=== PATIENT | female | born 1945 | race Caucasian/White ===

== ENCOUNTER → 2016-11-22 | Outpatient (CLI) | payer MEDICARE ==
--- NOTE | 2016-11-23 08:22 | XR ---
Left wrist HISTORY: Trauma and pain 3 views of the left wrist There is a comminuted distal metaphyseal left radial fracture with dorsal angulation and extension in to the radiocarpal joint. There is associated soft tissue swelling and ulnar styloid fracture which i s minimally displaced. Bone mineralization is reduced. No dislocation. IMPRESSION: Fractures of the left wrist.
== END ==
LOC: RADXRYALE 09:41
PROVIDERS: ATTEND Family Medicine
DX: S62.102A Fracture of unspecified carpal bone, left wrist, initial encounter for closed fracture (principal)

== ENCOUNTER → 2016-11-22 | Outpatient (CLI) | payer MEDICARE ==
[2016-11-22 14:45] LABS: Anisocytosis Slight; Basophils # (A) 0.1 k/uL (0-0.2); Basophils % (A) 1 %; CH 28.5; CHCM 31.7; Eosinophils # (A) 0.1 k/uL (0-0.7); Eosinophils % (A) 1 %; HDW 2.72; HGB 11.9 gm/dL (11.4-16.0); Hypochromasia Slight; Luc # (Auto) 0.17; Luc % (Auto) 1; Lymphocytes # (A) 1.6 k/uL (1.0-4.8); Lymphocytes % (A) 12 %; MCH 28.2 pg (25.0-35.0); MCHC 31.2 g/dL (31.0-37.0); MCV 90.5 fL (80.0-100.0); Mean Platelet Volume 7.6; Monocytes # (A) 0.6 k/uL (0-1.0); Monocytes % (A) 5 %; Neutrophils # (A) 10.4 k/uL (1.3-7.7); Neutrophils % (A) 81 %; WBC 12.9 k/uL (3.8-10.6); WBC (Perox) 13.68
[2016-11-22 14:57] LABS: Appearance,Urine Cloudy (Clear); Bacteria,Urine Occasional /hpf; Bilirubin,Urine Negative (Negative); Glucose,Urine (UA) 2+ (Negative); Ketones,Urine Negative (Negative); Leukocyte Esterase,Urine Small (Negative); Nitrite,Urine Positive (Negative); Particle Count 170754; Protein,Urine Negative (Negative); RBC,Urine 1 /hpf (0-5); Specific Gravity,Urine 1.006 (1.001-1.035); Squamous Epithelial Cell,Urine <1 /hpf (0-4); UA Billing (MACRO vs. MICRO) MICRO; Urobilinogen,Urine <2.0 mg/dL (<2.0); WBC,Urine 19 /hpf (0-5)
[2016-11-22 14:58] LABS: Anion Gap 12 mmol/L; Blood Urea Nitrogen 17 mg/dL (7-17); Calcium 9.3 mg/dL (8.4-10.2); Carbon Dioxide 28 mmol/L (22-30); Chloride 104 mmol/L (98-107); Glucose 146 mg/dL (74-99); Non-African American GFR(MDRD) >60 (>60 ml/min/1.73 sqM); Potassium 4.1 mmol/L (3.5-5.1); Sodium 144 mmol/L (137-145)
[2016-11-22 15:04] LABS: Partial Thromboplastin Time 23.2 sec (22.0-30.0); Prothrombin Time 10.3 sec (9.0-12.0)
== END ==
LOC: LABPAT 14:19
PROVIDERS: ATTEND Orthopaedic Surgery Orthopaedic Surgery of the Spine
DX: Z01.818 Encounter for other preprocedural examination (principal)
CPT/HCPCS: 80048; 81001; 85025; 85610; 85730

== ENCOUNTER 2016-11-23 08:53 | Day surgery (SDC) | payer MEDICARE ==
[2016-11-22 15:24] VITALS: BMI 32.1
[~2016-11-23 08:53] MED LIST: BACITRACIN 50,000 UNIT, POLYMYXIN B 500,000 UNIT in SODIUM CHLORIDE 0.9% IRRIGATIO 1,00... IRRIGATION ONE; DEXAMETHASONE SOD PHOSPHATE 10 MG/ML 1 ML VIAL IV ONE; HYDROmorphone 1 MG/ML 1 ML SYRINGE IVP PRN; LACTATED RINGERS 1,000 ML IV SCH; LIDOCAINE 1% 20 ML VIAL (10MG/ML) FOR IV START INTRADERMA PRN; ONDANSETRON 4 MG/2 ML VIAL IVP ONE; ceFAZolin 2 GM in SODIUM CHLORIDE 0.9% 100 ML IVPB ONE
[2016-11-23 15:53] VITALS: RESP 16; TEMP 97.4
[2016-11-23] MEDS ORDERED: fentaNYL (PF) 50 MCG/ML 2 ML AMP IV ONE (16:33)
[2016-11-23] MEDS ORDERED: fentaNYL (PF) 50 MCG/ML 2 ML AMP ONE (17:55)
[2016-11-23] MEDS ORDERED: LABETALOL 5 MG/ML VIAL MDV ONE (17:55)
[2016-11-23] MEDS ORDERED: hydrALAZINE HCL 20 MG/ML 1 ML VIAL ONE (17:55)
--- NOTE | 2016-11-23 18:26 | P.DS ---
Providers Date of admission: 11/23/16 14:59 Attending physician: Kyra Zacarias Primary care physician: [facility] Course: Patient was brought to the hospital for her planned surgical treatment of her left distal radius as she has sustained a distal radius displaced fracture, left status post fall at home. This is a new injury for the patient and it is acute due to her fall. She was scheduled to have an open reduction internal fixation of left distal radius. The patient was having some high blood pressure readings in preoperative area where her blood pressure was 190/90. In the operating room we took numerous blood pressures and her blood pressures where 228 215/115-125 repeatedly. She is not having any headaches she is not having any dizziness. She denied any specific symptoms. She had not received any sedation but had received some pain medications. She was not having any improvement of her blood pressure. She states that she did take her blood pressure medicine this morning and is normally on blood pressure medications. Given her significantly high blood pressures in the 200s over the 120's it was felt that the patient would be at increased risk for surgical intervention for fixation at her left wrist fracture. We felt that it would be safer for the patient to postpone surgery on her left wrist and undergo further evaluation and management of her blood pressures. I discussed this with patient and with her family today. We will discharge patient home today and reschedule surgery once she has been able to have evaluation with her primary care physician and further evaluation and management for her blood pressures and further clearance for surgery. She does have a marginal urine analysis and we will treat for for UTI prophylactically as well. I discussed this with him and answered her questions best my ability and they understand. We will follow-up with her for further management and treatment closely. Patient Condition at Discharge: Fair Plan - Discharge Summary New Discharge Prescriptions: Nitrofurantoin Monohyd/M-Cryst [Macrobid] 100 mg PO Q12HR #14 cap Discharge Medication List Atorvastatin [Lipitor] 40 mg PO HS 06/21/14 [History] Isosorbide Mononitrate [Imdur] 30 mg PO DAILY 06/21/14 [History] Levothyroxine Sodium [Synthroid] 25 mcg PO DAILY 06/21/14 [History] Furosemide [Lasix] 40 mg PO DAILY PRN 12/29/14 [History] tiZANidine HCL [Tizanidine HCl] 4 mg PO TID PRN 12/29/14 [History] Eszopiclone [Lunesta] 2 mg PO HS 11/22/16 [History] HYDROcodone/APAP 7.5-325MG [Shirley 7.5-325] 1 tab PO Q8H PRN 11/22/16 [History] Ursodiol [Actigall] 300 mg PO BID 11/22/16 [History] Ipratropium/Albuterol Sulfate [Combivent Respimat Inhaler] 1 - 2 puff INHALATION DAILY PRN 11/23/16 [History] Nitrofurantoin Monohyd/M-Cryst [Macrobid] 100 mg PO Q12HR #14 cap 11/23/16 [Rx] QUEtiapine [SEROquel] 1 tab PO HS 11/23/16 [History]
[2016-11-23 19:20] VITALS: BP 166/71; PULSE 87
== END 2016-11-23 19:37 | disposition home or self-care (01) ==
LOC: OR 08:53 → 2ORMAIN 14:59 → UNDOADMIN 14:59 → OR 19:37 → UNDODISIN 19:37
PROVIDERS: ATTEND Orthopaedic Surgery Orthopaedic Surgery of the Spine
DX: S52.512A Displaced fracture of left radial styloid process, initial encounter for closed fracture (principal); Z53.09 Procedure and treatment not carried out because of other contraindication; I10 Essential (primary) hypertension; E11.9 Type 2 diabetes mellitus without complications; N39.0 Urinary tract infection, site not specified; I50.9 Heart failure, unspecified; E78.5 Hyperlipidemia, unspecified; E03.9 Hypothyroidism, unspecified; J44.9 Chronic obstructive pulmonary disease, unspecified; H91.90 Unspecified hearing loss, unspecified ear; Z79.899 Other long term (current) drug therapy; W06.XXXA Fall from bed, initial encounter; Y92.003 Bedroom of unspecified non-institutional (private) residence as the place of occurrence of the external cause; Z88.5 Allergy status to narcotic agent; Z83.3 Family history of diabetes mellitus; Z82.49 Family history of ischemic heart disease and other diseases of the circulatory system; Z79.891 Long term (current) use of opiate analgesic
CPT/HCPCS: 25607; J0360; J1100; J2405; J3010

== ENCOUNTER 2016-12-07 13:26 | Day surgery (SDC) | payer MEDICARE ==
[2016-12-06 14:12] VITALS: BMI 31.7
[~2016-12-07 13:26] MED LIST changes: -DEXAMETHASONE SOD PHOSPHATE 10 MG/ML 1 ML VIAL IV ONE; -HYDROmorphone 1 MG/ML 1 ML SYRINGE IVP PRN; -LACTATED RINGERS 1,000 ML IV SCH; -LIDOCAINE 1% 20 ML VIAL (10MG/ML) FOR IV START INTRADERMA PRN; -ONDANSETRON 4 MG/2 ML VIAL IVP ONE
[2016-12-07] MEDS ORDERED: LACTATED RINGERS 1,000 ML IV ONE ×2 (14:18→17:11)
[2016-12-07] MEDS ORDERED: LIDOCAINE 1% 20 ML VIAL (10MG/ML) FOR IV START INTRADERMA ONE (14:19)
[2016-12-07 14:31] LABS: Appearance,Urine Cloudy (Clear); Bacteria,Urine Moderate /hpf; Bilirubin,Urine Negative (Negative); Glucose,Urine (UA) Negative (Negative); Ketones,Urine Negative (Negative); Leukocyte Esterase,Urine Small (Negative); Mucus,Urine Rare /hpf; Nitrite,Urine Positive (Negative); Particle Count 21495; Protein,Urine Negative (Negative); Specific Gravity,Urine 1.009 (1.001-1.035); Squamous Epithelial Cell,Urine 2 /hpf (0-4); UA Billing (MACRO vs. MICRO) MICRO; Urobilinogen,Urine <2.0 mg/dL (<2.0); WBC,Urine 3 /hpf (0-5)
[2016-12-07 14:51] LABS: Glucose,Whole Blood 120 mg/dL (75-99)
[2016-12-07] MEDS ORDERED: ONDANSETRON 4 MG/2 ML VIAL IVP ONE (15:11)
[2016-12-07] MEDS ORDERED: DEXAMETHASONE SOD PHOSPHATE 10 MG/ML 1 ML VIAL IV ONE (15:11)
[2016-12-07] MEDS ORDERED: LACTATED RINGERS 1,000 ML IV SCH (15:15)
[2016-12-07] MEDS ORDERED: LIDOCAINE 1% INJ 10MG/ML (20 ML MDV) ONE (15:54)
[2016-12-07] MEDS ORDERED: hydrALAZINE HCL 20 MG/ML 1 ML VIAL ONE (15:54)
[2016-12-07] MEDS ORDERED: PROPOFOL 10 MG/ML 20 ML VIAL IV ONE (15:54)
[2016-12-07] MEDS ORDERED: HYDROmorphone (PF) 1 MG/ML ONE (15:54)
[2016-12-07] MEDS ORDERED: fentaNYL (PF) 50 MCG/ML 2 ML AMP ONE (15:54)
[2016-12-07] MEDS ORDERED: METOPROLOL TARTRATE 5 MG/5 ML VIAL IVP ONE (15:54)
[2016-12-07] MEDS ORDERED: MIDAZOLAM 2 MG/2 ML VIAL ONE (15:54)
[2016-12-07] MEDS ORDERED: SUCCINYLCHOLINE CHLORIDE 100 MG/5 ML SYR IV ONE (15:54)
[2016-12-07] MEDS ORDERED: BUPIVACAINE (PF) 0.25% 30 ML VIAL SQ ONE (17:08)
[2016-12-07] MEDS ORDERED: BENZOCAINE/MENTHOL LOZENG 1 EACH LOZENGE MUCOUS MEM PRN (17:09)
[2016-12-07] MEDS ORDERED: HYDROmorphone 1 MG/ML 1 ML SYRINGE IVP PRN ×2 (17:09→21:31)
[2016-12-07] MEDS ORDERED: ONDANSETRON 4 MG/2 ML VIAL IVP PRN (17:10)
[2016-12-07] MEDS ORDERED: ceFAZolin 1,000 MG in SODIUM CHLORIDE 0.9% 1,000 ML IRRIGATION ONE (17:10)
[2016-12-07] MEDS ORDERED: HYDROcodone/APAP 5-325MG 1 EACH TAB PO PRN (17:10)
[2016-12-07] MEDS ORDERED: HYDROcodone/APAP 7.5-325MG 1 EACH TAB PO PRN (17:12)
[2016-12-07] MEDS ORDERED: IPRATROPIUM-ALBUTEROL 3 ML NEB INHALATION PRN (17:12)
[2016-12-07] MEDS ORDERED: FUROSEMIDE 40 MG TAB PO PRN (17:12)
[2016-12-07] MEDS ORDERED: tiZANidine 4 MG TAB PO PRN (17:12)
[2016-12-07] MEDS ORDERED: SODIUM CHLORIDE 0.9% 1,000 ML IV SCH (17:15)
--- NOTE | 2016-12-07 17:25 | XR ---
EXAMINATION TYPE: XR wrist limited LT DATE OF EXAM: 12/07/2016 5:14 PM COMPARISON: 11/22/2016 TECHNIQUE: One view submitted HISTORY: Post op FINDINGS: There is operative change in near anatomic alignment. IMPRESSION: 1. Postoperative change. Appears in near-anatomic alignment
[2016-12-07] MEDS: HYDROmorphone 1 MG/ML 1 ML SYRINGE IVP PRN ×4 (17:35→18:09)
--- NOTE | 2016-12-07 17:39 | P.OP ---
Date of Procedure: 12/07/16 Preoperative Diagnosis: Left distal radius fracture, acute comminuted intra-articular status post fall Postoperative Diagnosis: Same Anesthesia: GETA Pathology: none sent Condition: stable Disposition: PACU Description of Procedure: BRIEF OPERATIVE NOTE Preoperative Diagnosis: Left displaced distal radius fracture and ulnar styloid fracture, acute comminuted and intra-articular Postoperative Diagnosis: Same Procedure: Open reduction internal fixation of left distal radius fracture Use of fluoroscopic guidance Surgeon: Dr. Zacarias Tobacco Baler: Wally Mas is present throughout the entire the case persistence during positioning, dissection, exposure, visualization, and all crucial elements of the case as well as closure. Anesthesia: General anesthesia Estimated blood loss: Less than 50 mL Tourniquet time: Approximately 60 minutes Specimen: None Complications: None apparent Components implanted: Synthes volar locking plate with 4 locking screws 2.4 mm in diameter distally and 2 cortical screws 2.7 mm diameter proximally Disposition: To recovery room in good stable condition. OPERATIVE INDICATIONS The patient had an acute injury almost 2 weeks ago when she fell on outstretched left upper extremity. She was found have obvious deformity and distal radius fracture with comminution and displacement. We discussed different treatment options and she is an active person with significant demands and she decided to proceed with open reduction internal fixation of her left distal radius fracture. We attempted to perform surgery approximately 10 days ago but she had severe hypertension and we had to postpone the surgery. She's been treated as outpatient for her hypertension as well as urinary tract infection and has made good progress with both knees. She presented again today for surgical intervention for open reduction internal fixation of her left upper extremity She had not had any pain or issues prior to her fall. I discussed the risk of occasions alternatives and benefits of surgery in relation to her injury. I discussed the risk of bleeding risk and infection risk and need for further surgery risk of decreased loss of motion loss function malunion nonunion hardware failure nerve damage as well as, occasions with surgery were explained. I answered her questions best my ability and she elected proceed with surgical intervention. OPERATIVE SUMMARY After discussing all the risks, patient alternatives and benefits at length, the patient elected to proceed with surgical intervention, signed informed consent, and presented for their procedure. The patient was seen and examined in the preoperative holding area and the surgical site was marked. The patient was given antibiotics and brought to the operating room. The patient was sedated and intubated by anesthesia in standard fashion. The patient was positioned on to the operating room table in a supine position . We were careful to pad any bony prominences and pressure points. We were careful to maintain the patient's cervical spine and good neutral alignment and position throughout. Her left upper extremity is placed on an arm board appropriately. A nonsterile tourniquet was placed over the left upper arm. We used C-arm machines to establish union fluoroscopic guidance in AP and lateral positions. We were able to localize the fractures appropriately. The patient was prepped and draped in a normal standard fashion. An appropriate timeout and keystone protocol performed. We were able to proceed with the surgery. Left upper extremity was elevated for approximately 2 minutes and a tourniquet was inflated to 300 mmHg area and it was utilized proximally 60 minutes. An incision was made over the volar aspect of the distal forearm. I was able to dissect with mobilization soft tissue structures down to the volar aspect of the distal radius. The fracture was obvious and displaced. With reduction techniques I was able to get good reduction of the distal radius fracture. This was confirmed with C-arm guidance. With the fracture in good alignment and position was able to use a distal radius volar plate which was positioned over the fracture site volarly. With C-arm guidance I was able place a proximal cortical screw and a distal locking screw appropriately. This had good visual fixation of the fracture. This was confirmed with C-arm guidance. With the plate in good alignment and good position I was unable to place distal locking screws for 4 total distal locking screws in good alignment good position being careful not to penetrate the articular surface. The screws had good purchase and were locked into the plate itself. The proximal vertical screw was exchanged for the appropriate size and put in place with good bony purchase. I placed another proximal cortical screw and good alignment and good position with good bony purchase. Alignment and position was checked and the fracture and hardware had good alignment good position. The wrist was taken through range of motion and showed good fixation without any motion at the fracture site. The wound was copiously irrigated and suctioned dry. We were able to proceed with closure. subcu tissues closed 3-0 Vicryl and skin was closed with 5-0 nylon. The wound was cleaned and dried and dressed with the appropriate dressing. I placed a well-padded well molded volar and dorsal short arm splint and good position being careful to pad any bony problems pressure points. The drapes were broken down. The patient was gently rolled back onto their hospital bed being careful to maintain their cervical spine and good neutral alignment and position. They were woken up by anesthesia , extubated, and brought to the recovery room in good stable condition. The patient will be able to be discharged from the hospital after appropriate observation due to and for appropriate postoperative care, medical management and monitoring. We will continue to follow them closely about the postoperative course. a plan see her back in the office in approximately 1 week' s time or sooner if she is having problems.
[2016-12-07] MEDS: URSODIOL 300 MG CAP PO SCH (20:50)
[2016-12-07] MEDS: cloNIDine HCL 0.1 MG TAB PO SCH (20:52)
[2016-12-07] MEDS ORDERED: QUEtiapine 100 MG TAB PO SCH (21:00)
[2016-12-07] MEDS ORDERED: ZOLPIDEM 5 MG TAB PO SCH (21:00)
[2016-12-07] MEDS ORDERED: ATORVASTATIN 40 MG TAB PO SCH (21:00)
[2016-12-07] MEDS ORDERED: HYDROcodone/APAP 10-325MG 1 EACH TAB PO PRN (21:38)
[2016-12-08] MEDS: ceFAZolin 2 GM in SODIUM CHLORIDE 0.9% 100 ML IVPB SCH ×2 (00:25→09:17)
[2016-12-08 06:18] VITALS: RESP 18
[2016-12-08] MEDS ORDERED: LEVOTHYROXINE 25 MCG TAB PO SCH (06:30)
[2016-12-08 07:37] VITALS: BP 185/89; PULSE 61; TEMP 98.1
--- NOTE | 2016-12-08 08:01 | FL ---
FLUOROSCOPY 24 seconds of fluoroscopy time were utilized during internal fixation of the left wrist. 2 images doc ument the procedure.
[2016-12-08] MEDS ORDERED: ISOSORBIDE MONONITRATE ER 30 MG TAB.ER.24H PO SCH (09:00)
[2016-12-08] MEDS ORDERED: LISINOPRIL 20 MG TAB PO SCH (09:00)
[2016-12-08] MEDS ORDERED: ATENOLOL 25 MG TAB PO SCH (09:00)
[2016-12-08] MEDS ORDERED: HYDROCHLOROTHIAZIDE 25 MG TAB PO SCH (09:00)
[2016-12-08] MEDS: URSODIOL 300 MG CAP PO SCH (09:17)
[2016-12-08] MEDS: cloNIDine HCL 0.1 MG TAB PO SCH (09:18)
--- NOTE | 2016-12-08 09:48 | P.DS ---
Providers Attending physician: Kyra Zacarias Primary care physician: [facility] Course: The patient presented on the day of admission as per her operative note. Almost 2 weeks ago she has sustained a fracture at the left distal radius and ulna with displacement and angulation. We initially tried to pursue surgical intervention but she had severe hypertension issues and her surgery had to be postponed. She was able to get better control of her blood pressure with medicine and cardiology service and was able to undergo surgery for open reduction internal fixation of her left distal radius yesterday as per her operative note. She is having significant pain yesterday but feels that her symptoms are significant improvement. She has good motor and sensation at her hands and fingers. She has no new complaints. Physical Exam The incision site is clean dry and intact. There is no erythema no drainage. There is no purulence no evidence of infection. Her short arm splint is intact. There is no active drainage. Her fingers are pink and warm. She has good motion in her fingers. Good motion at her elbow. Abdomen soft and nontender. Chest has good excursion with deep inspiration and expiration. The patient has active and passive range of motion intact at the upper and lower extremities. There is no acute change in neurologic status. The splint is clean dry and intact at left upper extremity Hospital Course Postoperative day #1 status post open reduction internal fixation of left distal radius for her comminuted and displaced distal radius fracture status post fall. Hypertension The patient has been making good progress postoperatively. Her symptoms and her pain have subsided and her wound site appears to be stable. They have completed the prophylactic antibiotics without any signs or symptoms of infection. The patient has been able to advance their diet, and is tolerating diet adequately. The pain was initially controlled with IV medications and is now controlled appropriately with oral medications. The patient has been able to increase their mobilization. Her blood pressure has remained stable and she should continue management as an outpatient with her primary care doctor and cardiology to keep control of her hypertension. The patient has progressed appropriately. I think they are in good stable condition for discharge today. They will be sent home with appropriate prescriptions. I answered their questions to the best of my ability in a language that they can understand and they are agreeable with the plan. They will follow up as directed in approximately 1 week for recheck evaluation or sooner if she is having any problems. Patient Condition at Discharge: Good Plan - Discharge Summary New Discharge Prescriptions: HYDROcodone/APAP 7.5-325MG [Blachly 7.5-325] 1 tab PO Q6HR PRN #90 tab PRN Reason: Pain Nitrofurantoin Monohyd/M-Cryst [Macrobid] 100 mg PO Q12HR #14 cap Discharge Medication List Atorvastatin [Lipitor] 40 mg PO HS 06/21/14 [History] Isosorbide Mononitrate [Imdur] 30 mg PO QAM 06/21/14 [History] Levothyroxine Sodium [Synthroid] 25 mcg PO QAM 06/21/14 [History] Furosemide [Lasix] 40 mg PO DAILY PRN 12/29/14 [History] tiZANidine HCL [Tizanidine HCl] 4 mg PO TID PRN 12/29/14 [History] Eszopiclone [Lunesta] 2 mg PO HS 11/22/16 [History] HYDROcodone/APAP 7.5-325MG [Blachly 7.5-325] 1 tab PO Q8H PRN 11/22/16 [History] Ursodiol [Actigall] 300 mg PO BID 11/22/16 [History] Ipratropium/Albuterol Sulfate [Combivent Respimat Inhaler] 1 - 2 puff INHALATION DAILY PRN 11/23/16 [History] QUEtiapine [SEROquel] 100 mg PO HS 11/23/16 [History] Atenolol 25 mg PO DAILY 12/07/16 [History] HYDROcodone/APAP 7.5-325MG [Blachly 7.5-325] 1 tab PO Q6HR PRN #90 tab 12/07/16 [ Rx] Hydrochlorothiazide 25 mg PO DAILY 12/07/16 [History] Lisinopril [Zestril] 20 mg PO DAILY 12/07/16 [History] Nitrofurantoin Monohyd/M-Cryst [Macrobid] 100 mg PO Q12HR #14 cap 12/07/16 [Rx] cloNIDine HCL [Catapres] 0.1 mg PO TID 12/07/16 [History] Follow up Appointment(s)/Referral(s): Kyra Zacarias DO [Doctor of Osteopathic Medicine] - 1 Week (With Brennon Koroma at Dr. Zacarias office) Activity/Diet/Wound Care/Special Instructions: keep splint clean, dry and intact. do not remove. elevate Left Upper Extremity.
== END 2016-12-08 11:41 | disposition home or self-care (01) ==
LOC: OR 13:26 → 3OBS 17:26 → OR 12-08 11:41
PROVIDERS: ATTEND Orthopaedic Surgery Orthopaedic Surgery of the Spine
DX: S52.502A Unspecified fracture of the lower end of left radius, initial encounter for closed fracture (principal); S52.612A Displaced fracture of left ulna styloid process, initial encounter for closed fracture; W06.XXXA Fall from bed, initial encounter; I10 Essential (primary) hypertension; E78.5 Hyperlipidemia, unspecified; E11.9 Type 2 diabetes mellitus without complications; I20.9 Angina pectoris, unspecified; E07.9 Disorder of thyroid, unspecified; M19.90 Unspecified osteoarthritis, unspecified site; K74.60 Unspecified cirrhosis of liver; Z95.1 Presence of aortocoronary bypass graft; Z79.899 Other long term (current) drug therapy; Z88.6 Allergy status to analgesic agent; Z88.5 Allergy status to narcotic agent
CPT/HCPCS: 81001; 73100; 25652; 25608; C1713; J2250; J0360; J1100; J0690 ×3; J2405; J2001; J3010; J1170 ×2; J0330; J2704

== ENCOUNTER 2016-12-12 22:36 | Inpatient (IN) | payer MEDICARE ==
[2016-12-12] MEDS ORDERED: SODIUM CHLORIDE 0.9% 1,000 ML IV ONE (22:39)
[2016-12-12 22:40] LABS: Glucose,Whole Blood 131 mg/dL (75-99)
--- NOTE | 2016-12-12 22:47 | ED ---
Altered Mental Status HPI - General Stated Complaint: Altered Mental Status Time Seen by Provider: 12/12/16 22:39 Source: EMS Mode of arrival: EMS Limitations: altered mental status - History of Present Illness Initial Comments: Family noticed that she was unresponsive and they called the ambulance [facility] noticed some blood pressure was quite low they said it was 40/20 and she was not moving at all. She has left arm injury for that she was prescribed Vicodin they gave her [place] CN II mg IV after that she started moving around but she was still quite confused on arrival to the ER patient had his eyes open she was following some commands looked quite pale with the fluid for about a half liter of blood pressure got up to 1:30 systolic and sugar was within normal range. Later my daughter and son came and they said the mom's lap to hold a they definitely don't know when she was totally normal granddaughter tried to break up gram of this morning before she left for school mostly grandma gets up and sees her off at the door but today grandma didn't get up. That was around 9 AM today Family thought she had too many Vicodin's and that' s why she slept poorly - Related Data Home Medications Medication Instructions Recorded Confirmed Atorvastatin [Lipitor] 40 mg PO HS 06/21/14 12/07/16 Isosorbide Mononitrate [Imdur] 30 mg PO QAM 06/21/14 12/07/16 Levothyroxine Sodium [Synthroid] 25 mcg PO QAM 06/21/14 12/07/16 Furosemide [Lasix] 40 mg PO DAILY PRN 12/29/14 12/07/16 tiZANidine HCL [Tizanidine HCl] 4 mg PO TID PRN 12/29/14 12/07/16 Eszopiclone [Lunesta] 2 mg PO HS 11/22/16 12/07/16 HYDROcodone/APAP 7.5-325MG [[place] 1 tab PO Q8H PRN 11/22/16 12/07/16 7.5-325] Ursodiol [Actigall] 300 mg PO BID 11/22/16 12/07/16 Ipratropium/Albuterol Sulfate 1 - 2 puff INHALATION DAILY PRN 11/23/16 12/07/16 [Combivent Respimat Inhaler] QUEtiapine [SEROquel] 100 mg PO HS 11/23/16 12/07/16 Atenolol 25 mg PO DAILY 12/07/16 12/07/16 Hydrochlorothiazide 25 mg PO DAILY 12/07/16 12/07/16 Lisinopril [Zestril] 20 mg PO DAILY 12/07/16 12/07/16 cloNIDine HCL [Catapres] 0.1 mg PO TID 12/07/16 12/07/16 Previous Rx's Medication Instructions Recorded HYDROcodone/APAP 7.5-325MG [[place] 1 tab PO Q6HR PRN #90 tab 12/07/16 7.5-325] Nitrofurantoin Monohyd/M-Cryst 100 mg PO Q12HR #14 cap 12/07/16 [Macrobid] Allergies Allergy/AdvReac Type Severity Reaction Status Date / Time acetaminophen [From Percocet] Allergy Rash/Hives Verified 12/07/16 14:27 Iodinated Contrast Media - Allergy Rash/Hives Verified 12/07/16 14:27 Oral and oxycodone HCl [From Percocet] Allergy Rash/Hives Verified 12/07/16 14:27 shellfish derived Allergy Rash/Hives Verified 12/07/16 14:27 Review of Systems ROS Statement: Those systems with pertinent positive or pertinent negative responses have been documented in the HPI. ROS Other: All systems not noted in ROS Statement are negative. Past Medical History Past Medical History: Hyperlipidemia, Hypertension, Liver Disease, Musculoskeletal Disorder, Osteoarthritis (OA), Thyroid Disorder Additional Past Medical History / Comment(s): Hx pxpwbjquf-cwrvyb-elfqy't see specialist anymore, borderline diabetes, states no meds just watches what she eats. Had a fall and fx. left wrist. History of Any Multi-Drug Resistant Organisms: None Reported Past Surgical History: Bowel Resection, Cholecystectomy, Coronary Bypass/CABG, Heart Catheterization, Hysterectomy, Tonsillectomy Additional Past Surgical History / Comment(s): Gastric bypass, bowel obstruction x3, quad bypass 16 yrs ago. Past Anesthesia/Blood Transfusion Reactions: Family History of Problems w/ Anesthesia Additional Past Anesthesia/Blood Transfusion Reaction / Comment(s): Mother had difficulty waking up after anesthesia. Date of Last Stent Placement:: unknown Past Psychological History: No Psychological Hx Reported Smoking Status: Never smoker Past Alcohol Use History: None Reported Past Drug Use History: None Reported - Past Family History Mother Family Medical History: No Reported History General Exam - General Exam Comments Initial Comments: General: The patient is awake , she looks pale and tired GCS is 15 Skin: Skin is warm and dry and no rashes or lesions are noted. Eye: Pupils are equal, round and reactive to light, extra-ocular movements are intact; there is normal conjunctiva bilaterally. Ears, nose, mouth and throat: There are moist mucous membranes and no oral lesions. Neck: The neck is supple, there is no tenderness Cardiovascular: There is a regular rate and rhythm. No murmur, Respiratory: To auscultation bilateral, raccoons at the bases Gastrointestinal: Soft, non-distended, non-tender abdomen without masses or organomegaly noted. There is no rebound or guarding present. Bowel sounds are unremarkable. Back: There is no tenderness to palpation in the midline. There is no obvious deformity. Musculoskeletal: Normal ROM, no tenderness, she has a cast on her left forearm. Neurological: CN II-XII intact, Cranial nerves III through XII are intact. He is moving all 4 extremities but not following the commands have to time Psychiatric: Cooperative, affect is quite flat. Limitations: altered mental status Course Vital Signs 12/12/16 12/12/16 22:38 23:17 Temperature 96.9 F L Pulse Rate 73 60 Respiratory 16 16 Rate Blood Pressure 139/70 129/59 O2 Sat by Pulse 100 98 Oximetry EKG shows sinus rhythm with a premature atrial complexes ventricular rate is 68 NM interval is 148 QRS duration is 80 QT/QTc is 428/455 review of this EKG reveal flattening of the T-wave in aVL no ST elevation or ST depression noticed this EKG Medical Decision Making - Lab Data Result diagrams: 12/12/16 22:48 12/12/16 22:48 Lab Results 12/12/16 12/12/16 12/12/16 Range/Units 22:39 22:48 22:48 WBC 11.1 H (3.8-10.6) k/uL RBC 3.63 L (3.80-5.40) m/uL Hgb 10.4 L (11.4-16.0) gm/dL Hct 31.6 L (34.0-46.0) % MCV 87.2 (80.0-100.0) fL MCH 28.6 (25.0-35.0) pg MCHC 32.8 (31.0-37.0) g/dL RDW 16.4 H (11.5-15.5) % Plt Count 292 (150-450) k/uL Neutrophils % 74 % Lymphocytes % 19 % Monocytes % 5 % Eosinophils % 1 % Basophils % 0 % Neutrophils # 8.2 H (1.3-7.7) k/uL Lymphocytes # 2.1 (1.0-4.8) k/uL Monocytes # 0.5 (0-1.0) k/uL Eosinophils # 0.1 (0-0.7) k/uL Basophils # 0.0 (0-0.2) k/uL Anisocytosis Slight PT (9.0-12.0) sec INR (<1.1) APTT (22.0-30.0) sec Sodium (137-145) mmol/L Potassium (3.5-5.1) mmol/L Chloride (98-107) mmol/L Carbon Dioxide (22-30) mmol/L Anion Gap mmol/L BUN (7-17) mg/dL Creatinine (0.52-1.04) mg/dL Est GFR (MDRD) Af Amer (>60 ml/min/1.73 sqM) Est GFR (MDRD) Non-Af (>60 ml/min/1.73 sqM) Glucose (74-99) mg/dL POC Glucose (mg/dL) 131 H (75-99) mg/dL POC Glu [place]ose [place] ID [facility] [place], [place]annine Calcium (8.4-10.2) mg/dL Total Bilirubin (0.2-1.3) mg/dL AST (14-36) U/L ALT (9-52) U/L Alkaline Phosphatase (38-126) U/L Total Creatine Kinase 251 H (30-135) U/L CK-MB (CK-2) 2.3 (0.0-2.4) ng/mL CK-MB (CK-2) Rel Index 0.9 Troponin I <0.012 (0.000-0.034) ng/mL Total Protein (6.3-8.2) g/dL Albumin (3.5-5.0) g/dL Urine Color Urine Appearance (Clear) Urine pH (5.0-8.0) Ur Specific [place] (1.001-1.035) Urine Protein (Negative) Urine Glucose (UA) (Negative) Urine Ketones (Negative) Urine Blood (Negative) Urine Nitrite (Negative) Urine Bilirubin (Negative) Urine Urobilinogen (<2.0) mg/dL Ur Leukocyte Esterase (Negative) Urine Opiates Screen (NotDetected) Ur Oxycodone Screen (NotDetected) Urine Methadone Screen (NotDetected) Ur Propoxyphene Screen (NotDetected) Ur Barbiturates Screen (NotDetected) U Tricyclic Antidepress (NotDetected) Ur Phencyclidine Scrn (NotDetected) Ur Amphetamines Screen (NotDetected) U Methamphetamines Scrn (NotDetected) U Benzodiazepines Scrn (NotDetected) Urine Cocaine Screen (NotDetected) U Marijuana (THC) Screen (NotDetected) 12/12/16 12/12/16 12/12/16 Range/Units 22:48 22:48 23:15 WBC (3.8-10.6) k/uL RBC (3.80-5.40) m/uL Hgb (11.4-16.0) gm/dL Hct (34.0-46.0) % MCV (80.0-100.0) fL MCH (25.0-35.0) pg MCHC (31.0-37.0) g/dL RDW (11.5-15.5) % Plt Count (150-450) k/uL Neutrophils % % Lymphocytes % % Monocytes % % Eosinophils % % Basophils % % Neutrophils # (1.3-7.7) k/uL Lymphocytes # (1.0-4.8) k/uL Monocytes # (0-1.0) k/uL Eosinophils # (0-0.7) k/uL Basophils # (0-0.2) k/uL Anisocytosis PT 11.6 (9.0-12.0) sec INR 1.2 (<1.1) APTT 21.5 L (22.0-30.0) sec Sodium 135 L (137-145) mmol/L Potassium 4.3 (3.5-5.1) mmol/L Chloride 103 (98-107) mmol/L Carbon Dioxide 24 (22-30) mmol/L Anion Gap 8 mmol/L BUN 31 H (7-17) mg/dL Creatinine 1.20 H (0.52-1.04) mg/dL Est GFR (MDRD) Af Amer 54 (>60 ml/min/1.73 sqM) Est GFR (MDRD) Non-Af 44 (>60 ml/min/1.73 sqM) Glucose 121 H (74-99) mg/dL POC Glucose (mg/dL) (75-99) mg/dL POC Glu Moose Hunter ID Calcium 8.3 L (8.4-10.2) mg/dL Total Bilirubin 0.6 (0.2-1.3) mg/dL AST 26 (14-36) U/L ALT 27 (9-52) U/L Alkaline Phosphatase 109 (38-126) U/L Total Creatine Kinase (30-135) U/L CK-MB (CK-2) (0.0-2.4) ng/mL CK-MB (CK-2) Rel Index Troponin I (0.000-0.034) ng/mL Total Protein 5.7 L (6.3-8.2) g/dL Albumin 3.0 L (3.5-5.0) g/dL Urine Color Yellow Urine Appearance Clear (Clear) Urine pH 6.0 (5.0-8.0) Ur Specific [place] 1.011 (1.001-1.035) Urine Protein Negative (Negative) Urine Glucose (UA) Negative (Negative) Urine Ketones Negative (Negative) Urine Blood Negative (Negative) Urine Nitrite Negative (Negative) Urine Bilirubin Negative (Negative) Urine Urobilinogen <2.0 (<2.0) mg/dL Ur Leukocyte Esterase Negative (Negative) Urine Opiates Screen Detected H (NotDetected) Ur Oxycodone Screen Not Detected (NotDetected) Urine Methadone Screen Not Detected (NotDetected) Ur Propoxyphene Screen Not Detected (NotDetected) Ur Barbiturates Screen Not Detected (NotDetected) U Tricyclic Antidepress Detected H (NotDetected) Ur Phencyclidine Scrn Not Detected (NotDetected) Ur Amphetamines Screen Not Detected (NotDetected) U Methamphetamines Scrn Not Detected (NotDetected) U Benzodiazepines Scrn Not Detected (NotDetected) Urine Cocaine Screen Not Detected (NotDetected) U Marijuana (THC) Screen Not Detected (NotDetected) Critical Care Time Total Critical Care Time: 45 Critical Care Time: Was quite hypertensive when she came in and she was barely awake with the fluid resuscitation she a blood pressure got better and then GCS perked up to [address] head showed new headache broken or infarct indeterminate Chest X-Ray Showed Pneumonia and a CBC Was within Normal Range with Some Left Shift Lower GCS Is 15 Now Looking at This Head CT 8 Think She Has a CVA Though Onset Time Was Not Clear and There Was No Measurable Neuro Deficits Not of Older People Get Unresponsive Even with the Sepsis, She Be Admitted to Dr. Martínez Services and Now Dr. Montoya Will Be Consulted A, She Will Not Get Aspirin 81 Mg by Mouth Now Disposition Clinical Impression: Hypotension, Lacunar infarct, acute, Pneumonia Disposition: ADMITTED IP TO THIS HOSP Condition: Fair
[2016-12-12 23:06] LABS: Anisocytosis Slight; Basophils % (A) 0 %; CH 28.5; CHCM 32.8; Eosinophils # (A) 0.1 k/uL (0-0.7); Eosinophils % (A) 1 %; HCT 31.6 % (34.0-46.0); HDW 2.46; HGB 10.4 gm/dL (11.4-16.0); Luc # (Auto) 0.19; Luc % (Auto) 2; Lymphocytes # (A) 2.1 k/uL (1.0-4.8); Lymphocytes % (A) 19 %; MCH 28.6 pg (25.0-35.0); MCHC 32.8 g/dL (31.0-37.0); MCV 87.2 fL (80.0-100.0); Mean Platelet Volume 6.9; Monocytes # (A) 0.5 k/uL (0-1.0); Monocytes % (A) 5 %; Neutrophils # (A) 8.2 k/uL (1.3-7.7); Neutrophils % (A) 74 %; RBC 3.63 m/uL (3.80-5.40); RDW 16.4 % (11.5-15.5); WBC 11.1 k/uL (3.8-10.6); WBC (Perox) 11.17
[2016-12-12 23:14] LABS: INR 1.2 (<1.1); Prothrombin Time 11.6 sec (9.0-12.0)
[2016-12-12 23:15] LABS: Calcium 8.3 mg/dL (8.4-10.2); Potassium 4.3 mmol/L (3.5-5.1); Total Bilirubin 0.6 mg/dL (0.2-1.3); Total Protein 5.7 g/dL (6.3-8.2)
--- NOTE | 2016-12-12 23:16 | CT ---
EXAMINATION TYPE: CT brain wo con DATE OF EXAM: 12/12/2016 11:02 PM COMPARISON: 12/29/2014 HISTORY: Altered mental status and hypotension. CT DLP: 1064.30 mGycm Automated exposure control for dose reduction was used. FINDINGS: There is hypodensity in the periventricular white matter and more noticeable in both parietal lobes. There is no mass effect nor midline shift. There is a 1 cm hypodensity in the right posterior frontal lobe blackburn-white matter junction. There is no hydrocephalus. There are hypodense foci in both interna l capsules. Calvarium is intact. IMPRESSION: Extensive chronic small vessel ischemia. There is slight progression of disease compared to old exam. There is evidence of new lacunar infarct in the left internal capsule.
--- NOTE | 2016-12-12 23:19 | XR ---
EXAMINATION TYPE: XR chest 2V DATE OF EXAM: 12/12/2016 11:06 PM COMPARISON: 12/29/2014 HISTORY: Altered mental status TECHNIQUE: Frontal and lateral views of the chest are obtained. FINDINGS: Heart appears enlarged. There is no gross heart failure. There is evidence of a mild infil trate at the lateral left lung base. There are sternal wires. There are chest leads. There are no hil ar masses. IMPRESSION: No heart failure. There is a small infiltrate at the lateral left lung base that could b e new compared to old exam.
[2016-12-12 23:22] LABS: Partial Thromboplastin Time 21.5 sec (22.0-30.0)
[2016-12-12 23:27] LABS: Creatine Kinase 251 U/L (30-135)
[2016-12-12 23:32] LABS: Appearance,Urine Clear (Clear); Bilirubin,Urine Negative (Negative); Glucose,Urine (UA) Negative (Negative); Ketones,Urine Negative (Negative); Leukocyte Esterase,Urine Negative (Negative); Nitrite,Urine Negative (Negative); Protein,Urine Negative (Negative); Specific Gravity,Urine 1.011 (1.001-1.035); UA Billing (MACRO vs. MICRO) CHEM; Urobilinogen,Urine <2.0 mg/dL (<2.0)
[2016-12-12 23:40] LABS: Creatine Kinase MB 2.3 ng/mL (0.0-2.4); Troponin I <0.012 ng/mL (0.000-0.034)
[2016-12-12] MEDS ORDERED: ASPIRIN 81 MG CHEW PO STA (23:54)
[2016-12-12] MEDS ORDERED: ONDANSETRON 4 MG/2 ML VIAL IVP PRN (23:54)
[2016-12-12] MEDS ORDERED: NALOXONE 0.4 MG/ML 1 ML VIAL IV PRN (23:54)
[2016-12-12] MEDS ORDERED: tiZANidine 4 MG TAB PO PRN (23:59)
[2016-12-12] MEDS ORDERED: IPRATROPIUM-ALBUTEROL 3 ML NEB INHALATION PRN (23:59)
[2016-12-13] MEDS ORDERED: cefTRIAXone 2,000 MG in SODIUM CHLORIDE 0.9% 100 ML IVPB STA (00:03)
[2016-12-13] MEDS ORDERED: AZITHROMYCIN 500 MG in SODIUM CHLORIDE 0.9% 250 ML IVPB STA (00:03)
[2016-12-13 01:03] VITALS: BMI 30.4
[2016-12-13] MEDS: LEVOTHYROXINE 25 MCG TAB PO SCH (06:36)
[2016-12-13] MEDS: URSODIOL 300 MG CAP PO SCH ×2 (08:19→20:10)
[2016-12-13] MEDS: cloNIDine HCL 0.1 MG TAB PO SCH ×3 (08:19→21:07)
[2016-12-13] MEDS: ASPIRIN 81 MG CHEW PO SCH (08:19)
[2016-12-13] MEDS: ISOSORBIDE MONONITRATE ER 30 MG TAB.ER.24H PO SCH (08:20)
[2016-12-13] MEDS: traMADol 50 MG TAB PO PRN ×3 (08:24→21:13)
--- NOTE | 2016-12-13 17:58 | P.CNOR ---
History of Present Illness - HPI Consult reason: fracture (Status post ORIF left distal radius for left distal radius fracture) History of present illness: Patient is a very pleasant 71-year-old female who is seen and examined at the bedside at we are consulted for postoperative follow-up evaluation following ORIF of the left wrist for left distal radius fracture status post fall. Patient underwent surgical intervention last 12/07/2016. She had returned home following surgery and had been progressing well. She was scheduled to be seen and examined in our office this morning but was unable to make this appointment due to being admitted to the hospital. Last evening the family noticed the patient was unresponsive. The ambulance was called and the patient was brought to the emergency department for further evaluation. Family has stated her blood pressure was significantly low. She has been taking [place] as prescribed following her left wrist fracture and subsequent surgery. She was quite confused at presentation to the emergency department. Emergency note states the family felt she may have taken too much [place]. A brain CT was performed in the emergency department which showed evidence of new lacunar infarct in the left internal capsule and extensive chronic small vessel ischemia. Patient states at the bedside she feels significantly better than she did at presentation to the emergency department. She is not currently feeling confused. She has not had much of an appetite but has been eating without difficulty. She states she was seen and examined by medicine today who states she may remain in the hospital for approximately 1-2 days before being discharged. Nursing states [place] has since been discontinued and patient has been placed on tramadol. Patient states at the bedside tramadol has not been controlling her pain at her left wrist. Past Medical History Past Medical History: Hyperlipidemia, Hypertension, Liver Disease, Musculoskeletal Disorder, Osteoarthritis (OA), Thyroid Disorder Additional Past Medical History / Comment(s): Hx [id number]'t see specialist anymore, borderline diabetes, states no meds just watches what she eats. Had a fall and fx. left wrist. History of Any Multi-Drug Resistant Organisms: None Reported Past Surgical History: Bowel Resection, Cholecystectomy, Coronary Bypass/CABG, Heart Catheterization, Hysterectomy, Tonsillectomy Additional Past Surgical History / Comment(s): Gastric bypass, bowel obstruction x3, quad bypass 16 yrs ago. Past Anesthesia/Blood Transfusion Reactions: Family History of Problems w/ Anesthesia Additional Past Anesthesia/Blood Transfusion Reaction / Comm: Mother had difficulty waking up after anesthesia. Date of Last Stent Placement:: unknown Past Psychological History: No Psychological Hx Reported Smoking Status: Never smoker Past Alcohol Use History: None Reported Past Drug Use History: None Reported - Past Family History Mother Family Medical History: Diabetes Mellitus Father Family Medical History: Myocardial Infarction (NH) Medications and Allergies Home Medications Medication Instructions Recorded Confirmed Type Atorvastatin [Lipitor] 40 mg PO HS 06/21/14 12/13/16 History Isosorbide Mononitrate [Imdur] 30 mg PO QAM 06/21/14 12/13/16 History Levothyroxine Sodium [Synthroid] 25 mcg PO QAM 06/21/14 12/13/16 History tiZANidine HCL [Tizanidine HCl] 4 mg PO TID PRN 12/29/14 12/13/16 History Eszopiclone [Lunesta] 2 mg PO HS PRN 11/22/16 12/13/16 History Ursodiol [Actigall] 600 mg PO BID 11/22/16 12/13/16 History QUEtiapine [SEROquel] 100 mg PO HS 11/23/16 12/13/16 History Atenolol 25 mg PO DAILY 12/07/16 12/13/16 History Hydrochlorothiazide 25 mg PO DAILY 12/07/16 12/13/16 History Lisinopril [Zestril] 20 mg PO DAILY 12/07/16 12/13/16 History cloNIDine HCL [Catapres] 0.1 mg PO TID 12/07/16 12/13/16 History traMADol HCL [Ultram] 50 mg PO TID PRN 12/13/16 12/13/16 History Allergies Allergy/AdvReac Type Severity Reaction Status Date / Time Iodinated Contrast Media - Allergy Rash/Hives Verified 12/13/16 00:54 Oral and oxycodone HCl [From Percocet] Allergy Rash/Hives Verified 12/13/16 00:54 shellfish derived Allergy Rash/Hives Verified 12/13/16 00:54 acetaminophen [From Percocet] AdvReac Severe Liver Verified 12/13/16 00:54 Failure Physical Examination Physical Exam: Patient is awake, alert, and oriented 3 Vital signs stable Good chest excursion with deep inspiration and expiration Abdomen soft nontender No signs or symptoms of DVT; no calf pain Splint and Burt wrap over the left upper extremity at the wrist is removed during physical examination Incision along the anterior aspect of the left wrist is clean, dry, and intact Sutures at the incision site remain intact No significant evidence of erythema, bruising, or obvious signs of infection at the surgical site; no evidence of active drainage No significant pain with palpation of the surgical site Patient is able to wiggle all fingers and thumb of the left upper extremity without difficulty Active full range of motion left shoulder and elbow without difficulty Nonstick Telfa and paper tape dressing is applied After physical examination left wrist is placed in cock up wrist splint Results Pertinent studies: CT of the brain without contrast: new lacunar infarct in the left internal capsule and extensive chronic small vessel ischemia. - Labs Result Diagrams: 12/12/16 22:48 12/12/16 22:48 Assessment and Plan (1) S/P wrist surgery Status: Acute (2) Status post fall Status: Acute (3) Lacunar infarct, acute Status: Acute (4) Hypotension Status: Acute Plan: Assessment: Status post ORIF left distal radius for left distal radius fracture status post fall Hypotension Lacunar infarct Plan: 1. Patient is progressing as expected following ORIF of the left distal radius for left distal radius fracture. Dressing and splint is removed during physical examination of the left wrist. Nonstick Telfa and paper tape is applied over the incision site. Patient is then placed in a cock up wrist splint for the left wrist. Patient may remove this wrist splint a couple times per day to work on gentle range of motion of the left wrist. She must keep his left wrist splint intact at all other times except while bathing. She should avoid excessive activities of the left wrist. She should avoid heavy lifting with the left wrist. At this time from an orthopedic standpoint, she is cleared for discharge once cleared by medicine and all other providers. We will currently plan for her to follow up in the office as previously scheduled on 12/19/2016 for further evaluation and treatment in regards to her left wrist. 2. Medicine and all other medical providers to continue following the patient for her other medical diagnoses 3. Following discharge, patient will plan to follow-up with Dr. Rick Zacarias at [facility] on 12/19/2016 as previously scheduled 4. This patient has been discussed in detail with Dr. Juan Doran and he agrees with this plan Time with Patient: Greater than 30
--- NOTE | 2016-12-13 18:36 | P.CNNES ---
History of Present Illness Consult date: 12/13/16 History of Present Illness: The patient is a 71-year-old right-handed white female who states that yesterday she was getting ready for bed taking her medications including Vicodin Seroquel and a sleeping pill and she apparently passed out. She does not recall what happened. Her was there and she apparently became unresponsive. EMS was called and apparently her blood pressure was 40/20. The patient reports that 2 weeks ago she fell out of bed and fractured her left forearm. She had surgery last week and was prescribed Vicodin. Extra Vicodin yesterday prior to passing out. He has a similar event occur one year ago. She had a CT of the brain in the emergency room which showed small vessel disease and evidence of a new lacunar infarct in the left internal capsule. She was admitted to the hospital with hypotension and lacunar infarct. Review of Systems Constitutional: Denies chills, Denies fever Eyes: denies blurred vision, denies pain Ears, nose, mouth and throat: Denies headache, Denies sore throat Cardiovascular: Denies chest pain, Denies shortness of breath Respiratory: Denies cough Gastrointestinal: Denies abdominal pain, Denies diarrhea, Denies nausea, Denies vomiting Genitourinary: Denies dysuria, Denies hematuria Musculoskeletal: Denies myalgias Integumentary: Denies pruritus, Denies rash Neurological: Denies numbness, Denies weakness Psychiatric: Denies anxiety, Denies depression Endocrine: Denies fatigue, Denies weight change Past Medical History Past Medical History: Hyperlipidemia, Hypertension, Liver Disease, Musculoskeletal Disorder, Osteoarthritis (OA), Thyroid Disorder Additional Past Medical History / Comment(s): Hx [id number] see specialist anymore, borderline diabetes, states no meds just watches what she eats. Had a fall and fx. left wrist. History of Any Multi-Drug Resistant Organisms: None Reported Past Surgical History: Bowel Resection, Cholecystectomy, Coronary Bypass/CABG, Heart Catheterization, Hysterectomy, Tonsillectomy Additional Past Surgical History / Comment(s): Gastric bypass, bowel obstruction x3, quad bypass 16 yrs ago. Past Anesthesia/Blood Transfusion Reactions: Family History of Problems w/ Anesthesia Additional Past Anesthesia/Blood Transfusion Reaction / Comment(s): Mother had difficulty waking up after anesthesia. Date of Last Stent Placement:: unknown Past Psychological History: No Psychological Hx Reported Smoking Status: Never smoker Past Alcohol Use History: None Reported Past Drug Use History: None Reported - Past Family History Mother Family Medical History: Diabetes Mellitus Father Family Medical History: Myocardial Infarction ([place]) Medications and Allergies Home Medications Medication Instructions Recorded Confirmed Type Atorvastatin [Lipitor] 40 mg PO HS 06/21/14 12/13/16 History Isosorbide Mononitrate [Imdur] 30 mg PO QAM 06/21/14 12/13/16 History Levothyroxine Sodium [Synthroid] 25 mcg PO QAM 06/21/14 12/13/16 History tiZANidine HCL [Tizanidine HCl] 4 mg PO TID PRN 12/29/14 12/13/16 History Eszopiclone [Lunesta] 2 mg PO HS PRN 11/22/16 12/13/16 History Ursodiol [Actigall] 600 mg PO BID 11/22/16 12/13/16 History QUEtiapine [SEROquel] 100 mg PO HS 11/23/16 12/13/16 History Atenolol 25 mg PO DAILY 12/07/16 12/13/16 History Hydrochlorothiazide 25 mg PO DAILY 12/07/16 12/13/16 History Lisinopril [Zestril] 20 mg PO DAILY 12/07/16 12/13/16 History cloNIDine HCL [Catapres] 0.1 mg PO TID 12/07/16 12/13/16 History traMADol HCL [Ultram] 50 mg PO TID PRN 12/13/16 12/13/16 History Allergies Allergy/AdvReac Type Severity Reaction Status Date / Time Iodinated Contrast Media - Allergy Rash/Hives Verified 12/13/16 00:54 Oral and oxycodone HCl [From Percocet] Allergy Rash/Hives Verified 12/13/16 00:54 shellfish derived Allergy Rash/Hives Verified 12/13/16 00:54 acetaminophen [From Percocet] AdvReac Severe Liver Verified 12/13/16 00:54 Failure Physical Examination - Vital Signs Vital Signs: Vital Signs Temp Pulse Pulse Resp BP BP BP 12/13/16 16:26 84 155/70 149/77 12/13/16 15:13 72 16 12/13/16 15:09 84 16 12/13/16 11:23 97.6 F 72 16 12/13/16 08:00 97.8 F 69 16 12/13/16 04:00 97.8 F 65 16 12/13/16 00:21 55 L 16 103/58 12/13/16 00:02 53 L 16 116/57 BP Pulse Ox 12/13/16 16:26 156/68 12/13/16 15:13 12/13/16 15:09 156/68 12/13/16 11:23 120/66 100 12/13/16 08:00 134/60 96 12/13/16 04:00 120/60 96 12/13/16 00:21 98 12/13/16 00:02 98 Intake and Output 12/13/16 12/13/16 12/13/16 06:59 14:59 22:59 Intake Total 650 1230 Balance 650 1230 Intake: IV 650 450 Azithromycin 500 mg In 250 Sodium Chloride 0.9% 250 ml @ 125 mls/hr IVPB ONCE STA Rx#:[id number] Sodium Chloride 0.9% 1, 300 450 000 ml @ 100 mls/hr IV . Q10H ONE Rx#:[id number] cefTRIAXone 2,000 mg In 100 Sodium Chloride 0.9% 100 ml @ 100 mls/hr IVPB ONCE STA Rx#:[id number] Oral 780 Other: Voiding Method Toilet Toilet Toilet # Voids 1 3 Weight 73 kg - Constitutional General appearance: average body habitus, cooperative - EENT EENT: PERRL, hearing intact, vision intact - Respiratory Respiratory: lungs clear, normal breath sounds - Cardiovascular Cardiovascular: regular rate, normal S1, normal S2 Extremities: no peripheral edema bilaterally - Integumentary Integumentary: normal - Neurologic Mental status she was awake alert and oriented 3 her speech was fluent there is no aphasia or dysarthria Cranial nerve examination: PERRL, EOMI, VFF, V1/V2/V3 grossly intact, face symmetric, tongue midline Sensorimotor examination: intact Detailed motor examination: grossly full strength in all extremities Reflex and gait examination: intact - Psychiatric Psychiatric: mood/affect appropriate Results - Laboratory Findings CBC and BMP: 12/12/16 22:48 12/12/16 22:48 Assessment and Plan (1) Syncope and collapse Status: Acute Code(s): R55 - SYNCOPE AND COLLAPSE (2) Hypotension Status: Acute Code(s): I95.9 - HYPOTENSION, UNSPECIFIED (3) Lacunar infarct, acute Status: Acute Code(s): I63.9 - CEREBRAL INFARCTION, UNSPECIFIED Plan: Patient is a 71-year-old woman admitted to the hospital with syncope likely related to acute hypotension. She has been taking pain medications for recent distal radius fracture. Her blood pressure recorded by EMS was 40/20 and this is the likely cause of her syncope. He was also noted to have a new lacunar infarct on CAT scan of the brain. Recommend further testing with carotid ultrasound and echocardiogram. She was advised against driving as per [place] law she was instructed that because she had a syncopal event she should not be driving until spell free for 6 months. We'll check EEG and she can continue on aspirin daily
[2016-12-13] MEDS: ATORVASTATIN 40 MG TAB PO SCH (20:10)
[2016-12-13] MEDS: QUEtiapine 100 MG TAB PO SCH (20:10)
[2016-12-13] MEDS: MELATONIN 3 MG TABLET PO SCH (20:10)
[2016-12-13] MEDS: HEPARIN SODIUM,PORCINE 5,000 UNIT/ML 1 ML VIAL SQ SCH (20:10)
--- NOTE | 2016-12-13 20:51 | HP ---
DATE OF ADMISSION: 12/12/2016 CHIEF COMPLAINT: Change in mental status. HISTORY OF PRESENT ILLNESS: This 71-year-old woman with a past medical history of hypertension, hyperlipidemia, history of degenerative joint disease, history of hypothyroidism, history of cirrhosis, stable, history of bowel resection, CAD/CABG, being followed by Dr. Juan Cast in the outpatient setting, recently had a left wrist fracture. The patient underwent ORIF. Patient had a cast placed. Apparently at home the patient was living with and the patient was found to be confused. Patient apparently was taking too much of pain medication. Blood pressure also found to be low and the patient taken to [facility] and admitted to the hospital for further evaluation and treatment. The patient was given IV boluses which improved the blood pressure and the patient is being closely monitored at this time. There is no history of fever, rigors or chills. No history of headache, loss of consciousness or seizures. White count 11.1, hemoglobin 10.4. Interestingly, the CAT scan of the brain showed possible evidence of extensive small ischemia and slight progression of disease and evidence of a new lacunar infarct in the left internal capsule raising the possibility of an acute stroke. There is no history of fever, rigors or chills at this time. No history of hematochezia, melena. PAST MEDICAL HISTORY: History of hypertension, hyperlipidemia, liver disease, cirrhosis, hypothyroidism, and recent fracture. Medications prior to admission: 1. Ultram 50 mg t.i.d. p.r.n. 2. Tizanidine 4 mg t.i.d. 3. Catapres 0.1 t.i.d. 4. Actigal 600 mg p.o. b.i.d. 5. Seroquel 100 mg p.o. q.h.s. 6. Macrobid 100 mg p.o. b.i.d. 7. Zestril 20 mg p.o. daily. 8. Synthroid 25 mcg p.o. in the morning. 9. Imdur 30 mg p.o. daily. 10. Hydrochlorothiazide 25 milligrams p.o. daily. 11. Lenox 7.5 q6h p.r.n. 12. Lunesta 2 mg p.o. at bedtime. 13. Lipitor 40 mg q.h.s. 14. Atenolol 25 mg p.o. daily. ALLERGIES: IODINATED CONTRAST DYE, OXYCODONE SHELLFISH AND ACETAMINOPHEN. FAMILY HISTORY: History of diabetes mellitus in the family. SOCIAL HISTORY: No history of smoking. No history of alcohol intake. REVIEW OF SYSTEMS: ENT: Diminishing hearing. Diminished vision. CARDIOVASCULAR: No angina. RESPIRATORY: No cough. GASTROINTESTINAL: As mentioned earlier. : No dysuria. Nervous system: As mentioned earlier. ALLERGY/IMMUNOLOGY: No asthma or hayfever. MUSCULOSKELETAL: As mentioned earlier. HEMATOLOGY/ONCOLOGY: No history of anemia. ENDOCRINE: No history of diabetes mellitus or hypothyroidism. CONSTITUTIONAL: As mentioned earlier. DERMATOLOGY: Negative. RHEUMATOLOGY: Negative. PSYCHIATRY: As mentioned earlier. PHYSICAL EXAMINATION: The patient is alert and oriented x3. Pulse 69, blood pressure 130/58, respiratory rate 16, temperature 97.8, pulse ox 97% on room air. HEENT: Conjunctivae normal. Oral mucosa moist. NECK: No jugular venous distention. No carotid bruit. No lymph node enlargement. No thyroid enlargement. CARDIOVASCULAR: S1, S2 muffled. No S3, no S4. RESPIRATORY: Breath sounds diminished at the bases. A few scattered rhonchi and crackles. ABDOMEN: Soft, nontender. No mass palpable. CENTRAL NERVOUS SYSTEM: Higher functions as mentioned earlier. Cranial nerves 2 thru 12 grossly intact. No nystagmus. No diplopia. Moves all 4 limbs. No focal deficits. No signs of cerebellar dysfunction. No sensory abnormalities. LEGS: No edema. No swelling. LYMPHATICS: No lymph nodes palpable in the neck, axillae or groin. SKIN: No ulcer, rash or bleeding. JOINTS: No ingestion active deforming arthropathy. LABS: WBC 11.7, hemoglobin is 10.4, A-PTT is 21.4. Sodium 135, creatinine 1.2, glucose 120, glucose 131. Otherwise, albumin is 3. Creatinine kinase is 251. ASSESSMENT: 1. Change in mental status possibly acute left hemispheric stroke and lacunar stroke. 2. Possibly metabolic encephalopathy, secondary to medication induced. 3. Hypotension, rule out possibility of secondary to dehydration, rule out sepsis. 4. Increased creatinine with possibly acute renal failure, possible prerenal failure secondary to dehydration. 5. Hyponatremia hypovolemic. 6. Increased creatinine kinase. 7. Increased WBC, possibly reactive. 8. Anemia, normocytic. 9. History of recent left wrist ORIF. 10. Hypertension, essential. 11. Hyperlipidemia. 12. History of cirrhosis of the liver. 13. History of degenerative joint disease. 14. History of hypothyroidism. 15. History of diabetes type 2. Borderline. 16. History of cholecystectomy. 17. History of coronary artery disease, coronary artery bypass grafting. 18. History of gastric bypass. 19. History of bowel obstruction. 20. Obesity, body mass index of 30.4. 21. FULL CODE. RECOMMENDATIONS AND DISCUSSION: In this 71 -year-old woman who presented with multiple complex medical issues, we will monitor the patient closely, continue the current medications, continue symptomatic treatment. Otherwise at this time I would hold the blood pressure medication, monitor blood pressure closely, antiplatelet agents. Neurology consultation. Empiric antibiotics has been given. We will obtain the cultures. IV fluids. Guarded prognosis because of multiple complex medical issues. Further recommendations to follow. A copy of dictation forwarded to Dr. Cast who is the primary care physician. Consult [facility].
[2016-12-14] MEDS: traMADol 50 MG TAB PO PRN ×3 (05:51→20:25)
[2016-12-14] MEDS: LEVOTHYROXINE 25 MCG TAB PO SCH (06:22)
--- NOTE | 2016-12-14 08:37 | US ---
EXAMINATION TYPE: US carotid duplex BILAT DATE OF EXAM: 12/14/2016 7:54 AM COMPARISON: NONE CLINICAL HISTORY: Stroke. EXAM MEASUREMENTS: RIGHT: Peak Systolic Velocity (PSV) cm/sec ----- Right CCA: 58.4 ----- Right ICA: 80.5 ----- Right ECA: 84.9 ICA/CCA ratio: 1.4 RIGHT: End Diastole cm/sec ----- Right CCA: 16.8 ----- Right ICA: 23.3 ----- Right ECA: 7.0 LEFT: Peak Systolic Velocity (PSV) cm/sec ----- Left CCA: 43.4 ----- Left ICA: 125.1 ----- Left ECA: 69.1 ICA/CCA ratio: 2.9 LEFT: End Diastole cm/sec ----- Left CCA: 10.6 ----- Left ICA: 26.9 ----- Left ECA: 6.4 VERTEBRALS (direction of flow): Right Vertebral: Antegrade Left Vertebral: Antegrade Right side shows mild plaque, no significant velocity elevations. Left side shows velocity increase w ith moderate plaque. IMPRESSION: 50-69% by diameter stenosis, left ICA. Criteria for Assigning % of Stenosis / Diameter reduction (Estimation based on the indirect measurements of the internal carotid artery velocities (ICA PSV). 1. Normal (no stenosis)=ICA PSV < 125 cm/s: ratio < 2.0: ICA EDV<40 cm/s. 2. Less than 50% stenosis=ICA PSV < 125 cm/s: ratio < 2.0: ICA EDV<40 cm/s. 3. 50 to 69% stenosis=ICA PSV of 125 to 230 cm/s: ration 2.0 ? 4.0: ICA EDV 40-100 cm/s. 4. Greater than 70% stenosis to near occlusion= ICA PSV > 230 cm/s: ratio > 4.0: ICA EDV > 100 cm/s. 5. Near occlusion= ICA PSV velocities may be low or undetectable: variable ratio and ICA EDV. 6. Total occlusion=unable to detect flow.
[2016-12-14] MEDS: HEPARIN SODIUM,PORCINE 5,000 UNIT/ML 1 ML VIAL SQ SCH ×2 (09:37→22:13)
[2016-12-14] MEDS: ISOSORBIDE MONONITRATE ER 30 MG TAB.ER.24H PO SCH (09:38)
[2016-12-14] MEDS: URSODIOL 300 MG CAP PO SCH ×2 (09:38→21:43)
[2016-12-14] MEDS: ASPIRIN 81 MG CHEW PO SCH (09:38)
[2016-12-14] MEDS: cloNIDine HCL 0.1 MG TAB PO SCH ×3 (09:38→21:43)
[2016-12-14 11:51] LABS: Anion Gap 12 mmol/L; Blood Urea Nitrogen 20 mg/dL (7-17); Calcium 8.8 mg/dL (8.4-10.2); Carbon Dioxide 21 mmol/L (22-30); Chloride 107 mmol/L (98-107); Glucose 120 mg/dL (74-99); Non-African American GFR(MDRD) >60 (>60 ml/min/1.73 sqM); Potassium 4.1 mmol/L (3.5-5.1); Sodium 140 mmol/L (137-145)
[2016-12-14] MEDS ORDERED: THIAMINE 100 MG TAB PO SCH (12:00)
[2016-12-14] MEDS ORDERED: FOLIC ACID 1 MG TAB PO SCH (12:00)
--- NOTE | 2016-12-14 12:16 | ECHOF ---
Referral Reason:Stroke MEASUREMENTS -------- HEIGHT: 154.9 cm WEIGHT: 72.6 kg BP: 123/68 RVIDd: 2.9 cm (< 3.3) IVSd: 1.1 cm (0.6 - 1.1) LVIDd: 3.7 cm (3.9 - 5.3) LVPWd: 1.0 cm (0.6 - 1.1) IVSs: 2.0 cm LVIDs: 2.4 cm LVPWs: 1.2 cm LA Diam: 3.0 cm (2.7 - 3.8) LAESV Index (A-L): 26.95 ml/m Ao Diam: 2.5 cm (2.0 - 3.7) AV Cusp: 1.6 cm (1.5 - 2.6) LA Diam: 3.7 cm (2.7 - 3.8) MV EXCURSION: 13.189 mm (> 18.000) MV EF SLOPE: 64 mm/s (70 - 150) EPSS: 0.4 cm MV E Girish: 0.85 m/s MV DecT: 375 ms MV A Girish: 1.27 m/s MV E/A Ratio: 0.67 FINDINGS -------- Sinus rhythm. This was a technically good study. Left ventricular wall thickness is normal. Overall left ventricular systolic function is normal with, an EF between 55 - 60 %. The right ventricle is normal in size. Normal LA size by volume 22+/-6 ml/m2. The right atrium is normal in size. Aortic valve is trileaflet and is mildly thickened. The mitral valve leaflets are mildly thickened. Mild mitral annular calcification present. Mild mitral regurgitation is present. Mild tricuspid regurgitation present. Pulmonic valve appears structurally normal. The aortic root size is normal. Normal inferior vena cava with normal inspiratory collapse consistent with estimated right atrial pressure of 5 mmHg. There is no pericardial effusion. CONCLUSIONS -------- 1. Sinus rhythm. 2. Mild mitral annular calcification present. 3. Mild mitral regurgitation is present. 4. Mild tricuspid regurgitation present. 5. Pulmonic valve appears structurally normal. 6. The aortic root size is normal. 7. Normal inferior vena cava with normal inspiratory collapse consistent with estimated right atrial pressure of 5 mmHg. 8. There is no pericardial effusion. 9. This was a technically good study. 10. Left ventricular wall thickness is normal. 11. Overall left ventricular systolic function is normal with, an EF between 55 - 60 %. 12. The right ventricle is normal in size. 13. Normal LA size by volume 22+/-6 ml/m2. 14. The right atrium is normal in size. 15. Aortic valve is trileaflet and is mildly thickened. 16. The mitral valve leaflets are mildly thickened. SALES SUPPORT TECHNICIAN: Swetha Inman RDCS
[2016-12-14 13:00] LABS: Anisocytosis Slight; Basophils % (A) 0 %; CH 27.9; Eosinophils # (A) 0.2 k/uL (0-0.7); Eosinophils % (A) 2 %; HCT 30.7 % (34.0-46.0); HDW 2.38; HGB 9.6 gm/dL (11.4-16.0); Hypochromasia Slight; Luc # (Auto) 0.11; Luc % (Auto) 1; Lymphocytes # (A) 1.4 k/uL (1.0-4.8); Lymphocytes % (A) 18 %; MCH 28.2 pg (25.0-35.0); MCHC 31.1 g/dL (31.0-37.0); MCV 90.5 fL (80.0-100.0); Mean Platelet Volume 7.1; Monocytes # (A) 0.4 k/uL (0-1.0); Monocytes % (A) 5 %; Neutrophils # (A) 5.7 k/uL (1.3-7.7); Neutrophils % (A) 74 %; RBC 3.39 m/uL (3.80-5.40); RDW 16.4 % (11.5-15.5); WBC 7.7 k/uL (3.8-10.6); WBC (Perox) 8.55
[2016-12-14] MEDS: SODIUM CHLORIDE 0.9% 1,000 ML IV SCH (16:31)
[2016-12-14] MEDS: QUEtiapine 100 MG TAB PO SCH (21:43)
[2016-12-14] MEDS: MELATONIN 3 MG TABLET PO SCH (21:43)
[2016-12-14] MEDS: ATORVASTATIN 40 MG TAB PO SCH (21:43)
--- NOTE | 2016-12-14 23:29 | PN ---
DATE OF SERVICE: 12/14/2016 This 71-year-old woman who was admitted with change in mental status possibly acute left hemispheric stroke and lacunar infarct is being closely monitored at this time. Neurological workup in progress. A carotid Doppler showed 50 to 60% diameter stenosis of the left ICA and a 2-D echo showed a normal ejection fraction. No chest pain. No palpitations. On exam, alert and oriented x3. Pulse 64, blood pressure 123/67, respiratory rate 16, temperature 97.7. Pulse ox 94% on room air. HEENT: Conjunctivae normal. NECK: No jugular venous distention. CARDIOVASCULAR: S1, S2 muffled. RESPIRATORY: Breath sounds diminished at the bases. A few scattered rhonchi. No crackles. ABDOMEN: Soft, nontender. Legs: No edema. No swelling. CENTRAL NERVOUS SYSTEM: No focal deficits. LABS: WBC 7.7, hemoglobin 9.6. Other labs are noted. UA noted. ASSESSMENT: 1. Change in mental status, possible acute left hemispheric stroke and lacunar stroke. 2. Left internal carotid artery stenosis, 50-60%. 3. Possible metabolic encephalopathy secondary to medication induced. 4. Hypotension, rule out possibly secondary to dehydration, rule out sepsis. 5. Increased creatinine with possible acute renal failure, possible prerenal factors secondary dehydration. 6. Hyponatremia and hypovolemia. 7. Increased creatinine kinase. 8. Increased WBC, possibly reactive. 9. Anemia, normocytic. 10. History of recent left wrist ORIF. 11. Hypertension, essential. 12. Hyperlipidemia. 13. History of cirrhosis of the liver. 14. History of degenerative joint disease. 15. History of hypothyroidism. 16. History of diabetes type 2 borderline. 17. History of cholecystectomy. 18. History of coronary artery disease, coronary artery bypass grafting. 19. History of gastric bypass. 20. History of bowel obstruction. 21. Obesity body mass index of 30.4. 22. FULL CODE. RECOMMENDATIONS AND DISCUSSION: Recommend to continue current medications. Continue with monitoring and symptomatic treatment. Otherwise, at this time, I would recommend continue with antiplatelet agents, continue with Lipitor. Continue the rest of the medications. I would also recommend consultation with vascular surgery. Further recommendations to follow.
[2016-12-15] MEDS: SODIUM CHLORIDE 0.9% 1,000 ML IV SCH (02:36)
[2016-12-15] MEDS: LEVOTHYROXINE 25 MCG TAB PO SCH (06:22)
[2016-12-15 08:01] VITALS: BP 116/56; PULSE 52; RESP 18; TEMP 97.2
--- NOTE | 2016-12-15 08:19 | P.CON ---
Consult Note - . Consult date: 12/15/16 Assessment/Plan:: impression; 1. asymptomatic 50-69% left carotid stenosis 2. syncopal episode secondary to multiple etiologies that include new left lacunar infarct and ingestion of medications including seroquel, hyrocodone, and Eszopiclone (Lunesta) in short sequence with profound hypotension; patient is also on tramadol 3. documented extensive small vessel cerebral ischemic disease with progression and new left lacunar infarct on CT from 12/12/2016 4. risk factors for atheroocclusive disease including HTN, HLD plan; 1. no vascular surgery intervention at this time 2. continue current medical regimen including ASA and atorvastatin 3. f/u Dr. Miller in 6 months with repeat carotid duplex or sooner if more problems HPI; 71 y/o woman , presented to [facility] ER on 12/13/2016 with mental confustion followed by syncopal episode. She was found to be hypotension. Patient has multiple medical comorbidities including hypertension, hyperlipidemia, hypothyroidism, recent ORIF of left wrist fracture, pain syndrome requiring the use of tramadol, hydrocodone, and insomnia requiring the use of seroquel and eszopiclone. States that she took seroquel, eszopiclone, and two hydrocodone tablets at once and then had episode of confusion and syncope. Denies CVA or TIA in past. NO history of nicotine dependence, diabetes mellitus. Underwent CABG for CAD 17 years ago. History of gastric bypass. CMHX, PSHx; reviewed FHx; DM, CAD Habits; denies tobacco, EtOH, drugs Allergies; reviewed PE: WD obese female in NAD BP = 116/56, 52, AF O2 sat= 95% on RA HEENT; no bruits, no JVD, trachea midline, no thyromegaly or lymphadenopathy Lungs; clear anteriorly Heart; RRR, normal S1 and S2; well-healed median sternotomy incision ABD; soft, non-tender, no pulsatile organomegaly; well-healed midline incision EXTR; femoral, popliteal, dorsalis pedis pulses are palpable bilaterally; no pedal edema Neuro; A&Ox3, cranial nerves 2-12 intact, no focal motor or sensory deficits, motor strength 5/5 all extremities Carotid duplex from 12/14/2016 reviewed by me. Demonstrates <50% right carotid stenosis, 50-69% left carotid stenosis by velocity and ratio criteria. There is antegrade flow in both vertebrals. impression/plan 1. as noted above; doubt that lacunar infarct in scenario of extensive intracranial occlusive disease is a result of embolization from left carotid artery; continue aggressive medical management including antihypertensives, ASA , atorvastatin thanks for consultation
[2016-12-15] MEDS: cloNIDine HCL 0.1 MG TAB PO SCH (08:29)
[2016-12-15] MEDS: ASPIRIN 81 MG CHEW PO SCH (08:29)
[2016-12-15] MEDS: HEPARIN SODIUM,PORCINE 5,000 UNIT/ML 1 ML VIAL SQ SCH (08:29)
[2016-12-15] MEDS: ISOSORBIDE MONONITRATE ER 30 MG TAB.ER.24H PO SCH (08:29)
[2016-12-15] MEDS: URSODIOL 300 MG CAP PO SCH (08:29)
[2016-12-15 08:37] LABS: Anisocytosis Slight; Basophils % (A) 0 %; CH 28.1; CHCM 31.2; Eosinophils # (A) 0.2 k/uL (0-0.7); Eosinophils % (A) 2 %; HCT 31.5 % (34.0-46.0); HDW 2.36; Hypochromasia Slight; Luc # (Auto) 0.13; Luc % (Auto) 2; Lymphocytes % (A) 26 %; MCH 28.7 pg (25.0-35.0); MCHC 31.7 g/dL (31.0-37.0); MCV 90.5 fL (80.0-100.0); Monocytes # (A) 0.4 k/uL (0-1.0); Monocytes % (A) 5 %; Neutrophils # (A) 4.9 k/uL (1.3-7.7); Neutrophils % (A) 65 %; RBC 3.48 m/uL (3.80-5.40); RDW 16.4 % (11.5-15.5); WBC 7.6 k/uL (3.8-10.6); WBC (Perox) 7.84
--- NOTE | 2016-12-15 08:50 | EEG ---
DATE OF SERVICE: 12/14/2016 INDICATIONS FOR EXAMINATION: This patient is a 71-year-old female being evaluated for syncope and collapse. AGE: 71Y FINDINGS: A routine 21-channel awake digital EEG recording was accomplished utilizing the 10 to 20 international system with bipolar and referential montages. The background activity in the most alert resting state consists of a low to medium amplitude, fairly well developed and well sustained, 6 to 7 Hz activity over the posterior head regions. This posterior rhythm attenuates to eye opening. There is a small amount of low amplitude 18 to 20 Hz beta activity seen maximally over the anterior head regions. Muscle and movement artifact was observed on a few occasions during the tracing. Hyperventilation was not performed. Photic stimulation at flash frequencies of 2 to 30 Hz produced a minimal occipital driving response. No epileptiform discharges were seen. IMPRESSION: This EEG is moderately abnormal in diffuse fashion due to slowing of the EEG background. The EEG failed to reveal any focal, lateralized or epileptiform abnormalities. Clinical correlation is recommended.
[2016-12-15 09:01] LABS: Anion Gap 10 mmol/L; Blood Urea Nitrogen 15 mg/dL (7-17); Calcium 8.9 mg/dL (8.4-10.2); Carbon Dioxide 23 mmol/L (22-30); Chloride 106 mmol/L (98-107); Glucose 150 mg/dL (74-99); Non-African American GFR(MDRD) >60 (>60 ml/min/1.73 sqM); Potassium 4.2 mmol/L (3.5-5.1); Sodium 139 mmol/L (137-145)
--- NOTE | 2016-12-16 15:01 | DS ---
DATE OF ADMISSION: 12/12/2016 DATE OF DISCHARGE: 12/15/2016 FINAL DIAGNOSES: 1. Change in mental status, possible acute left hemispheric stroke and lacunar stroke on the left side. 2. Left internal carotid artery stenosis 55% to 60% with possible metabolic encephalopathy secondary to medication induced. 3. Hypertension, possibly secondary to dehydration. 4. Increased creatinine, possibly acute renal failure, possibly secondary to dehydration. 5. Hyponatremia and hypovolemia. 6. Increased creatinine kinase. 7. Increased WBC, possibly reactive. 8. Anemia, normocytic. 9. History of recent left wrist ORIF. 10. Hypertension, essential. 11. Hyperlipidemia. 12. History of cirrhosis of the liver. 13. History of degenerative joint disease. 14. History of hypothyroidism. 15. History of diabetes mellitus type 2, borderline. 16. History of cholecystectomy. 17. History of coronary artery disease, coronary artery bypass grafting. 18. History of gastric bypass. 19. History of bowel resection. 20. Obesity, body mass index of 30.4. 21. FULL CODE. DISCHARGE DISPOSITION: The patient will be discharged in a stable condition with guarded prognosis. TOTAL TIME TAKEN: 35 minutes. HISTORY OF PRESENT ILLNESS: This 71-year-old woman with a past medical history of multiple medical problems as mentioned earlier, being followed by Dr. Cast in the outpatient setting, admitted with change in mental status. Patient had multiple other complex medical issues. CT scan showed lacunar infarct, stroke was suspected, treated symptomatically. Patient also had cirrhosis of the liver. Patient also had medication induced metabolic encephalopathy also is a concern. We have instructed the family to be in charge of the medications to avoid excessive dosing. Otherwise, are noted and Dr. Brewster saw the patient and recommended outpatient followup. Otherwise, Dr. Montoya saw the patient as well as Dr. Zacarias. Patient discharge in stable condition with guarded prognosis. DISCHARGE ADVICE: 1. Diet is cardiac. 2. Activity limited until followup. 3. Follow up with Dr. Cast in 2 to 3 days. 4. Follow up with Dr. Uche Montoya and Dr. Zacarias as advised. The medications are: 1. Aspirin 81 mg p.o. daily. 2. Lipitor 40 mg q.h.s. 3. Lunesta 2 mg q.h.s. p.r.n. 4. Folic acid 1 mg p.o. daily. 5. Hydrocodone 0.5 q.6 p.r.n. 6. Imdur ER 30 mg q.a.m. 7. Synthroid 25 mcg p.o. q.a.m. 8. Seroquel 100 mg p.o. q.h.s. 9. Thiamine 100 mg p.o. daily. 10. Actigall 600 mg p.o. b.i.d. 11. Catapres 0.1 t.i.d. 12. Tizanidine 4 mg t.i.d. p.r.n. 13. Ultram 50 mg t.i.d. Once again, the patient will be discharged in a stable condition with guarded prognosis. MTDD
== END 2016-12-15 13:55 | disposition home or self-care (01) | DRG 64 ==
LOC: EC 22:36 → 6SEL 23:55 → 4MS4W 12-13 18:36
PROVIDERS: ADMIT Hospitalist; ATTEND Hospitalist
DX: I63.9 Cerebral infarction, unspecified (principal); G92 Toxic encephalopathy; N17.9 Acute kidney failure, unspecified; E87.1 Hypo-osmolality and hyponatremia; I95.9 Hypotension, unspecified; E86.0 Dehydration; E86.1 Hypovolemia; K74.60 Unspecified cirrhosis of liver; T50.905A Adverse effect of unspecified drugs, medicaments and biological substances, initial encounter; D64.9 Anemia, unspecified; E03.9 Hypothyroidism, unspecified; E66.9 Obesity, unspecified; E78.5 Hyperlipidemia, unspecified; I10 Essential (primary) hypertension; I25.10 Atherosclerotic heart disease of native coronary artery without angina pectoris; G47.00 Insomnia, unspecified; M19.90 Unspecified osteoarthritis, unspecified site; I65.22 Occlusion and stenosis of left carotid artery; R55 Syncope and collapse; S52.502D Unspecified fracture of the lower end of left radius, subsequent encounter for closed fracture with routine healing; Z68.30 Body mass index [BMI] 30.0-30.9, adult; Z79.899 Other long term (current) drug therapy; Z95.1 Presence of aortocoronary bypass graft; Z98.84 Bariatric surgery status; Z88.5 Allergy status to narcotic agent; Z88.6 Allergy status to analgesic agent; Z91.041 Radiographic dye allergy status; Z82.49 Family history of ischemic heart disease and other diseases of the circulatory system
CPT/HCPCS: 36415; 70450; 71020; 80048; 80053; 80306; 81003; 82550; 82553; 83605; 84484; 85025; 85610; 85730; 87040; 87086; 93005; 93306; 93880; 95816; 96360; 99291

== ENCOUNTER → 2018-03-02 | Outpatient (CLI) | payer MEDICARE ==
--- NOTE | 2018-03-02 14:44 | CT ---
EXAMINATION TYPE: CT soft tissue neck w con DATE OF EXAM: 03/02/2018 HISTORY: Swelling to Lt side of face COMPARISON: NONE CT DLP: 312.5 mGycm. Automated Exposure Control for Dose Reduction was Utilized. TECHNIQUE: CT scan of the neck is performed with IV Contrast, patient injected with 100 mL of Isovue 300, axial images are obtained, coronal and sagittal reformatted images are reviewed. FINDINGS: Airway: There is 1.5 cm right thyroid nodule coronal image 22 that warrants follow-up Parotid/submandibular glands: Slightly elongated left submandibular gland is present. Carotid/Vascular Structures: There is moderate calcified plaque at right carotid bulb. There is more moderate to severe mixed plaque at left carotid bulb extending into proximal internal carotid artery, cannot exclude significant stenosis . Findings correlate with carotid ultrasound December 14, 2016 .Foll ow-up advised. Osseous Structures: There is moderate disc space narrowing and mild anterior spurring C5-C6 level. Other: There are some scattered subcentimeter lymph nodes throughout the neck bilaterally. There is n o suspicious greater than 1 cm neck adenopathy. No suspicious focal fluid collection or inflammatory changes present. There is partial visualization of fixating plate in the distal wrist on localizer image. IMPRESSION: 1. No suspicious mass or adenopathy in the left neck. 2. Asymmetric moderate to severe plaque left carotid bulb extending into proximal internal carotid ar yomaira causing hemodynamically significant stenosis. Consider CTA or MRA of the neck to better evaluate and characterize to see if progression from prior carotid ultrasound. 3. A 1.5 cm right thyroid nodule, dedicated thyroid ultrasound advised to further evaluate and charac terize.
--- NOTE | 2018-03-06 07:57 | MM ---
Reason for exam: screening (asymptomatic). Last mammogram was performed 1 year and 10 months ago. History: Patient is postmenopausal. Physical Findings: A clinical breast exam by your physician is recommended on an annual basis and results should be correlated with mammographic findings. MG 3D Screening Mammo W/Cad Bilateral CC and MLO view(s) were taken. Prior study comparison: April 28, 2016, right breast MG 3d diag mammo w/cad RT. October 07, 2015, bilateral MG 3d screening mammo w/cad. There are scattered fibroglandular densities. There is chronic nodularity in the right breast. New popcorn or dystrophic calcifications in the left breast, benign. No significant changes when compared with prior studies. ASSESSMENT: Benign, BI-RAD 2 RECOMMENDATION: Routine screening mammogram of both breasts in 1 year.
== END | disposition home or self-care (01) ==
LOC: RADMAMWWP 12:06
PROVIDERS: ATTEND Family Medicine
DX: Z12.31 Encounter for screening mammogram for malignant neoplasm of breast (principal); E04.1 Nontoxic single thyroid nodule; I65.22 Occlusion and stenosis of left carotid artery; Z01.812 Encounter for preprocedural laboratory examination
CPT/HCPCS: 82565; 84520; 77067; 77063; 70491; Q9967

== ENCOUNTER → 2018-03-16 | Outpatient (CLI) | payer MEDICARE ==
--- NOTE | 2018-03-16 14:42 | US ---
EXAMINATION TYPE: US thyroid st tissue head/neck DATE OF EXAM: 03/16/2018 COMPARISON: CT 02/28/2018 CLINICAL HISTORY: E041 SINGLE THYROID NODULE. abn ct GLAND SIZE: Right Lobe: 3.7 x 1.5 x 1.3 cm Left Lobe: 3.3 x 1.7 x 1.1 cm Isthmus Thickness: 0.2 cm NODULES RIGHT: # of nodules measured on right: 1 1. 1.8 X 1.2 x 0.8 cm hypoechoic cystic nodule at the anterior mid to lower pole with well-defined margins. LEFT: # of nodules measured on left: 0 ISTHMUS: # of nodules measured in the isthmus: 0 Bilateral neck scanned, no evidence of lymphadenopathy. 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 IMPRESSION: Dominant thyroid nodule noted on the right shows cystic appearance. Aberrant anatomy in the super aor tic branch vessels.
== END | disposition home or self-care (01) ==
LOC: RADUSWWP 13:17
PROVIDERS: ATTEND Family Medicine
DX: E04.1 Nontoxic single thyroid nodule (principal)
CPT/HCPCS: 76536

== ENCOUNTER → 2018-05-15 | Outpatient (CLI) | payer MEDICARE ==
--- NOTE | 2018-05-15 13:41 | XR ---
Right foot HISTORY: Right foot pain 3 views of the right foot correlated to prior exam 06/17/2015 Bone mineralization, joint spaces and alignment are stable. Suspect remote trauma to the distal secon d, third and fourth metatarsals. Degenerative changes present at the first metatarsophalangeal joint with joint space loss. Bone mineral is reduced. No fracture or dislocation is evident. IMPRESSION: Remote trauma. Osteoarthritis.
== END | disposition home or self-care (01) ==
LOC: RADXRYALE 11:11
PROVIDERS: ATTEND Physician Assistant Medical
DX: M19.071 Primary osteoarthritis, right ankle and foot (principal)

== ENCOUNTER → 2018-10-18 | Outpatient (CLI) | payer MEDICARE ==
--- NOTE | 2018-10-18 13:29 | XR ---
EXAMINATION TYPE: XR ankle complete RT DATE OF EXAM: 10/18/2018 COMPARISON: NONE HISTORY: Pain FINDINGS: Three views of the ankle demonstrate the ankle mortise to be intact and symmetric. The joint spaces are preserved. The osseous structures are intact. Soft tissue edema noted and there is diffuse oste openia. Vascular calcifications noted. IMPRESSION: 1. No definite acute fracture or dislocation, if symptoms persist follow-up study in 7 to 10 days wou ld be suggested.
== END | disposition home or self-care (01) ==
LOC: RADXRYALE 11:58
PROVIDERS: ATTEND Physician Assistant Medical
DX: M25.571 Pain in right ankle and joints of right foot (principal)

== ENCOUNTER → 2018-11-16 | Outpatient (CLI) | payer MEDICARE ==
--- NOTE | 2018-11-16 15:38 | XR ---
Right ankle HISTORY: Fracture, trauma and pain 3 views of the right ankle correlated to prior exam 10/18/2018 There is an oblique fracture through the distal metaphyseal right fibula with some callus formation. There is associated soft tissue swelling. No evident displacement. Some slight widening of the tibiot alar joint medially may be indicative of some ligamentous laxity. Vascular calcifications noted incid entally. IMPRESSION: Healing distal fibular fracture. Additional findings above.
== END | disposition home or self-care (01) ==
LOC: RADXRYALE 14:17
PROVIDERS: ATTEND Physician Assistant Medical
DX: S82.831D Other fracture of upper and lower end of right fibula, subsequent encounter for closed fracture with routine healing (principal)

== ENCOUNTER → 2018-11-19 | Outpatient (CLI) | payer MEDICARE ==
--- NOTE | 2018-11-19 11:42 | CT ---
EXAMINATION TYPE: CT brain wo con DATE OF EXAM: 11/19/2018 COMPARISON: 12/12/2016 HISTORY: Gait abnormalities CT DLP: 981.[address] of the brain was performed. The ventricles, basal cisterns and sulci overlying the cerebral convexities demonstrate mild enlargem ent. There is no evidence for intracranial hemorrhage or sulcal effacement. There is decreased attenuation about the periventricular white matter and deep white matter of both c erebral hemispheres, compatible with chronic small vessel ischemia. Differential diagnosis does inclu de demyelination. Small focal remote insults anterior right sultana radiata. No mass effects are seen.No midline shift. Osseous calvarium is intact. If symptoms persist consider MRI. IMPRESSION: 1. Age related atrophic and chronic small vessel ischemic change without acute intracranial process s een at this time.
== END | disposition home or self-care (01) ==
LOC: RADCTMAIN 10:54
PROVIDERS: ATTEND Physician Assistant Medical
DX: G31.1 Senile degeneration of brain, not elsewhere classified (principal); I67.82 Cerebral ischemia
CPT/HCPCS: 70450

== ENCOUNTER → 2019-02-14 | Outpatient (CLI) | payer MEDICARE ==
--- NOTE | 2019-02-15 08:33 | US ---
EXAMINATION TYPE: US venous doppler duplex LE RT DATE OF EXAM: 02/14/2019 5:24 PM COMPARISON: 11/30/2018 CLINICAL HISTORY: I82.5Z9 Deep vein thrombosis Rt lower extremity. Hx of DVT F/U to previous on blood thinners. SIDE PERFORMED: Right TECHNIQUE: The lower extremity deep venous system is examined utilizing real time linear array sonog lopez with graded compression, doppler sonography and color-flow sonography. VESSELS IMAGED: External Iliac Vein (EIV) Common Femoral Vein Deep Femoral Vein Greater Saphenous Vein * Femoral Vein Popliteal Vein Small Saphenous Vein * Proximal Calf Veins (* superficial vessels) Right Leg: Femoral vein shows thready flow proximal to distal suggestive of chronic DVT. IMPRESSION: 1. There is persistent reduced growth through the right superficial femoral vein which is similar erika earance to the prior exam consistent with DVT. Given the finding was present on the prior exam and is suggestive of chronic DVT.
== END | disposition home or self-care (01) ==
LOC: RADUSMAIN 16:45
PROVIDERS: ATTEND Internal Medicine Hematology & Oncology
DX: I82.5Z9 Chronic embolism and thrombosis of unspecified deep veins of unspecified distal lower extremity (principal)

== ENCOUNTER → 2019-04-08 | Outpatient (CLI) | payer MEDICARE | END | disposition home or self-care (01) | LOC: RADUSWWP 12:08 | PROVIDERS: ATTEND Family Medicine | DX: M79.662 Pain in left lower leg (principal); M79.661 Pain in right lower leg; I73.89 Other specified peripheral vascular diseases; E78.2 Mixed hyperlipidemia; R60.9 Edema, unspecified | CPT/HCPCS: 93922 ==

== ENCOUNTER → 2019-05-17 | Outpatient (CLI) | payer MEDICARE ==
--- NOTE | 2019-05-17 13:38 | US ---
EXAMINATION TYPE: US venous doppler duplex LE RT DATE OF EXAM: 05/17/2019 12:06 PM COMPARISON: NONE CLINICAL HISTORY: I82.5Z9 DVT,R22.41 Swelling Rt Leg,M79.661 Pain Rt. EdemaHX of chronic DVT right le g. SIDE PERFORMED: Right TECHNIQUE: The lower extremity deep venous system is examined utilizing real time linear array sonog lopez with graded compression, doppler sonography and color-flow sonography. VESSELS IMAGED: External Iliac Vein (EIV) Common Femoral Vein Deep Femoral Vein Greater Saphenous Vein * Femoral Vein Popliteal Vein Small Saphenous Vein * Proximal Calf Veins (* superficial vessels) Grayscale, color doppler, spectral doppler imaging performed of the deep veins of the right lower ext remity. There is normal flow, compressibility, vascular waveforms. Right Leg: Chronic wall changes from previous DVT non occluding new DVT seen at this time. IMPRESSION: Chronic nonocclusive deep venous thrombosis with eccentric thrombus in the right superfic ial femoral vein. This appears improved from the prior of 02/14/2019. No new evidence of occlusive acut e deep venous thrombosis of the right lower extremity.
== END | disposition home or self-care (01) ==
LOC: RADUSWWP 11:34
PROVIDERS: ATTEND Internal Medicine Hematology & Oncology
DX: I82.511 Chronic embolism and thrombosis of right femoral vein (principal)

== ENCOUNTER → 2019-09-17 | Outpatient (CLI) | payer MEDICARE ==
--- NOTE | 2019-09-17 14:57 | US ---
EXAMINATION TYPE: US venous doppler duplex LE RT DATE OF EXAM: 09/17/2019 2:35 PM COMPARISON: NONE CLINICAL HISTORY: I82.5Z9 Chronic embolism and thrombosis of. SIDE PERFORMED: Right TECHNIQUE: The lower extremity deep venous system is examined utilizing real time linear array sonog lopez with graded compression, doppler sonography and color-flow sonography. VESSELS IMAGED: External Iliac Vein (EIV) Common Femoral Vein Deep Femoral Vein Greater Saphenous Vein * Femoral Vein Popliteal Vein Small Saphenous Vein * Proximal Calf Veins (* superficial vessels) Right Leg: Persistent chronic changes in the femoral vein but otherwise, showing improvement from pre vious. Eccentric thrombus is again seen in the superficial femoral vein. No new area of thrombosis. IMPRESSION: Improved degree of thrombosis in the right femoral vein. No new thrombus of the right lo wer extremity venous system.
== END | disposition home or self-care (01) ==
LOC: RADUSWWP 13:58
PROVIDERS: ATTEND Internal Medicine Hematology & Oncology
DX: I82.511 Chronic embolism and thrombosis of right femoral vein (principal)

== ENCOUNTER → 2020-05-05 | Outpatient (CLI) | payer MEDICARE ==
--- NOTE | 2020-05-05 15:15 | US ---
EXAMINATION TYPE: US venous doppler duplex LE RT DATE OF EXAM: 05/05/2020 2:38 PM COMPARISON: US 11/30/18, 02/14/19, 05/17/19, 09/17/19 CLINICAL HISTORY: I82.529. History of chronic DVT. Follow up to previous SIDE PERFORMED: Right TECHNIQUE: The lower extremity deep venous system is examined utilizing real time linear array sonog lopez with graded compression, doppler sonography and color-flow sonography. VESSELS IMAGED: External Iliac Vein (EIV) Common Femoral Vein Deep Femoral Vein Greater Saphenous Vein * Femoral Vein Popliteal Vein Small Saphenous Vein * Proximal Calf Veins (* superficial vessels) Right Leg: Negative for DVT IMPRESSION: No evidence for DVT at this time.
== END | disposition home or self-care (01) ==
LOC: RADUSWWP 14:12
PROVIDERS: ATTEND Internal Medicine Hematology & Oncology
DX: I82.521 Chronic embolism and thrombosis of right iliac vein (principal); Z91.018 Allergy to other foods

== ENCOUNTER 2020-10-09 17:18 | Inpatient (IN) | payer MEDICARE ==
[2020-10-09] MEDS ORDERED: SODIUM CHLORIDE 0.9% 1,000 ML IV STA (17:31)
[2020-10-09] MEDS ORDERED: ONDANSETRON 4 MG/2 ML VIAL IVP STA (17:31)
[2020-10-09] MEDS ORDERED: KETOROLAC 15 MG/ML 1 ML VIAL IVP STA (17:35)
--- NOTE | 2020-10-09 17:53 | ED ---
Abdominal Pain HPI - General Source: patient, RN notes reviewed Mode of arrival: ambulatory Limitations: no limitations <Demetrio Camarena - Last Filed: 10/09/20 18:51> <Donn Martinez - Last Filed: 10/09/20 20:12> - General Chief Complaint: Abdominal Pain Stated Complaint: Abd pain Time Seen by Provider: 10/09/20 17:25 - History of Present Illness Initial Comments: Patient is a 75-year-old female that came to the emergency department with the complaint of abdominal pain. She noted that she was just at her primary care who denies x-ray, and told her to come to the emergency room due to some financial x-ray. Patient reported a history of several small bowel obstructions with several procedures. She noted that this discomfort and pain feels very similar to previous episodes. She noted the pain is a 7-8 out of 10 that is constant. She stated her last bowel movement was yesterday. She had not taken any medications to help with the pain and noted that nothing has really made pain worse. Patient's daughter was present with her during interview and confirm the patient has had several episodes small bowel obstruction with several surgical procedures. Patient noted diffuse abdominal tenderness in all quadrants. She also reported a history of nausea and dry heaving on the way over to the emergency room. She denied any chest pain shortness of breath headache diarrhea constipation fever fatigue chills night sweats change in diet change in weight. (Demetrio Camarena) - Related Data Home Medications Medication Instructions Recorded Confirmed Atorvastatin [Lipitor] 40 mg PO HS 06/21/14 10/09/20 Isosorbide Mononitrate [Imdur] 30 mg PO DAILY 06/21/14 10/09/20 Levothyroxine Sodium [Synthroid] 25 mcg PO DAILY 06/21/14 10/09/20 ursodioL [Actigall] 600 mg PO BID 11/22/16 10/09/20 QUEtiapine [SEROquel] 100 mg PO HS 11/23/16 10/09/20 Apixaban [Eliquis] 5 mg PO BID 10/09/20 10/09/20 Clobetasol Propionate [Temovate 1 applic TOPICAL DAILY PRN 10/09/20 10/09/20 0.05% Oint] Dicyclomine [Bentyl] 20 mg PO BID 10/09/20 10/09/20 Ergocalciferol [Vitamin D2 (1250 1,250 mcg PO Q7D 10/09/20 10/09/20 Mcg = [id number] Iu)] traMADol HCL [Ultram] 50 mg PO BID 10/09/20 10/09/20 Allergies Allergy/AdvReac Type Severity Reaction Status Date / Time Iodinated Contrast Media Allergy Rash/Hives Verified 10/09/20 17:25 [Iodinated Contrast Media - Oral and] oxycodone HCl [From Percocet] Allergy Rash/Hives Verified 10/09/20 17:25 shellfish derived Allergy Rash/Hives Verified 10/09/20 17:25 acetaminophen [From Percocet] AdvReac Severe Liver Verified 10/09/20 17:25 Failure Review of Systems ROS Other: All systems not noted in ROS Statement are negative. <Demetrio Camarena - Last Filed: 10/09/20 18:51> ROS Other: All systems not noted in ROS Statement are negative. <Donn Martinez - Last Filed: 10/09/20 20:12> ROS Statement: Those systems with pertinent positive or pertinent negative responses have been documented in the HPI. Past Medical History Past Medical History: Hyperlipidemia, Hypertension, Liver Disease, Musculoskeletal Disorder, Osteoarthritis (OA), Thyroid Disorder Additional Past Medical History / Comment(s): Hx [id number] see specialist anymore, borderline diabetes, states no meds just watches what she eats. Had a fall and fx. left wrist about 1 year ago. History of Any Multi-Drug Resistant Organisms: None Reported Past Surgical History: Appendectomy, Bowel Resection, Cholecystectomy, Coronary Bypass/CABG, Heart Catheterization, Hysterectomy, Tonsillectomy Additional Past Surgical History / Comment(s): Gastric bypass, bowel obstruction x3, quad bypass 18 yrs ago. Past Anesthesia/Blood Transfusion Reactions: Family History of Problems w/ Anesthesia Additional Past Anesthesia/Blood Transfusion Reaction / Comment(s): Mother had difficulty waking up after anesthesia. Date of Last Stent Placement:: unknown Past Psychological History: No Psychological Hx Reported Past Alcohol Use History: None Reported Past Drug Use History: None Reported - Past Family History Mother Family Medical History: Diabetes Mellitus Additional Family Medical History / Comment(s): Open heart surgery Father Family Medical History: Myocardial Infarction ([place]) <Demetrio Camarena - Last Filed: 10/09/20 18:51> General Exam Limitations: no limitations General appearance: alert, in no apparent distress Head exam: Present: atraumatic, normocephalic, normal inspection Eye exam: Present: normal appearance, PERRL, EOMI. Absent: scleral icterus, conjunctival injection, periorbital swelling ENT exam: Present: normal exam, mucous membranes moist Neck exam: Present: normal inspection. Absent: tenderness, meningismus, lymphadenopathy Respiratory exam: Present: normal lung sounds bilaterally. Absent: respiratory distress, wheezes, rales, rhonchi, stridor Cardiovascular Exam: Present: regular rate, normal rhythm, normal heart sounds. Absent: systolic murmur, diastolic murmur, rubs, gallop, clicks GI/Abdominal exam: Present: soft, tenderness (Through all quadrants), hypoactive bowel sounds Extremities exam: Present: normal inspection, full ROM, normal capillary refill. Absent: tenderness, pedal edema, joint swelling, calf tenderness Back exam: Present: normal inspection Neurological exam: Present: alert, oriented X3, CN II-XII intact Psychiatric exam: Present: normal affect, normal mood Skin exam: Present: warm, dry, intact, normal color. Absent: rash <Demetrio Camarena - Last Filed: 10/09/20 18:51> Course Vital Signs 10/09/20 10/09/20 17:20 19:06 Temperature 98.0 F 97.8 F Pulse Rate 83 90 Respiratory 18 16 Rate Blood Pressure 196/108 214/101 O2 Sat by Pulse 96 98 Oximetry Medical Decision Making - Lab Data Result diagrams: 10/09/20 18:00 10/09/20 18:00 <Demetrio Camarena - Last Filed: 10/09/20 18:51> - Lab Data Result diagrams: 10/09/20 18:00 10/09/20 18:00 <Donn Martinez - Last Filed: 10/09/20 20:12> - Medical Decision Making 75-year-old female complaining of abdominal pain. Labs ordered. CT with contrast ordered. Case discussed with Dr. Martinez. Case was handed off to Dr. Martinez (Demetrio Camarena) CT shows a colonic mechanical bowel obstruction with edema in the wall as well as some ascites. I spoke with Dr. Fontenot he agreed to admit the patient admitted the patient I ordered Zosyn and an NG tube as well as IV fluids. (Donn Martinez) - Lab Data Lab Results 10/09/20 10/09/20 10/09/20 Range/Units 18:00 18:00 18:00 WBC 15.3 H (3.8-10.6) k/uL RBC 4.80 (3.80-5.40) m/uL Hgb 14.2 (11.4-16.0) gm/dL Hct 43.4 (34.0-46.0) % MCV 90.4 (80.0-100.0) fL MCH 29.7 (25.0-35.0) pg MCHC 32.8 (31.0-37.0) g/dL RDW 17.3 H (11.5-15.5) % Plt Count 281 (150-450) k/uL MPV 7.3 Neutrophils % 85 % Lymphocytes % 9 % Monocytes % 4 % Eosinophils % 1 % Basophils % 1 % Neutrophils # 13.0 H (1.3-7.7) k/uL Lymphocytes # 1.3 (1.0-4.8) k/uL Monocytes # 0.6 (0-1.0) k/uL Eosinophils # 0.2 (0-0.7) k/uL Basophils # 0.1 (0-0.2) k/uL Anisocytosis Slight Sodium 138 (137-145) mmol/L Potassium 3.7 (3.5-5.1) mmol/L Chloride 104 (98-107) mmol/L Carbon Dioxide 25 (22-30) mmol/L Anion Gap 9 mmol/L BUN 15 (7-17) mg/dL Creatinine 0.82 (0.52-1.04) mg/dL Est GFR (CKD-EPI)AfAm 81 (>60 ml/min/1.73 sqM) Est GFR (CKD-EPI)NonAf 70 (>60 ml/min/1.73 sqM) Glucose 154 H (74-99) mg/dL Calcium 8.8 (8.4-10.2) mg/dL Total Bilirubin 0.5 (0.2-1.3) mg/dL AST 27 (14-36) U/L ALT 18 (4-34) U/L Alkaline Phosphatase 178 H (38-126) U/L Total Protein 6.9 (6.3-8.2) g/dL Albumin 3.6 (3.5-5.0) g/dL Amylase 62 (30-110) U/L Lipase 45 (23-300) U/L Urine Color Yellow Urine Appearance Turbid H (Clear) Urine pH 5.5 (5.0-8.0) Ur Specific [place] 1.024 (1.001-1.035) Urine Protein 1+ H (Negative) Urine Glucose (UA) Negative (Negative) Urine Ketones Negative (Negative) Urine Blood Trace H (Negative) Urine Nitrite Positive H (Negative) Urine Bilirubin 1+ H (Negative) Urine Urobilinogen 2.0 (<2.0) mg/dL Ur Leukocyte Esterase Large H (Negative) Urine RBC 9 H (0-5) /hpf Urine WBC >182 H (0-5) /hpf Urine WBC Clumps Occasional H (None) /hpf Ur Squamous Epith Cells 10 H (0-4) /hpf Calcium Oxalate Crystal Many H (None) /hpf Urine Bacteria Many H (None) /hpf Urine Mucus Occasional H (None) /hpf Disposition <Demetrio Camarena - Last Filed: 10/09/20 18:51> Time of Disposition: 19:52 <Donn Martinez - Last Filed: 10/09/20 20:12> Clinical Impression: Bowel obstruction, Urinary tract infection Disposition: ADMITTED IP TO THIS HOSP Referrals: Juan Cast DO [Primary Care Provider] - 1-2 days
[2020-10-09 18:21] LABS: Anisocytosis Slight; Basophils # (A) 0.1 k/uL (0-0.2); Basophils % (A) 1 %; Eosinophils # (A) 0.2 k/uL (0-0.7); Eosinophils % (A) 1 %; HCT 43.4 % (34.0-46.0); HGB 14.2 gm/dL (11.4-16.0); Lymphocytes # (A) 1.3 k/uL (1.0-4.8); Lymphocytes % (A) 9 %; MCH 29.7 pg (25.0-35.0); MCHC 32.8 g/dL (31.0-37.0); MCV 90.4 fL (80.0-100.0); Mean Platelet Volume 7.3; Monocytes # (A) 0.6 k/uL (0-1.0); Monocytes % (A) 4 %; Neutrophils % (A) 85 %; Platelet Count 281 k/uL (150-450); RDW 17.3 % (11.5-15.5); WBC 15.3 k/uL (3.8-10.6)
[2020-10-09 18:26] LABS: Appearance,Urine Turbid (Clear); Bacteria,Urine Many /hpf; Bilirubin,Urine 1+ (Negative); Blood,Urine Trace (Negative); Calcium Oxalate Crystals,Urine Many /hpf; Color,Urine Yellow; Glucose,Urine (UA) Negative (Negative); Ketones,Urine Negative (Negative); Leukocyte Esterase,Urine Large (Negative); Mucus,Urine Occasional /hpf; Nitrite,Urine Positive (Negative); PH, Urine 5.5 (5.0-8.0); Protein,Urine 1+ (Negative); RBC,Urine 9 /hpf (0-5); Specific Gravity,Urine 1.024 (1.001-1.035); Squamous Epithelial Cell,Urine 10 /hpf (0-4); WBC,Urine >182 /hpf (0-5)
[2020-10-09] MEDS ORDERED: diphenhydrAMINE 50 MG/ML 1 ML VIAL IVP STA (18:28)
[2020-10-09] MEDS ORDERED: FAMOTIDINE 20 MG/2 ML VIAL IV STA (18:28)
[2020-10-09] MEDS ORDERED: methylPREDNISolone SOD SUCCI 125 MG/2 ML VIAL IV STA (18:28)
[2020-10-09 18:32] LABS: Albumin 3.6 g/dL (3.5-5.0); Calcium 8.8 mg/dL (8.4-10.2); Potassium 3.7 mmol/L (3.5-5.1); Total Bilirubin 0.5 mg/dL (0.2-1.3); Total Protein 6.9 g/dL (6.3-8.2)
[2020-10-09] MEDS ORDERED: cefTRIAXone IN SWFI 1,000 MG/10 ML SYRINGE IVP STA (18:51)
--- NOTE | 2020-10-09 19:18 | CT ---
EXAMINATION TYPE: CT abdomen pelvis w con DATE OF EXAM: 10/09/2020 COMPARISON: 06/29/2012 HISTORY: Lower abdominal pain x3 weeks. CT DLP: 786 mGycm Automated exposure control for dose reduction was used. CONTRAST: Performed with IV Contrast, patient injected with 100ml mL of Isovue 300. Heart is slightly enlarged. There is some mild atelectasis at the lung bases. There is no pleural eff usion. There is coronary artery calcification. Liver shows no focal defect. Spleen is intact. Stomach is intact. There are surgical clips at the gas troesophageal junction. There is previous gastric surgery with hiatal hernia. There is no evidence of pancreatic mass. There is mild prominence of the biliary tree. The common bile duct measures 12 mm. I see no filling defect. There is no adrenal mass. The kidneys have normal size. There is normal enhancement of both kidneys. There is no hydronephrosis. There is 3.5 cm cortical cyst upper pole right kidney. Delayed images tiago w normal renal excretion. There is small amount of fluid in the left paracolic gutter. There is minimal fluid in the right para colic gutter. There is diffuse wall thickening of the sigmoid colon which is moderately dilated. Sigmoid colon blayne ures up to 5.5 cm. There is apparent previous sigmoid colon surgery. Transition point is difficult to localize. There is no evidence of free air. The lumbar vertebra have fairly normal alignment. There is 10% mild compression of L4 vertebral body. IMPRESSION: Moderately dilated sigmoid colon with wall thickening and surrounding edema consistent with the dista l mechanical bowel obstruction that is worse than previous CT scan no free air. There is new mild abd ominal ascites compared to old exam.
[2020-10-09] MEDS ORDERED: PIPERACILLIN-TAZOBACTAM 3.375 GM in SODIUM CHLORIDE 0.9% 100 ML IVPB STA (19:50)
[2020-10-09] MEDS ORDERED: SODIUM CHLORIDE 0.9% 1,000 ML IV ONE (20:14)
[2020-10-09] MEDS ORDERED: ONDANSETRON 4 MG/2 ML VIAL IVP PRN (20:15)
[2020-10-09] MEDS ORDERED: SODIUM CHLORIDE 0.9% 500 ML 500 ML IV STA (20:46)
[2020-10-09] MEDS: HYDROmorphone 0.5 MG/0.5 ML SYRINGE IVP PRN (20:50)
[2020-10-09] MEDS ORDERED: hydrALAZINE HCL 20 MG/ML 1 ML VIAL IVP STA (21:13)
[2020-10-10] MEDS: HYDROmorphone 0.5 MG/0.5 ML SYRINGE IVP PRN ×4 (01:51→21:32)
[2020-10-10] MEDS: PIPERACILLIN-TAZOBACTAM 3.375 GM in SODIUM CHLORIDE 0.9% 100 ML IVPB SCH ×3 (04:29→21:31)
--- NOTE | 2020-10-10 10:33 | P.GSHP ---
History of Present Illness H&P Date: 10/10/20 Chief Complaint: Abdominal pain distention Cyst 75-year-old female who is admitted through the emergency room with complaints of abdominal pain distention. Patient awake CAT scan is found have colonic obstruction. She has previous history of what appears to be a sigmoid colectomy. Past Medical History Past Medical History: Hyperlipidemia, Hypertension, Liver Disease, Musculoskeletal Disorder, Osteoarthritis (OA), Thyroid Disorder Additional Past Medical History / Comment(s): Hx [id number]'t see specialist anymore, borderline diabetes, states no meds just watches what she eats. Had a fall and fx. left wrist about 1 year ago. History of Any Multi-Drug Resistant Organisms: None Reported Past Surgical History: Appendectomy, Bowel Resection, Cholecystectomy, Coronary Bypass/CABG, Heart Catheterization, Hysterectomy, Tonsillectomy Additional Past Surgical History / Comment(s): Gastric bypass, bowel obstruction x3, quad bypass 18 yrs ago. Past Anesthesia/Blood Transfusion Reactions: Family History of Problems w/ Anesthesia Additional Past Anesthesia/Blood Transfusion Reaction / Comment(s): Mother had difficulty waking up after anesthesia. Date of Last Stent Placement:: unknown Past Psychological History: No Psychological Hx Reported Smoking Status: Never smoker Past Alcohol Use History: None Reported Past Drug Use History: None Reported - Past Family History Mother Family Medical History: Diabetes Mellitus Additional Family Medical History / Comment(s): Open heart surgery Father Family Medical History: Myocardial Infarction ([place]) Medications and Allergies Home Medications Medication Instructions Recorded Confirmed Type Atorvastatin [Lipitor] 40 mg PO HS 06/21/14 10/09/20 History Isosorbide Mononitrate [Imdur] 30 mg PO DAILY 06/21/14 10/09/20 History Levothyroxine Sodium [Synthroid] 25 mcg PO DAILY 06/21/14 10/09/20 History ursodioL [Actigall] 600 mg PO BID 11/22/16 10/09/20 History QUEtiapine [SEROquel] 100 mg PO HS 11/23/16 10/09/20 History Apixaban [Eliquis] 5 mg PO BID 10/09/20 10/09/20 History Clobetasol Propionate [Temovate 1 applic TOPICAL DAILY PRN 10/09/20 10/09/20 History 0.05% Oint] Dicyclomine [Bentyl] 20 mg PO BID 10/09/20 10/09/20 History Ergocalciferol [Vitamin D2 (1250 1,250 mcg PO Q7D 10/09/20 10/09/20 History Mcg = 18092 Iu)] traMADol HCL [Ultram] 50 mg PO BID 10/09/20 10/09/20 History Allergies Allergy/AdvReac Type Severity Reaction Status Date / Time Iodinated Contrast Media Allergy Rash/Hives Verified 10/09/20 17:25 [Iodinated Contrast Media - Oral and] oxycodone HCl [From Percocet] Allergy Rash/Hives Verified 10/09/20 17:25 shellfish derived Allergy Rash/Hives Verified 10/09/20 17:25 acetaminophen [From Percocet] AdvReac Severe Liver Verified 10/09/20 17:25 Failure Surgical - Exam Vital Signs Temp Pulse Resp BP Pulse Ox 98.0 F 83 18 196/108 96 10/09/20 17:20 10/09/20 17:20 10/09/20 17:20 10/09/20 17:20 10/09/20 17:20 - General well developed, moderate distress - Eyes PERRL - Neck no masses - Respiratory normal expansion - Cardiovascular Rhythm: regular - Abdomen Mild abdominal distention, there is mild tenderness throughout area there is no rebound or guarding Abdomen: soft Results - Labs 10/09/20 18:00 10/09/20 18:00 Abnormal Lab Results - Last 24 Hours (Table) 10/09/20 10/09/20 10/09/20 Range/Units 18:00 18:00 18:00 WBC 15.3 H (3.8-10.6) k/uL RDW 17.3 H (11.5-15.5) % Neutrophils # 13.0 H (1.3-7.7) k/uL Glucose 154 H (74-99) mg/dL Plasma Lactic Acid Jose (0.7-2.0) mmol/L Alkaline Phosphatase 178 H (38-126) U/L Urine Appearance Turbid H (Clear) Urine Protein 1+ H (Negative) Urine Blood Trace H (Negative) Urine Nitrite Positive H (Negative) Urine Bilirubin 1+ H (Negative) Ur Leukocyte Esterase Large H (Negative) Urine RBC 9 H (0-5) /hpf Urine WBC >182 H (0-5) /hpf Urine WBC Clumps Occasional H (None) /hpf Ur Squamous Epith Cells 10 H (0-4) /hpf Calcium Oxalate Crystal Many H (None) /hpf Urine Bacteria Many H (None) /hpf Urine Mucus Occasional H (None) /hpf 10/09/20 Range/Units 19:28 WBC (3.8-10.6) k/uL RDW (11.5-15.5) % Neutrophils # (1.3-7.7) k/uL Glucose (74-99) mg/dL Plasma Lactic Acid Jose 2.6 H* (0.7-2.0) mmol/L Alkaline Phosphatase (38-126) U/L Urine Appearance (Clear) Urine Protein (Negative) Urine Blood (Negative) Urine Nitrite (Negative) Urine Bilirubin (Negative) Ur Leukocyte Esterase (Negative) Urine RBC (0-5) /hpf Urine WBC (0-5) /hpf Urine WBC Clumps (None) /hpf Ur Squamous Epith Cells (0-4) /hpf Calcium Oxalate Crystal (None) /hpf Urine Bacteria (None) /hpf Urine Mucus (None) /hpf Microbiology - Last 24 Hours (Table) 10/09/20 18:00 Urine Culture - Preliminary Urine,Voided Diabetes panel 10/09/20 Range/Units 18:00 Sodium 138 (137-145) mmol/L Potassium 3.7 (3.5-5.1) mmol/L Chloride 104 (98-107) mmol/L Carbon Dioxide 25 (22-30) mmol/L BUN 15 (7-17) mg/dL Creatinine 0.82 (0.52-1.04) mg/dL Glucose 154 H (74-99) mg/dL Calcium 8.8 (8.4-10.2) mg/dL AST 27 (14-36) U/L ALT 18 (4-34) U/L Alkaline Phosphatase 178 H (38-126) U/L Total Protein 6.9 (6.3-8.2) g/dL Albumin 3.6 (3.5-5.0) g/dL Calcium panel 10/09/20 Range/Units 18:00 Calcium 8.8 (8.4-10.2) mg/dL Albumin 3.6 (3.5-5.0) g/dL Pituitary panel 10/09/20 Range/Units 18:00 Sodium 138 (137-145) mmol/L Potassium 3.7 (3.5-5.1) mmol/L Chloride 104 (98-107) mmol/L Carbon Dioxide 25 (22-30) mmol/L BUN 15 (7-17) mg/dL Creatinine 0.82 (0.52-1.04) mg/dL Glucose 154 H (74-99) mg/dL Calcium 8.8 (8.4-10.2) mg/dL Adrenal panel 10/09/20 Range/Units 18:00 Sodium 138 (137-145) mmol/L Potassium 3.7 (3.5-5.1) mmol/L Chloride 104 (98-107) mmol/L Carbon Dioxide 25 (22-30) mmol/L BUN 15 (7-17) mg/dL Creatinine 0.82 (0.52-1.04) mg/dL Glucose 154 H (74-99) mg/dL Calcium 8.8 (8.4-10.2) mg/dL Total Bilirubin 0.5 (0.2-1.3) mg/dL AST 27 (14-36) U/L ALT 18 (4-34) U/L Alkaline Phosphatase 178 H (38-126) U/L Total Protein 6.9 (6.3-8.2) g/dL Albumin 3.6 (3.5-5.0) g/dL - Imaging CT scan - pelvis: report reviewed (Sigmoid colon thickening with stranding. Evidence of colonic obstruction) Assessment and Plan Assessment: Colonic obstruction. Patient undergo exploration with sigmoid colectomy po ssible colostomy tomorrow
--- NOTE | 2020-10-10 17:27 | XR ---
EXAMINATION TYPE: XR chest 1V portable DATE OF EXAM: 10/10/2020 COMPARISON: 11/30/2018 HISTORY: Short of breath TECHNIQUE: FINDINGS: Heart size is normal. There is slight blunting of the costophrenic angles. There are sterna l wires. There are no hilar masses. There is minimal infiltrate left lung base. Bony thorax appears i ntact. IMPRESSION: Small pleural effusions. Mild left basilar pulmonary infiltrate. Chest appears slightly w orse than old exam. No heart failure seen.
[2020-10-10 17:48] LABS: Prothrombin Time 11.1 sec (9.0-12.0)
[2020-10-10 17:51] LABS: Partial Thromboplastin Time 18.9 sec (22.0-30.0)
[2020-10-10] MEDS: PANTOPRAZOLE 40 MG/10 ML VIAL IVP SCH (21:30)
[2020-10-10] MEDS: QUEtiapine 100 MG TAB PO SCH (21:32)
[2020-10-10] MEDS: HEPARIN SODIUM,PORCINE 5,000 UNIT/ML 1 ML VIAL SQ SCH (21:32)
--- NOTE | 2020-10-10 22:27 | CONS ---
CONSULTATION DATE OF SERVICE: 10/10/2020. REASON FOR CONSULTATION: Advice regarding hypertension requested by Dr. Saldana. HISTORY OF PRESENT ILLNESS: This 75-year-old woman with a past medical history of hypertension, hyperlipidemia, history of DJD, history of appendectomy, history of CAD, CABG, history of gastric bypass, history of bowel obstruction x3 being followed by Dr. Cast in the outpatient setting has presented to [facility] with complaints of abdominal pain. The pain was mostly situated in the left lower quadrant. The patient also had multiple small-bowel obstructions and multiple procedures. Because of the increasing pain, the patient presented to [facility] and abdominal pelvis CAT scan at the time of admission showed moderately dilated sigmoid colon with wall thickening and surrounding edema consistent with distal mechanical bowel obstruction, which is worse than previous CAT scan. There is some abdominal ascites also noted. Dr. Saldana is following the patient closely. There is no history of fever, rigors or chills. No history of headache, loss of consciousness. Previous exercise tolerance prior to the current episode appears to be excellent. PAST MEDICAL HISTORY: Hypertension, hyperlipidemia, history of chronic liver disease, history of cirrhosis of the liver, history of appendectomy, bowel resection, CAD, CABG, history of abdominal surgeries and small bowel obstructions. MEDICATIONS: Medications prior to admission include , Ultram, Seroquel, Synthroid, Imdur, vitamin D, Bentyl, Temovate, Lipitor, Eliquis. ALLERGIES: IODINATED CONTRAST DYE, OXYCODONE, SHELLFISH, PERCOCET. FAMILY HISTORY: History of diabetes and CAD/CABG. SOCIAL HISTORY: No history of smoking. No history of alcohol intake. REVIEW OF SYSTEMS: ENT: No diminished vision. No diminished hearing. CARDIOVASCULAR: No angina or palpitations. RESPIRATIONS: No cough. No hemoptysis. GI: As mentioned earlier. : No dysuria. NERVOUS SYSTEM: No numbness or weakness. ALLERGY/IMMUNOLOGY: No asthma or hayfever. MUSCULOSKELETAL as mentioned earlier. HEMATOLOGY/ONCOLOGY: No history of anemia. ENDOCRINE: Hypothyroidism. CONSTITUTIONAL: As mentioned earlier. DERMATOLOGY: Negative. RHEUMATOLOGY: Negative. PSYCHIATRIC: As mentioned earlier. PHYSICAL EXAMINATION: The patient is alert and oriented times three. Pulse 67, blood pressure 165/76, respiration 17, temperature 98.2, pulse ox 95 percent on room air. HEENT: Conjunctivae normal. NECK: No JVD. CARDIOVASCULAR: S1, S2 muffled. RESPIRATORY: Breath sounds diminished in the bases. A few scattered rhonchi and crackles. ABDOMEN: Soft. Mild diffuse tenderness present in the lower part. Mild diffuse distention present. Bowel sounds diminished. No ascites. No rebound tenderness. LEGS no edema. No swelling. NERVOUS SYSTEM: Higher functions as mentioned earlier. Moves all 4 limbs. No focal motor or sensory deficits. LYMPHATICS: No lymph nodes palpable in the neck, axilla or groin. SKIN: No ulcers, no rashes and no bleeding. JOINTS: No active deforming arthropathy. LABS: WBC 15.2, hemoglobin 14.2, sodium 138, potassium 3.7. Lactic acid 2.6. UA noted. ASSESSMENT: 1. Abdominal pain, distention, possibly acute bowel obstruction with distal mechanical bowel obstruction with dilated sigmoid colon. 2. Acute urinary tract infection present, possibly. 3. Increased WBC. 4. Elevated lactic acid. 5. History of multiple abdominal surgeries. 6. History of coronary artery disease, coronary artery bypass grafting. 7. Hypertension. 8. Hyperlipidemia. 9. History of chronic liver disease, cirrhosis. 10.History of degenerative joint disease. 11.History of hypothyroidism. 12.History of borderline diabetes mellitus, type 2. 13.History of appendectomy. 14.History of bowel resection. 15.History of tonsillectomy. 16.History of gastric bypass. RECOMMENDATIONS AND DISCUSSION: In this 75-year-old woman who presented with multiple complex medical issues, at this time I recommend to continue the current medications. The patient is relatively stable, but however, I would recommend initiate broad-spectrum IV antibiotics. Resume the home medications. DVT prophylaxis. Follow closely with surgery. Cultures. Guarded prognosis because of multiple complex medical issues. We will follow the patient closely with you. A copy of this dictation will be forwarded to Dr. Cast who is the primary physician. Thank you Dr. Saldana. MMPRISCILLAL / JOANNN: [id number] / PANCHO
[2020-10-11] MEDS: PIPERACILLIN-TAZOBACTAM 3.375 GM in SODIUM CHLORIDE 0.9% 100 ML IVPB SCH ×3 (05:20→22:01)
[2020-10-11 06:42] LABS: Anisocytosis Slight; Basophils % (A) 0 %; Eosinophils # (A) 0.1 k/uL (0-0.7); Eosinophils % (A) 1 %; HCT 35.1 % (34.0-46.0); Lymphocytes # (A) 1.6 k/uL (1.0-4.8); Lymphocytes % (A) 17 %; MCH 29.2 pg (25.0-35.0); MCHC 31.9 g/dL (31.0-37.0); MCV 91.4 fL (80.0-100.0); Mean Platelet Volume 7.5; Monocytes # (A) 0.5 k/uL (0-1.0); Monocytes % (A) 5 %; Neutrophils # (A) 7.2 k/uL (1.3-7.7); Neutrophils % (A) 76 %; Platelet Count 234 k/uL (150-450); RBC 3.84 m/uL (3.80-5.40); RDW 17.6 % (11.5-15.5); WBC 9.4 k/uL (3.8-10.6)
[2020-10-11 07:00] LABS: HGB 11.2 gm/dL (11.4-16.0)
[2020-10-11] MEDS: PANTOPRAZOLE 40 MG/10 ML VIAL IVP SCH ×2 (07:39→22:00)
[2020-10-11] MEDS: HEPARIN SODIUM,PORCINE 5,000 UNIT/ML 1 ML VIAL SQ SCH ×2 (07:39→22:00)
[2020-10-11] MEDS ORDERED: PROPOFOL 10 MG/ML 20 ML VIAL IV ONE (07:51)
[2020-10-11] MEDS ORDERED: ONDANSETRON 4 MG/2 ML VIAL ONE (07:51)
[2020-10-11] MEDS ORDERED: hydrALAZINE HCL 20 MG/ML 1 ML VIAL ONE (07:51)
[2020-10-11] MEDS ORDERED: ROCURONIUM 10 MG/ML (10 ML VIAL) IV ONE (07:51)
[2020-10-11] MEDS ORDERED: DEXAMETHASONE SOD PHOSPHATE 10 MG/ML 1 ML VIAL ONE (07:51)
[2020-10-11] MEDS ORDERED: LIDOCAINE 1% INJ 10MG/ML (20 ML MDV) ONE (07:51)
[2020-10-11] MEDS ORDERED: NEOSTIGMINE 1 MG/ML 10 ML VIAL ONE (07:51)
[2020-10-11] MEDS ORDERED: GLYCOPYRROLATE 0.2 MG/ML 2 ML VIAL ONE (07:51)
[2020-10-11] MEDS ORDERED: HEPARIN SODIUM,PORCINE 5,000 UNIT/ML 1 ML VIAL ONE (07:51)
[2020-10-11] MEDS ORDERED: SUCCINYLCHOLINE CHLORIDE 100 MG/5 ML SYR IV ONE (07:51)
[2020-10-11] MEDS ORDERED: LABETALOL 5 MG/ML VIAL MDV ONE (07:51)
[2020-10-11] MEDS ORDERED: fentaNYL (PF) 50 MCG/ML 2 ML AMP ONE (07:51)
[2020-10-11] MEDS ORDERED: HYDROmorphone (PF) 1 MG/ML ONE (07:51)
[2020-10-11] MEDS ORDERED: SODIUM CHLORIDE 0.9% 1,000 ML IV ONE (07:53)
[2020-10-11] MEDS ORDERED: LACTATED RINGERS 1,000 ML IV ONE (08:32)
[2020-10-11] MEDS ORDERED: METOCLOPRAMIDE 5 MG/ML 2 ML VIAL IVP PRN (09:23)
[2020-10-11] MEDS ORDERED: BENZOCAINE/MENTHOL LOZENG 1 EACH LOZENGE MUCOUS MEM PRN (09:23)
[2020-10-11] MEDS ORDERED: HYDROmorphone 1 MG/ML 1 ML SYRINGE IVP ONE ×2 (09:35→09:40)
[2020-10-11 09:42] LABS: Glucose,Whole Blood 107 mg/dL (75-99)
[2020-10-11 10:59] LABS: African American GFR (CKD) 83.6 (60.0-200.0); Anion Gap 6.4 mmol/L (4.00-12.00); BUN/Creat Ratio 16.25 Ratio (12.00-20.00); Calcium 8.1 mg/dL (8.7-10.3); Carbon Dioxide 25.6 mmol/L (21.6-31.8); Non-African American GFR(CKD) 72.1 (60.0-200.0); Potassium 3.8 mmol/L (3.5-5.5)
--- NOTE | 2020-10-11 11:07 | P.OP ---
Date of Procedure: 10/11/20 Preoperative Diagnosis: Colonic obstruction Postoperative Diagnosis: Sigmoid colon volvulus Procedure(s) Performed: Lysis of adhesions Sigmoid colectomy Incisional hernia Anesthesia: SUZIE Surgeon: Myron Saldana Estimated Blood Loss (ml): 100 Pathology: other (Sigmoid colon) Condition: stable Disposition: PACU Description of Procedure: The patient's placed on the operating table in the supine position. She received general anesthesia. Her abdomen was prepped and draped usual fashion. The eye was entered through a midline incision. There was incisional hernia noted. Approximately 20 minutes of operative time used to lyse adhesions. The sigmoid colon was grossly dilated. There appeared to be a volvulus and sigmoid colon. The adhesive band was cut and the volvulus on done. The sigmoid colon appeared to be ischemic. This point decided perform sigmoid colectomy with end colostomy. The colon was transected approximately distally with a UNIQUE stapler. Then using the incentive device the mesentery the bowel was divided. The colon was then brought up through the ostomy site in the left upper quadrant. The abdomen was irrigated resolving seen. The fascia was closed with looped #1 PDS suture. Skin was closed was kristian. The colostomy matured with 3-0 Vicryl suture. Patient top she will was sent to recovery room stable condition.
[2020-10-11] MEDS: KETOROLAC 15 MG/ML 1 ML VIAL IVP PRN ×2 (13:58→22:00)
--- NOTE | 2020-10-11 17:45 | PN ---
PROGRESS NOTE DATE OF SERVICE: 10/11/2020. This 75-year-old woman was admitted with abdominal pain, had possible bowel obstruction. The patient underwent sigmoid colectomy and lysis of adhesions for sigmoid colon volvulus, which was by surgeon. Otherwise no chest pain. No palpitations. No fever. The patient is complaining of some pain. Covid 19 is negative. PHYSICAL EXAMINATION: Alert and oriented times two. Pulse 75. Blood pressure 127/69, respirations 16, temperature 98.2, pulse ox 94% on room air. HEENT: Conjunctivae normal. NECK: No JVD. CARDIOVASCULAR; S1, S2 muffled. RESPIRATION: Breath sounds diminished in the bases. ABDOMEN: Soft. Status post surgery. LEGS are no edema. No swelling. NERVOUS SYSTEM: No focal deficits. LABS: WBC 9, hemoglobin 11.2. Sodium 142, potassium 3.8. ASSESSMENT: 1. Abdominal pain, distention, possibly acute bowel obstruction secondary to sigmoid colon volvulus, status post lysis of adhesions and sigmoid colectomy and incisional hernia repair. 2. Acute urinary tract infection, present on admission. 3. Increased WBC. 4. Elevated lactic acid. 5. History of multiple abdominal surgeries. 6. History of coronary artery disease, coronary artery bypass grafting. 7. Hypertension. 8. Hyperlipidemia. 9. History of chronic liver disease with cirrhosis. 10.History of degenerative joint disease. 11.History of hypothyroidism. 12.History of borderline diabetes type 2. 13.History of appendectomy. 14.History of bowel resection. 15.History of tonsillectomy. 16.History of gastric bypass. RECOMMENDATIONS AND DISCUSSION: I recommend to continue current medications, continue with monitoring, and continue symptomatic treatment. Continue the antibiotics. Incentive spirometry. DVT prophylaxis. Closely follow with surgery. Further recommendations to follow. MMODL / IJN: [id number] / MTDD
[2020-10-11] MEDS: HYDROmorphone 0.5 MG/0.5 ML SYRINGE IVP PRN (18:43)
[2020-10-11] MEDS: QUEtiapine 100 MG TAB PO SCH (22:01)
[2020-10-12] MEDS: KETOROLAC 15 MG/ML 1 ML VIAL IVP PRN ×2 (05:40→21:39)
[2020-10-12] MEDS: PIPERACILLIN-TAZOBACTAM 3.375 GM in SODIUM CHLORIDE 0.9% 100 ML IVPB SCH ×3 (05:40→21:39)
[2020-10-12 06:06] LABS: Anisocytosis Slight; Basophils % (A) 0 %; Eosinophils % (A) 0 %; HCT 29.9 % (34.0-46.0); HGB 10.1 gm/dL (11.4-16.0); Lymphocytes # (A) 0.9 k/uL (1.0-4.8); Lymphocytes % (A) 12 %; MCH 30.8 pg (25.0-35.0); MCHC 33.8 g/dL (31.0-37.0); MCV 91.3 fL (80.0-100.0); Mean Platelet Volume 6.8; Monocytes # (A) 0.6 k/uL (0-1.0); Monocytes % (A) 7 %; Neutrophils # (A) 6.4 k/uL (1.3-7.7); Neutrophils % (A) 80 %; Platelet Count 224 k/uL (150-450); RBC 3.27 m/uL (3.80-5.40); RDW 17.4 % (11.5-15.5)
[2020-10-12 08:49] LABS: African American GFR (CKD) 72.5 (60.0-200.0); BUN/Creat Ratio 22.22 Ratio (12.00-20.00); Calcium 7.8 mg/dL (8.7-10.3); Non-African American GFR(CKD) 62.5 (60.0-200.0); Potassium 4.3 mmol/L (3.5-5.5)
[2020-10-12] MEDS: PANTOPRAZOLE 40 MG/10 ML VIAL IVP SCH (09:30)
[2020-10-12] MEDS: HEPARIN SODIUM,PORCINE 5,000 UNIT/ML 1 ML VIAL SQ SCH ×2 (09:30→21:39)
[2020-10-12] MEDS: HYDROmorphone 0.5 MG/0.5 ML SYRINGE IVP PRN ×3 (09:30→18:20)
--- NOTE | 2020-10-12 12:30 | P.PN ---
Subjective Progress Note Date: 10/12/20 CHIEF COMPLAINT: Sigmoid colon volvulus HISTORY OF PRESENT ILLNESS: Patient is status post lysis of adhesions, sigmoid colectomy and incisional hernia for a sigmoid colon volvulus. Patient is lying in bed comfortably. She reports that her pain is controlled. Denies any nausea or vomiting. She denies any bowel movement or passing gas. Afebrile. WBC 8.0 hemoglobin 10.1 PHYSICAL EXAM: VITAL SIGNS: Reviewed. GENERAL: Well-developed in no acute distress. HEENT: No sclera icterus. Extraocular movements grossly intact. Moist buccal mucosa. Head is atraumatic, normocephalic. ABDOMEN: Soft. Nondistended. Dressing clean dry and intact. Ostomy with beefy red stoma. NEUROLOGIC: Alert and oriented. Cranial nerves II through XII grossly intact. ASSESSMENT: 1. Sigmoid colon volvulus status post lysis of adhesions, sigmoid colectomy and incisional hernia PLAN: -Continue clear liquid diet -Consult PT OT -Continue pain medication as needed -Continue GI prophylaxis Protonix and DVT prophylaxis subcu heparin Physician Coal Weigher note has been reviewed by physician. Signing provider agrees with the documented findings, assessment, and plan of care. Objective - Vital Signs Vital signs: Vital Signs Temp 98.5 F 10/12/20 02:31 Pulse 68 10/12/20 07:47 Resp 16 10/12/20 07:47 BP 102/61 10/12/20 02:31 Pulse Ox 95 10/12/20 02:31 Intake & Output 10/11/20 10/12/20 10/12/20 18:59 06:59 18:59 Intake Total 600 Output Total 800 Balance -200 Intake: IV 600 Output: Urine 600 Estimated Blood Loss 200 Other: Voiding Method Indwelling Catheter Indwelling Catheter - Labs CBC & Chem 7: 10/12/20 05:20 10/12/20 05:20 Labs: Abnormal Lab Results - Last 24 Hours (Table) 10/12/20 10/12/20 Range/Units 05:20 05:20 RBC 3.27 L (3.80-5.40) m/uL Hgb 10.1 L (11.4-16.0) gm/dL Hct 29.9 L (34.0-46.0) % RDW 17.4 H (11.5-15.5) % Lymphocytes # 0.9 L (1.0-4.8) k/uL BUN/Creatinine Ratio 22.22 H (12.00-20.00) Ratio Calcium 7.8 L (8.7-10.3) mg/dL Microbiology - Last 24 Hours (Table) 10/10/20 17:05 Blood Culture - Preliminary Blood No Growth after 24 hours 10/09/20 18:00 Urine Culture - Final Urine,Voided Kluyvera ascorbata
--- NOTE | 2020-10-12 16:40 | PN ---
PROGRESS NOTE DATE OF SERVICE: 10/12/2020 DATE OF SERVICE: This 75-year-old woman who was admitted with abdominal pain, distention and possible acute bowel obstruction secondary to sigmoid volvulus, underwent a sigmoid colectomy. The patient is closely monitored. No chest pain. No palpitations. No fever. PHYSICAL EXAMINATION: Alert and oriented x3. Pulse 68, blood pressure 128/72, respirations 16, temperature 99.6, pulse ox 96% on room air. HEENT: Conjunctivae normal. NECK: No jugular venous distention. CARDIOVASCULAR: S1, S2 muffled. RESPIRATORY: Breath sounds diminished at the bases. No rhonchi. No crackles. ABDOMEN: Soft. Status post surgery. LEGS: No edema. No swelling. NERVOUS SYSTEM: No focal deficits. LABS: Hemoglobin 10.1 and calcium is 7.8. UA noted. Urine culture showed Kluyvera ascorbata, which is sensitive to multiple antibiotics. ASSESSMENT: 1. Abdominal pain and distention with possible acute bowel obstruction secondary to sigmoid colon volvulus, status post lysis of adhesions, sigmoid colectomy and incisional hernia repair. 2. 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 3. Increased WBC. 4. Elevated lactic acid. 5. History of multiple abdominal surgeries. 6. History of coronary artery disease, coronary artery bypass grafting. 7. Hypertension. 8. Hyperlipidemia. 9. History of chronic liver disease with cirrhosis. 10.History of degenerative joint disease. 11.History of hypothyroidism. 12.History of borderline diabetes mellitus type 2. 13.History of appendectomy. 14.History of bowel resection. 15.History of tonsillectomy. 16.History of gastric bypass. 17.FULL CODE. RECOMMENDATIONS AND DISCUSSION: This 75-year-old woman who presented with multiple complex medical issues, we will monitor the patient closely, continue the current medications, continue symptomatic treatment. Continue with antibiotics and symptomatic treatment. Closely follow with Surgery. PT, OT evaluation. Guarded prognosis. Further recommendations to follow. MMODL / IJN: [id number] /
[2020-10-12] MEDS: PANTOPRAZOLE 40 MG TABLET PO SCH (17:13)
[2020-10-12] MEDS: QUEtiapine 100 MG TAB PO SCH (21:38)
[2020-10-13] MEDS: PIPERACILLIN-TAZOBACTAM 3.375 GM in SODIUM CHLORIDE 0.9% 100 ML IVPB SCH ×3 (05:31→20:07)
[2020-10-13] MEDS: KETOROLAC 15 MG/ML 1 ML VIAL IVP PRN (05:31)
[2020-10-13] MEDS: PANTOPRAZOLE 40 MG TABLET PO SCH ×2 (08:29→16:15)
[2020-10-13] MEDS: HEPARIN SODIUM,PORCINE 5,000 UNIT/ML 1 ML VIAL SQ SCH ×2 (08:29→20:07)
[2020-10-13] MEDS: HYDROmorphone 0.5 MG/0.5 ML SYRINGE IVP PRN ×3 (08:29→20:07)
[2020-10-13 09:29] LABS: Basophils # (A) 0.01 X 10*3/uL (0.00-0.10); Basophils % (A) 0.1 %; Eosinophils # (A) 0.15 X 10*3/uL (0.04-0.35); Eosinophils % (A) 2.1 %; HCT 27.1 % (37.2-46.3); HGB 8.9 g/dL (12.0-15.0); Lymphocytes # (A) 1.14 X 10*3/uL (0.90-5.00); Lymphocytes % (A) 16.1 %; MCHC 32.8 g/dL (32.0-37.0); MCV 91.2 fL (80.0-97.0); Mean Platelet Volume 9.9 fL (9.5-12.2); Monocytes # (A) 0.58 X 10*3/uL (0.20-1.00); Monocytes % (A) 8.2 %; Neutrophils # (A) 5.15 X 10*3/uL (1.80-7.70); Neutrophils % (A) 72.7 %; Platelet Count 217 X 10*3/uL (140-440); RBC 2.97 X 10*6/uL (4.10-5.20); RDW 17.7 % (11.5-14.5); WBC 7.09 X 10*3/uL (4.50-10.00)
[2020-10-13 09:48] LABS: African American GFR (CKD) 98.2 (60.0-200.0); Anion Gap 7.7 mmol/L (4.00-12.00); BUN/Creat Ratio 18.57 Ratio (12.00-20.00); Calcium 7.5 mg/dL (8.7-10.3); Carbon Dioxide 26.3 mmol/L (21.6-31.8); Non-African American GFR(CKD) 84.8 (60.0-200.0); Potassium 3.7 mmol/L (3.5-5.5)
--- NOTE | 2020-10-13 13:21 | P.PN ---
Subjective Progress Note Date: 10/13/20 CHIEF COMPLAINT: Sigmoid colon volvulus HISTORY OF PRESENT ILLNESS: Patient is status post lysis of adhesions, sigmoid colectomy and incisional hernia for a sigmoid colon volvulus. Patient has worked with physical therapy. She has been ambulating in the hallway. She did have air present in her ostomy bag. No stool. She reports that her pain is controlled. Denies any nausea or vomiting. Patient did have a low-grade temp of 100 yesterday evening. This morning is 98.7. WBC 7.09 hemoglobin 8.9 PHYSICAL EXAM: VITAL SIGNS: Reviewed. GENERAL: Well-developed in no acute distress. HEENT: No sclera icterus. Extraocular movements grossly intact. Moist buccal mucosa. Head is atraumatic, normocephalic. ABDOMEN: Soft. Nondistended. Dressing clean dry and intact. Ostomy with beefy red stoma. Air present in ostomy bag NEUROLOGIC: Alert and oriented. Cranial nerves II through XII grossly intact. ASSESSMENT: 1. Sigmoid colon volvulus status post lysis of adhesions, sigmoid colectomy and incisional hernia PLAN: -Continue clear liquid diet -Consult PT OT -Continue pain medication as needed -Encourage patient to use incentive spirometer -Continue GI prophylaxis Protonix and DVT prophylaxis subcu heparin Physician Chronic Manager note has been reviewed by physician. Signing provider agrees with the documented findings, assessment, and plan of care. Objective - Vital Signs Vital signs: Vital Signs Temp 98.7 F 10/13/20 06:55 Pulse 73 10/13/20 07:12 Resp 14 10/13/20 07:12 BP 147/77 10/13/20 06:55 Pulse Ox 95 10/13/20 06:55 Intake & Output 10/12/20 10/13/20 10/13/20 18:59 06:59 18:59 Output Total 300 400 Balance -300 -400 Output: Urine 300 400 Other: Voiding Method Indwelling Catheter Indwelling Catheter Indwelling Catheter - Labs CBC & Chem 7: 10/13/20 05:30 10/13/20 05:30 Labs: Abnormal Lab Results - Last 24 Hours (Table) 10/13/20 10/13/20 Range/Units 05:30 05:30 RBC 2.97 L (4.10-5.20) X 10*6/uL Hgb 8.9 L (12.0-15.0) g/dL Hct 27.1 L (37.2-46.3) % RDW 17.7 H (11.5-14.5) % Immature Gran # 0.06 H (0.00-0.04) X 10*3/uL Calcium 7.5 L (8.7-10.3) mg/dL Microbiology - Last 24 Hours (Table) 10/10/20 17:05 Blood Culture - Preliminary Blood No Growth after 48 hours
[2020-10-13 14:53] VITALS: BMI 25.7
--- NOTE | 2020-10-13 16:18 | PN ---
PROGRESS NOTE DATE OF SERVICE: 10/13/2020. This 75-year-old woman who was admitted with abdominal pain and distention with possible acute small-bowel obstruction secondary to sigmoid colon, volvulus had lysis of adhesions and sigmoid colectomy and incisional hernia repair. The patient is improving significantly. No chest pain. No palpitations. Complains of weakness. PHYSICAL EXAMINATION: Alert and oriented x3. Pulse is 68, blood pressure 173/84, respiration 18, temperature 98.7, pulse ox 99% on room air. HEENT: Conjunctivae normal. NECK: No jugular venous distention. CARDIOVASCULAR: S1, S2 muffled. RESPIRATORY: Breath sounds diminished at the bases. A few rhonchi. ABDOMEN: Soft. Status post surgery. LEGS: No edema. No swelling. NERVOUS SYSTEM: No focal deficits. LABS: WBC 7.09, hemoglobin is 8.9. Calcium 7.5. ASSESSMENT: 1. Abdominal pain with distention with possible acute small bowel obstruction secondary to sigmoid colon volvulus, status post lysis of adhesions, sigmoid colectomy, and incisional hernia repair. 2. 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 3. Increased WBC. 4. Elevated lactic acid. 5. History of multiple abdominal surgeries. 6. History of coronary artery disease, coronary artery bypass grafting. 7. Hypertension. 8. Hyperlipidemia. 9. History of chronic liver disease with cirrhosis. 10.History of degenerative joint disease. 11.Hypothyroidism. 12.Borderline diabetes mellitus type 2. 13.History of appendectomy. 14.History of bowel resection. 15.History of tonsillectomy. 16.History of gastric bypass. 17.FULL CODE. RECOMMENDATIONS AND DISCUSSION: In this 75-year-old woman who presented with multiple complex medical issues, we will monitor the patient closely, continue the current medications and continue symptomatic treatment and pain management. Continue the antibiotics. Guarded prognosis because of multiple complex medical issues. Further recommendations to follow. MMODL / IJN: [id number] /
[2020-10-13] MEDS: QUEtiapine 100 MG TAB PO SCH (20:07)
[2020-10-14] MEDS: PIPERACILLIN-TAZOBACTAM 3.375 GM in SODIUM CHLORIDE 0.9% 100 ML IVPB SCH ×3 (05:29→20:46)
[2020-10-14] MEDS: HYDROmorphone 0.5 MG/0.5 ML SYRINGE IVP PRN ×5 (05:31→20:52)
[2020-10-14] MEDS: PANTOPRAZOLE 40 MG TABLET PO SCH ×2 (07:48→17:51)
[2020-10-14] MEDS: HEPARIN SODIUM,PORCINE 5,000 UNIT/ML 1 ML VIAL SQ SCH ×2 (07:48→20:46)
--- NOTE | 2020-10-14 16:18 | P.PN ---
Progress Note - Text Progress Note Date: 10/14/20 Patient feels better. She is requesting more to eat. On exam vital signs are stable. Abdomen soft. Colostomy is functioning with some gas and stool in the bag. Status post sigmoidectomy for sigmoid volvulus. Patient will have her diet advanced.
--- NOTE | 2020-10-14 18:53 | PN ---
PROGRESS NOTE DATE OF SERVICE: 10/14/2020 This 75-year-old woman who was admitted with abdominal pain and distention, possible acute small-bowel obstruction secondary to sigmoid volvulus, had surgery. The patient is improving significantly. No chest pain. No palpitations. No fever. PHYSICAL EXAMINATION: Alert and oriented x2. Pulse is 67, blood pressure 153/86, respiration 17, temperature 98.3, pulse ox 93% on room air. HEENT: Conjunctivae normal. NECK: No jugular venous distention. CARDIOVASCULAR SYSTEM: S1, S2 muffled. RESPIRATORY SYSTEM: Breath sounds diminished at the bases. No rhonchi. No crackles. ABDOMEN: Soft. Status post surgery. LEGS: No edema. No swelling. NERVOUS SYSTEM: No focal deficit. LABS: Labs at this time are WBC 7.09, hemoglobin 8.9. Other labs are noted. ASSESSMENT: 1. Abdominal pain with distention with possible acute bowel obstruction secondary to sigmoid colon volvulus, status post lysis of adhesions, sigmoid colectomy and incisional hernia repair. 2. 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 3. Increased white count. 4. Elevated lactic acid. 5. History of multiple abdominal surgeries. 6. History of coronary artery disease, coronary artery bypass grafting. 7. Hypertension. 8. Hyperlipidemia. 9. History of chronic liver disease with cirrhosis. 10.History of degenerative joint disease. 11.History of hypothyroidism. 12.Borderline diabetes mellitus, type 2. 13.History of appendectomy. 14.History of bowel resection. 15.History of tonsillectomy. 16.History of gastric bypass. 17.FULL CODE. RECOMMENDATIONS AND DISCUSSION: In this 75-year-old woman who presented with multiple complex medical issues, we will monitor the patient closely, continue the current medications, continue symptomatic treatment. Otherwise at this time I recommend DVT prophylaxis, incentive spirometry. Closely follow with Surgery. Further recommendations to follow. MMODL / IJN: [id number] /
[2020-10-14] MEDS: QUEtiapine 100 MG TAB PO SCH (20:46)
[2020-10-15] MEDS: PIPERACILLIN-TAZOBACTAM 3.375 GM in SODIUM CHLORIDE 0.9% 100 ML IVPB SCH ×3 (05:19→20:47)
[2020-10-15] MEDS: PANTOPRAZOLE 40 MG TABLET PO SCH ×2 (07:56→17:37)
[2020-10-15] MEDS: HEPARIN SODIUM,PORCINE 5,000 UNIT/ML 1 ML VIAL SQ SCH ×2 (07:56→20:47)
[2020-10-15] MEDS: HYDROmorphone 0.5 MG/0.5 ML SYRINGE IVP PRN ×4 (08:00→21:02)
--- NOTE | 2020-10-15 13:21 | P.PN ---
Subjective Progress Note Date: 10/15/20 CHIEF COMPLAINT: Sigmoid colon volvulus HISTORY OF PRESENT ILLNESS: Patient is status post lysis of adhesions, sigmoid colectomy and incisional hernia for a sigmoid colon volvulus. Patient's ostomy is functioning. She's currently on a full liquid diet. She reports her pain is controlled. She denies any nausea or vomiting. She is afebrile. PHYSICAL EXAM: VITAL SIGNS: Reviewed. GENERAL: Well-developed in no acute distress. HEENT: No sclera icterus. Extraocular movements grossly intact. Moist buccal mucosa. Head is atraumatic, normocephalic. ABDOMEN: Soft. Nondistended. Dressing clean dry and intact. Colostomy with stool present NEUROLOGIC: Alert and oriented. Cranial nerves II through XII grossly intact. ASSESSMENT: 1. Sigmoid colon volvulus status post lysis of adhesions, sigmoid colectomy and incisional hernia PLAN: -Continue full liquid diet -Add Ultram to switch patient over to oral pain medications -Continue pain medication as needed -Encourage patient to use incentive spirometer -Encourage patient to ambulate -Continue GI prophylaxis Protonix and DVT prophylaxis subcu heparin Physician Hotel Administrative Assistant note has been reviewed by physician. Signing provider agrees with the documented findings, assessment, and plan of care. Objective - Vital Signs Vital signs: Vital Signs Temp 99 F 10/15/20 07:09 Pulse 71 10/15/20 07:09 Resp 16 10/15/20 08:00 BP 149/82 10/15/20 07:09 Pulse Ox 95 10/15/20 07:09 Intake & Output 10/14/20 10/15/20 10/15/20 18:59 06:59 18:59 Weight 61.689 kg Other: Voiding Method Indwelling Catheter # Voids 2 - Labs CBC & Chem 7: 10/13/20 05:30 10/13/20 05:30 Labs: Microbiology - Last 24 Hours (Table) 10/10/20 17:05 Blood Culture - Preliminary Blood No Growth after 96 hours
[2020-10-15] MEDS: traMADol 50 MG TAB PO PRN (14:01)
--- NOTE | 2020-10-15 15:41 | PN ---
PROGRESS NOTE DATE OF SERVICE: 10/15/2020 This 75-year-old woman who was admitted with abdominal pain and surgery is being closely monitored. No chest pain. No palpitations. No fever. PHYSICAL EXAMINATION: Alert and oriented x3. Pulse is 71, blood pressure 149/82, respirations 16, temperature 99 degrees, pulse ox 94% on room air. HEENT: Conjunctivae normal. NECK: No jugular venous distention. CARDIOVASCULAR SYSTEM: S1, S2 muffled. RESPIRATORY SYSTEM: Breath sounds diminished at the bases. ABDOMEN: Soft. Status post surgery. LEGS: No edema. No swelling. NERVOUS SYSTEM: No focal deficit. LABS: Hemoglobin 8.9. Otherwise, other labs are noted. ASSESSMENT: 1. Abdominal pain and distention secondary to acute bowel obstruction secondary to sigmoid colon volvulus, status post lysis of adhesions, sigmoid colectomy. 2. Acute urinary tract infection, present on admission, secondary to Kluyvera ascorbata, present on admission. 3. Increased white count. 4. Elevated lactic acid. 5. History of multiple abdominal surgeries. 6. History of coronary artery disease, coronary artery bypass grafting. 7. Hypertension. 8. Hyperlipidemia. 9. History of chronic liver disease and cirrhosis. 10.History of degenerative joint disease. 11.History of hypothyroidism. 12.Diabetes mellitus, type 2. 13.History of appendectomy. 14.History of bowel resection. 15.History of tonsillectomy. 16.History of gastric bypass. 17.FULL CODE. RECOMMENDATIONS AND DISCUSSION: I recommend to continue current medications, continue with the monitoring, symptomatic treatment. Continue with DVT prophylaxis. Continue the rest of the medications. Repeat labs. Closely follow with Surgery. Further recommendations to follow. MMODL / IJN: [id number] /
[2020-10-15] MEDS: QUEtiapine 100 MG TAB PO SCH (20:46)
[2020-10-16] MEDS: PIPERACILLIN-TAZOBACTAM 3.375 GM in SODIUM CHLORIDE 0.9% 100 ML IVPB SCH ×3 (04:01→22:00)
[2020-10-16] MEDS: traMADol 50 MG TAB PO PRN ×2 (07:05→15:59)
[2020-10-16] MEDS: PANTOPRAZOLE 40 MG TABLET PO SCH ×2 (07:06→17:27)
[2020-10-16] MEDS: HYDROmorphone 0.5 MG/0.5 ML SYRINGE IVP PRN ×2 (08:49→19:46)
[2020-10-16] MEDS: HEPARIN SODIUM,PORCINE 5,000 UNIT/ML 1 ML VIAL SQ SCH (08:51)
[2020-10-16 09:34] LABS: Basophils # (A) 0.05 X 10*3/uL (0.00-0.10); Basophils % (A) 0.7 %; Eosinophils # (A) 0.47 X 10*3/uL (0.04-0.35); Eosinophils % (A) 6.6 %; HCT 26.2 % (37.2-46.3); HGB 8.4 g/dL (12.0-15.0); Lymphocytes # (A) 1.54 X 10*3/uL (0.90-5.00); Lymphocytes % (A) 21.7 %; MCH 29.8 pg (27.0-32.0); MCHC 32.1 g/dL (32.0-37.0); MCV 92.9 fL (80.0-97.0); Mean Platelet Volume 9.4 fL (9.5-12.2); Monocytes # (A) 0.59 X 10*3/uL (0.20-1.00); Monocytes % (A) 8.3 %; Neutrophils # (A) 4.34 X 10*3/uL (1.80-7.70); Platelet Count 289 X 10*3/uL (140-440); RBC 2.82 X 10*6/uL (4.10-5.20); WBC 7.11 X 10*3/uL (4.50-10.00)
[2020-10-16 10:10] LABS: African American GFR (CKD) 98.2 (60.0-200.0); Anion Gap 4.7 mmol/L (4.00-12.00); BUN/Creat Ratio 8.57 Ratio (12.00-20.00); Calcium 7.6 mg/dL (8.7-10.3); Carbon Dioxide 28.3 mmol/L (21.6-31.8); Non-African American GFR(CKD) 84.8 (60.0-200.0); Potassium 3.6 mmol/L (3.5-5.5)
[2020-10-16] MEDS ORDERED: HYDROcodone/APAP 5-325MG 1 EACH TAB PO PRN (10:45)
[2020-10-16] MEDS ORDERED: diphenhydrAMINE 25 MG CAP PO PRN (10:46)
--- NOTE | 2020-10-16 10:46 | P.PN ---
Subjective Progress Note Date: 10/16/20 CHIEF COMPLAINT: Sigmoid colon volvulus HISTORY OF PRESENT ILLNESS: Patient is status post lysis of adhesions, sigmoid colectomy and incisional hernia for a sigmoid colon volvulus. Patient's ostomy is functioning. She's currently on a full liquid diet. She complains of abdominal pain with some nausea and dry heaves this morning. She is still requiring the IV Dilaudid. She reports the Ultram does not work. She has drug ALLERGY to oxycodone and Tylenol. Afebrile. WBC 7.11 hemoglobin 8.4 PHYSICAL EXAM: VITAL SIGNS: Reviewed. GENERAL: Well-developed in no acute distress. HEENT: No sclera icterus. Extraocular movements grossly intact. Moist buccal mucosa. Head is atraumatic, normocephalic. ABDOMEN: Soft. Nondistended. Dressing clean dry and intact. Colostomy with stool present NEUROLOGIC: Alert and oriented. Cranial nerves II through XII grossly intact. ASSESSMENT: 1. Sigmoid colon volvulus status post lysis of adhesions, sigmoid colectomy and incisional hernia PLAN: -Advanced patient to regular diet -Continue pain medication as needed -Encourage patient to use incentive spirometer -Encourage patient to ambulate -Continue GI prophylaxis Protonix and DVT prophylaxis subcu heparin -Monitor LFTs due to patient's Tylenol ALLERGY Physician Director Software Development note has been reviewed by physician. Signing provider agrees with the documented findings, assessment, and plan of care. Objective - Vital Signs Vital signs: Vital Signs Temp 97.8 F 10/16/20 07:17 Pulse 69 10/16/20 07:17 Resp 14 10/16/20 10:32 BP 182/79 10/16/20 07:17 Pulse Ox 95 10/16/20 07:17 Intake & Output 10/15/20 10/16/20 10/16/20 18:59 06:59 18:59 Intake Total 250 200 Balance 250 200 Weight 61.689 kg Intake: Oral 250 200 Other: Voiding Method Indwelling Catheter Toilet Toilet # Voids 4 - Labs CBC & Chem 7: 10/16/20 05:27 10/16/20 05:27 Labs: Abnormal Lab Results - Last 24 Hours (Table) 10/16/20 10/16/20 Range/Units 05:27 05:27 RBC 2.82 L (4.10-5.20) X 10*6/uL Hgb 8.4 L (12.0-15.0) g/dL Hct 26.2 L (37.2-46.3) % RDW 18.0 H (11.5-14.5) % MPV 9.4 L (9.5-12.2) fL Immature Gran # 0.12 H (0.00-0.04) X 10*3/uL Eosinophils # 0.47 H (0.04-0.35) X 10*3/uL Chloride 110 H (96-109) mmol/L BUN 6.0 L (9.0-27.0) mg/dL BUN/Creatinine Ratio 8.57 L (12.00-20.00) Ratio Calcium 7.6 L (8.7-10.3) mg/dL Microbiology - Last 24 Hours (Table) 10/10/20 17:05 Blood Culture - Preliminary Blood No Growth after 120 hours
--- NOTE | 2020-10-16 16:00 | PN ---
PROGRESS NOTE DATE OF SERVICE: 10/16/2020 This 75-year-old woman who was admitted with abdominal pain and distention secondary to acute bowel obstruction secondary to sigmoid colon volvulus had surgery. The patient complains of some abdominal pain. No chest pain. No palpitations. No fever. PHYSICAL EXAMINATION: Alert and oriented x3. Pulse 89, blood pressure 109/73, respiration 16, temperature 98.6, pulse ox 95% on room air. HEENT: Conjunctivae normal. NECK:noted. CARDIOVASCULAR: S1, S2 muffled. RESPIRATORY: Breath sounds diminished at the bases. Few rhonchi, no crackles. ABDOMEN: Soft, nontender. LEGS: No edema. No swelling. NERVOUS SYSTEM: No focal deficits. LABS: Hemoglobin is 8.4, sodium 143, potassium 3.6. ASSESSMENT: 1. Abdominal pain, distention secondary to acute bowel obstruction secondary to sigmoid colon volvulus, status post lysis of adhesions, sigmoid colectomy. 2. Acute urinary tract infection, present on admission, secondary to Kluyvera ascorbata, present on admission. 3. Increased WBC. 4. Elevated lactic acid. 5. History of multiple abdominal surgeries. 6. History of coronary artery disease, coronary artery bypass grafting. 7. Hypertension. 8. Hyperlipidemia. 9. History of chronic liver disease and cirrhosis. 10.History of degenerative joint disease. 11.History of hypothyroidism. 12.Diabetes mellitus type 2. 13.History of appendectomy. 14.History of bowel resection. 15.History of tonsillectomy. 16.History of gastric bypass. 17.FULL CODE. RECOMMENDATIONS AND DISCUSSION: Recommend to continue current medications, continue symptomatic treatment. Otherwise, repeat labs. Pain management. Repeat hemoglobin in the morning. The patient had some hypocalcemia. I would also order some calcium supplementation also. Further recommendations to follow. Repeat UA with micro. MMODL / IJN: [id number] / PANCHO
[2020-10-16] MEDS ORDERED: CALCIUM CARB-VIT D 500 MG-5 MCG TAB PO SCH (17:30)
[2020-10-16 19:37] LABS: Appearance,Urine Clear (Clear); Bilirubin,Urine Negative (Negative); Blood,Urine Negative (Negative); Color,Urine Yellow; Glucose,Urine (UA) Negative (Negative); Ketones,Urine 1+ (Negative); Leukocyte Esterase,Urine Negative (Negative); Nitrite,Urine Negative (Negative); Protein,Urine Trace (Negative); Specific Gravity,Urine 1.028 (1.001-1.035); Urobilinogen,Urine <2.0 mg/dL (<2.0)
[2020-10-16] MEDS: QUEtiapine 100 MG TAB PO SCH (22:00)
[2020-10-16] MEDS: APIXABAN 5 MG TAB PO SCH (22:00)
[2020-10-17] MEDS: PIPERACILLIN-TAZOBACTAM 3.375 GM in SODIUM CHLORIDE 0.9% 100 ML IVPB SCH (05:19)
[2020-10-17] MEDS: traMADol 50 MG TAB PO PRN ×3 (06:07→19:47)
[2020-10-17] MEDS: lisinopriL 10 MG TAB PO SCH (08:21)
[2020-10-17] MEDS: APIXABAN 5 MG TAB PO SCH ×2 (08:21→19:47)
[2020-10-17] MEDS: ISOSORBIDE MONONITRATE ER 30 MG TAB.ER.24H PO SCH (08:21)
[2020-10-17] MEDS: PANTOPRAZOLE 40 MG TABLET PO SCH ×2 (08:21→17:47)
[2020-10-17 11:43] LABS: HCT 27.3 % (37.2-46.3); HGB 8.7 g/dL (12.0-15.0); MCH 30.1 pg (27.0-32.0); MCHC 31.9 g/dL (32.0-37.0); MCV 94.5 fL (80.0-97.0); Mean Platelet Volume 9.1 fL (9.5-12.2); Platelet Count 320 X 10*3/uL (140-440); RBC 2.89 X 10*6/uL (4.10-5.20); RDW 18.3 % (11.5-14.5); WBC 8.04 X 10*3/uL (4.50-10.00)
[2020-10-17 11:50] LABS: African American GFR (CKD) 103.3 (60.0-200.0); Albumin 2.7 g/dL (3.80-4.90); Albumin/Globulin Ratio 1.69 (1.60-3.17); BUN/Creat Ratio 11.67 Ratio (12.00-20.00); Calcium 7.5 mg/dL (8.7-10.3); Globulin 1.6 g/dL (1.6-3.3); Non-African American GFR(CKD) 89.2 (60.0-200.0); Potassium 3.7 mmol/L (3.5-5.5); Total Bilirubin 0.3 mg/dL (0.3-1.2); Total Protein 4.3 g/dL (6.2-8.2)
--- NOTE | 2020-10-17 14:59 | P.PN ---
Subjective Progress Note Date: 10/17/20 CHIEF COMPLAINT: Sigmoid volvulus HISTORY OF PRESENT ILLNESS: The patient is a 75-year-old female status post open sigmoid colectomy for sigmoid volvulus 10/11/2020. Her ostomy has been functioning. She has troubles with pain management. She is on blood thinner, Eliquis. She finally has moderate output from her ostomy. She did not eat lunch. She denies active appetite. ROS: No fevers or chills. PHYSICAL EXAM: VITAL SIGNS: Reviewed CONSTITUTIONAL: Well developed and in no acute distress. EYES: Conjuctivae without sclera icterus. Extraocular movements grossly intact. HEAD, EARS, NOSE, THROAT: Moist buccal mucosa. Head is atraumatic, normocephalic. She is hard of hearing. No nasal drainage. NECK: Supple. No thyroidomegaly. RESPIRATORY: Non-labored respirations and equal bilateral excursions. CARDIOVASCULAR: Palpable 2+ radial pulses. ABDOMEN: Incisions clean dry and intact. Soft. No peritonitis. Ostomy pink and patent with stool MUSCULOSKELETAL: No gross deformity of the lower extremities noted. No clubbing. No cyanosis. SKIN: Good skin turgor. Well perfused. NEUROLOGIC: Cranial nerves II through XII grossly intact. No focal or lateralizing signs. PSYCH: Appropriate affect. Alert and oriented to person, place and time. CLINICAL LABS: White blood cell count normal, 7.11. Hemoglobin 8.4, stable. Creatinine 0.7. ASSESSMENT: 1. Sigmoid volvulus status post colectomy PLAN: 1. Per discussion with her nurse, she still needs more education for her ostomy. 2. Will need home health care. 3. Discharge pending home resources and support Objective - Vital Signs Vital signs: Vital Signs Temp 97.9 F 10/17/20 07:00 Pulse 72 10/17/20 08:05 Resp 16 10/17/20 08:05 BP 104/59 10/17/20 10:10 Pulse Ox 97 10/17/20 07:00 Intake & Output 10/16/20 10/17/20 10/17/20 18:59 06:59 18:59 Intake Total 400 Output Total 500 400 Balance 400 -500 -400 Intake: Oral 400 Output: Urine 400 Stool 500 Other: Voiding Method Toilet Toilet Toilet - Labs CBC & Chem 7: 10/17/20 05:59 10/17/20 05:59 Labs: Abnormal Lab Results - Last 24 Hours (Table) 10/16/20 Range/Units 19:30 Urine Protein Trace H (Negative) Urine Ketones 1+ H (Negative) Microbiology - Last 24 Hours (Table) 10/10/20 17:05 Blood Culture - Final Blood No Growth after 144 hours
[2020-10-17] MEDS: QUEtiapine 100 MG TAB PO SCH (19:47)
--- NOTE | 2020-10-17 20:39 | PN ---
PROGRESS NOTE DATE OF SERVICE: 10/17/2020 This is a 75-year-old woman who was admitted with abdominal pain and distention. She is being closely monitored. Patient also had acute UTI also. No chest pain. No palpitations. No fever. PHYSICAL EXAMINATION: GENERAL: Patient is alert and oriented times three. VITAL SIGNS: Pulse 65, blood pressure 149/69, respirations 18, temperature 97.7, pulse ox 96% on room air. HEENT: Conjunctivae normal. Oral mucosa moist. NECK: No jugular venous distention. No carotid bruits. No lymph node enlargement. RESPIRATORY: Breath sounds diminished at the bases. No rhonchi, no crackles. HEART: S1 and S2, muffled. ABDOMEN: Soft, no tenderness. Status post surgery. EXTREMITIES: No edema, no swelling. NERVOUS: No focal deficits. LABS: Hemoglobin 8.7. ASSESSMENT: 1. Abdominal pain and distention, possibly secondary to acute bowel obstruction and sigmoid colon volvulus, status post lysis of adhesions and sigmoid colectomy. 2. Acute urinary tract infection present on admission secondary to Kluyvera ascorbata, present on admission. 3. Increased WBC. 4. Elevated lactic acid. 5. History of multiple abdominal surgeries. 6. History of coronary artery disease with coronary artery bypass graft. 7. Hypertension. 8. Hyperlipidemia. 9. History of chronic liver disease and cirrhosis. 10.History of degenerative joint disease. 11.History of hypothyroidism. 12.History of diabetes type 2. 13.History of appendectomy. 14.History of bowel resection. 15.History of tonsillectomy. 16.History of gastric bypass. 17.FULL CODE. RECOMMENDATIONS AND DISCUSSION: Recommend to continue current management and continue symptomatic treatment. At this time I recommend continue with DVT prophylaxis. The patient is on apixaban. Guarded prognosis. Closely follow with Surgery. Further recommendations to follow. MMODL / IJN: [id number] /
[2020-10-18] MEDS: PANTOPRAZOLE 40 MG TABLET PO SCH (08:15)
[2020-10-18] MEDS: ISOSORBIDE MONONITRATE ER 30 MG TAB.ER.24H PO SCH (08:15)
[2020-10-18] MEDS: lisinopriL 10 MG TAB PO SCH (08:15)
[2020-10-18] MEDS: traMADol 50 MG TAB PO PRN (08:15)
[2020-10-18] MEDS: APIXABAN 5 MG TAB PO SCH (08:15)
[2020-10-18 14:16] VITALS: BP 165/82; PULSE 67; RESP 18; TEMP 98.3
--- NOTE | 2020-10-18 14:31 | P.DS ---
Providers Date of admission: 10/09/20 20:16 Expected date of discharge: 10/18/20 Attending physician: Myron Saldana Consults: 10/10/20 12:03 Consult Physician Urgent Consulting Provider: Alee Martínez Consult Reason/Comments: Medical management Do you want consulting provider notified?: Already Contacted Primary care physician: Juan Cast - Discharge Diagnosis(es) (1) Sigmoid volvulus Current Visit: Yes Status: Acute (2) Chronic anticoagulation Current Visit: Yes Status: Acute (3) S/P colectomy Current Visit: Yes Status: Acute (4) S/P colostomy Current Visit: Yes Status: Acute Hospital Course: CHIEF COMPLAINT: Sigmoid volvulus HISTORY OF PRESENT ILLNESS: The patient is a 75-year-old female status post open sigmoid colectomy for sigmoid volvulus 10/11/2020. Her ostomy has been functioning. She is tolerating diet. Her pain is well controlled. Pain management with Tylenol described. ROS: No fevers or chills. No new chest pain. No shortness of breath. PHYSICAL EXAM: VITAL SIGNS: Reviewed CONSTITUTIONAL: Well developed and in no acute distress. EYES: Conjuctivae without sclera icterus. Extraocular movements grossly intact. HEAD, EARS, NOSE, THROAT: Moist buccal mucosa. Head is atraumatic, normocephalic. She is hard of hearing. No nasal drainage. NECK: Supple. No thyroidomegaly. RESPIRATORY: Non-labored respirations and equal bilateral excursions. CARDIOVASCULAR: Palpable 2+ radial pulses. ABDOMEN: Dressing intact. Ostomy patent. MUSCULOSKELETAL: No gross deformity of the lower extremities noted. No clubbing. No cyanosis. SKIN: Good skin turgor. Well perfused. NEUROLOGIC: Cranial nerves II through XII grossly intact. No focal or laterali zing signs. PSYCH: Appropriate affect. Alert and oriented to person, place and time. CLINICAL LABS: White blood cell and Hgb stable ASSESSMENT: 1. Sigmoid volvulus status post colectomy PLAN: 1. Patient reports understanding of her new colostomy management. 2. Home health care arranged. 3. Pain management with home medication of Tramadol. 4. Follow up with provider in 1 week. Patient Condition at Discharge: Stable Plan - Discharge Summary Discharge Rx Participant: No New Discharge Prescriptions: Continue Atorvastatin [Lipitor] 40 mg PO HS Levothyroxine Sodium [Synthroid] 25 mcg PO DAILY Isosorbide Mononitrate [Imdur] 30 mg PO DAILY ursodioL [Actigall] 600 mg PO BID QUEtiapine [SEROquel] 100 mg PO HS Ergocalciferol [Vitamin D2 (1250 Mcg = 24439 Iu)] 1,250 mcg PO Q7D traMADol HCL [Ultram] 50 mg PO BID Dicyclomine [Bentyl] 20 mg PO BID Clobetasol Propionate [Temovate 0.05% Oint] 1 applic TOPICAL DAILY PRN PRN Reason: Rash Apixaban [Eliquis] 5 mg PO BID Discharge Medication List Atorvastatin [Lipitor] 40 mg PO HS 06/21/14 [History] Isosorbide Mononitrate [Imdur] 30 mg PO DAILY 06/21/14 [History] Levothyroxine Sodium [Synthroid] 25 mcg PO DAILY 06/21/14 [History] ursodioL [Actigall] 600 mg PO BID 11/22/16 [History] QUEtiapine [SEROquel] 100 mg PO HS 11/23/16 [History] Apixaban [Eliquis] 5 mg PO BID 10/09/20 [History] Clobetasol Propionate [Temovate 0.05% Oint] 1 applic TOPICAL DAILY PRN 10/09/20 [History] Dicyclomine [Bentyl] 20 mg PO BID 10/09/20 [History] Ergocalciferol [Vitamin D2 (1250 Mcg = 01812 Iu)] 1,250 mcg PO Q7D 10/09/20 [History] traMADol HCL [Ultram] 50 mg PO BID 10/09/20 [History] Follow up Appointment(s)/Referral(s): [facility] [NON-STAFF] - (Please call [facility] if you have questions regarding your new walker. ) [facility], [NON-STAFF] - Juan Cast DO [Primary Care Provider] - 1-2 days Myron Saldana MD [STAFF PHYSICIAN] - 1 Week Patient Instructions/Handouts: Colectomy (GEN), Colectomy Diet (DC) Activity/Diet/Wound Care/Special Instructions: No lifting over 10 pounds. Please contact home health care for management of your ostomy. Discharge Disposition: HOME SELF-CARE Care Plan Goals (MU): Recommendations for home Colostomy care: Last Pouchign system change: 10.16.2020 Mrs Mccartney will have the following supplies for her colosotmy care from the hospital on the day of dishcarage: One piece cut to fit pouching system with filter Hatsizeate # [id number] (three) No sting prep pads (10) Ostomy powder Grover seal (one) Mrs talbert will need reenforcement of ostomy care instructions at home with Home Health service Mrs Talbert is to empty the pouching system when the pouch is 1/2 to 1/3 full by sitting on the toilet and draining the pouch The entire pouching system is to be changed every 3-5 days Home health please assist Mrs Talbert to obtain dispoasable pouches in 2-3 weeks after home and possibly a pre-cut system
--- NOTE | 2020-10-18 15:12 | PN ---
PROGRESS NOTE DATE OF SERVICE: 10/18/2020 This 75-year-old woman was admitted with abdominal pain and distention, had possible bowel obstruction secondary to sigmoid colon volvulus. The patient is improving significantly. No chest pain. No palpitations. No fever. PHYSICAL EXAMINATION: Pulse 76. Blood pressure 168/90, respiration 18, temperature 97.2, pulse ox 98% on room air. HEENT is conjunctivae normal. NECK: No JVD. CARDIOVASCULAR: S1, S2 normal. RESPIRATORY: Breath sounds diminished in the bases. No rhonchi. No crackles. ABDOMEN: Soft, status post surgery. LEGS are no edema. No swelling. NERVOUS SYSTEM: No focal deficits. LABS: WBC 8.5, hemoglobin is 8.7. The labs are reviewed. ASSESSMENT: 1. Abdominal pain and distention possibly secondary to acute bowel obstruction, sigmoid colon volvulus, status post lysis of adhesions and sigmoid colectomy. 2. Acute urinary tract infection present on admission secondary to Kluyvera ascorbata present on admission. 3. Increased WBC. 4. Elevated lactic acid. 5. History of multiple abdominal surgeries. 6. History of coronary artery disease, coronary artery bypass grafting. 7. Hypertension. 8. Hyperlipidemia. 9. History of chronic liver disease and cirrhosis of the liver. 10.History of degenerative joint disease. 11.History of hypothyroidism. 12.History of diabetes mellitus type 2. 13.History of appendectomy. 14.History of bowel resection. 15.History of tonsillectomy. 16.History of gastric bypass. 17.FULL CODE. RECOMMENDATIONS AND DISCUSSION: Recommend to continue current medications, continue to monitor. Symptomatic treatment. Otherwise, at this time, I would recommend incentive spirometry. DVT prophylaxis. The rest of the recommendations per Surgery. Further recommendations to follow. MMODL / IJN: [id number] /
== END 2020-10-18 15:31 | disposition home or self-care (01) | DRG 330 ==
LOC: SUPCPDRO 17:18 → EC 17:18 → 4SSUR 20:16
PROVIDERS: ADMIT Surgery; ATTEND Surgery
PROC: 0DBN0ZZ Excision of Sigmoid Colon, Open Approach (ICD-10-PCS; principal; 2020-10-11 10:00)
PROC: 0DNN0ZZ Release Sigmoid Colon, Open Approach (ICD-10-PCS; principal; 2020-10-11 10:00)
PROC: 0D1N0Z4 Bypass Sigmoid Colon to Cutaneous, Open Approach (ICD-10-PCS; principal; 2020-10-11 10:00)
DX: K56.2 Volvulus (principal); K59.39 Other megacolon; N39.0 Urinary tract infection, site not specified; R18.8 Other ascites; E03.9 Hypothyroidism, unspecified; E11.9 Type 2 diabetes mellitus without complications; E78.5 Hyperlipidemia, unspecified; I10 Essential (primary) hypertension; K56.50 Intestinal adhesions [bands], unspecified as to partial versus complete obstruction; I25.10 Atherosclerotic heart disease of native coronary artery without angina pectoris; K43.2 Incisional hernia without obstruction or gangrene; K74.60 Unspecified cirrhosis of liver; Z20.822 Contact with and (suspected) exposure to COVID-19; Z79.01 Long term (current) use of anticoagulants; Z79.890 Hormone replacement therapy; Z79.899 Other long term (current) drug therapy; Z82.49 Family history of ischemic heart disease and other diseases of the circulatory system; Z83.3 Family history of diabetes mellitus; Z88.5 Allergy status to narcotic agent; Z90.710 Acquired absence of both cervix and uterus; Z95.1 Presence of aortocoronary bypass graft; Z98.84 Bariatric surgery status; Z90.89 Acquired absence of other organs; Z90.49 Acquired absence of other specified parts of digestive tract; Z88.6 Allergy status to analgesic agent; Z91.041 Radiographic dye allergy status; Z91.013 Allergy to seafood
CPT/HCPCS: 36415; 71045; 74177; 80048; 80053; 81001; 81003; 82150; 83605; 83690; 85025; 85027; 85610; 85730; 86850; 86900; 86901; 87040; 87077; 87086; 87186; 87635; 88307; 93005; 96361; 96365; 96367; 96375; 99285

== ENCOUNTER → 2020-10-09 | Outpatient (CLI) | payer MEDICARE ==
--- NOTE | 2020-10-09 17:00 | XR ---
2 view abdomen HISTORY: Lower abdominal pain 2 views the abdomen submitted, comparison prior exam 06/29/2012 Surgical clips are present in the upper abdomen. Gas distended cecum is present on one of the 2 image s, there is a large amount of retained fecal debris. No evident pneumoperitoneum. There is a spinal c urvature. Vascular calcifications are present within the pelvis. Lung bases are clear. Patient is pos t median sternotomy. IMPRESSION: Correlate for fecal stasis. Distended cecum is nonspecific. Consider alternate imaging as indicated.
== END | disposition home or self-care (01) ==
LOC: RADXRYALE 16:09
PROVIDERS: ATTEND Physician Assistant Medical
DX: K63.89 Other specified diseases of intestine (principal); R10.30 Lower abdominal pain, unspecified
CPT/HCPCS: 74019

== ENCOUNTER 2020-11-24 14:08 | Inpatient (IN) | payer MEDICARE ==
[2020-11-24] MEDS ORDERED: methylPREDNISolone SOD SUCCI 125 MG/2 ML VIAL IV STA (15:01)
[2020-11-24] MEDS ORDERED: diphenhydrAMINE 50 MG/ML 1 ML VIAL IVP STA (15:01)
[2020-11-24] MEDS ORDERED: FAMOTIDINE 20 MG/2 ML VIAL IV STA (15:01)
--- NOTE | 2020-11-24 15:13 | ED ---
General Adult HPI - General Chief complaint: Abdominal Pain Stated complaint: ABD pain Time Seen by Provider: 11/24/20 14:47 Source: patient, family, RN notes reviewed Mode of arrival: wheelchair Limitations: physical limitation - History of Present Illness Initial comments: 75-year-old white female, alert and oriented 4, presents with family member nt by primary Dr Cast for rule out bowel obstruction. Family states visiting nurse has noticed a decrease in colostomy output but also foul odor and drainage from surgical site. Patient sent to the emergency room for CT with premedications since patient has an ALLERGY to contrast. Patient denies pain at this time. Patient has had multiples abdominal surgeries and bowel resections over the past 18 years with most recent being colostomy placement 3 weeks ago. Patient also has a surgical history of appendectomy,cholecystectomy, hysterectomy, and gastric bypass. Patient has a medical history of hypertension, hypercholesterolemia, liver disease, osteoarthritis, and cirrhosis. Patient is also hard of hearing. Currently patient's heart rate 70 pressure 161/80-99% on room air, temperature of 97.4, respiratory rate of 20, and states has 0 pain. Family also states patient has had multiple falls over the past couple weeks due to weakness no major injuries but abrasions lower legs. -: week(s) (3) Location: abdomen Radiation: non-radiation Severity scale (1-10): 0 Improves with: none Worsens with: none Associated Symptoms: other (foul odor from surgical incision site with drainage) Treatments Prior to Arrival: none - Related Data Home Medications Medication Instructions Recorded Confirmed Atorvastatin [Lipitor] 40 mg PO HS 06/21/14 11/24/20 Isosorbide Mononitrate [Imdur] 30 mg PO DAILY 06/21/14 11/24/20 Levothyroxine Sodium [Synthroid] 25 mcg PO DAILY 06/21/14 11/24/20 ursodioL [Actigall] 600 mg PO BID 11/22/16 11/24/20 QUEtiapine [SEROquel] 100 mg PO HS 11/23/16 11/24/20 Apixaban [Eliquis] 5 mg PO BID 10/09/20 11/24/20 Clobetasol Propionate [Temovate 1 applic TOPICAL DAILY PRN 10/09/20 11/24/20 0.05% Oint] traMADol HCL [Ultram] 50 mg PO BID 10/09/20 11/24/20 Losartan Potassium 100 mg PO DAILY 11/24/20 11/24/20 Sulfamethox-Tmp 800-160Mg [Bactrim 1 tab PO BID 11/24/20 11/24/20 DS 800-160 mg] Allergies Allergy/AdvReac Type Severity Reaction Status Date / Time Iodinated Contrast Media Allergy Rash/Hives Verified 11/24/20 17:30 [Iodinated Contrast Media - Oral and] oxycodone HCl [From Percocet] Allergy Rash/Hives Verified 11/24/20 17:30 shellfish derived Allergy Rash/Hives Verified 11/24/20 17:30 acetaminophen [From Percocet] AdvReac Severe Liver Verified 11/24/20 17:30 Failure Review of Systems ROS Statement: Those systems with pertinent positive or pertinent negative responses have been documented in the HPI. ROS Other: All systems not noted in ROS Statement are negative. Past Medical History Past Medical History: Hyperlipidemia, Hypertension, Liver Disease, Musculoskeletal Disorder, Osteoarthritis (OA), Thyroid Disorder Additional Past Medical History / Comment(s): Hx sbdvlerko-alwwwl-enggz't see specialist anymore, borderline diabetes, states no meds just watches what she eats. Had a fall and fx. left wrist about 1 year ago. History of Any Multi-Drug Resistant Organisms: None Reported Past Surgical History: Appendectomy, Bowel Resection, Cholecystectomy, Coronary Bypass/CABG, Heart Catheterization, Hysterectomy, Tonsillectomy Additional Past Surgical History / Comment(s): Gastric bypass, bowel obstruction x3, quad bypass 18 yrs ago. colostomy Past Anesthesia/Blood Transfusion Reactions: Family History of Problems w/ Anesthesia Additional Past Anesthesia/Blood Transfusion Reaction / Comment(s): Mother had difficulty waking up after anesthesia. Date of Last Stent Placement:: unknown Past Psychological History: No Psychological Hx Reported Smoking Status: Never smoker Past Alcohol Use History: None Reported Past Drug Use History: None Reported - Past Family History Mother Family Medical History: Diabetes Mellitus Additional Family Medical History / Comment(s): Open heart surgery Father Family Medical History: Myocardial Infarction ([place]) General Exam Limitations: physical limitation Course Vital Signs 11/24/20 14:09 Temperature 97.4 F L Pulse Rate 70 Respiratory 20 Rate Blood Pressure 161/82 O2 Sat by Pulse 99 Oximetry Medical Decision Making - Medical Decision Making CT shows constipation mechanical obstruction, admit to Dr. Hannon with on consult. Case discussed with Dr. Jhaveri. We'll keep patient nothing by mouth. - Lab Data Result diagrams: 11/24/20 15:16 11/24/20 15:16 Lab Results 11/24/20 11/24/20 11/24/20 Range/Units 15:16 15:16 15:16 WBC 8.3 (3.8-10.6) k/uL RBC 3.61 L (3.80-5.40) m/uL Hgb 11.2 L (11.4-16.0) gm/dL Hct 34.6 (34.0-46.0) % MCV 95.9 (80.0-100.0) fL MCH 31.0 (25.0-35.0) pg MCHC 32.3 (31.0-37.0) g/dL RDW 15.6 H (11.5-15.5) % Plt Count 323 (150-450) k/uL MPV 6.6 Neutrophils % 78 % Lymphocytes % 14 % Monocytes % 5 % Eosinophils % 0 % Basophils % 0 % Neutrophils # 6.5 (1.3-7.7) k/uL Lymphocytes # 1.2 (1.0-4.8) k/uL Monocytes # 0.4 (0-1.0) k/uL Eosinophils # 0.0 (0-0.7) k/uL Basophils # 0.0 (0-0.2) k/uL Sodium 129 L (137-145) mmol/L Potassium 4.9 (3.5-5.1) mmol/L Chloride 97 L (98-107) mmol/L Carbon Dioxide 26 (22-30) mmol/L Anion Gap 6 mmol/L BUN 18 H (7-17) mg/dL Creatinine 1.03 (0.52-1.04) mg/dL Est GFR (CKD-EPI)AfAm 62 (>60 ml/min/1.73 sqM) Est GFR (CKD-EPI)NonAf 53 (>60 ml/min/1.73 sqM) Glucose 94 (74-99) mg/dL Plasma Lactic Acid Jose 1.4 (0.7-2.0) mmol/L Calcium 8.4 (8.4-10.2) mg/dL Total Bilirubin 0.5 (0.2-1.3) mg/dL AST 29 (14-36) U/L ALT 11 (4-34) U/L Alkaline Phosphatase 137 H (38-126) U/L Total Protein 6.3 (6.3-8.2) g/dL Albumin 3.3 L (3.5-5.0) g/dL Amylase 45 (30-110) U/L Lipase 32 (23-300) U/L Urine Color Urine Appearance (Clear) Urine pH (5.0-8.0) Ur Specific [place] (1.001-1.035) Urine Protein (Negative) Urine Glucose (UA) (Negative) Urine Ketones (Negative) Urine Blood (Negative) Urine Nitrite (Negative) Urine Bilirubin (Negative) Urine Urobilinogen (<2.0) mg/dL Ur Leukocyte Esterase (Negative) Urine RBC (0-5) /hpf Urine WBC (0-5) /hpf Ur Squamous Epith Cells (0-4) /hpf Hyaline Casts (0-2) /lpf Urine Mucus (None) /hpf /16/ Range/Units 15:36 WBC (3.8-10.6) k/uL RBC (3.80-5.40) m/uL Hgb (11.4-16.0) gm/dL Hct (34.0-46.0) % MCV (80.0-100.0) fL MCH (25.0-35.0) pg MCHC (31.0-37.0) g/dL RDW (11.5-15.5) % Plt Count (150-450) k/uL MPV Neutrophils % % Lymphocytes % % Monocytes % % Eosinophils % % Basophils % % Neutrophils # (1.3-7.7) k/uL Lymphocytes # (1.0-4.8) k/uL Monocytes # (0-1.0) k/uL Eosinophils # (0-0.7) k/uL Basophils # (0-0.2) k/uL Sodium (137-145) mmol/L Potassium (3.5-5.1) mmol/L Chloride (98-107) mmol/L Carbon Dioxide (22-30) mmol/L Anion Gap mmol/L BUN (7-17) mg/dL Creatinine (0.52-1.04) mg/dL Est GFR (CKD-EPI)AfAm (>60 ml/min/1.73 sqM) Est GFR (CKD-EPI)NonAf (>60 ml/min/1.73 sqM) Glucose (74-99) mg/dL Plasma Lactic Acid Jose (0.7-2.0) mmol/L Calcium (8.4-10.2) mg/dL Total Bilirubin (0.2-1.3) mg/dL AST (14-36) U/L ALT (4-34) U/L Alkaline Phosphatase (38-126) U/L Total Protein (6.3-8.2) g/dL Albumin (3.5-5.0) g/dL Amylase (30-110) U/L Lipase (23-300) U/L Urine Color Yellow Urine Appearance Clear (Clear) Urine pH 6.5 (5.0-8.0) Ur Specific [place] 1.017 (1.001-1.035) Urine Protein Trace H (Negative) Urine Glucose (UA) Negative (Negative) Urine Ketones Negative (Negative) Urine Blood Negative (Negative) Urine Nitrite Negative (Negative) Urine Bilirubin 2+ H (Negative) Urine Urobilinogen <2.0 (<2.0) mg/dL Ur Leukocyte Esterase Large H (Negative) Urine RBC 7 H (0-5) /hpf Urine WBC 27 H (0-5) /hpf Ur Squamous Epith Cells 3 (0-4) /hpf Hyaline Casts 15 H (0-2) /lpf Urine Mucus Occasional H (None) /hpf Disposition Clinical Impression: Constipation, S/P colostomy Disposition: ADMITTED IP TO THIS [facility] Condition: Good Is patient prescribed a controlled substance at d/c from ED?: No Referrals: Juan Cast DO [Primary Care Provider] - 1-2 days Decision Date: 11/24/20 Decision Time: 18:41
[2020-11-24 15:38] LABS: Basophils % (A) 0 %; Eosinophils % (A) 0 %; HCT 34.6 % (34.0-46.0); HGB 11.2 gm/dL (11.4-16.0); Lymphocytes # (A) 1.2 k/uL (1.0-4.8); Lymphocytes % (A) 14 %; MCHC 32.3 g/dL (31.0-37.0); MCV 95.9 fL (80.0-100.0); Mean Platelet Volume 6.6; Monocytes # (A) 0.4 k/uL (0-1.0); Monocytes % (A) 5 %; Neutrophils # (A) 6.5 k/uL (1.3-7.7); Neutrophils % (A) 78 %; Platelet Count 323 k/uL (150-450); RBC 3.61 m/uL (3.80-5.40); RDW 15.6 % (11.5-15.5); WBC 8.3 k/uL (3.8-10.6)
[2020-11-24 15:58] LABS: Albumin 3.3 g/dL (3.5-5.0); Calcium 8.4 mg/dL (8.4-10.2); Potassium 4.9 mmol/L (3.5-5.1); Total Bilirubin 0.5 mg/dL (0.2-1.3); Total Protein 6.3 g/dL (6.3-8.2)
[2020-11-24 16:06] LABS: Appearance,Urine Clear (Clear); Bilirubin,Urine 2+ (Negative); Blood,Urine Negative (Negative); Color,Urine Yellow; Glucose,Urine (UA) Negative (Negative); Hyaline Casts,Urine 15 /lpf (0-2); Ketones,Urine Negative (Negative); Leukocyte Esterase,Urine Large (Negative); Mucus,Urine Occasional /hpf; Nitrite,Urine Negative (Negative); PH, Urine 6.5 (5.0-8.0); Protein,Urine Trace (Negative); RBC,Urine 7 /hpf (0-5); Specific Gravity,Urine 1.017 (1.001-1.035); Squamous Epithelial Cell,Urine 3 /hpf (0-4); Urobilinogen,Urine <2.0 mg/dL (<2.0); WBC,Urine 27 /hpf (0-5)
--- NOTE | 2020-11-24 17:32 | CT ---
EXAMINATION TYPE: CT abdomen pelvis w con DATE OF EXAM: 11/24/2020 COMPARISON: 10/09/2020 HISTORY: Abdominal pain, hx of colostomy CT DLP: 695.1 mGycm Automated exposure control for dose reduction was used. CONTRAST: Performed with IV Contrast, patient injected with 100 mL of Isovue 300. There is some mild atelectasis left lung base. Heart is enlarged. There is no pericardial effusion. T here is no pleural effusion. There are numerous surgical clips around the stomach. There are clips fr om cholecystectomy. There is enlargement of the common bile duct which measures 14 mm. I see no filli ng defect. There is pancreatic atrophy. Spleen is intact. There is no adrenal mass. Kidneys show satisfactory contrast opacification. There is no hydronephrosi s. Delayed images show normal renal excretion. There is 3.5 cm cyst upper pole right kidney. There is no retroperitoneal adenopathy. Abdominal aorta is atheromatous. Bladder distends smoothly. There is no inguinal hernia. There is no free fluid in the pelvis. There is colostomy on the left side. There is moderate retained fecal material in the large bowel extending to the cecum. There are surgical cli ps in the small bowel in the lower mid abdomen. There is dilated sigmoid colon. I see no definite eric e air. There is no ascites. Lumbar vertebra appear intact. There is no compression fracture. Bony pel vis is intact. IMPRESSION: Dilated large bowel. Colostomy. Large bowel surgery. There is significant constipation. Mechanical la rge bowel obstruction is possible. Colostomy is new compared to old exam. There is some mild subsegmental atelectasis left lung base without change. Cardiomegaly unchanged. Di lated large bowel similar to old exam before the surgery. Large common bile duct but no significant enlargement of the intrahepatic bile ducts. This appears un changed.
[2020-11-24] MEDS ORDERED: NALOXONE 0.4 MG/ML 1 ML VIAL IV PRN (18:41)
[2020-11-24] MEDS ORDERED: PIPERACILLIN-TAZOBACTAM 3.375 GM in SODIUM CHLORIDE 0.9% 100 ML IVPB STA (18:54)
[2020-11-24] MEDS ORDERED: VANCOMYCIN IV PER PHARMACY 1 EACH MISC MISCELLANE PRN (18:56)
[2020-11-24] MEDS ORDERED: VANCOMYCIN 1,000 MG in SODIUM CHLORIDE 0.9% 250 ML IVPB STA (19:08)
[2020-11-24] MEDS: SODIUM CHLORIDE 0.9% 1,000 ML IV SCH (20:07)
[2020-11-25] MEDS: CEFEPIME 2 GM in SODIUM CHLORIDE 0.9% 100 ML IVPB SCH ×3 (00:37→20:33)
[2020-11-25] MEDS ORDERED: cloNIDine 0.1 MG/24HR PATCH TRANSDERM SCH (01:00)
[2020-11-25] MEDS: LEVOTHYROXINE 25 MCG TAB PO SCH (05:45)
[2020-11-25] MEDS ORDERED: hydrALAZINE HCL 20 MG/ML 1 ML VIAL IVP PRN (06:00)
[2020-11-25] MEDS ORDERED: CLOBETASOL PROP 0.05% OINT 15GM TOPICAL PRN (09:00)
[2020-11-25 09:06] LABS: Basophils # (A) 0.01 X 10*3/uL (0.00-0.10); Basophils % (A) 0.2 %; Eosinophils # (A) 0 X 10*3/uL (0.04-0.35); Eosinophils % (A) 0 %; HCT 31.2 % (37.2-46.3); Lymphocytes # (A) 0.81 X 10*3/uL (0.90-5.00); Lymphocytes % (A) 15.4 %; MCH 30.9 pg (27.0-32.0); MCHC 32.1 g/dL (32.0-37.0); MCV 96.3 fL (80.0-97.0); Mean Platelet Volume 9.2 fL (9.5-12.2); Monocytes # (A) 0.21 X 10*3/uL (0.20-1.00); Neutrophils # (A) 4.21 X 10*3/uL (1.80-7.70); Platelet Count 265 X 10*3/uL (140-440); RBC 3.24 X 10*6/uL (4.10-5.20); WBC 5.26 X 10*3/uL (4.50-10.00)
[2020-11-25 09:14] LABS: African American GFR (CKD) 72.5 (60.0-200.0); Anion Gap 7.9 mmol/L (4.00-12.00); BUN/Creat Ratio 18.89 Ratio (12.00-20.00); Calcium 7.6 mg/dL (8.7-10.3); Carbon Dioxide 24.1 mmol/L (21.6-31.8); Non-African American GFR(CKD) 62.5 (60.0-200.0); Potassium 4.9 mmol/L (3.5-5.5)
[2020-11-25] MEDS: SODIUM CHLORIDE 0.9% 1,000 ML IV SCH (09:50)
[2020-11-25] MEDS ORDERED: PEG 3350-NA SULF,BICARB,CL/KCL 4,000 ML BOTTLE PO ONE (10:00)
[2020-11-25] MEDS ORDERED: VANCOMYCIN 1,000 MG in SODIUM CHLORIDE 0.9% 250 ML IVPB SCH (11:00)
[2020-11-25] MEDS ORDERED: ACETAMINOPHEN TAB 325 MG TAB PO PRN (11:00)
[2020-11-25] MEDS: LACTULOSE 20 GM/30 ML CUP PO SCH ×3 (11:13→20:33)
[2020-11-25] MEDS: IBUPROFEN 400 MG TAB PO PRN ×3 (11:14→19:52)
[2020-11-25] MEDS: APIXABAN 5 MG TAB PO SCH ×2 (11:25→19:52)
[2020-11-25] MEDS: ISOSORBIDE MONONITRATE ER 30 MG TAB.ER.24H PO SCH (11:25)
[2020-11-25] MEDS: LOSARTAN 50 MG TAB PO SCH (11:25)
--- NOTE | 2020-11-25 13:26 | P.HPIM ---
History of Present Illness This is a pleasant 75 years old female with past medical history of hyperlipidemia, hypertension, osteoarthritis, liver cirrhosis. Coronary artery disease status post bypass surgery. She is a patient of Dr. Cast She was in the hospital from 10/10/20-10/28/20 for a sigmoid colon volvulus and colonic obstruction status post lysis of adhesions and sigmoid colectomy on 10/11/20. This time and presents because of ongoing lower abdominal pain for 2 weeks, nonradiating fat like crampy about 10/10 in severity associated with const ipation and no bowel movement for 2 weeks as per patient no nausea vomiting. No chest pain or dyspnea. No fever Patient was seen and sent by Dr. cast to have an outpatient CAT scan related to bowel obstruction. Patient is ALLERGIC to IV dye and needs pre- medication but also patient was complaining of from abdominal pain with no output from the colostomy for the last 2-2.5 weeks This morning she has a total stool coming out of colostomy bag. She denies smoking, alcohol or illicit drugs Vitas looks stable and patient is afebrile with blood pressure 155/72. Labs reviewed, patient has unremarkable CBC, sodium is low is 129. Creatinine 1.0, potassium 4.9, liver enzymes aren't elevated. Amylase and lipase are normal at 45, 32 respectively. Urinalysis is suspicious for infection coronavirus not detected. CT of the abdomen and pelvis with contrast showing dilated large bowel, colost darian, status post large bowel surgery. There is significant constipation. Mechanical large bowel obstruction is possible. Colostomy is new compared to old exam. There is some mild subsegmental atelectasis in the left lung base without change. Cardiomegaly unchanged. Dilated large bowel similar to old exam before the surgery An emergency room patient was started on cefepime and IV vancomycin. Also she was started on normal saline at 75 mL/h.surgery team were consulted. Review of Systems CONSTITUTIONAL: No fever, no malaise, no fatigue. HEENT: No recent visual problems or hearing problems. Denied any sore throat. CARDIOVASCULAR: No orthopnea, PND, no palpitations, no syncope. PULMONARY: No shortness of breath, no cough, no hemoptysis. GASTROINTESTINAL: No diarrhea. Normoactive bowel sounds. NEUROLOGICAL: No headaches, no weakness, no numbness. HEMATOLOGICAL: Denies any bleeding or petechiae. GENITOURINARY: Denies any burning micturition, frequency, or urgency. MUSCULOSKELETAL/RHEUMATOLOGICAL: Denies any joint pain, swelling, or any muscle pain. ENDOCRINE: Denies any polyuria or polydipsia. Past Medical History Past Medical History: Hyperlipidemia, Hypertension, Liver Disease, Musculoskeletal Disorder, Osteoarthritis (OA), Thyroid Disorder Additional Past Medical History / Comment(s): Hx szyprgtfl-bibblx-oluaa't see specialist anymore, borderline diabetes, states no meds just watches what she eats. Had a fall and fx. left wrist about 1 year ago. History of Any Multi-Drug Resistant Organisms: None Reported Past Surgical History: Appendectomy, Bowel Resection, Cholecystectomy, Coronary Bypass/CABG, Heart Catheterization, Hysterectomy, Tonsillectomy Additional Past Surgical History / Comment(s): Gastric bypass, bowel obstruction x3, quad bypass 18 yrs ago. colostomy Past Anesthesia/Blood Transfusion Reactions: Family History of Problems w/ Anesthesia Additional Past Anesthesia/Blood Transfusion Reaction / Comment(s): Mother had difficulty waking up after anesthesia. Date of Last Stent Placement:: unknown Past Psychological History: No Psychological Hx Reported Smoking Status: Never smoker Past Alcohol Use History: None Reported Past Drug Use History: None Reported - Past Family History Mother Family Medical History: Diabetes Mellitus, Myocardial Infarction ([place]) Additional Family Medical History / Comment(s): Open heart surgery Father Family Medical History: Myocardial Infarction ([place]) Medications and Allergies Home Medications Medication Instructions Recorded Confirmed Type Atorvastatin [Lipitor] 40 mg PO HS 06/21/14 11/24/20 History Isosorbide Mononitrate [Imdur] 30 mg PO DAILY 06/21/14 11/24/20 History Levothyroxine Sodium [Synthroid] 25 mcg PO DAILY 06/21/14 11/24/20 History ursodioL [Actigall] 600 mg PO BID 11/22/16 11/24/20 History QUEtiapine [SEROquel] 100 mg PO HS 11/23/16 11/24/20 History Apixaban [Eliquis] 5 mg PO BID 10/09/20 11/24/20 History Clobetasol Propionate [Temovate 1 applic TOPICAL DAILY PRN 10/09/20 11/24/20 History 0.05% Oint] traMADol HCL [Ultram] 50 mg PO BID 10/09/20 11/24/20 History Losartan Potassium 100 mg PO DAILY 11/24/20 11/24/20 History Sulfamethox-Tmp 800-160Mg [Bactrim 1 tab PO BID 11/24/20 11/24/20 History DS 800-160 mg] Allergies Allergy/AdvReac Type Severity Reaction Status Date / Time Iodinated Contrast Media Allergy Rash/Hives Verified 11/24/20 17:30 [Iodinated Contrast Media - Oral and] oxycodone HCl [From Percocet] Allergy Rash/Hives Verified 11/24/20 17:30 shellfish derived Allergy Rash/Hives Verified 11/24/20 17:30 acetaminophen [From Percocet] AdvReac Severe Liver Verified 11/24/20 17:30 Failure Physical Exam Vitals: Vital Signs Temp Pulse Pulse Resp BP BP Pulse Ox 11/25/20 04:35 98.4 F 56 L 16 155/72 98 11/25/20 02:15 142/68 11/24/20 23:55 97.9 F 63 16 176/79 98 11/24/20 20:00 66 16 180/81 97 11/24/20 14:09 97.4 F L 70 20 161/82 99 Intake and Output 11/24/20 11/25/20 11/25/20 22:59 06:59 14:59 Intake Total 700 Balance 700 Intake: Intake, IV Titration 700 Amount Cefepime 2 gm In Sodium 100 Chloride 0.9% 100 ml @ 25 mls/hr IVPB Q12H [facility] Rx# :[id number] Sodium Chloride 0.9% 1, 600 000 ml @ 75 mls/hr IV . [id number] Rx#:[id number] Other: Voiding Method Bedside Commode Weight 54.431 kg GENERAL: The patient is alert and oriented x3, not in any acute distress. Well developed, well nourished. HEENT: Pupils are round and equally reacting to light. EOMI. No scleral icterus. No conjunctival pallor. Normocephalic, atraumatic. No pharyngeal erythema. No thyromegaly. CARDIOVASCULAR: S1 and S2 present. No murmurs, rubs, or gallops. PULMONARY: Chest is clear to auscultation, no wheezing or crackles. -ABDOMEN: Soft, nontender, nondistended, normoactive bowel sounds. No palpable organomegaly. Colostomy on the left side.2 small wounds in the midline abdominal scar, the upper one with some serous discharge both with yellow base MUSCULOSKELETAL: No joint swelling or deformity. EXTREMITIES: No cyanosis, clubbing, or pedal edema. NEUROLOGICAL: Gross neurological examination did not reveal any focal deficits. SKIN: No rashes. No petechiae Results CBC & Chem 7: 11/25/20 05:35 11/25/20 05:35 Labs: Abnormal Lab Results - Last 24 Hours (Table) 11/24/20 11/24/20 11/24/20 Range/Units 15:16 15:16 15:36 RBC 3.61 L (3.80-5.40) m/uL Hgb 11.2 L (11.4-16.0) gm/dL RDW 15.6 H (11.5-15.5) % Sodium 129 L (137-145) mmol/L Chloride 97 L (98-107) mmol/L BUN 18 H (7-17) mg/dL Alkaline Phosphatase 137 H (38-126) U/L Albumin 3.3 L (3.5-5.0) g/dL Urine Protein Trace H (Negative) Urine Bilirubin 2+ H (Negative) Ur Leukocyte Esterase Large H (Negative) Urine RBC 7 H (0-5) /hpf Urine WBC 27 H (0-5) /hpf Hyaline Casts 15 H (0-2) /lpf Urine Mucus Occasional H (None) /hpf Microbiology - Last 24 Hours (Table) 11/24/20 15:36 Urine Culture - Preliminary Urine,Clean Catch 11/24/20 15:36 Gram Stain - Preliminary Abdomen Wound Culture - Preliminary Assessment and Plan Assessment: Possible mechanical large bowel obstruction with constipation and dilated large bowel. Postop surgical wound infection. 2 small wounds in the midline abdominal scar, the upper one with some serous discharge both with yellow base Possible acute urinary tract infection Hypertension Hyperlipidemia Primary osteoarthritis History of liver cirrhosis History of coronary artery disease status post bypass surgery Plan: This is a pleasant 75 years old female who presents with possible bowel obstruction and surgical wound infection. Continue gentle hydration and follow-up recommendation by surgery team. Labs and medication were reviewed.. Continue same treatment. Continue with symptomatic treatment. Resume home medication. Monitor lytes and vitals. DVT and GI prophylaxis. Further recommendations depends on the clinical course of the patient DVT prophylaxis:Eliquis GI Prophylaxis: Pepcid PT/OT: Pending Prognosis is guarded
--- NOTE | 2020-11-25 13:32 | P.GSCN ---
History of Present Illness Consult date: 11/25/20 History of present illness: CHIEF COMPLAINT: Abdominal pain HISTORY OF PRESENT ILLNESS: This is a 75-year-old female with a known history of liver cirrhosis, hypertension, CABG, coronary artery disease, prior history of DVT and PE anticoagulated with Eliquis. October 11, 2020 patient did have sigmoid colectomy with end colostomy for sigmoid colon volvulus with Dr. Orlando lomeli. Patient also has a prior history of appendectomy, cholecystectomy gastric bypass surgery and hysterectomy. Patient presents to the emergency room with 2 week complaint of lower abdominal pain and decreased output through her ostomy. She also reports not having any gas in her ostomy bag. Also she has been having drainage from her surgical incision. The drainage is a yellowish in color with a follow odor. She does report being on antibiotics outpatient. She denies any fever, chills or sweats. She did have some nausea and dry heaves. Patient denies any urinary symptoms. Patient has been admitted to the hospital for constipation. PAST MEDICAL HISTORY: See list. PAST SURGICAL HISTORY: See list. MEDICATIONS: See list. ALLERGIES: See list. SOCIAL HISTORY: No illicit drug use. REVIEW OF SYSTEMS: CONSTITUTIONAL: Denies fever or chills. HEENT: Denies blurred vision, vision changes, or eye pain. Denies hemoptysis CARDIOVASCULAR: Denies chest pain or pressure. RESPIRATORY: No shortness of breath. GASTROINTESTINAL: See HPI for pertinent findings HEMATOLOGIC: Denies bleeding disorders. GENITOURINARY: Denies any blood in urine or increased urinary frequency. SKIN: Denies pruitis. Denies rash. PHYSICAL EXAM: VITAL SIGNS: Reviewed GENERAL: Well-developed in no acute distress. HEENT: No sclera icterus. Extraocular movements grossly intact. Moist buccal m ucosa. Head is atraumatic, normocephalic. No nasal drainage. ABDOMEN: Soft. Nondistended. Nontender there is a small amount of brown stool in the colostomy. Midline incision at the top of the incision there is a small 1 cm opening that is draining purulent foul-smelling discharge. More in the m idline of the incision there is another small opening probably 3 mm with minimal clear drainage. NEUROLOGIC: Alert and oriented. Cranial nerves II through XII grossly intact. LABORATORY DATA: WBC 5.26 Hgb 10 platelets 265 sodium 132 creatinine 0.9 lactic 1.4 Alk phos 137 AST and ALT normal lipase 32 Urinalysis positive for infection IMAGING: Computed tomography scan abdomen and pelvis dilated large bowel. Colostomy. Large bowel surgery. There is significant constipation. Mechanical large bowel obstruction is possible. Colostomy is new compared to old exam. There is some mild subsegmental atelectasis left lung base without change. Cardiomegaly unchanged. Dilated large bowel similar to old exam before surgery. Large common bile duct but no significant enlargement of the intrahepatic bile ducts. This appears unchanged. ASSESSMENT: 1. Abdominal pain with decreased output through ostomy likely due to constipation 2. Incisional wound with purulent drainage 3. 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 Possible UTI PLAN: -GoLYTELY and lactulose have been ordered for constipation -Continue antibiotics -Follow up on wound culture results -Continue supportive care Thank you for this consultation Physician Detail Drafter note has been reviewed by physician. Signing provider agrees with the documented findings, assessment, and plan of care. Past Medical History Past Medical History: Hyperlipidemia, Hypertension, Liver Disease, Musculoskeletal Disorder, Osteoarthritis (OA), Thyroid Disorder Additional Past Medical History / Comment(s): Hx [id number] see specialist anymore, borderline diabetes, states no meds just watches what she eats. Had a fall and fx. left wrist about 1 year ago. History of Any Multi-Drug Resistant Organisms: None Reported Past Surgical History: Appendectomy, Bowel Resection, Cholecystectomy, Coronary Bypass/CABG, Heart Catheterization, Hysterectomy, Tonsillectomy Additional Past Surgical History / Comment(s): Gastric bypass, bowel obstruction x3, quad bypass 18 yrs ago. colostomy Past Anesthesia/Blood Transfusion Reactions: Family History of Problems w/ Anesthesia Additional Past Anesthesia/Blood Transfusion Reaction / Comm: Mother had difficulty waking up after anesthesia. Date of Last Stent Placement:: unknown Past Psychological History: No Psychological Hx Reported Smoking Status: Never smoker Past Alcohol Use History: None Reported Past Drug Use History: None Reported - Past Family History Mother Family Medical History: Diabetes Mellitus, Myocardial Infarction ([place]) Additional Family Medical History / Comment(s): Open heart surgery Father Family Medical History: Myocardial Infarction ([place]) Medications and Allergies Home Medications Medication Instructions Recorded Confirmed Type Atorvastatin [Lipitor] 40 mg PO HS 06/21/14 11/24/20 History Isosorbide Mononitrate [Imdur] 30 mg PO DAILY 06/21/14 11/24/20 History Levothyroxine Sodium [Synthroid] 25 mcg PO DAILY 06/21/14 11/24/20 History ursodioL [Actigall] 600 mg PO BID 11/22/16 11/24/20 History QUEtiapine [SEROquel] 100 mg PO HS 11/23/16 11/24/20 History Apixaban [Eliquis] 5 mg PO BID 10/09/20 11/24/20 History Clobetasol Propionate [Temovate 1 applic TOPICAL DAILY PRN 10/09/20 11/24/20 History 0.05% Oint] traMADol HCL [Ultram] 50 mg PO BID 10/09/20 11/24/20 History Losartan Potassium 100 mg PO DAILY 11/24/20 11/24/20 History Sulfamethox-Tmp 800-160Mg [Bactrim 1 tab PO BID 11/24/20 11/24/20 History DS 800-160 mg] Allergies Allergy/AdvReac Type Severity Reaction Status Date / Time Iodinated Contrast Media Allergy Rash/Hives Verified 11/24/20 17:30 [Iodinated Contrast Media - Oral and] oxycodone HCl [From Percocet] Allergy Rash/Hives Verified 11/24/20 17:30 shellfish derived Allergy Rash/Hives Verified 11/24/20 17:30 acetaminophen [From Percocet] AdvReac Severe Liver Verified 11/24/20 17:30 Failure Surgical - Exam Vital Signs Temp Pulse Resp BP Pulse Ox 97.4 F L 70 20 161/82 99 11/24/20 14:09 11/24/20 14:09 11/24/20 14:09 11/24/20 14:09 11/24/20 14:09 Results - Labs 11/25/20 05:35 11/25/20 05:35 Abnormal Lab Results - Last 24 Hours (Table) 11/24/20 11/24/20 11/24/20 Range/Units 15:16 15:16 15:36 RBC 3.61 L (3.80-5.40) m/uL Hgb 11.2 L (11.4-16.0) gm/dL Hct (37.2-46.3) % RDW 15.6 H (11.5-15.5) % MPV (9.5-12.2) fL Lymphocytes # (0.90-5.00) X 10*3/uL Eosinophils # (0.04-0.35) X 10*3/uL Sodium 129 L (137-145) mmol/L Chloride 97 L (98-107) mmol/L BUN 18 H (7-17) mg/dL Calcium (8.7-10.3) mg/dL Alkaline Phosphatase 137 H (38-126) U/L Albumin 3.3 L (3.5-5.0) g/dL Urine Protein Trace H (Negative) Urine Bilirubin 2+ H (Negative) Ur Leukocyte Esterase Large H (Negative) Urine RBC 7 H (0-5) /hpf Urine WBC 27 H (0-5) /hpf Hyaline Casts 15 H (0-2) /lpf Urine Mucus Occasional H (None) /hpf 11/25/20 11/25/20 Range/Units 05:35 05:35 RBC 3.24 L (3.80-5.40) m/uL Hgb 10.0 L (11.4-16.0) gm/dL Hct 31.2 L (37.2-46.3) % RDW 16.0 H (11.5-15.5) % MPV 9.2 L (9.5-12.2) fL Lymphocytes # 0.81 L (0.90-5.00) X 10*3/uL Eosinophils # 0 L (0.04-0.35) X 10*3/uL Sodium 132 L (137-145) mmol/L Chloride (98-107) mmol/L BUN (7-17) mg/dL Calcium 7.6 L (8.7-10.3) mg/dL Alkaline Phosphatase (38-126) U/L Albumin (3.5-5.0) g/dL Urine Protein (Negative) Urine Bilirubin (Negative) Ur Leukocyte Esterase (Negative) Urine RBC (0-5) /hpf Urine WBC (0-5) /hpf Hyaline Casts (0-2) /lpf Urine Mucus (None) /hpf Microbiology - Last 24 Hours (Table) 11/25/20 06:20 Wound Culture - Preliminary Abdomen 11/25/20 06:20 Anaerobic Culture - Preliminary Abdomen 11/24/20 15:36 Urine Culture - Preliminary Urine,Clean Catch 11/24/20 15:36 Gram Stain - Preliminary Abdomen Wound Culture - Preliminary Diabetes panel 11/24/20 11/25/20 Range/Units 15:16 05:35 Sodium 129 L 132 L (137-145) mmol/L Potassium 4.9 4.9 (3.5-5.1) mmol/L Chloride 97 L 100 (98-107) mmol/L Carbon Dioxide 26 24.1 (22-30) mmol/L BUN 18 H 17.0 (7-17) mg/dL Creatinine 1.03 0.9 (0.52-1.04) mg/dL Glucose 94 100 (74-99) mg/dL Calcium 8.4 7.6 L (8.4-10.2) mg/dL AST 29 (14-36) U/L ALT 11 (4-34) U/L Alkaline Phosphatase 137 H (38-126) U/L Total Protein 6.3 (6.3-8.2) g/dL Albumin 3.3 L (3.5-5.0) g/dL Calcium panel 11/24/20 11/25/20 Range/Units 15:16 05:35 Calcium 8.4 7.6 L (8.4-10.2) mg/dL Albumin 3.3 L (3.5-5.0) g/dL Pituitary panel 11/24/20 11/25/20 Range/Units 15:16 05:35 Sodium 129 L 132 L (137-145) mmol/L Potassium 4.9 4.9 (3.5-5.1) mmol/L Chloride 97 L 100 (98-107) mmol/L Carbon Dioxide 26 24.1 (22-30) mmol/L BUN 18 H 17.0 (7-17) mg/dL Creatinine 1.03 0.9 (0.52-1.04) mg/dL Glucose 94 100 (74-99) mg/dL Calcium 8.4 7.6 L (8.4-10.2) mg/dL Adrenal panel 11/24/20 11/25/20 Range/Units 15:16 05:35 Sodium 129 L 132 L (137-145) mmol/L Potassium 4.9 4.9 (3.5-5.1) mmol/L Chloride 97 L 100 (98-107) mmol/L Carbon Dioxide 26 24.1 (22-30) mmol/L BUN 18 H 17.0 (7-17) mg/dL Creatinine 1.03 0.9 (0.52-1.04) mg/dL Glucose 94 100 (74-99) mg/dL Calcium 8.4 7.6 L (8.4-10.2) mg/dL Total Bilirubin 0.5 (0.2-1.3) mg/dL AST 29 (14-36) U/L ALT 11 (4-34) U/L Alkaline Phosphatase 137 H (38-126) U/L Total Protein 6.3 (6.3-8.2) g/dL Albumin 3.3 L (3.5-5.0) g/dL
[2020-11-25] MEDS: VANCOMYCIN 1,000 MG in SODIUM CHLORIDE 0.9% 250 ML IVPB SCH (15:49)
[2020-11-25] MEDS ORDERED: ONDANSETRON 4 MG/2 ML VIAL IVP PRN (16:40)
[2020-11-25] MEDS: QUEtiapine 100 MG TAB PO SCH (19:52)
[2020-11-25] MEDS: ATORVASTATIN 40 MG TAB PO SCH (19:52)
[2020-11-26] MEDS: SODIUM CHLORIDE 0.9% 1,000 ML IV SCH ×3 (04:59→16:43)
[2020-11-26] MEDS: LEVOTHYROXINE 25 MCG TAB PO SCH (05:02)
[2020-11-26] MEDS: CEFEPIME 2 GM in SODIUM CHLORIDE 0.9% 100 ML IVPB SCH ×2 (09:07→21:30)
[2020-11-26] MEDS: VANCOMYCIN 1,000 MG in SODIUM CHLORIDE 0.9% 250 ML IVPB SCH ×2 (09:07→23:25)
[2020-11-26] MEDS: LACTULOSE 20 GM/30 ML CUP PO SCH ×3 (09:07→21:32)
[2020-11-26] MEDS: ISOSORBIDE MONONITRATE ER 30 MG TAB.ER.24H PO SCH (09:08)
[2020-11-26] MEDS: APIXABAN 5 MG TAB PO SCH ×2 (09:08→23:26)
[2020-11-26] MEDS: LOSARTAN 50 MG TAB PO SCH (09:08)
--- NOTE | 2020-11-26 11:48 | P.PN ---
Subjective This is a pleasant 75 years old female with past medical history of hyperlipidemia, hypertension, osteoarthritis, liver cirrhosis. Coronary artery disease status post bypass surgery. She is a patient of Dr. Cast She was in the hospital from 10/10/20-10/28/20 for a sigmoid colon volvulus and colonic obstruction status post lysis of adhesions and sigmoid colectomy on 10/11/20. This time and presents because of ongoing lower abdominal pain for 2 weeks, nonradiating fat like crampy about 10/10 in severity associated with constipation and no bowel movement for 2 weeks as per patient no nausea vomiting. No chest pain or dyspnea. No fever Patient was seen and sent by Dr. cast to have an outpatient CAT scan related to bowel obstruction. Patient is ALLERGIC to IV dye and needs pre- medication but also patient was complaining of from abdominal pain with no output from the colostomy for the last 2-2.5 weeks This morning she has a total stool coming out of colostomy bag. She denies smoking, alcohol or illicit drugs Vitas looks stable and patient is afebrile with blood pressure 155/72. Labs reviewed, patient has unremarkable CBC, sodium is low is 129. Creatinine 1.0, potassium 4.9, liver enzymes aren't elevated. Amylase and lipase are normal at 45, 32 respectively. Urinalysis is suspicious for infection coronavirus not detected. CT of the abdomen and pelvis with contrast showing dilated large bowel, colostomy, status post large bowel surgery. There is significant constipation. Mechanical large bowel obstruction is possible. Colostomy is new compared to old exam. There is some mild subsegmental atelectasis in the left lung base without change. Cardiomegaly unchanged. Dilated large bowel similar to old exam before the surgery An emergency room patient was started on cefepime and IV vancomycin. Also she was started on normal saline at 75 mL/h.surgery team were consulted. 11/26/2020 This is a pleasant 75 years old female who presents with small bowel obstruction secondary to constipation, she had recent surgery. She status post left lower abdomen colostomy secondary to her sigmoid volvulus about month and a half ago. Today she still complaining from some abdominal pain however on exam her abdomen is soft and there is no tenderness. There is some dark liquidy stool in the colostomy bag. Patient received lactulose and GoLYTELY yesterday Surgery team on the case Also patient with some incisional wound infection at 2 sites in the lower abdomen midline. Culture aren't growing gram-negative bacilli. Also urine culture showing presumptive staph. Patient is currently covered with IV vancomycin and cefepime. we will consult infectious disease team Review of Systems CONSTITUTIONAL: No fever, no malaise, no fatigue. HEENT: No recent visual problems or hearing problems. Denied any sore throat. CARDIOVASCULAR: No orthopnea, PND, no palpitations, no syncope. PULMONARY: No shortness of breath, no cough, no hemoptysis. GASTROINTESTINAL: No diarrhea. Normoactive bowel sounds. NEUROLOGICAL: No headaches, no weakness, no numbness. Active Medications Generic Name Dose Route Start Last Admin Trade Name Freq PRN Reason Stop Dose Admin Apixaban 5 mg 11/25/20 09:00 11/26/20 09:08 Apixaban 5 Mg Tab PO 5 mg BID DEREK Administration Atorvastatin Calcium 40 mg 11/25/20 21:00 11/25/20 19:52 Atorvastatin 40 Mg Tab PO 40 mg HS DEREK Administration Clobetasol Propionate 1 applic 11/25/20 09:00 11/26/20 09:09 Clobetasol Prop 0.05% Oint 15gm TOPICAL 1 applic DAILY PRN Administration Rash Clonidine HCl 1 patch 11/25/20 01:00 11/25/20 01:21 Clonidine 0.1 Mg/24hr Patch TRANSDERM 1 patch Q7D DEREK Administration Hydralazine HCl 5 mg 11/25/20 06:00 Hydralazine Hcl 20 Mg/Ml 1 Ml Vial IVP Q6HR PRN Blood Pressure - High Sodium Chloride 1,000 mls @ 75 mls/hr 11/24/20 18:45 11/26/20 04:59 Saline 0.9% IV Not Given .[id number] DEREK Cefepime HCl 2 gm/ Sodium 100 mls @ 25 mls/hr 11/24/20 22:00 11/26/20 09:07 Chloride IVPB 25 mls/hr Q12H DEREK Administration Vancomycin HCl 1,000 mg/ 250 mls @ 125 mls/hr 11/25/20 15:00 11/26/20 09:07 Sodium Chloride IVPB 125 mls/hr Q16H DEREK Administration Ibuprofen 400 mg 11/25/20 11:03 03/17/21 19:52 Ibuprofen 400 Mg Tab PO 400 mg Q4HR PRN Administration Menstrual Cramps Isosorbide Mononitrate 30 mg 11/25/20 09:00 11/26/20 09:08 Isosorbide Mononitrate Er 30 Mg Tab.Er.24h PO 30 mg DAILY DEREK Administration Lactulose 30 gm 11/25/20 09:45 11/26/20 09:07 Lactulose 20 Gm/30 Ml Cup PO 30 gm TID DEREK Administration Levothyroxine Sodium 25 mcg 11/25/20 06:30 11/26/20 05:02 Levothyroxine 25 Mcg Tab PO 25 mcg DAILY@0630 DEREK Administration Losartan Potassium 100 mg 11/25/20 09:00 11/26/20 09:08 Losartan 50 Mg Tab PO 100 mg DAILY DEREK Administration Miscellaneous Information 0 each 11/27/20 14:00 Vancomycin Trough Due 1 Each Misc MISCELLANE 11/27/20 14:01 DIRECTED ONE Naloxone HCl 0.2 mg 11/24/20 18:41 Naloxone 0.4 Mg/Ml 1 Ml Vial IV Q2M PRN Opioid Reversal Ondansetron HCl 4 mg 11/25/20 16:40 11/25/20 16:45 Ondansetron 4 Mg/2 Ml Vial IVP 4 mg Q6HR PRN Administration Nausea And Vomiting Quetiapine Fumarate 100 mg 11/25/20 21:00 11/25/20 19:52 Quetiapine 100 Mg Tab PO 100 mg HS DEREK Administration Objective - Vital Signs Vital signs: Vital Signs Temp 98.3 F 11/26/20 05:00 Pulse 77 11/26/20 05:00 Resp 16 11/26/20 05:00 BP 114/68 11/26/20 05:00 Pulse Ox 95 11/26/20 05:00 Intake & Output 11/25/20 11/26/20 11/26/20 18:59 06:59 18:59 Intake Total 350 236 Output Total 600 Balance 350 -364 Intake: Intake, IV Titration 350 Amount Cefepime 2 gm In Sodium 100 Chloride 0.9% 100 ml @ 25 mls/hr IVPB Q12H [facility] Rx# :[id number] Vancomycin 1,000 mg In 250 Sodium Chloride 0.9% 250 ml @ 125 mls/hr IVPB Q16H [facility] Rx#:[id number] Oral 236 Output: Stool 600 Other: Voiding Method Bedside Commode Bedside Commode - Exam GENERAL: The patient is alert and oriented x3, not in any acute distress. Well developed, well nourished. HEENT: Pupils are round and equally reacting to light. EOMI. No scleral icterus. No conjunctival pallor. Normocephalic, atraumatic. No pharyngeal erythema. No thyromegaly. CARDIOVASCULAR: S1 and S2 present. No murmurs, rubs, or gallops. PULMONARY: Chest is clear to auscultation, no wheezing or crackles. -ABDOMEN: Soft, nontender, nondistended, normoactive bowel sounds. No palpable organomegaly. Colostomy on the left side.2 small wounds in the midline abdominal scar, the upper one with some serous discharge both with yellow base MUSCULOSKELETAL: No joint swelling or deformity. EXTREMITIES: No cyanosis, clubbing, or pedal edema. NEUROLOGICAL: Gross neurological examination did not reveal any focal deficits. SKIN: No rashes. No petechiae - Labs CBC & Chem 7: 11/25/20 05:35 11/25/20 05:35 Labs: Microbiology - Last 24 Hours (Table) 11/24/20 15:36 Urine Culture - Preliminary Urine,Clean Catch Presumptive Staph aureus 11/24/20 15:36 Gram Stain - Preliminary Abdomen Wound Culture - Preliminary Gram Neg Bacilli 11/24/20 16:14 Blood Culture - Preliminary Blood No Growth after 24 hours 11/25/20 06:20 Gram Stain - Preliminary Abdomen Wound Culture - Preliminary 11/25/20 06:20 Anaerobic Culture - Preliminary Abdomen Assessment and Plan Assessment: Possible mechanical large bowel obstruction with constipation and dilated large bowel. Postop surgical wound infection. 2 small wounds in the midline abdominal scar, the upper one with some serous discharge both with yellow base. Wound cultures, gram-negative bacilli Possible acute urinary tract infection. Urine culture is growing presumptive staph Hypertension Hyperlipidemia Primary osteoarthritis History of liver cirrhosis History of coronary artery disease status post bypass surgery Plan: This is a pleasant 75 years old female who presents with possible bowel obstruction and surgical wound infection. Continue gentle hydration and follow- up recommendation by surgery team. Continue cefepime and IV vancomycin. Consult infectious disease team. Follow- up culture final results Labs and medication were reviewed.. Continue same treatment. Continue with symptomatic treatment. Resume home medication. Monitor lytes and vitals. DVT and GI prophylaxis. Further recommendations depends on the clinical course of the patient DVT prophylaxis:Eliquis GI Prophylaxis: Pepcid PT/OT: Pending Prognosis is guarded
[2020-11-26 12:13] LABS: African American GFR (CKD) 72.5 (60.0-200.0); Non-African American GFR(CKD) 62.5 (60.0-200.0)
[2020-11-26] MEDS: IBUPROFEN 400 MG TAB PO PRN (12:55)
--- NOTE | 2020-11-26 15:16 | P.PN ---
Subjective Progress Note Date: 11/26/20 CHIEF COMPLAINT: Abdominal pain HISTORY OF PRESENT ILLNESS: Patient is being followed in regards to her c onstipation and purulent incisional wound drainage. Patient did receive GoLYTELY and lactulose for her constipation. She is now having more output through her ostomy. Her abdominal pain has resolved. She is tolerating a full liquid diet. She denies any nausea or vomiting. She is afebrile. Wound culture growing gram-negative bacilli PHYSICAL EXAM: VITAL SIGNS: Reviewed. GENERAL: Well-developed in no acute distress. HEENT: No sclera icterus. Extraocular movements grossly intact. Moist buccal mucosa. Head is atraumatic, normocephalic. ABDOMEN: Soft. Nondistended. Nontender. Colostomy with brown stool. Midline incision at the top of the incision there is a small 1 cm opening that is draining purulent foul-smelling discharge. More in the midline of the incision there is another small opening probably 3 mm with minimal clear drainage. NEUROLOGIC: Alert and oriented. Cranial nerves II through XII grossly intact. ASSESSMENT: 1. Abdominal pain with decreased output through ostomy likely due to constipation. Showing improvement after GoLYTELY and lactulose 2. Incisional wound with purulent drainage 3. 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 Possible UTI PLAN: -Continue lactulose 3 times a day -Continue full liquid diet -Continue antibiotics -Follow up on wound culture results -Continue local wound care Physician Branding Machine Tender note has been reviewed by physician. Signing provider agrees with the documented findings, assessment, and plan of care. Objective - Vital Signs Vital signs: Vital Signs Temp 97.9 F 11/26/20 12:40 Pulse 76 11/26/20 12:40 Resp 15 11/26/20 12:40 BP 130/66 11/26/20 12:40 Pulse Ox 97 11/26/20 12:40 Intake & Output 11/25/20 11/26/20 11/26/20 18:59 06:59 18:59 Intake Total 350 236 Output Total 600 1200 Balance 350 -364 -1200 Intake: Intake, IV Titration 350 Amount Cefepime 2 gm In Sodium 100 Chloride 0.9% 100 ml @ 25 mls/hr IVPB Q12H [facility] Rx# :[id number] Vancomycin 1,000 mg In 250 Sodium Chloride 0.9% 250 ml @ 125 mls/hr IVPB Q16H [facility] Rx#:[id number] Oral 236 Output: Stool 600 1200 Other: Voiding Method Bedside Commode Bedside Commode - Labs CBC & Chem 7: 11/25/20 05:35 11/26/20 06:26 Labs: Microbiology - Last 24 Hours (Table) 11/24/20 15:36 Urine Culture - Preliminary Urine,Clean Catch Presumptive Staph aureus 11/24/20 15:36 Gram Stain - Preliminary Abdomen Wound Culture - Preliminary Gram Neg Bacilli 11/24/20 16:14 Blood Culture - Preliminary Blood No Growth after 24 hours 11/25/20 06:20 Gram Stain - Preliminary Abdomen Wound Culture - Preliminary 11/25/20 06:20 Anaerobic Culture - Preliminary Abdomen
[2020-11-26] MEDS: ATORVASTATIN 40 MG TAB PO SCH (23:26)
[2020-11-26] MEDS: QUEtiapine 100 MG TAB PO SCH (23:26)
--- NOTE | 2020-11-27 05:51 | CONS ---
CONSULTATION DATE OF SERVICE: 11/26/2020 REASON FOR CONSULTATION: Abdominal wound and positive urine culture. HISTORY OF PRESENT ILLNESS: The patient is a 75-year-old female who was recently admitted to this facility on October 11 in this patient who did have a sigmoid colectomy and end colostomy for sigmoid colon volvulus. The patient has now been brought back to the hospital 2 days ago for evaluation of no output from the colostomy and some abdominal discomfort. The patient denies any nausea, vomiting, or any high-grade fever. The patient on presentation to the hospital was afebrile and no fever has been recorded since admission to the hospital. The patient did have a normal white count. Urine was positive with large leukocyte esterases, 27 WBCs. Moe PCR was negative. Patient's urine now showing Staph aureus, sensitivity is pending. Abdominal culture positive for Klebsiella, but she was noticed to have a nonhealing center midline wound. The patient at this point denies having any headache. She did mention she did have output in her colostomy bag now. The patient denies any chest pain or shortness of breath or cough. No nausea, no vomiting and no significant urinary symptoms. REVIEW OF SYSTEMS: Positive points have been mentioned in HPI. Rest of systems are negative. PAST MEDICAL HISTORY: Colon volvulus, hypertension, hyperlipidemia, osteoarthritis, hypothyroidism. PAST SURGICAL HISTORY: Laparotomy and end-colostomy with bowel resection, cholecystectomy, coronary artery bypass grafting, hysterectomy, tonsillectomy, appendectomy. SOCIAL HISTORY: No history of smoking, drinking or drug use. FAMILY HISTORY: Mother with history of diabetes and heart disease. Father history of [place]. ALLERGIES: IODINATED CONTRAST DYE, OXYCODONE AND TYLENOL. PHYSICAL EXAMINATION: VITAL SIGNS: Blood pressure 130/66 with a pulse of 76, temperature 97.9, she is 97% on room air. GENERAL DESCRIPTION: Patient is an elderly female lying in bed in no distress. No tachypnea or accessory muscles of respiration use. HEENT: Examination shows pallor, no scleral icterus. Oral mucous membrane is dry. NECK: Trachea central, no thyromegaly. LUNGS: Unlabored breathing, clear to auscultation anteriorly, no wheezes or crackles. HEART: S1-S2, regular rate and rhythm. ABDOMEN: Soft. No guarding or rigidity. Midline incision wound small area of nonhealing wound with no significant surrounding redness. She did have output in her colostomy bag. EXTREMITIES: No edema of the feet. SKIN: No rash or mass palpable. NEUROLOGICAL: Patient is awake, alert, oriented times three. Mood and affect normal. LABS: Hemoglobin is 10 with white count 5.26, BUN of 17, creatinine 0.9. Urine was positive. Abdominal culture with Klebsiella. Urine showing Staph aureus. DIAGNOSTIC IMPRESSION: 1. Patient with a positive urine culture with Staph aureus with sensitivities pending in this patient with symptoms on presentation to the hospital with mostly constipation output from colostomy. This seemed to have been relieved and is working now, possible colonization versus mild cystitis. 2. Now having abdominal wound culture positive for Klebsiella. PLAN: 1. We will keep the patient on cefepime and vancomycin while waiting for the culture to finalize. 2. Local wound care to the wound as ordered. 3. Increase fluid intake. 4. We will follow on clinical condition and these investigations to further adjust medication if needed. Thank you for this consultation. Will follow this patient along with you. MMODL / IJN: [id number] /
[2020-11-27] MEDS: LEVOTHYROXINE 25 MCG TAB PO SCH (06:10)
[2020-11-27] MEDS: LACTULOSE 20 GM/30 ML CUP PO SCH ×3 (09:53→21:33)
[2020-11-27] MEDS: CEFEPIME 2 GM in SODIUM CHLORIDE 0.9% 100 ML IVPB SCH ×2 (09:57→21:29)
[2020-11-27] MEDS: ISOSORBIDE MONONITRATE ER 30 MG TAB.ER.24H PO SCH (09:58)
[2020-11-27] MEDS: APIXABAN 5 MG TAB PO SCH ×2 (09:58→20:03)
[2020-11-27] MEDS: LOSARTAN 50 MG TAB PO SCH (09:58)
[2020-11-27 10:01] LABS: African American GFR (CKD) >90 (>60 ml/min/1.73 sqM); Non-African American GFR(CKD) 86 (>60 ml/min/1.73 sqM)
--- NOTE | 2020-11-27 13:03 | P.PN ---
Subjective Progress Note Date: 11/27/20 CHIEF COMPLAINT: Abdominal pain HISTORY OF PRESENT ILLNESS: Patient is being followed in regards to her c onstipation and purulent incisional wound drainage. Patient did receive GoLYTELY and lactulose for her constipation. She has been having good output through her ostomy. Her abdominal pain has resolved. She is tolerating a full liquid diet. She denies any nausea or vomiting. She is afebrile. Abdominal incisional Wound culture growing Klebsiella oxytoca PHYSICAL EXAM: VITAL SIGNS: Reviewed. GENERAL: Well-developed in no acute distress. HEENT: No sclera icterus. Extraocular movements grossly intact. Moist buccal mucosa. Head is atraumatic, normocephalic. ABDOMEN: Soft. Nondistended. Nontender. Colostomy with brown stool. Midline incision at the top of the incision there is a small 1 cm opening that is draining purulent foul-smelling discharge. More in the midline of the incision there is another small opening probably 3 mm with minimal clear drainage. NEUROLOGIC: Alert and oriented. Cranial nerves II through XII grossly intact. ASSESSMENT: 1. Abdominal pain with decreased output through ostomy likely due to constipation. Has improved after GoLYTELY and lactulose 2. Incisional wound with purulent drainage 3. 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 Possible UTI PLAN: -Continue lactulose 3 times a day -advance diet to regular -Antibiotics per ID -Continue local wound care Physician Tape Keller Operator note has been reviewed by physician. Signing provider agrees with the documented findings, assessment, and plan of care. Objective - Vital Signs Vital signs: Vital Signs Temp 97.7 F 11/27/20 05:00 Pulse 52 L 11/27/20 05:00 Resp 16 11/27/20 05:00 BP 119/69 11/27/20 05:00 Pulse Ox 97 11/27/20 05:00 Intake & Output 11/26/20 11/27/20 11/27/20 18:59 06:59 18:59 Output Total 2500 1800 Balance -2500 -1800 Output: Stool 2500 1800 Other: Voiding Method Bedside Commode Toilet - Labs CBC & Chem 7: 11/25/20 05:35 11/27/20 09:05 Labs: Microbiology - Last 24 Hours (Table) 11/25/20 06:20 Gram Stain - Preliminary Abdomen Wound Culture - Preliminary Gram Neg Bacilli 11/24/20 15:36 Urine Culture - Final Urine,Clean Catch Methicillin resist S. aureus 11/24/20 15:36 Gram Stain - Preliminary Abdomen Wound Culture - Preliminary Klebsiella oxytoca 11/24/20 16:14 Blood Culture - Preliminary Blood No Growth after 48 hours
[2020-11-27] MEDS ORDERED: VANCOMYCIN TROUGH DUE 1 EACH MISC MISCELLANE ONE (14:00)
[2020-11-27] MEDS: SODIUM CHLORIDE 0.9% 1,000 ML IV SCH (15:41)
[2020-11-27] MEDS: VANCOMYCIN 1,000 MG in SODIUM CHLORIDE 0.9% 250 ML IVPB SCH (15:42)
--- NOTE | 2020-11-27 19:44 | PN ---
PROGRESS NOTE DATE OF SERVICE: 11/27/2020 REASON FOR FOLLOWUP: UTI and abdominal wound with culture positive. INTERVAL HISTORY: The patient is currently afebrile. The patient is breathing comfortably. The patient denies having any chest pain or shortness of breath or cough. No abdominal pain or diarrhea. PHYSICAL EXAMINATION: Blood pressure 120/67, pulse of 87, temperature 98. She is 96% on room air. General description is an elderly female lying in bed in no distress. RESPIRATORY SYSTEM: Unlabored breathing. Clear to auscultation anteriorly. HEART: S1, S2. Regular rate and rhythm. ABDOMEN: Soft. No tenderness. EXTREMITIES: No edema of the feet. LABS: Vancomycin trough is 17.2. Urine with MRSA. Abdominal culture with klebsiella. DIAGNOSTIC IMPRESSION AND PLAN: 1. Patient with a positive urine culture with MRSA. The patient does not have significant urinary symptoms. UA culture will be repeated. Continue vancomycin. 2. Patient with a nonhealing abdominal wound, culture positive for klebsiella, covered with cefepime; to continue. Possible transition to oral antibiotic on discharge. Continue with supportive care. MMODL / IJN: [id number] /
[2020-11-27] MEDS: QUEtiapine 100 MG TAB PO SCH (20:03)
[2020-11-27] MEDS: ATORVASTATIN 40 MG TAB PO SCH (20:03)
[2020-11-28] MEDS: LEVOTHYROXINE 25 MCG TAB PO SCH (06:08)
[2020-11-28] MEDS: SODIUM CHLORIDE 0.9% 1,000 ML IV SCH (06:08)
[2020-11-28] MEDS: APIXABAN 5 MG TAB PO SCH (08:15)
[2020-11-28] MEDS: ISOSORBIDE MONONITRATE ER 30 MG TAB.ER.24H PO SCH (08:15)
[2020-11-28] MEDS: LOSARTAN 50 MG TAB PO SCH (08:16)
[2020-11-28] MEDS: LACTULOSE 20 GM/30 ML CUP PO SCH (08:19)
[2020-11-28] MEDS: VANCOMYCIN 1,000 MG in SODIUM CHLORIDE 0.9% 250 ML IVPB SCH (08:59)
--- NOTE | 2020-11-28 10:04 | P.PN ---
Subjective Progress Note Date: 11/27/20 Principal diagnosis: Mechanical large bowel obstruction with constipation and dilated large bowel Postop Surgical wound infection UTI 75 years old female with past medical history of hyperlipidemia, hypertension, osteoarthritis, liver cirrhosis. Coronary artery disease status post bypass surgery. She is a patient of Dr. Cast She was in the hospital from 10/10/20-10/28/20 for a sigmoid colon volvulus and colonic obstruction status post lysis of adhesions and sigmoid colectomy on 10/11/20. This time and presents because of ongoing lower abdominal pain for 2 weeks, nonradiating fat like crampy about 10/10 in severity associated with constipation and no bowel movement for 2 weeks as per patient no nausea vomiting. No chest pain or dyspnea. No fever Patient was seen and sent by Dr. cast to have an outpatient CAT scan related to bowel obstruction. Patient is ALLERGIC to IV dye and needs pre- medication but also patient was complaining of from abdominal pain with no output from the colostomy for the last 2-2.5 weeks This morning she has a total stool coming out of colostomy bag. She denies smoking, alcohol or illicit drugs Vitas looks stable and patient is afebrile with blood pressure 155/72. Labs reviewed, patient has unremarkable CBC, sodium is low is 129. Creatinine 1.0, potassium 4.9, liver enzymes aren't elevated. Amylase and lipase are normal at 45, 32 respectively. Urinalysis is suspicious for infection coronavirus not detected. CT of the abdomen and pelvis with contrast showing dilated large bowel, colostomy, status post large bowel surgery. There is significant constipation. Mechanical large bowel obstruction is possible. Colostomy is new compared to old exam. There is some mild subsegmental atelectasis in the left lung base wit hout change. Cardiomegaly unchanged. Dilated large bowel similar to old exam before the surgery An emergency room patient was started on cefepime and IV vancomycin. Also she was started on normal saline at 75 mL/h.surgery team were consulted. 11/27/2020 Patient is seen and evaluated sitting up in bed; surgery ordered GoLYTELY and lactulose for her constipation and patient continues to have good output through ostomy; patient is started on full liquid diet and is able to tolerate well; surgery on board and recommending to continue with lactulose 3 times a day and advance diet to regular; continue with local wound care and antibiotics per ID recommendations; incisional Wound culture growing Klebsiella oxytoca Objective - Vital Signs Vital signs: Vital Signs Temp 97.7 F 11/27/20 05:00 Pulse 52 L 11/27/20 05:00 Resp 16 11/27/20 05:00 BP 119/69 11/27/20 05:00 Pulse Ox 97 11/27/20 05:00 Intake & Output 11/26/20 11/27/20 11/27/20 18:59 06:59 18:59 Output Total 2500 1800 Balance -2500 -1800 Output: Stool 2500 1800 Other: Voiding Method Bedside Commode Toilet - Exam GENERAL: The patient is alert and oriented x3, not in any acute distress. Well developed, well nourished. HEENT: Pupils are round and equally reacting to light. EOMI. No scleral icterus. No conjunctival pallor. Normocephalic, atraumatic. No pharyngeal erythema. No thyromegaly. CARDIOVASCULAR: S1 and S2 present. No murmurs, rubs, or gallops. PULMONARY: Chest is clear to auscultation, no wheezing or crackles. -ABDOMEN: Soft, nontender, nondistended, normoactive bowel sounds. No palpable organomegaly. Colostomy on the left side.2 small wounds in the midline abdominal scar, the upper one with some serous discharge both with yellow base MUSCULOSKELETAL: No joint swelling or deformity. EXTREMITIES: No cyanosis, clubbing, or pedal edema. NEUROLOGICAL: Gross neurological examination did not reveal any focal deficits. SKIN: No rashes. No petechiae - Labs CBC & Chem 7: 11/25/20 05:35 11/27/20 09:05 Labs: Microbiology - Last 24 Hours (Table) 11/25/20 06:20 Gram Stain - Preliminary Abdomen Wound Culture - Preliminary Gram Neg Bacilli 11/24/20 15:36 Urine Culture - Final Urine,Clean Catch Methicillin resist S. aureus 11/24/20 15:36 Gram Stain - Preliminary Abdomen Wound Culture - Preliminary Klebsiella oxytoca 11/24/20 16:14 Blood Culture - Preliminary Blood No Growth after 48 hours Assessment and Plan Assessment: Possible mechanical large bowel obstruction with constipation and dilated large bowel. Postop surgical wound infection. 2 small wounds in the midline abdominal scar, the upper one with some serous discharge both with yellow base. Wound cultures, gram-negative bacilli Possible acute urinary tract infection. Urine culture is growing presumptive staph Hypertension Hyperlipidemia Primary osteoarthritis History of liver cirrhosis History of coronary artery disease status post bypass surgery Plan: This is a pleasant 75 years old female who presents with possible bowel obstruction and surgical wound infection. Continue gentle hydration and follow- up recommendation by surgery team. Continue cefepime and IV vancomycin. Consult infectious disease team. Follow- up culture final results Labs and medication were reviewed.. Continue same treatment. Continue with symptomatic treatment. Resume home medication. Monitor lytes and vitals. DVT and GI prophylaxis. Further recommendations depends on the clinical course of the patient DVT prophylaxis:Eliquis GI Prophylaxis: Pepcid PT/OT: Pending Prognosis is guarded
[2020-11-28] MEDS: CEFEPIME 2 GM in SODIUM CHLORIDE 0.9% 100 ML IVPB SCH (11:01)
--- NOTE | 2020-11-28 11:21 | P.PN ---
Subjective Progress Note Date: 11/28/20 Principal diagnosis: Constipation Patient doing well today. Tolerating diet. No pain. Good bowel function Objective - Vital Signs Vital signs: Vital Signs Temp 98.0 F 11/28/20 04:42 Pulse 51 L 11/28/20 04:42 Resp 16 11/28/20 04:42 BP 120/69 11/28/20 04:42 Pulse Ox 98 11/28/20 04:42 Intake & Output 11/27/20 11/28/20 11/28/20 18:59 06:59 18:59 Intake Total 590 Output Total 400 400 Balance -400 590 -400 Intake: Oral 590 Output: Stool 400 400 Other: Voiding Method Toilet Toilet # Voids 2 2 - Exam Abdomen: Soft, nondistended, nontender, small wound healing nicely, ostomy functioning - Labs CBC & Chem 7: 11/25/20 05:35 11/27/20 09:05 Labs: Microbiology - Last 24 Hours (Table) 11/25/20 06:20 Gram Stain - Preliminary Abdomen Wound Culture - Preliminary Klebsiella oxytoca 11/24/20 16:14 Blood Culture - Preliminary Blood No Growth after 72 hours Assessment and Plan (1) Constipation Narrative/Plan: Patient improving. Continue diet as tolerated. Continue stool softeners. May discharge. Current Visit: Yes Status: Acute Code(s): K59.00 - CONSTIPATION, UNSPECIFIED SNOMED Code(s): 12740055
[2020-11-28 15:44] VITALS: BP 124/59; PULSE 71; RESP 14; TEMP 97.8
--- NOTE | 2020-11-28 17:12 | PN ---
PROGRESS NOTE DATE OF SERVICE: 11/28/2020 REASON FOR FOLLOWUP: 1. UTI. 2. Abdominal wound infection. INTERVAL HISTORY: Patient is currently afebrile. Patient is breathing comfortably. The patient denies having any chest pain, shortness of breath or cough. No abdominal pain. No diarrhea. PHYSICAL EXAMINATION: Blood pressure 124/59, pulse of 71, temperature 97.8. She is 97% on room air. GENERAL DESCRIPTION: An elderly female lying in bed in no distress. RESPIRATORY SYSTEM: Unlabored breathing, clear to auscultation anteriorly. HEART: S1, S2. Regular rate and rhythm. ABDOMEN: Soft, no tenderness. LABS: Hemoglobin is 10.3, white count 5.26, creatinine 0.67. Repeat UA was requested, not done. DIAGNOSTIC IMPRESSION AND PLAN: 1. Patient with MRSA positive urine culture, covered with vancomycin. Repeat urine was ordered yesterday and will be ordered again. If it is cleared, no further antibiotic on discharge. 2. Patient with abdominal wound culture positive Klebsiella. Covered with cefepime and transition to oral antibiotic on discharge. Local care to continue as ordered. Continue supportive care. MMODL / IJN: [id number] /
== END 2020-11-28 18:20 | disposition home health service (06) | DRG 863 ==
LOC: EC 14:08 → 4SSUR 17:34 → 5NMEDONC 20:17
PROVIDERS: ADMIT Internal Medicine; ATTEND Internal Medicine
PROC: 05HF33Z Insertion of Infusion Device into Left Cephalic Vein, Percutaneous Approach (ICD-10-PCS; principal; 2020-11-25 12:10)
DX: T81.41XA Infection following a procedure, superficial incisional surgical site, initial encounter (principal); J98.11 Atelectasis; N39.0 Urinary tract infection, site not specified; I11.9 Hypertensive heart disease without heart failure; K74.60 Unspecified cirrhosis of liver; Z43.3 Encounter for attention to colostomy; Z20.822 Contact with and (suspected) exposure to COVID-19; K59.00 Constipation, unspecified; B96.1 Klebsiella pneumoniae [K. pneumoniae] as the cause of diseases classified elsewhere; B95.62 Methicillin resistant Staphylococcus aureus infection as the cause of diseases classified elsewhere; E78.00 Pure hypercholesterolemia, unspecified; E78.5 Hyperlipidemia, unspecified; E03.9 Hypothyroidism, unspecified; R73.03 Prediabetes; I25.10 Atherosclerotic heart disease of native coronary artery without angina pectoris; R29.6 Repeated falls; R53.1 Weakness; M19.91 Primary osteoarthritis, unspecified site; H91.90 Unspecified hearing loss, unspecified ear; Z79.01 Long term (current) use of anticoagulants; Z79.890 Hormone replacement therapy; Z79.899 Other long term (current) drug therapy; Z86.711 Personal history of pulmonary embolism; Z86.718 Personal history of other venous thrombosis and embolism; Z91.81 History of falling; Z90.49 Acquired absence of other specified parts of digestive tract; Z90.710 Acquired absence of both cervix and uterus; Z98.84 Bariatric surgery status; Z87.19 Personal history of other diseases of the digestive system; Z87.81 Personal history of (healed) traumatic fracture; Z95.1 Presence of aortocoronary bypass graft; Z90.89 Acquired absence of other organs; Z98.890 Other specified postprocedural states; Y83.8 Other surgical procedures as the cause of abnormal reaction of the patient, or of later complication, without mention of misadventure at the time of the procedure; Z91.041 Radiographic dye allergy status; Z88.5 Allergy status to narcotic agent; Z91.013 Allergy to seafood; Z83.3 Family history of diabetes mellitus; Z82.49 Family history of ischemic heart disease and other diseases of the circulatory system
CPT/HCPCS: 36410; 36415; 74177; 76937; 80048; 80053; 80202; 81001; 82150; 82565; 82607; 82728; 82746; 83540; 83550; 83605; 83690; 85025; 87040; 87070; 87075; 87077; 87086; 87186; 87205; 87635; 96365; 96366; 96367; 96375; 99285

== ENCOUNTER → 2020-11-24 | Outpatient (CLI) | payer MEDICARE ==
--- NOTE | 2020-11-24 11:51 | XR ---
EXAMINATION TYPE: XR abdomen 2V DATE OF EXAM: 11/24/2020 COMPARISON: 10/01/2020 HISTORY: Abdominal pain TECHNIQUE: One view abdominal series FINDINGS: The osseous structures are intact. The bowel gas pattern is nonspecific. There is extensive retained fecal debris throughout the colon. Postsurgical changes and clips are noted. Scoliosis with degenera tive changes spine are vascular calcifications with arthropathy of the hips and diffuse osteopenia. S clerotic density involving the right iliac bone above the acetabular roof stable. IMPRESSION: 1. Severe constipation.
== END ==
LOC: RADXRYALE 11:22
PROVIDERS: ATTEND Physician Assistant Medical
DX: K59.00 Constipation, unspecified (principal)
CPT/HCPCS: 74019

== ENCOUNTER → 2020-11-24 | Outpatient (CLI) | payer MEDICARE | END | disposition home or self-care (01) | LOC: RADCTMAIN 13:26 | PROVIDERS: ATTEND Family Medicine | DX: Z53.9 Procedure and treatment not carried out, unspecified reason (principal) ==

== ENCOUNTER → 2020-12-08 | Outpatient (CLI) | payer MEDICARE ==
--- NOTE | 2020-12-09 06:22 | MR ---
EXAMINATION TYPE: MR brain wo con DATE OF EXAM: 12/08/2020 COMPARISON: None HISTORY: Dizzy spells and falling, hearing loss in both ears, weakness on both sides of body. Multiplanar multiecho imaging of the brain was performed without contrast. There is cerebral cortical atrophy. There is no mass effect nor midline shift. There is no evidence o f intracranial hemorrhage. There is extensive patchy increased signal in the periventricular white ma tter. These areas are coalescent and measure up to 1.5 cm. There is 12 mm rounded area of fluid signa l in the blackburn-white matter junction right posterior frontal lobe consistent with an old infarct. The brainstem is intact. Cerebellum is intact. There is some thinning of the corpus callosum. Sella turci ca is normal. There is some patchy decreased signal in the thalamus bilaterally. This could relate to thalamic calc ification and iron deposition. IMPRESSION: Cerebral atrophy. Extensive white matter signal changes probably from chronic small vessel ischemia. Demyelinating disease also possible. No evidence of acute infarct. Basal ganglia signal changes are symmetric and could relate to iron deposition disease.
== END | disposition home or self-care (01) ==
LOC: RADMRIMAIN 16:05
PROVIDERS: ATTEND Physician Assistant Medical
DX: G31.9 Degenerative disease of nervous system, unspecified (principal); R90.82 White matter disease, unspecified
CPT/HCPCS: 70551

== ENCOUNTER → 2021-03-09 | Outpatient (CLI) | payer MEDICARE ==
--- NOTE | 2021-03-09 13:55 | NM ---
EXAMINATION TYPE: NM bone 3 phase DATE OF EXAM: 03/09/2021 COMPARISON: NONE HISTORY: Pressure ulcer of the sacrum Triple phase bone scintigraphy was performed following the injection of 22 mCi Tc 99m MDP. Immediate images and 5 hours post injection images acquired. FINDINGS: There is increased perfusion to the region of the sacrum. Increased soft tissue uptake is suspected. On delayed imaging no localized uptake involving the visualized osseous structures. Faint uptake invo lving the lower lumbar spine likely degenerative IMPRESSION: 1. Mild increased perfusion and soft tissue uptake correlate for cellulitis. No diagnostic evidence o f osteomyelitis
== END | disposition home or self-care (01) ==
LOC: RADNMMAIN 07:25
PROVIDERS: ATTEND Nurse Practitioner Family
DX: L89.159 Pressure ulcer of sacral region, unspecified stage (principal)
CPT/HCPCS: 78315; A9503

== ENCOUNTER → 2021-03-18 | Outpatient (CLI) | payer MEDICARE ==
[2021-03-18 18:08] VITALS: BMI 21.8
== END ==
LOC: DBWHC3 13:37
PROVIDERS: ATTEND Physician Assistant Medical
DX: R63.4 Abnormal weight loss (principal); R60.9 Edema, unspecified; L89.302 Pressure ulcer of unspecified buttock, stage 2; Z91.041 Radiographic dye allergy status; Z91.013 Allergy to seafood; Z88.6 Allergy status to analgesic agent; Z68.21 Body mass index [BMI] 21.0-21.9, adult
CPT/HCPCS: 97802

== ENCOUNTER → 2021-04-06 | Outpatient (CLI) | payer MEDICARE ==
--- NOTE | 2021-04-06 09:36 | US ---
EXAMINATION TYPE: US venous doppler duplex LE DATE OF EXAM: 04/06/2021 9:15 AM COMPARISON: NONE CLINICAL HISTORY: R60.9 EDEMA,I10 HTN,I82.91 EMBOLISM AND THROMBOSIS. On blood thinners. Hx right ch ronic DVT. Swelling. SIDE PERFORMED: Bilateral TECHNIQUE: The lower extremity deep venous system is examined utilizing real time linear array sonog lopez with graded compression, doppler sonography and color-flow sonography. VESSELS IMAGED: Common Femoral Vein Deep Femoral Vein Greater Saphenous Vein * Femoral Vein Popliteal Vein Small Saphenous Vein * Proximal Calf Veins (* superficial vessels) Right Leg: Positive for DVT in distal Femoral vein. 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
== END | disposition home or self-care (01) ==
LOC: RADUSWWP 08:49
PROVIDERS: ATTEND Family Medicine
DX: I82.411 Acute embolism and thrombosis of right femoral vein (principal)
CPT/HCPCS: 93970

== ENCOUNTER 2021-07-24 13:42 | Observation (INO) | payer MEDICARE ==
[2021-07-24 14:52] LABS: Basophils # (A) 0.1 k/uL (0-0.2); Basophils % (A) 1 %; Eosinophils # (A) 0.2 k/uL (0-0.7); Eosinophils % (A) 2 %; HCT 30.5 % (34.0-46.0); HGB 9.8 gm/dL (11.4-16.0); Hypochromasia Slight; Lymphocytes # (A) 1.5 k/uL (1.0-4.8); Lymphocytes % (A) 14 %; MCHC 32.2 g/dL (31.0-37.0); Monocytes # (A) 0.6 k/uL (0-1.0); Monocytes % (A) 6 %; Neutrophils # (A) 8.4 k/uL (1.3-7.7); Neutrophils % (A) 77 %; Platelet Count 482 k/uL (150-450); Poikilocytosis Slight; RBC 3.39 m/uL (3.80-5.40); RDW 15.8 % (11.5-15.5)
--- NOTE | 2021-07-24 14:52 | ED ---
General Adult HPI - General Chief complaint: Shortness of Breath Stated complaint: MELANIA Time Seen by Provider: 07/24/21 14:17 Source: patient, RN notes reviewed, old records reviewed Mode of arrival: ambulatory Limitations: no limitations - History of Present Illness Initial comments: 75-year-old female presenting for evaluation of increased dyspnea and lower extremity swelling. Patient has history of congestive heart failure. She states that her leg swelling has worsened over the past several months. Her breathing has begun to worsen over the past several days.Fever. No chest pain. Breathing is worse while lying flat. - Related Data Home Medications Medication Instructions Recorded Confirmed Atorvastatin [Lipitor] 40 mg PO HS 06/21/14 11/24/20 Isosorbide Mononitrate [Imdur] 30 mg PO DAILY 06/21/14 11/24/20 Levothyroxine Sodium [Synthroid] 25 mcg PO DAILY 06/21/14 11/24/20 ursodioL [Actigall] 600 mg PO BID 11/22/16 11/24/20 QUEtiapine [SEROquel] 100 mg PO HS 11/23/16 11/24/20 Apixaban [Eliquis] 5 mg PO BID 10/09/20 11/24/20 Clobetasol Propionate [Temovate 1 applic TOPICAL DAILY PRN 10/09/20 11/24/20 0.05% Oint] traMADol HCL [Ultram] 50 mg PO BID 10/09/20 11/24/20 Losartan Potassium 100 mg PO DAILY 11/24/20 11/24/20 Sulfamethox-Tmp 800-160Mg [Bactrim 1 tab PO BID 11/24/20 11/24/20 DS 800-160 mg] Previous Rx's Medication Instructions Recorded Ibuprofen [Motrin] 400 mg PO Q4HR PRN tab 11/28/20 Lactulose [Cephulac] 30 gm PO TID #450 ml 11/28/20 cloNIDine 0.1 MG/24HR PATCH 1 patch TRANSDERM Q7D #4 patch 11/28/20 [Catapres-TTS] Allergies Allergy/AdvReac Type Severity Reaction Status Date / Time Iodinated Contrast Media Allergy Rash/Hives Verified 07/24/21 14:12 [Iodinated Contrast Media - Oral and] oxycodone HCl [From Percocet] Allergy Rash/Hives Verified 07/24/21 14:12 shellfish derived Allergy Rash/Hives Verified 07/24/21 14:12 acetaminophen [From Percocet] AdvReac Severe Liver Verified 07/24/21 14:12 Failure Review of Systems ROS Statement: Those systems with pertinent positive or pertinent negative responses have been documented in the HPI. ROS Other: All systems not noted in ROS Statement are negative. Past Medical History Past Medical History: Hyperlipidemia, Hypertension, Liver Disease, Musculoskeletal Disorder, Osteoarthritis (OA), Thyroid Disorder Additional Past Medical History / Comment(s): Hx [id number] see specialist anymore, borderline diabetes, states no meds just watches what she ea ts. Had a fall and fx. left wrist about 1 year ago. History of Any Multi-Drug Resistant Organisms: MRSA Date of last positivie culture/infection: 03/02/21 MDRO Source:: MRSA BUTTOCK Past Surgical History: Appendectomy, Bowel Resection, Cholecystectomy, Coronary Bypass/CABG, Heart Catheterization, Hysterectomy, Tonsillectomy Additional Past Surgical History / Comment(s): Gastric bypass, bowel obstruction x3, quad bypass 18 yrs ago. colostomy Past Anesthesia/Blood Transfusion Reactions: Family History of Problems w/ Anesthesia Additional Past Anesthesia/Blood Transfusion Reaction / Comment(s): Mother had difficulty waking up after anesthesia. Date of Last Stent Placement:: unknown Past Psychological History: No Psychological Hx Reported Smoking Status: Never smoker Past Alcohol Use History: None Reported Past Drug Use History: None Reported - Past Family History Mother Family Medical History: Diabetes Mellitus, Myocardial Infarction (DC) Additional Family Medical History / Comment(s): Open heart surgery Father Family Medical History: Myocardial Infarction (DC) General Exam Limitations: no limitations General appearance: alert, in no apparent distress Head exam: Present: atraumatic, normocephalic Eye exam: Present: normal appearance, PERRL ENT exam: Present: normal exam Neck exam: Present: normal inspection. Absent: tenderness, meningismus Respiratory exam: Present: rales. Absent: respiratory distress Cardiovascular Exam: Present: regular rate, normal rhythm GI/Abdominal exam: Present: soft. Absent: distended, tenderness Extremities exam: Present: normal capillary refill, pedal edema Neurological exam: Present: alert, oriented X3, CN II-XII intact. Absent: motor sensory deficit Psychiatric exam: Present: normal affect, normal mood Skin exam: Present: warm, dry, intact. Absent: cyanosis, diaphoretic Course Vital Signs 07/24/21 14:08 Temperature 97.9 F Pulse Rate 75 Respiratory 19 Rate Blood Pressure 174/91 O2 Sat by Pulse 98 Oximetry EKG Findings - EKG Comments: EKG Findings:: EKG: Normal sinus rhythm rate of 78, CA interval 1:30, QRS duration 70, QTC [address] segment elevation Medical Decision Making - Medical Decision Making 75-year-old female who had presented for evaluation of dyspnea and lower extremity swelling. Patient does have orthopnea. She has rails on exam. Chest x-ray is concerning for congestive heart failure. She has white blood cell count of 11, hemoglobin 9.8. Her troponin is negative. She has normal electrolytes and normal kidney function. She has an elevated BNP at 2000. She is given IV Lasix in the emergency department and will be admitted or CHF exacerbation. Case discussed with Dr. Mills who will admit. - Lab Data Result diagrams: 07/24/21 14:36 07/24/21 14:36 Lab Results 07/24/21 07/24/21 07/24/21 Range/Units 14:36 14:36 14:36 WBC 11.0 H (3.8-10.6) k/uL RBC 3.39 L (3.80-5.40) m/uL Hgb 9.8 L (11.4-16.0) gm/dL Hct 30.5 L (34.0-46.0) % MCV 90.0 (80.0-100.0) fL MCH 29.0 (25.0-35.0) pg MCHC 32.2 (31.0-37.0) g/dL RDW 15.8 H (11.5-15.5) % Plt Count 482 H (150-450) k/uL MPV 7.0 Neutrophils % 77 % Lymphocytes % 14 % Monocytes % 6 % Eosinophils % 2 % Basophils % 1 % Neutrophils # 8.4 H (1.3-7.7) k/uL Lymphocytes # 1.5 (1.0-4.8) k/uL Monocytes # 0.6 (0-1.0) k/uL Eosinophils # 0.2 (0-0.7) k/uL Basophils # 0.1 (0-0.2) k/uL Hypochromasia Slight Poikilocytosis Slight PT 10.3 (9.0-12.0) sec INR 1.0 (<1.2) APTT 23.2 (22.0-30.0) sec Sodium 138 (137-145) mmol/L Potassium 4.7 (3.5-5.1) mmol/L Chloride 104 (98-107) mmol/L Carbon Dioxide 29 (22-30) mmol/L Anion Gap 5 mmol/L BUN 20 H (7-17) mg/dL Creatinine 0.55 (0.52-1.04) mg/dL Est GFR (CKD-EPI)AfAm >90 (>60 ml/min/1.73 sqM) Est GFR (CKD-EPI)NonAf >90 (>60 ml/min/1.73 sqM) Glucose 92 (74-99) mg/dL Plasma Lactic Acid Jose (0.7-2.0) mmol/L Calcium 8.2 L (8.4-10.2) mg/dL Magnesium 2.2 (1.6-2.3) mg/dL Total Bilirubin 0.2 (0.2-1.3) mg/dL AST 29 (14-36) U/L ALT 14 (4-34) U/L Alkaline Phosphatase 166 H (38-126) U/L Troponin I (0.000-0.034) ng/mL NT-Pro-B Natriuret Pep pg/mL Total Protein 6.3 (6.3-8.2) g/dL Albumin 3.0 L (3.5-5.0) g/dL 07/24/21 07/24/21 07/24/21 Range/Units 14:36 14:36 14:36 WBC (3.8-10.6) k/uL RBC (3.80-5.40) m/uL Hgb (11.4-16.0) gm/dL Hct (34.0-46.0) % MCV (80.0-100.0) fL MCH (25.0-35.0) pg MCHC (31.0-37.0) g/dL RDW (11.5-15.5) % Plt Count (150-450) k/uL MPV Neutrophils % % Lymphocytes % % Monocytes % % Eosinophils % % Basophils % % Neutrophils # (1.3-7.7) k/uL Lymphocytes # (1.0-4.8) k/uL Monocytes # (0-1.0) k/uL Eosinophils # (0-0.7) k/uL Basophils # (0-0.2) k/uL Hypochromasia Poikilocytosis PT (9.0-12.0) sec INR (<1.2) APTT (22.0-30.0) sec Sodium (137-145) mmol/L Potassium (3.5-5.1) mmol/L Chloride (98-107) mmol/L Carbon Dioxide (22-30) mmol/L Anion Gap mmol/L BUN (7-17) mg/dL Creatinine (0.52-1.04) mg/dL Est GFR (CKD-EPI)AfAm (>60 ml/min/1.73 sqM) Est GFR (CKD-EPI)NonAf (>60 ml/min/1.73 sqM) Glucose (74-99) mg/dL Plasma Lactic Acid Jose 0.9 (0.7-2.0) mmol/L Calcium (8.4-10.2) mg/dL Magnesium (1.6-2.3) mg/dL Total Bilirubin (0.2-1.3) mg/dL AST (14-36) U/L ALT (4-34) U/L Alkaline Phosphatase (38-126) U/L Troponin I <0.012 (0.000-0.034) ng/mL NT-Pro-B Natriuret Pep 2080 pg/mL Total Protein (6.3-8.2) g/dL Albumin (3.5-5.0) g/dL Disposition Clinical Impression: Congestive heart failure Disposition: ADMITTED IP TO THIS HOSP Condition: Stable Is patient prescribed a controlled substance at d/c from ED?: No Referrals: Juan Cast DO [Primary Care Provider] - 1-2 days Decision to Admit Reason: Admit from EC Decision Date: 07/24/21 Decision Time: 15:49
[2021-07-24 15:05] LABS: Partial Thromboplastin Time 23.2 sec (22.0-30.0); Prothrombin Time 10.3 sec (9.0-12.0)
[2021-07-24 15:07] LABS: ALT 14 U/L (4-34); AST 29 U/L (14-36); African American GFR (CKD) >90 (>60 ml/min/1.73 sqM); Alkaline Phosphatase 166 U/L (38-126); Anion Gap 5 mmol/L; Blood Urea Nitrogen 20 mg/dL (7-17); Calcium 8.2 mg/dL (8.4-10.2); Carbon Dioxide 29 mmol/L (22-30); Chloride 104 mmol/L (98-107); Glucose 92 mg/dL (74-99); Magnesium 2.2 mg/dL (1.6-2.3); Non-African American GFR(CKD) >90 (>60 ml/min/1.73 sqM); Potassium 4.7 mmol/L (3.5-5.1); Sodium 138 mmol/L (137-145); Total Bilirubin 0.2 mg/dL (0.2-1.3); Total Protein 6.3 g/dL (6.3-8.2)
--- NOTE | 2021-07-24 15:29 | XR ---
EXAMINATION TYPE: XR chest 2V DATE OF EXAM: 07/24/2021 COMPARISON: 10/10/2020 HISTORY: Difficulty breathing TECHNIQUE: Frontal and lateral views of the chest are obtained. FINDINGS: There is pulmonary vascular congestion, mild interstitial edema and [id number] bila teral pleural effusions. There is no pneumothorax. There is been prior CABG surgery. The upper lung zones are clear of airspac e consolidation. IMPRESSION: Findings most consistent with CHF. Correlation short-term follow-up to resolution is rec ommended.
[2021-07-24] MEDS ORDERED: FUROSEMIDE 10 MG/ML 4 ML VIAL IV STA (15:30)
[2021-07-24] MEDS ORDERED: NALOXONE 0.4 MG/ML 1 ML VIAL IV PRN (15:46)
[2021-07-24 16:45] LABS: Appearance,Urine Clear (Clear); Bacteria,Urine Rare /hpf; Bilirubin,Urine Negative (Negative); Blood,Urine Negative (Negative); Color,Urine Yellow; Glucose,Urine (UA) Negative (Negative); Ketones,Urine Negative (Negative); Leukocyte Esterase,Urine Negative (Negative); Nitrite,Urine Positive (Negative); PH, Urine 7.5 (5.0-8.0); Protein,Urine Negative (Negative); Specific Gravity,Urine 1.007 (1.001-1.035); Squamous Epithelial Cell,Urine <1 /hpf (0-4); Urobilinogen,Urine <2.0 mg/dL (<2.0); WBC,Urine 2 /hpf (0-5)
[2021-07-24] MEDS ORDERED: hydrALAZINE HCL 20 MG/ML 1 ML VIAL IVP PRN (19:38)
[2021-07-24] MEDS: FUROSEMIDE 10 MG/ML 4 ML VIAL IV SCH (21:51)
--- NOTE | 2021-07-24 21:56 | P.HPIM ---
History of Present Illness H&P Date: 07/24/21 Chief Complaint: Difficulty in breathing Patient is a 75-year-old female with known history of coronary artery disease status post CABG, hypertension, hyperlipidemia, osteoarthritis, hypothyroidism, history of liver cirrhosis, borderline diabetes presents to ER with complaints of difficulty in breathing past few days. Patient is also having worsening leg swelling for past several months. Denies any complaints of chest pain. No complaints of cough or sputum production. Patient does have orthopnea. Denied PND. No headache or dizziness or lightheadedness. Denies any recent illnesses. No fever no chills. No dysuria or hematuria. Chest x-ray showed findings most consistent with CHF. Correlation short-term follow-up prior to resolution is recommended. EKG showed normal sinus rhythm Patient was resubmitted to hospital in November 2020 due to mechanical large bowel obstruction and postop surgical wound infection. Laboratory showed WBC 11.0 hemoglobin 9.8 and platelets 482 Sodium 138 potassium 4.7 chloride 104 BUN 20 creatinine 0.55 calcium 8.2 proBNP 2080 Urinalysis showed clear, nitrite positive and leukoesterase negative and WBCs 2 and coronavirus PCR not detected. Review of Systems Constitutional: Patient denies any fever or chills . + generalized weakness . no weight loss. Abdomen: Patient denied nausea vomiting and diarrhea and abdominal pain. Cardiovascular: Patient denies any chest pain. +MELANIA/ short of breath no p alpitations. legswelling Respiratory: patient denied any cough or sputum production. No shortness of breath Neurologic: Patient denied any numbness or tingling headache. Musculoskeletal: Patient denies any complaints of joint swelling or deformity. Skin: Negative Psychiatric: Negative Endocrine: No heat or cold intolerance. No recent weight gain. Genitourinary: No dysuria or hematuria. All other 14 point ROS negative except the above Past Medical History Past Medical History: Hyperlipidemia, Hypertension, Liver Disease, Musculoskeletal Disorder, Osteoarthritis (OA), Thyroid Disorder Additional Past Medical History / Comment(s): Hx [id number]-afiio't see specialist anymore, borderline diabetes, states no meds just watches what she eats. Had a fall and fx. left wrist about 1 year ago. History of Any Multi-Drug Resistant Organisms: MRSA Date of last positivie culture/infection: 03/02/21 MDRO Source:: MRSA BUTTOCK Past Surgical History: Appendectomy, Bowel Resection, Cholecystectomy, Coronary Bypass/CABG, Heart Catheterization, Hysterectomy, Tonsillectomy Additional Past Surgical History / Comment(s): Gastric bypass, bowel obstruction x3, quad bypass 18 yrs ago. colostomy Past Anesthesia/Blood Transfusion Reactions: Family History of Problems w/ Anesthesia Additional Past Anesthesia/Blood Transfusion Reaction / Comment(s): Mother had d ifficulty waking up after anesthesia. Date of Last Stent Placement:: unknown Past Psychological History: No Psychological Hx Reported Smoking Status: Never smoker Past Alcohol Use History: None Reported Past Drug Use History: None Reported - Past Family History Mother Family Medical History: Diabetes Mellitus, Myocardial Infarction ([place]) Additional Family Medical History / Comment(s): Open heart surgery Father Family Medical History: Myocardial Infarction ([place]) Medications and Allergies Home Medications Medication Instructions Recorded Confirmed Type Atorvastatin [Lipitor] 40 mg PO HS 06/21/14 07/24/21 History Isosorbide Mononitrate [Imdur] 30 mg PO DAILY 06/21/14 07/24/21 History ursodioL [Actigall] 600 mg PO BID 11/22/16 07/24/21 History QUEtiapine [SEROquel] 100 mg PO HS 11/23/16 07/24/21 History traMADol HCL [Ultram] 50 mg PO BID PRN 10/09/20 07/24/21 History Apixaban [Eliquis] 2.5 mg PO BID 07/24/21 07/24/21 History Bumetanide [Bumex] 1 mg PO DAILY 07/24/21 07/24/21 History Cyanocobalamin (Vitamin B-12) 1,000 mcg PO DAILY 07/24/21 07/24/21 History [Vitamin B-12] Levothyroxine Sodium [Synthroid] 50 mcg PO DAILY 07/24/21 07/24/21 History Potassium Chloride [Klor-Con 20 20 meq PO DAILY 07/24/21 07/24/21 History Packets] Allergies Allergy/AdvReac Type Severity Reaction Status Date / Time Iodinated Contrast Media Allergy Rash/Hives Verified 07/24/21 16:45 [Iodinated Contrast Media - Oral and] oxycodone HCl [From Percocet] Allergy Rash/Hives/Nose Verified 07/24/21 16:45 Kerr shellfish derived Allergy Rash/Hives Verified 07/24/21 16:45 acetaminophen [From Percocet] AdvReac Severe Liver Verified 07/24/21 16:45 Failure Physical Exam Vitals: Vital Signs Temp Pulse Resp BP Pulse Ox 07/24/21 17:10 73 20 176/92 99 07/24/21 16:20 22 07/24/21 14:08 97.9 F 75 19 174/91 98 Intake and Output 07/24/21 07/24/21 07/24/21 06:59 14:59 22:59 Other: Weight 56.699 kg PHYSICAL EXAMINATION: Patient is lying in the bed comfortably, no acute distress, awake alert and oriented.. HEENT: Normocephalic. Neck is supple. Pupils reactive. Nostrils clear. Oral cavity is moist. Neck reveals no JVD, carotid bruits, or thyromegaly. CHEST EXAMINATION: Trachea is central. Symmetrical expansion. Bibasilar crackles. No wheezing or rhonchi., Lung rodriguez clear to auscultation and percussion. CARDIAC: Normal S1, S2 with no gallops. No murmurs ABDOMEN: Soft. Bowel sounds normal. No organomegaly. No abdominal bruits. Extremities: Bilateral 3+ pedal edema. No clubbing or cyanosis Neurologically awake, alert, oriented x3 with well-coordinated movements. No focal deficits noted Skin: No rash or skin lesions. Psychiatric: Cooperative. Nonsuicidal Musculoskeletal: No joint swelling or deformity. Normal range of motion. Results CBC & Chem 7: 07/24/21 14:36 07/24/21 14:36 Labs: Abnormal Lab Results - Last 24 Hours (Table) 07/24/21 07/24/21 07/24/21 Range/Units 14:36 14:36 16:18 WBC 11.0 H (3.8-10.6) k/uL RBC 3.39 L (3.80-5.40) m/uL Hgb 9.8 L (11.4-16.0) gm/dL Hct 30.5 L (34.0-46.0) % RDW 15.8 H (11.5-15.5) % Plt Count 482 H (150-450) k/uL Neutrophils # 8.4 H (1.3-7.7) k/uL BUN 20 H (7-17) mg/dL Calcium 8.2 L (8.4-10.2) mg/dL Alkaline Phosphatase 166 H (38-126) U/L Albumin 3.0 L (3.5-5.0) g/dL Urine Nitrite Positive H (Negative) Urine Bacteria Rare H (None) /hpf Thrombosis Risk Factor Assmnt - DVT/VTE Prophylaxis DVT/VTE Prophylaxis: Pharmacologic Prophylaxis ordered Assessment and Plan Assessment: Acute congestive heart failure. Ejection fraction not known. Worsening shortness of breath and leg swelling with elevated BNP. Coronary artery disease history of CABG History of large bowel obstruction in November 2020 History of right lower extremity DVT in November 2018 Uncontrolled hypertension Hypothyroidism Hyperlipidemia Osteoarthritis Hypothyroidism History of liver cirrhosis History of gastric bypass surgery DVT prophylaxis. Patient is on Eliquis at home. Plan: Patient is being continued on IV Lasix 40 mg twice daily. Patient's blood pressure is elevated. Started on Coreg 3.125 mg twice daily and continue with Imdur. Cardiology was consulted. 2D echocardiogram will be ordered. Monitor renal function. Current with home medications and follow-up closely. Time with Patient: Greater than 30
[2021-07-25] MEDS: LEVOTHYROXINE 50 MCG TAB PO SCH (06:17)
[2021-07-25] MEDS: ursodioL 300 MG CAP PO SCH ×2 (08:49→21:36)
[2021-07-25] MEDS: POTASSIUM BICARBONATE/CIT AC 20 MEQ TABLET.EFF PO SCH (08:50)
[2021-07-25] MEDS: CYANOCOBALAMIN 500 MCG TAB PO SCH (08:50)
[2021-07-25] MEDS: ISOSORBIDE MONONITRATE ER 30 MG TAB.ER.24H PO SCH (08:50)
[2021-07-25] MEDS: FUROSEMIDE 10 MG/ML 4 ML VIAL IV SCH ×2 (08:51→19:46)
[2021-07-25] MEDS ORDERED: traMADol 50 MG TAB PO PRN (09:00)
[2021-07-25] MEDS: carvediloL 3.125 MG TAB PO SCH ×2 (09:04→16:35)
[2021-07-25 10:13] LABS: ALT 12 U/L (8-44); AST 20 U/L (13-35); African American GFR (CKD) 98.2 (60.0-200.0); Albumin 2.6 g/dL (3.8-4.9); Albumin/Globulin Ratio 1.04 (1.60-3.17); Alkaline Phosphatase 148 U/L (41-126); BUN/Creat Ratio 20.43 Ratio (12.00-20.00); Blood Urea Nitrogen 14.3 mg/dL (9.0-27.0); Calcium 7.9 mg/dL (8.7-10.3); Carbon Dioxide 26.8 mmol/L (21.6-31.8); Chloride 102 mmol/L (96-109); Globulin 2.5 g/dL (1.6-3.3); Glucose 89 mg/dL (70-110); Non-African American GFR(CKD) 84.8 (60.0-200.0); Sodium 138 mmol/L (135-145); Total Protein 5.1 g/dL (6.2-8.2)
[2021-07-25] MEDS: lisinopriL 10 MG TAB PO SCH (11:21)
[2021-07-25] MEDS: SPIRONOLACTONE 25 MG TAB PO SCH (11:21)
--- NOTE | 2021-07-25 14:39 | P.CRDCN ---
History of Present Illness Consult date: 07/25/21 History of present illness: HISTORY OF PRESENT ILLNESS This is a 75-year-old female with past medical history of coronary artery disease status post CABG, hypertension, hyperlipidemia, osteoarthritis, hypothyroidism, history of liver cirrhosis, borderline diabetes. Patient complains of difficulty in breathing for the past 2 days. She states she's had increased edema to the lower extremities and drainage from her legs. She denies having any chest pain. She has seen Dr. Mijares in the past but states she is no longer seen Dr. Mijares but does not give a reasoning for this. EKG is normal sinus rhythm with no acute ST changes. Chest x-ray reveals findings consistent with CHF. Correlate short-term follow- up. Laboratory studies: WBC 11, hemoglobin 9.8, platelet count 482. Potassium 4.7, BUN 20 and creatinine 0.55. ProBNP 2080. Coronavirus PCR not detected. TSH 4.1 she's not currently seeing him on clear why this is. REVIEW OF SYSTEMS Constitutional: No fever, no chills. No weakness, fatigue or lethargy. EENT: No headache. No dizziness. Lungs: No shortness of breath, cough, no sputum production. No wheezing. Cardiovascular: No chest pain, no lower extremity edema. No palpitations. No paroxysmal nocturnal dyspnea. No orthopnea. No lightheadedness or dizziness. No syncopal episodes. Abdominal: No abdominal pain. No nausea, vomiting. No diarrhea. No constipation. No bloody or tarry stools.. No loss of appetite. Genitourinary: No dysuria.. No urinary retention. Musculoskeletal: No myalgias. No muscle weakness, no gait dysfunction, no frequent falls. No back pain. No neck pain. Integumentary: No wounds, no lesions. No rash or pruritus. No unusual bruising. Neurologic: No aphasia. No facial droop. No change in mentation. No head injury. No headache. No paralysis. No paresthesia. Psychiatric: No depression. No anxiety. Endocrine: No abnormal blood sugars. PHYSICAL EXAMINATION Gen: This is a frail-appearing 75-year-old female. VS: Afebrile, heart rate 71, blood pressure 177/78, pulse ox 99% on 2 L nasal cannula. HEENT: Head is atraumatic, normocephalic. Pupils equal, round. Sclerae is anicte jenny. NECK: Supple. No JVD. No lymphadenopathy. No thyromegaly. LUNGS: Diminished at the bases with bibasilar crackles. No wheezing. No intercostal retractions. HEART: Regular rate and rhythm. No murmur. ABDOMEN: Soft. Bowel sounds are present. No masses. No tenderness. EXTREMITIES: 3+ pedal edema. NEUROLOGICAL: Patient is awake, alert and oriented x3. ASSESSMENT Acute systolic heart failure, echocardiogram pending History of coronary artery disease status post CABG Hypertension Hyperlipidemia hypothyroidism History of liver cirrhosis PLAN Continue IV Lasix 40 mg every 12 hours Monitor I&O, daily weights, electrolytes and renal function Add lisinopril 10 mg daily and Aldactone 12.5 mg daily Obtain 2-D echocardiogram and Doppler study to assess cardiac structure and function Further recommendations to follow based upon clinical course Thank you kindly for this consultation. Nurse practitioner note has been reviewed, I agree with documented findings and plan of care. Patient was seen and examined. Past Medical History Past Medical History: Hyperlipidemia, Hypertension, Liver Disease, Musculoskeletal Disorder, Osteoarthritis (OA), Thyroid Disorder Additional Past Medical History / Comment(s): Hx [id number]'t see specialist anymore, borderline diabetes, states no meds just watches what she eats. Had a fall and fx. left wrist about 1 year ago. History of Any Multi-Drug Resistant Organisms: MRSA Date of last positivie culture/infection: unknown MDRO Source:: unknown Past Surgical History: Appendectomy, Bowel Resection, Cholecystectomy, Coronary Bypass/CABG, Heart Catheterization, Hysterectomy, Tonsillectomy Additional Past Surgical History / Comment(s): Gastric bypass, bowel obstruction x3, quad bypass 18 yrs ago. colostomy Past Anesthesia/Blood Transfusion Reactions: Family History of Problems w/ Anesthesia Additional Past Anesthesia/Blood Transfusion Reaction / Comment(s): Mother had difficulty waking up after anesthesia. Date of Last Stent Placement:: unknown Past Psychological History: No Psychological Hx Reported Smoking Status: Never smoker Past Alcohol Use History: None Reported Past Drug Use History: None Reported - Past Family History Mother Family Medical History: Diabetes Mellitus, Myocardial Infarction ([place]) Additional Family Medical History / Comment(s): Open heart surgery Father Family Medical History: Myocardial Infarction ([place]) Medications and Allergies Home Medications Medication Instructions Recorded Confirmed Type Atorvastatin [Lipitor] 40 mg PO HS 06/21/14 07/24/21 History Isosorbide Mononitrate [Imdur] 30 mg PO DAILY 06/21/14 07/24/21 History ursodioL [Actigall] 600 mg PO BID 11/22/16 07/24/21 History QUEtiapine [SEROquel] 100 mg PO HS 11/23/16 07/24/21 History traMADol HCL [Ultram] 50 mg PO BID PRN 10/09/20 07/24/21 History Apixaban [Eliquis] 2.5 mg PO BID 07/24/21 07/24/21 History Bumetanide [Bumex] 1 mg PO DAILY 07/24/21 07/24/21 History Cyanocobalamin (Vitamin B-12) 1,000 mcg PO DAILY 07/24/21 07/24/21 History [Vitamin B-12] Levothyroxine Sodium [Synthroid] 50 mcg PO DAILY 07/24/21 07/24/21 History Potassium Chloride [Klor-Con 20 20 meq PO DAILY 07/24/21 07/24/21 History Packets] Allergies Allergy/AdvReac Type Severity Reaction Status Date / Time Iodinated Contrast Media Allergy Rash/Hives Verified 07/24/21 16:45 [Iodinated Contrast Media - Oral and] oxycodone HCl [From Percocet] Allergy Rash/Hives/Nose Verified 07/24/21 16:45 Kerr shellfish derived Allergy Rash/Hives Verified 07/24/21 16:45 acetaminophen [From Percocet] AdvReac Severe Liver Verified 07/24/21 16:45 Failure Physical Exam Vitals: Vital Signs Temp Pulse Pulse Resp BP BP Pulse Ox 07/25/21 07:00 98.2 F 71 18 177/78 99 07/25/21 02:00 98.6 F 74 16 131/71 99 07/24/21 22:18 98.4 F 80 18 160/82 97 07/24/21 20:49 68 20 150/70 95 07/24/21 19:27 67 20 203/111 99 07/24/21 19:00 78 18 203/112 97 07/24/21 17:10 73 20 176/92 99 07/24/21 16:20 22 07/24/21 14:08 97.9 F 75 19 174/91 98 Intake and Output 07/24/21 07/25/21 07/25/21 22:59 06:59 14:59 Output Total 900 Balance -900 Output: Urine 900 Other: # Voids 0 Weight 56.699 kg Results 07/24/21 14:36 07/25/21 06:05 Cardiac Enzymes 07/24/21 07/24/21 Range/Units 14:36 14:36 AST 29 (14-36) U/L Troponin I <0.012 (0.000-0.034) ng/mL Coagulation 07/24/21 Range/Units 14:36 PT 10.3 (9.0-12.0) sec APTT 23.2 (22.0-30.0) sec CBC 07/24/21 Range/Units 14:36 WBC 11.0 H (3.8-10.6) k/uL RBC 3.39 L (3.80-5.40) m/uL Hgb 9.8 L (11.4-16.0) gm/dL Hct 30.5 L (34.0-46.0) % Plt Count 482 H (150-450) k/uL Comprehensive Metabolic Panel 07/24/21 Range/Units 14:36 Sodium 138 (137-145) mmol/L Potassium 4.7 (3.5-5.1) mmol/L Chloride 104 (98-107) mmol/L Carbon Dioxide 29 (22-30) mmol/L BUN 20 H (7-17) mg/dL Creatinine 0.55 (0.52-1.04) mg/dL Glucose 92 (74-99) mg/dL Calcium 8.2 L (8.4-10.2) mg/dL AST 29 (14-36) U/L ALT 14 (4-34) U/L Alkaline Phosphatase 166 H (38-126) U/L Total Protein 6.3 (6.3-8.2) g/dL Albumin 3.0 L (3.5-5.0) g/dL Current Medications Generic Name Dose Route Start Last Admin Trade Name Freq PRN Reason Stop Dose Admin Atorvastatin Calcium 40 mg 07/25/21 21:00 Atorvastatin 40 Mg Tab PO HS DEREK Carvedilol 3.125 mg 07/25/21 07:30 07/25/21 09:04 Carvedilol 3.125 Mg Tab PO 3.125 mg BID-W/MEALS DEREK Administration Cyanocobalamin 1,000 mcg 07/25/21 09:00 07/25/21 08:50 Cyanocobalamin 500 Mcg Tab PO 1,000 mcg DAILY DEREK Administration Furosemide 40 mg 07/24/21 21:00 07/25/21 08:51 Furosemide 10 Mg/Ml 4 Ml Vial IV 40 mg Q12HR DEREK Administration Isosorbide Mononitrate 30 mg 07/25/21 09:00 07/25/21 08:50 Isosorbide Mononitrate Er 30 Mg Tab.Er.24h PO 30 mg DAILY DEREK Administration Levothyroxine Sodium 50 mcg 07/25/21 06:30 07/25/21 06:17 Levothyroxine 50 Mcg Tab PO Not Given DAILY@0630 DEREK Naloxone HCl 0.2 mg 07/24/21 15:46 Naloxone 0.4 Mg/Ml 1 Ml Vial IV Q2M PRN Opioid Reversal Potassium Bicarbonate 20 meq 07/25/21 09:00 07/25/21 08:50 Potassium Bicarbonate/Cit Ac 20 Meq Tablet.Eff PO 20 meq DAILY DEREK Administration Tramadol HCl 50 mg 07/25/21 09:00 Tramadol 50 Mg Tab PO BID PRN Pain Ursodiol 600 mg 07/25/21 09:00 07/25/21 08:49 Ursodiol 300 Mg Cap PO 600 mg BID DEREK Administration Intake and Output 07/24/21 07/25/21 07/25/21 22:59 06:59 14:59 Output Total 900 Balance -900 Output: Urine 900 Other: # Voids 0 Weight 56.699 kg 07/24/21 14:36 07/24/21 14:36
[2021-07-25] MEDS ORDERED: QUEtiapine 100 MG TAB PO SCH (21:00)
[2021-07-25] MEDS ORDERED: ATORVASTATIN 40 MG TAB PO SCH (21:00)
--- NOTE | 2021-07-25 23:04 | P.PN ---
Subjective Progress Note Date: 07/25/21 Patient is a 75-year-old female with known history of coronary artery disease status post CABG, hypertension, hyperlipidemia, osteoarthritis, hypothyroidism, history of liver cirrhosis, borderline diabetes presents to ER with complaints of difficulty in breathing past few days. Patient is also having worsening leg swelling for past several months. Denies any complaints of chest pain. No complaints of cough or sputum production. Patient does have orthopnea. Denied PND. No headache or dizziness or lightheadedness. Denies any recent illnesses. No fever no chills. No dysuria or hematuria. Chest x-ray showed findings most consistent with CHF. Correlation short-term follow-up prior to resolution is recommended. EKG showed normal sinus rhythm Patient was resubmitted to hospital in November 2020 due to mechanical large bowel obstruction and postop surgical wound infection. Laboratory showed WBC 11.0 hemoglobin 9.8 and platelets 482 Sodium 138 potassium 4.7 chloride 104 BUN 20 creatinine 0.55 calcium 8.2 proBNP 2080 Urinalysis showed clear, nitrite positive and leukoesterase negative and WBCs 2 and coronavirus PCR not detected. Patient is currently resting in the bed comfortably. On oxygen at 2 L via nasal cannula and saturating at 99%. Titrate down to room air. Continue IV Lasix for 1 more day. Leg swelling is also much improved. Aldactone was added. Cardiology has seen the patient. Patient is tolerating oral diet. No fever no chills. No complaints of chest pain. No nausea vomiting or abdominal pain or diarrhea. Blood pressure is better controlled. Current medications reviewed. Objective - Vital Signs Vital signs: Vital Signs Temp 97.8 F 07/25/21 15:00 Pulse 76 07/25/21 15:00 Resp 20 07/25/21 15:00 BP 128/65 07/25/21 15:00 Pulse Ox 99 07/25/21 15:00 Intake & Output 07/24/21 07/25/21 07/25/21 18:59 06:59 18:59 Intake Total 236 Output Total 900 1200 Balance -900 -964 Weight 56.699 kg 56.699 kg Intake: Oral 236 Output: Urine 900 1200 Other: Voiding Method Bedside Commode Diaper Incontinent External Catheter # Voids 0 # Bowel Movements 1 - Exam PHYSICAL EXAMINATION: Patient is lying in the bed comfortably, no acute distress, awake alert and oriented.. HEENT: Normocephalic. Neck is supple. Pupils reactive. Nostrils clear. Oral cavity is moist. Neck reveals no JVD, carotid bruits, or thyromegaly. CHEST EXAMINATION: Trachea is central. Symmetrical expansion. Bibasilar crackles. No wheezing or rhonchi., Lung rodriguez clear to auscultation and p ercussion. CARDIAC: Normal S1, S2 with no gallops. No murmurs ABDOMEN: Soft. Bowel sounds normal. No organomegaly. No abdominal bruits. Extremities: Bilateral 2+ pedal edema. No clubbing or cyanosis Neurologically awake, alert, oriented x3 with well-coordinated movements. No focal deficits noted Skin: No rash or skin lesions. Psychiatric: Cooperative. Nonsuicidal Musculoskeletal: No joint swelling or deformity. Normal range of motion. - Labs CBC & Chem 7: 07/24/21 14:36 07/25/21 06:05 Labs: Abnormal Lab Results - Last 24 Hours (Table) 07/25/21 Range/Units 06:05 BUN/Creatinine Ratio 20.43 H (12.00-20.00) Ratio Calcium 7.9 L (8.7-10.3) mg/dL Alkaline Phosphatase 148 H (41-126) U/L Total Protein 5.1 L (6.2-8.2) g/dL Albumin 2.6 L (3.8-4.9) g/dL Albumin/Globulin Ratio 1.04 L (1.60-3.17) g/dL Microbiology - Last 24 Hours (Table) 07/24/21 16:18 Urine Culture - Preliminary Urine,Voided Assessment and Plan Assessment: Acute congestive heart failure Systolic dysfunction Worsening shortness of breath and leg swelling with elevated BNP. Coronary artery disease history of CABG History of large bowel obstruction in November 2020 History of right lower extremity DVT in November 2018 Uncontrolled hypertension Hypothyroidism Hyperlipidemia Osteoarthritis Hypothyroidism History of liver cirrhosis History of gastric bypass surgery DVT prophylaxis. Patient is on Eliquis at home. Plan: Patient is being continued on IV Lasix 40 mg twice daily. added aldactone. Patient's blood pressure is elevated. Started on Coreg 3.125 mg twice daily and continue with Imdur. Cardiology is following.. 2D echocardiogram was done. Monitor renal function. Current with home medications and follow-up closely. Time with Patient: Greater than 30
[2021-07-26] MEDS: LEVOTHYROXINE 50 MCG TAB PO SCH (06:13)
[2021-07-26 06:55] LABS: African American GFR (CKD) >90 (>60 ml/min/1.73 sqM); Anion Gap 2 mmol/L; Blood Urea Nitrogen 15 mg/dL (7-17); Calcium 7.9 mg/dL (8.4-10.2); Carbon Dioxide 33 mmol/L (22-30); Chloride 100 mmol/L (98-107); Glucose 100 mg/dL (74-99); Non-African American GFR(CKD) 88 (>60 ml/min/1.73 sqM); Potassium 3.5 mmol/L (3.5-5.1); Sodium 135 mmol/L (137-145)
[2021-07-26] MEDS: ursodioL 300 MG CAP PO SCH (07:59)
[2021-07-26] MEDS: POTASSIUM BICARBONATE/CIT AC 20 MEQ TABLET.EFF PO SCH (07:59)
[2021-07-26] MEDS: lisinopriL 10 MG TAB PO SCH (08:00)
[2021-07-26] MEDS: CYANOCOBALAMIN 500 MCG TAB PO SCH (08:00)
[2021-07-26] MEDS: SPIRONOLACTONE 25 MG TAB PO SCH (08:00)
[2021-07-26] MEDS: FUROSEMIDE 10 MG/ML 4 ML VIAL IV SCH (08:00)
[2021-07-26] MEDS: ISOSORBIDE MONONITRATE ER 30 MG TAB.ER.24H PO SCH (08:00)
[2021-07-26] MEDS: carvediloL 3.125 MG TAB PO SCH (08:05)
[2021-07-26] MEDS ORDERED: Potassium Replacement Protocol 1 EACH MISC MISCELLANE PRN (08:35)
[2021-07-26] MEDS ORDERED: HEPARIN SODIUM,PORCINE/PF 5,000 UNIT/0.5 ML SYRINGE SQ SCH (09:00)
[2021-07-26] MEDS: POTASSIUM CHLORIDE ER 20 MEQ TAB.ER PO SCH ×2 (09:57→10:11)
--- NOTE | 2021-07-26 10:28 | P.PN ---
Subjective Progress Note Date: 07/26/21 HISTORY OF PRESENT ILLNESS: This is a 75-year-old female with past medical history of coronary artery disease status post CABG, hypertension, hyperlipidemia, osteoarthritis, hypothyroidism, history of liver cirrhosis, borderline diabetes. Patient complains of difficulty in breathing for the past 2 days. She states she's had increased edema to the lower extremities and drainage from her legs. She denies having any chest pain. She has seen Dr. Mijares in the past but states she is no longer seen Dr. Mijares but does not give a reasoning for this. EKG is normal sinus rhythm with no acute ST changes. Chest x-ray reveals findings consistent with CHF. Correlate short-term follow- up. Laboratory studies: WBC 11, hemoglobin 9.8, platelet count 482. Potassium 4.7, BUN 20 and creatinine 0.55. ProBNP 2079. Coronavirus PCR not detected. TSH 4.1 07/26/2021 Patient examined this morning at the bedside. Patient is resting comfortably in bed. She is hard of hearing. She denies any chest pain or pressure. Denies shortness of breath. She is on room air with oxygen saturations greater than 92%. She remains on IV Lasix. Fluid balance over the last 24 hours is -1144 mL. Creatinine is stable at 0.63. PHYSICAL EXAM: VITAL SIGNS: Reviewed. GENERAL: Well-developed in no acute distress. NECK: Supple. No JVD or thyromegaly LUNGS: Respirations even and unlabored. Lungs diminished to auscultation bilaterally. HEART: Regular rate and rhythm. S1 and S2 heard. EXTREMITIES: Normal range of motion. No clubbing or cyanosis. Peripheral pulses intact. Trace lower extremity edema ASSESSMENT: Acute on chronic diastolic congestive heart failure, EF 55% in 2017, repeat echo pending Coronary artery disease with previous CABG, patient unknown how many vessels. Hypertension Hyperliidemia PLAN: Continue current cardiac medications Discontinue IV lasix. Resume home dose of Bumex. Stable from a cardiac standpoint. We will follow on an as-needed basis. Please call with questions or concerns. Nurse practitioner note has been reviewed by physician. Signing provider agrees with the documented findings, assessment, and plan of care. Objective - Vital Signs Vital signs: Vital Signs Temp 98.2 F 07/26/21 07:00 Pulse 64 07/26/21 07:00 Resp 16 07/26/21 07:00 BP 124/71 07/26/21 07:00 Pulse Ox 95 07/26/21 07:00 Intake & Output 07/25/21 07/26/21 07/26/21 18:59 06:59 18:59 Intake Total 236 720 Output Total 1200 900 Balance -964 -180 Intake: Oral 236 720 Output: Urine 1200 900 Other: Voiding Method Bedside Commode Bedside Commode Diaper Diaper Incontinent Incontinent External Catheter External Catheter # Voids 1 # Bowel Movements 1 - Labs CBC & Chem 7: 07/24/21 14:36 07/26/21 04:33 Labs: Abnormal Lab Results - Last 24 Hours (Table) 07/25/21 07/26/21 Range/Units 06:05 04:33 Sodium 135 L (137-145) mmol/L Carbon Dioxide 33 H (22-30) mmol/L BUN/Creatinine Ratio 20.43 H (12.00-20.00) Ratio Glucose 100 H (74-99) mg/dL Calcium 7.9 L 7.9 L (8.7-10.3) mg/dL Alkaline Phosphatase 148 H (41-126) U/L Total Protein 5.1 L (6.2-8.2) g/dL Albumin 2.6 L (3.8-4.9) g/dL Albumin/Globulin Ratio 1.04 L (1.60-3.17) g/dL Microbiology - Last 24 Hours (Table) 07/24/21 16:18 Urine Culture - Preliminary Urine,Voided
[2021-07-26 11:05] LABS: Basophils # (A) 0.05 X 10*3/uL (0.00-0.10); Basophils % (A) 0.6 %; Eosinophils # (A) 0.28 X 10*3/uL (0.04-0.35); Eosinophils % (A) 3.6 %; HCT 25.2 % (37.2-46.3); Lymphocytes # (A) 2.05 X 10*3/uL (0.90-5.00); Lymphocytes % (A) 26.4 %; MCH 28.4 pg (27.0-32.0); MCHC 31.7 g/dL (32.0-37.0); MCV 89.4 fL (80.0-97.0); Mean Platelet Volume 9.7 fL (9.5-12.2); Monocytes # (A) 0.72 X 10*3/uL (0.20-1.00); Monocytes % (A) 9.3 %; Neutrophils # (A) 4.64 X 10*3/uL (1.80-7.70); Neutrophils % (A) 59.7 %; Platelet Count 367 X 10*3/uL (140-440); RBC 2.82 X 10*6/uL (4.10-5.20); RDW 16.2 % (11.5-14.5); WBC 7.77 X 10*3/uL (4.50-10.00)
--- NOTE | 2021-07-26 11:46 | P.PN ---
Subjective Progress Note Date: 07/26/21 Patient is a 75-year-old female with known history of coronary artery disease status post CABG, hypertension, hyperlipidemia, osteoarthritis, hypothyroidism, history of liver cirrhosis, borderline diabetes presents to ER with complaints of difficulty in breathing past few days. Patient is also having worsening leg swelling for past several months. Denies any complaints of chest pain. No complaints of cough or sputum production. Patient does have orthopnea. Denied PND. No headache or dizziness or lightheadedness. Denies any recent illnesses. No fever no chills. No dysuria or hematuria. Chest x-ray showed findings most consistent with CHF. Correlation short-term follow-up prior to resolution is recommended. EKG showed normal sinus rhythm Patient was resubmitted to hospital in November 2020 due to mechanical large bowel obstruction and postop surgical wound infection. Laboratory showed WBC 11.0 hemoglobin 9.8 and platelets 482 Sodium 138 potassium 4.7 chloride 104 BUN 20 creatinine 0.55 calcium 8.2 proBNP 2080 Urinalysis showed clear, nitrite positive and leukoesterase negative and WBCs 2 and coronavirus PCR not detected. Patient is currently resting in the bed comfortably. On oxygen at 2 L via nasal cannula and saturating at 99%. Titrate down to room air. Continue IV Lasix for 1 more day. Leg swelling is also much improved. Aldactone was added. Cardiology has seen the patient. Patient is tolerating oral diet. No fever no chills. No complaints of chest pain. No nausea vomiting or abdominal pain or diarrhea. Blood pressure is better controlled. 07/26/2021 Patient evaluated tracing the bed, echocardiogram pending. Vital signs: blood pressure 107/63, heart rate 61 sinus rhythm and she is afebrile. She is 97% on room air. Patient currently denies any chest pain, chest pressure, palpitations, cough or shortness of breath. Patient was transitioned back to her home dose of Bumex from IV Lasix today. She is cleared by cardiology. Her leg edema has much improved and she denies any further complaints. ROS Constitutional: Denied any fatigue denied any fever. Cardio vascular: denied any chest pain, palpitations Gastrointestinal denied any nausea vomiting Pulmonary: Denied any shortness of breath cough Neurologic denied any new focal deficits All inpatient medications were reviewed and appropriate changes in these medications as dictated in the interval history and assessment and plan. PHYSICAL EXAMINATION: GENERAL: The patient is alert and oriented x3, not in any acute distress. Well developed, well nourished. HEENT: Pupils are round and equally reacting to light. EOMI. No scleral icterus. No conjunctival pallor. Normocephalic, atraumatic. No pharyngeal erythema. No thyromegaly. CARDIOVASCULAR: S1 and S2 present. No murmurs, rubs, or gallops. PULMONARY: Chest is clear to auscultation, no wheezing or crackles. ABDOMEN: Soft, nontender, nondistended, normoactive bowel sounds. No palpable organomegaly. MUSCULOSKELETAL: No joint swelling or deformity. EXTREMITIES: No cyanosis, clubbing, or pedal edema. NEUROLOGICAL: Gross neurological examination did not reveal any focal deficits. SKIN: No rashes. Assessment and plan Assessment: Acute congestive heart failure Systolic dysfunction Worsening shortness of breath and leg swelling with elevated BNP. Coronary artery disease history of CABG History of large bowel obstruction in November 2020 History of right lower extremity DVT in November 2018 Uncontrolled hypertension Hypothyroidism Hyperlipidemia Osteoarthritis Hypothyroidism History of liver cirrhosis History of gastric bypass surgery DVT prophylaxis. Patient is on Eliquis at home. Plan: Transitioned to oral Bumex, continue Aldactone Started on Coreg 3.125 mg twice daily and continue with Imdur. Blood pressure h as improved Repeat echo is pending, PT OT consultation Current with home medications and follow-up closely. Patient be discharged home later on today after PT evaluation Objective - Vital Signs Vital signs: Vital Signs Temp 98.4 F 07/26/21 00:59 Pulse 61 07/26/21 00:59 Resp 17 07/26/21 00:59 BP 107/63 07/26/21 00:59 Pulse Ox 97 07/26/21 00:59 Intake & Output 07/25/21 07/26/21 07/26/21 18:59 06:59 18:59 Intake Total 236 720 Output Total 1200 900 Balance -964 -180 Intake: Oral 236 720 Output: Urine 1200 900 Other: Voiding Method Bedside Commode Diaper Incontinent External Catheter # Voids 1 # Bowel Movements 1 - Labs CBC & Chem 7: 07/26/21 04:33 07/26/21 04:33 Labs: Abnormal Lab Results - Last 24 Hours (Table) 07/25/21 07/26/21 Range/Units 06:05 04:33 Sodium 135 L (137-145) mmol/L Carbon Dioxide 33 H (22-30) mmol/L BUN/Creatinine Ratio 20.43 H (12.00-20.00) Ratio Glucose 100 H (74-99) mg/dL Calcium 7.9 L 7.9 L (8.7-10.3) mg/dL Alkaline Phosphatase 148 H (41-126) U/L Total Protein 5.1 L (6.2-8.2) g/dL Albumin 2.6 L (3.8-4.9) g/dL Albumin/Globulin Ratio 1.04 L (1.60-3.17) g/dL Microbiology - Last 24 Hours (Table) 07/24/21 16:18 Urine Culture - Preliminary Urine,Voided Assessment and Plan Time with Patient: Greater than 30
--- NOTE | 2021-07-26 12:39 | ECHOF ---
Referral Reason:LVF MEASUREMENTS -------- HEIGHT: 154.9 cm WEIGHT: 56.7 kg BP: 107/63 RVIDd: 3.4 cm (< 3.3) IVSd: 1.7 cm (0.6 - 1.1) LVIDd: 3.2 cm (3.9 - 5.3) LVPWd: 1.4 cm (0.6 - 1.1) IVSs: 1.8 cm LVIDs: 1.9 cm LVPWs: 2.1 cm LAESV Index (A-L): 36.42 ml/m Ao Diam: 2.8 cm (2.0 - 3.7) AV Cusp: 2.0 cm (1.5 - 2.6) MV EXCURSION: 14.382 mm (> 18.000) MV EF SLOPE: 58 mm/s (70 - 150) EPSS: 0.3 cm MV E Girish: 0.80 m/s MV DecT: 321 ms MV A Girish: 1.11 m/s MV E/A Ratio: 0.72 RAP: 5.00 mmHg RVSP: 27.79 mmHg FINDINGS -------- Sinus rhythm. This was a technically adequate study. The left ventricular size is normal. There is moderate concentric left ventricular hypertrophy. O verall left ventricular systolic function is normal with, an EF between 55 - 60 %. The diastolic fi lling pattern is normal for the age of the patient 17.83. The right ventricle is mildly enlarged. LA is moderately dilated 34-39 ml/m2 The right atrial size is normal. Interatrial and interventricular septum intact. The aortic valve is trileaflet and appears structurally normal. There is no evidence of aortic regu rgitation. There is no evidence of aortic stenosis. Tjai-jq-fodopgeq mitral regurgitation is present. Mild tricuspid regurgitation present. There is no evidence of pulmonary hypertension. The right v entricular systolic pressure, as measured by Doppler, is 27.79mmHg. There is no pulmonic regurgitation present. The aortic root size is normal. IVC Not well visulized. There is no pericardial effusion. Moderate Pleural Effusion. CONCLUSIONS -------- 1. The left ventricular size is normal. 2. There is moderate concentric left ventricular hypertrophy. 3. Overall left ventricular systolic function is normal with, an EF between 55 - 60 %. 4. The right ventricle is mildly enlarged. 5. LA is moderately dilated 34-39 ml/m2 6. Vrqn-ol-lcmvmjdn mitral regurgitation is present. 7. Mild tricuspid regurgitation present. 8. Moderate Pleural Effusion. CASE MANAGERS: Lesly Turpin RDCS
[2021-07-26 15:06] VITALS: BP 149/76; PULSE 82; RESP 18; TEMP 99.2
--- NOTE | 2021-07-26 15:16 | US ---
EXAMINATION TYPE: US venous doppler duplex LE LT DATE OF EXAM: 07/26/2021 3:03 PM COMPARISON: NONE 04/06/2021 CLINICAL HISTORY: LLE pain, positive Homans. left leg pain today, h/o dvt on the right years ago SIDE PERFORMED: Left TECHNIQUE: The lower extremity deep venous system is examined utilizing real time linear array sonog lopez with graded compression, doppler sonography and color-flow sonography. VESSELS IMAGED: Common Femoral Vein Deep Femoral Vein Greater Saphenous Vein * Femoral Vein Popliteal Vein Small Saphenous Vein * Proximal Calf Veins (* superficial vessels) Left Leg: Negative for DVT IMPRESSION: Grayscale, color doppler, spectral doppler imaging performed of the deep veins of the lo wer extremities. There is normal flow, compressibility, vascular waveforms.
--- NOTE | 2021-07-26 21:25 | P.DS ---
Providers Date of admission: 07/24/21 15:47 Attending physician: Maribell Mills Consults: 07/24/21 21:52 Consult Physician Routine Consulting Provider: Raissa Alvarez Consult Reason/Comments: Acute CHF Do you want consulting provider notified?: Yes, Notify in am [facility] Course: Final Diganosis Acute congestive heart failure Systolic dysfunction Worsening shortness of breath and leg swelling with elevated BNP. Coronary artery disease history of CABG History of large bowel obstruction in November 2020 History of right lower extremity DVT in November 2018 Uncontrolled hypertension Hypothyroidism Hyperlipidemia Osteoarthritis Hypothyroidism History of liver cirrhosis History of gastric bypass surgery DVT prophylaxis. Patient is on Eliquis at home. Discharge Disposition Patient is discharged home with and family. Patient was discharged on home on new medications: spironolactone 25 mg PO daily, coreg 3.125 mg PO BID, and lisinopril 10 mg PO daily. Follow up with PCP and Cardiology. Hospital Course This is a pleasant 75 year old female who came into the with increased leg swelling over the last several months, and complaints of orthopnea. Chest xray on admission had findings consistant with CHF, patient was started on IV lasix. Cardiology consult was placed who added aldactone, coreg, and lisinopril. Patient was treated with IV lasix for 2 days and transitioned to oral bumex. She did complain of left lower extremity pain when ambulating and had a positive Earle's sign, doppler of the left lower extremity was negative for DVT. Ech ocardiogram showed an EF of 55 to 60%. Labs this admission include a BNP of 2080, negative troponin. WBC of 11 on admission, improved to 7.77. Slightly anemic with hemoglobin of 9.8, 8, no signs of acute bleeding. 07/26/2021 Vital signs: blood pressure 107/63, heart rate 61 sinus rhythm and she is afebrile. She is 97% on room air. Patient currently denies any chest pain, chest pressure, palpitations, cough or shortness of breath. Patient was transitioned back to her home dose of Bumex from IV Lasix today. She is cleared by cardiology. Her leg edema has much improved and she denies any further complaints. Potassium today is 3.5, replaced with oral supplementation, and magnesium is 2. Lungs are clear, abdomen is soft and nontender. Left lower extremity +1 edema, right trace. Doppler is negative for DVT. Focal neurological exam is negative. Patient was evaluated by PT/OT today who recommended home vs. subacute rehab. Patient would like to discharge back home with family who is in agreeance and can take care of her. She needs to follow up with cardiology. Please see progress note dated 07/26/2021 for additional information. Thank you for allowing us to participate in the care of this patient. Patient Condition at Discharge: Stable Plan - Discharge Summary Discharge Rx Participant: No New Discharge Prescriptions: New Spironolactone [Aldactone] 12.5 mg PO DAILY #30 tab carvediloL [Coreg] 3.125 mg PO BID-W/MEALS #60 tab lisinopriL [Zestril] 10 mg PO DAILY #30 tab Continue Atorvastatin [Lipitor] 40 mg PO HS Isosorbide Mononitrate [Imdur] 30 mg PO DAILY ursodioL [Actigall] 600 mg PO BID QUEtiapine [SEROquel] 100 mg PO HS traMADol HCL [Ultram] 50 mg PO BID PRN PRN Reason: Pain Potassium Chloride [Klor-Con 20 Packets] 20 meq PO DAILY Bumetanide [BUMEX] 1 mg PO DAILY Levothyroxine Sodium [Synthroid] 50 mcg PO DAILY Apixaban [Eliquis] 2.5 mg PO BID Cyanocobalamin (Vitamin B-12) [Vitamin B-12] 1,000 mcg PO DAILY Discharge Medication List Atorvastatin [Lipitor] 40 mg PO HS 06/21/14 [History] Isosorbide Mononitrate [Imdur] 30 mg PO DAILY 06/21/14 [History] ursodioL [Actigall] 600 mg PO BID 11/22/16 [History] QUEtiapine [SEROquel] 100 mg PO HS 11/23/16 [History] traMADol HCL [Ultram] 50 mg PO BID PRN 10/09/20 [History] Apixaban [Eliquis] 2.5 mg PO BID 07/24/21 [History] Bumetanide [BUMEX] 1 mg PO DAILY 07/24/21 [History] Cyanocobalamin (Vitamin B-12) [Vitamin B-12] 1,000 mcg PO DAILY 07/24/21 [History] Levothyroxine Sodium [Synthroid] 50 mcg PO DAILY 07/24/21 [History] Potassium Chloride [Klor-Con 20 Packets] 20 meq PO DAILY 07/24/21 [History] Spironolactone [Aldactone] 12.5 mg PO DAILY #30 tab 07/26/21 [Rx] carvediloL [Coreg] 3.125 mg PO BID-W/MEALS #60 tab 07/26/21 [Rx] lisinopriL [Zestril] 10 mg PO DAILY #30 tab 07/26/21 [Rx] Follow up Appointment(s)/Referral(s): Juan Cast DO [Primary Care Provider] - 1-2 days Hira Mijares MD [STAFF PHYSICIAN] - 1 Week Ambulatory/Diagnostic Orders: Basic Metabolic Panel [LAB.AMB] Time Frame: 2 Days, Location: None Selected Patient Instructions/Handouts: Heart Failure (DC) Activity/Diet/Wound Care/Special Instructions: [place] Female External Catheter by BD [email or web address] - search home care for urinary incontinence Discharge Disposition: HOME WITH HOME HEALTH SERVICES
[2021-07-27] MEDS ORDERED: BUMETANIDE 1 MG TAB PO SCH (09:00)
== END 2021-07-26 16:30 | disposition home health service (06) ==
LOC: EC 13:42 → 6NMEDSUR 15:47
PROVIDERS: ADMIT Internal Medicine; ATTEND Internal Medicine
DX: I11.0 Hypertensive heart disease with heart failure (principal); I50.21 Acute systolic (congestive) heart failure; I25.10 Atherosclerotic heart disease of native coronary artery without angina pectoris; E03.9 Hypothyroidism, unspecified; E78.5 Hyperlipidemia, unspecified; M19.90 Unspecified osteoarthritis, unspecified site; Z20.822 Contact with and (suspected) exposure to COVID-19; K74.60 Unspecified cirrhosis of liver; D64.9 Anemia, unspecified; R73.03 Prediabetes; Z79.890 Hormone replacement therapy; Z79.899 Other long term (current) drug therapy; Z79.01 Long term (current) use of anticoagulants; Z91.041 Radiographic dye allergy status; Z88.6 Allergy status to analgesic agent; Z88.5 Allergy status to narcotic agent; Z91.013 Allergy to seafood; Z98.84 Bariatric surgery status; Z93.3 Colostomy status; Z95.1 Presence of aortocoronary bypass graft; Z86.718 Personal history of other venous thrombosis and embolism; Z87.19 Personal history of other diseases of the digestive system; Z86.14 Personal history of Methicillin resistant Staphylococcus aureus infection; Z90.49 Acquired absence of other specified parts of digestive tract; Z90.710 Acquired absence of both cervix and uterus; Z83.3 Family history of diabetes mellitus; Z82.49 Family history of ischemic heart disease and other diseases of the circulatory system
CPT/HCPCS: 99285; 96376 ×2; 96372; 96374; 96375; 36415; 93005; 93306; 97162; 97166; 83880; 80053 ×2; 80048; 84443; 83605; 83735 ×2; 84484; 85025 ×2; 85610; 85730; 81001; 87086; 87077; 87186; 87635; 71046; 93971; G0378 ×3; J0360; J1940 ×3; J1644

== ENCOUNTER → 2021-08-03 | Outpatient (CLI) | payer MEDICARE ==
--- NOTE | 2021-08-03 11:52 | XR ---
EXAMINATION TYPE: XR chest 2V DATE OF EXAM: 08/03/2021 COMPARISON: Chest x-ray 07/24/2021 HISTORY: Shortness of breath, lower extremity edema TECHNIQUE: Frontal and lateral views of the chest are obtained. FINDINGS: Patient is post median sternotomy. Bibasilar density is again noted obscuring the hemidiap hragms, this blunting the costophrenic angles. Heart is again partially obscured. No evident pneumoth orax. There are overlying artifacts. Prominent lung lines suggest underlying COPD. IMPRESSION: Bibasilar effusions and associated atelectasis, correlate to exclude pneumonia. There ma y be cardiomegaly.
== END | disposition home or self-care (01) ==
LOC: RADXRYALE 10:54
PROVIDERS: ATTEND Physician Assistant Medical
DX: J98.11 Atelectasis (principal); J98.4 Other disorders of lung
CPT/HCPCS: 71046

== ENCOUNTER → 2022-02-17 | Outpatient (CLI) | payer MEDICARE ==
[2022-02-17 19:19] LABS: Anion Gap 7.7 mmol/L (10.00-18.00); Carbon Dioxide 26.3 mmol/L (20.0-27.5); Potassium 4.3 mmol/L (3.5-5.5)
[2022-02-17 19:32] LABS: Basophils # (A) 0.05 X 10*3/uL (0.00-0.10); Basophils % (A) 0.5 %; Eosinophils % (A) 2.1 %; HCT 29.5 % (37.2-46.3); HGB 8.8 g/dL (12.0-15.0); Immature Grans, Automated 0.4 %; Lymphocytes # (A) 1.91 X 10*3/uL (0.90-5.00); Lymphocytes % (A) 20.3 %; MCH 24.9 pg (27.0-32.0); MCHC 29.8 g/dL (32.0-37.0); MCV 83.6 fL (80.0-97.0); Mean Platelet Volume 10.2 fL (9.5-12.2); Monocytes # (A) 0.77 X 10*3/uL (0.20-1.00); Monocytes % (A) 8.2 %; NRBC Per 100 WBC 0 /100 WBCS (0.0-0.0); Neutrophils # (A) 6.43 X 10*3/uL (1.80-7.70); Neutrophils % (A) 68.5 %; Platelet Count 310 X 10*3/uL (140-440); RBC 3.53 X 10*6/uL (4.10-5.20); RDW 20.8 % (11.5-14.5)
== END | disposition home or self-care (01) ==
LOC: LABPAT 13:44
PROVIDERS: ATTEND Surgery
DX: Z01.812 Encounter for preprocedural laboratory examination (principal); K56.2 Volvulus
CPT/HCPCS: 80051; 85025

== ENCOUNTER 2022-02-24 07:12 | Day surgery (SDC) | payer MEDICARE ==
[2022-02-24] MEDS ORDERED: LACTATED RINGERS 1,000 ML IV SCH (07:25)
[2022-02-24 07:56] VITALS: TEMP 97
[2022-02-24] MEDS ORDERED: PROPOFOL 10 MG/ML 20 ML VIAL IV ONE (08:14)
--- NOTE | 2022-02-24 08:16 | P.GSHP ---
History of Present Illness H&P Date: 02/24/22 Chief Complaint: History of sigmoid volvulus. This is a 76-year-old female. She has a history of previous sigmoid volvulus causing colon obstruction. Patient had a colostomy and sigmoid colon performed. Patient presents today for colonoscopy. She is planned for reversal colostomy tomorrow. Past Medical History Past Medical History: Hyperlipidemia, Hypertension, Liver Disease, Musculoskeletal Disorder, Osteoarthritis (OA), Thyroid Disorder Additional Past Medical History / Comment(s): Hx pjrcnwyqp-qfshrp-jgurp't see specialist anymore, borderline diabetes, states no meds just watches what she eats. No fall in the last three months. left wrist fx about 3 year ago. bilateral leg edema severe, that leak at times. Heart failure and DVT per Dr Diaz's dictation. Pt has a hx of anemia per H&P from [facility]. History of Any Multi-Drug Resistant Organisms: MRSA Date of last positivie culture/infection: 2020 MDRO Source:: coccyx Past Surgical History: Appendectomy, Bowel Resection, Cholecystectomy, Coronary Bypass/CABG, Heart Catheterization, Hysterectomy, Tonsillectomy Additional Past Surgical History / Comment(s): Gastric bypass, bowel obstruction x3, quad bypass 18 yrs ago. colostomy Past Anesthesia/Blood Transfusion Reactions: Family History of Problems w/ Anesthesia Additional Past Anesthesia/Blood Transfusion Reaction / Comment(s): Mother had difficulty waking up after anesthesia. Date of Last Stent Placement:: unknown Past Psychological History: No Psychological Hx Reported Smoking Status: Never smoker Past Alcohol Use History: None Reported Past Drug Use History: None Reported - Past Family History Mother Family Medical History: Diabetes Mellitus, Myocardial Infarction ([place]) Additional Family Medical History / Comment(s): Open heart surgery Father Family Medical History: Myocardial Infarction ([place]) Medications and Allergies Home Medications Medication Instructions Recorded Confirmed Type Atorvastatin [Lipitor] 40 mg PO HS 06/21/14 02/23/22 History Isosorbide Mononitrate [Imdur] 30 mg PO DAILY 06/21/14 02/23/22 History ursodioL [Actigall] 600 mg PO BID 11/22/16 02/23/22 History QUEtiapine [SEROquel] 100 mg PO HS 11/23/16 02/23/22 History traMADol HCL [Ultram] 50 mg PO BID PRN 10/09/20 02/23/22 History Bumetanide [BUMEX] 1 mg PO DAILY PRN 07/24/21 02/23/22 History Cyanocobalamin (Vitamin B-12) 500 mcg PO DAILY 07/24/21 02/23/22 History [Vitamin B-12] Levothyroxine Sodium [Synthroid] 25 mcg PO DAILY 07/24/21 02/23/22 History carvediloL [Coreg] 3.125 mg PO BID-W/MEALS #60 tab 07/26/21 02/23/22 Rx lisinopriL [Zestril] 10 mg PO DAILY #30 tab 07/26/21 02/23/22 Rx Aspirin 81 mg PO DAILY 02/23/22 02/23/22 History Spironolactone [Aldactone] 25 mg PO DAILY 02/23/22 02/23/22 History Allergies Allergy/AdvReac Type Severity Reaction Status Date / Time Iodinated Contrast Media Allergy Rash/Hives Verified 02/23/22 11:57 [Iodinated Contrast Media - Oral and] oxycodone HCl [From Percocet] Allergy Rash/Hives/Nose Verified 02/23/22 11:57 Kerr shellfish derived Allergy Rash/Hives Verified 02/23/22 11:57 acetaminophen [From Percocet] AdvReac Severe Liver Verified 02/23/22 11:57 Failure Surgical - Exam Vital Signs Temp Pulse Resp BP Pulse Ox 97 F L 51 L 20 182/78 97 02/24/22 07:40 02/24/22 07:40 02/24/22 07:40 02/24/22 07:40 02/24/22 07:40 - General well developed, well nourished, no distress - Eyes PERRL - ENT normal pinna - Neck no masses - Respiratory normal expansion - Cardiovascular Rhythm: regular - Abdomen Abdomen: soft, non tender Assessment and Plan Assessment: History of sigmoid volvulus. We'll perform colonoscopy. We will plan for reversal colostomy tomorrow.
--- NOTE | 2022-02-24 08:30 | P.OP ---
Date of Procedure: 02/24/22 Preoperative Diagnosis: History of sigmoid volvulus Postoperative Diagnosis: Normal colon, tortuous colon status post sigmoid colectomy Procedure(s) Performed: Colonoscopy Anesthesia: MAC Surgeon: Myron Saldana Pathology: none sent Condition: stable Disposition: PACU Description of Procedure: The patient's placed on the endoscopy table in the lateral position. She received IV sedation. Digital rectal exam was performed which revealed a large mucus ball in the rectum. This was digitally disimpacted. The mucus ball measured prostate 5 cm diameter. The flexible colonoscope was then placed patient's rectum. The rectal stump measured approximately 20 cm in length. There is no obvious pathology. Scope was withdrawn. The patient was then rotated on her back and then the colonoscope was placed in patient's colostomy. The scope was placed into the level of the ascending colon however could not be further advanced tortuous about. The visualized colon appeared normal. The scope was then brought back and withdrawn.
[2022-02-24 08:33] VITALS: RESP 16
[2022-02-24 08:47] VITALS: BP 181/76; PULSE 53
== END 2022-02-24 09:08 | disposition home or self-care (01) ==
LOC: ORWHC2ENDO 07:12
PROVIDERS: ATTEND Surgery
DX: K56.2 Volvulus (principal); Q43.8 Other specified congenital malformations of intestine; E78.5 Hyperlipidemia, unspecified; K74.60 Unspecified cirrhosis of liver; M19.90 Unspecified osteoarthritis, unspecified site; R73.03 Prediabetes; E07.9 Disorder of thyroid, unspecified; Z97.2 Presence of dental prosthetic device (complete) (partial); R60.0 Localized edema; I11.0 Hypertensive heart disease with heart failure; I50.9 Heart failure, unspecified; Z86.14 Personal history of Methicillin resistant Staphylococcus aureus infection; Z90.49 Acquired absence of other specified parts of digestive tract; Z93.3 Colostomy status; Z95.1 Presence of aortocoronary bypass graft; Z90.710 Acquired absence of both cervix and uterus; Z98.84 Bariatric surgery status; Z86.718 Personal history of other venous thrombosis and embolism; Z82.49 Family history of ischemic heart disease and other diseases of the circulatory system; Z79.890 Hormone replacement therapy; Z83.3 Family history of diabetes mellitus; Z79.899 Other long term (current) drug therapy; Z79.82 Long term (current) use of aspirin; Z91.041 Radiographic dye allergy status; Z88.5 Allergy status to narcotic agent; Z91.013 Allergy to seafood
CPT/HCPCS: 44388; J2704

== ENCOUNTER 2022-02-25 06:49 | Inpatient (IN) | payer MEDICARE ==
[~2022-02-25 06:49] MED LIST changes: +ACETAMINOPHEN TAB 500 MG TAB PO PRN; -BACITRACIN 50,000 UNIT, POLYMYXIN B 500,000 UNIT in SODIUM CHLORIDE 0.9% IRRIGATIO 1,00... IRRIGATION ONE; +DEXAMETHASONE SOD PHOSPHATE 4 MG/ML 1 ML VIAL IV ONE; +LIDOCAINE 1% (10MG/ML) FOR IV START INTRADERMA PRN; +MIDAZOLAM 2 MG/2 ML VIAL IV PRN; +ONDANSETRON 4 MG/2 ML VIAL IVP ONE; -ceFAZolin 2 GM in SODIUM CHLORIDE 0.9% 100 ML IVPB ONE; +metroNIDAZOLE-NS PMX 500 MG in SALINE 1 100ML.BAG IVPB PRN
[2022-02-25 07:44] LABS: Glucose,Whole Blood 88 mg/dL (70-110)
[2022-02-25] MEDS: LACTATED RINGERS 1,000 ML IV SCH (07:51)
[2022-02-25] MEDS ORDERED: ALVIMOPAN 12 MG CAPSULE PO ONE (07:55)
[2022-02-25] MEDS: HEPARIN SODIUM,PORCINE/PF 5,000 UNIT/0.5 ML SYRINGE SQ PRN ×2 (08:43→08:50)
--- NOTE | 2022-02-25 09:29 | P.GSHP ---
History of Present Illness H&P Date: 02/25/22 Chief Complaint: History of sigmoid volvulus and colostomy This a 76 she'll female who appears colonic obstruction due to sigmoid volvulus. Patient presents today for reversal colostomy. Patient aware the risk of surgery including infection, bleeding, hematoma and possible anastomotic leak. Past Medical History Past Medical History: Hyperlipidemia, Hypertension, Liver Disease, Musculoskeletal Disorder, Osteoarthritis (OA), Thyroid Disorder Additional Past Medical History / Comment(s): Hx boymzftkw-ovbrkc-idfrc't see specialist anymore, borderline diabetes, states no meds just watches what she eats. No fall in the last three months. left wrist fx about 3 year ago. bilateral leg edema severe, that leak at times. Heart failure and DVT per Dr Diaz's dictation. Pt has a hx of anemia per H&P from [facility]. History of Any Multi-Drug Resistant Organisms: MRSA Date of last positivie culture/infection: 2020 MDRO Source:: coccyx Past Surgical History: Appendectomy, Bowel Resection, Cholecystectomy, Coronary Bypass/CABG, Heart Catheterization, Hysterectomy, Tonsillectomy Additional Past Surgical History / Comment(s): Gastric bypass, bowel obstruction x3, quad bypass 18 yrs ago. colostomy Past Anesthesia/Blood Transfusion Reactions: Family History of Problems w/ Anesthesia Additional Past Anesthesia/Blood Transfusion Reaction / Comment(s): Mother had difficulty waking up after anesthesia. Date of Last Stent Placement:: unknown Past Psychological History: No Psychological Hx Reported Smoking Status: Never smoker Past Alcohol Use History: None Reported Past Drug Use History: None Reported - Past Family History Mother Family Medical History: Diabetes Mellitus, Myocardial Infarction ([place]) Additional Family Medical History / Comment(s): Open heart surgery Father Family Medical History: Myocardial Infarction ([place]) Medications and Allergies Home Medications Medication Instructions Recorded Confirmed Type Atorvastatin [Lipitor] 40 mg PO HS 06/21/14 02/25/22 History Isosorbide Mononitrate [Imdur] 30 mg PO DAILY 06/21/14 02/25/22 History ursodioL [Actigall] 600 mg PO BID 11/22/16 02/25/22 History QUEtiapine [SEROquel] 100 mg PO HS 11/23/16 02/25/22 History traMADol HCL [Ultram] 50 mg PO BID PRN 10/09/20 02/25/22 History Bumetanide [BUMEX] 1 mg PO DAILY PRN 07/24/21 02/25/22 History Cyanocobalamin (Vitamin B-12) 500 mcg PO DAILY 07/24/21 02/25/22 History [Vitamin B-12] Levothyroxine Sodium [Synthroid] 25 mcg PO DAILY 07/24/21 02/25/22 History carvediloL [Coreg] 3.125 mg PO BID-W/MEALS #60 tab 07/26/21 02/25/22 Rx lisinopriL [Zestril] 10 mg PO DAILY #30 tab 07/26/21 02/25/22 Rx Aspirin 81 mg PO DAILY 02/23/22 02/25/22 History Spironolactone [Aldactone] 25 mg PO DAILY 02/23/22 02/25/22 History Allergies Allergy/AdvReac Type Severity Reaction Status Date / Time Iodinated Contrast Media Allergy Rash/Hives Verified 02/25/22 07:35 [Iodinated Contrast Media - Oral and] oxycodone HCl [From Percocet] Allergy Rash/Hives/Nose Verified 02/25/22 07:35 Kerr shellfish derived Allergy Rash/Hives Verified 02/25/22 07:35 acetaminophen [From Percocet] AdvReac Severe Liver Verified 02/25/22 07:35 Failure Surgical - Exam Vital Signs Temp Pulse Resp BP Pulse Ox 98.8 F 63 16 176/74 98 02/25/22 07:50 02/25/22 07:50 02/25/22 07:50 02/25/22 07:50 02/25/22 07:50 - General well developed, well nourished, no distress - Eyes PERRL - ENT normal pinna - Neck no masses - Respiratory normal expansion - Cardiovascular Rhythm: regular - Abdomen Abdomen: soft, non tender Assessment and Plan Assessment: Sigmoid volvulus and colonoscopy. Patient will undergo reversal colostomy.
[2022-02-25] MEDS ORDERED: PROPOFOL 10 MG/ML 20 ML VIAL IV ONE (09:41)
[2022-02-25] MEDS ORDERED: hydrALAZINE HCL 20 MG/ML 1 ML VIAL ONE (09:41)
[2022-02-25] MEDS ORDERED: GLYCOPYRROLATE 0.2 MG/ML 2 ML VIAL ONE (09:41)
[2022-02-25] MEDS ORDERED: ROCURONIUM 10 MG/ML (5 ML VIAL) IV ONE (09:41)
[2022-02-25] MEDS ORDERED: MIDAZOLAM 2 MG/2 ML VIAL ONE (09:41)
[2022-02-25] MEDS ORDERED: NEOSTIGMINE 1 MG/ML 10 ML VIAL ONE (09:41)
[2022-02-25] MEDS ORDERED: fentaNYL (PF) 50 MCG/ML 2 ML AMP ONE (09:41)
[2022-02-25] MEDS ORDERED: LIDOCAINE 2% INJ 20 MG/ML (2 ML VIAL) ONE (09:41)
[2022-02-25] MEDS ORDERED: LACTATED RINGERS 1,000 ML IV ONE (10:50)
[2022-02-25] MEDS ORDERED: ONDANSETRON 4 MG/2 ML VIAL IVP PRN (11:33)
[2022-02-25] MEDS ORDERED: BENZOCAINE/MENTHOL LOZENG 1 EACH LOZENGE MUCOUS MEM PRN (11:33)
[2022-02-25] MEDS ORDERED: METOCLOPRAMIDE 5 MG/ML 2 ML VIAL IVP PRN (11:33)
--- NOTE | 2022-02-25 11:33 | P.OP ---
Date of Procedure: 02/25/22 Preoperative Diagnosis: History of sigmoid volvulus Postoperative Diagnosis: History of sigmoid volvulus Adhesions Procedure(s) Performed: Exposure laparotomy Lysis of extensive adhesions Reversal colostomy with [id number] functional end-to-end staple anastomosis between left colon and rectum Anesthesia: SUZIE Surgeon: Myron Saldana Estimated Blood Loss (ml): 50 Pathology: other (colon) Condition: stable Disposition: PACU Description of Procedure: The patient's placed in the operative table in supine position. She received general endotracheal anesthesia. Her abdomen was prepped and draped usual fashion. She was placed in dorsal lithotomy position. The abdomen was entered through a midline incision. There were extensive adhesions throughout the period cavity. Approximately 25 minutes of operative time used to lyse adhesions. Once the small bowel was lysed. The rectal stump was visualized. The colostomy was then transected at the fascial level. There was a redundant left colon which made possible to perform a [id number] functional end-to-end stapled vessels between the left colon and rectum. This was performed using the UNIQUE and TA stapler. 3-0 GI silk sutures using a crotch stitch. The abdomen was irrigated there is no bleeding seen. The fascia was then closed with looped #1 PDS suture. The skin was closed kristian. The colostomy was then dissected free and sent to pathology. The fascia at the colostomy site was then closed with interrupted 0 Vicryl suture. The colostomy site was closed kristian. Patient top she will was sent to recovery in stable condition.
[2022-02-25] MEDS: KETOROLAC 15 MG/ML 1 ML VIAL IVP PRN (11:55)
[2022-02-25] MEDS ORDERED: ALBUMIN HUMAN 5% 250 ML in EMPTY BAG 1 BAG IVPB STA (12:39)
[2022-02-25 12:41] LABS: Anisocytosis Slight; HCT 28.4 % (34.0-46.0); HGB 9.1 gm/dL (11.4-16.0); Hypochromasia Moderate; MCH 27.1 pg (25.0-35.0); MCHC 32.1 g/dL (31.0-37.0); MCV 84.5 fL (80.0-100.0); Mean Platelet Volume 7.5; Microcytosis Slight; Platelet Count 235 k/uL (150-450); RBC 3.36 m/uL (3.80-5.40); RDW 19.8 % (11.5-15.5); WBC 7.5 k/uL (3.8-10.6)
[2022-02-25] MEDS ORDERED: ALBUMIN HUMAN 5% (12.5gm) 250 ML BOTTLE IVPB ONE (12:41)
[2022-02-25] MEDS: HYDROmorphone 0.5 MG/0.5 ML SYRINGE IVP PRN ×2 (13:56→14:27)
[2022-02-25] MEDS: HYDROmorphone 1 MG/ML 1 ML SYRINGE IVP PRN (19:29)
[2022-02-25] MEDS: HEPARIN SODIUM,PORCINE/PF 5,000 UNIT/0.5 ML SYRINGE SQ SCH (20:41)
[2022-02-25] MEDS: FAMOTIDINE 20 MG/2 ML VIAL IV SCH (20:44)
[2022-02-25] MEDS: D5-0.45% NACL WITH KCL 20MEQ/L 1,000 ML IV SCH (21:26)
[2022-02-26] MEDS: D5-0.45% NACL WITH KCL 20MEQ/L 1,000 ML IV SCH ×3 (00:36→13:36)
[2022-02-26] MEDS: HEPARIN SODIUM,PORCINE/PF 5,000 UNIT/0.5 ML SYRINGE SQ SCH ×4 (00:37→23:39)
[2022-02-26] MEDS: KETOROLAC 15 MG/ML 1 ML VIAL IVP PRN ×4 (00:47→21:52)
[2022-02-26] MEDS ORDERED: BUMETANIDE 1 MG TAB PO PRN (02:06)
[2022-02-26] MEDS: lisinopriL 10 MG TAB PO SCH ×2 (02:39→13:35)
[2022-02-26] MEDS: carvediloL 3.125 MG TAB PO SCH ×3 (02:39→15:52)
[2022-02-26] MEDS: LACTATED RINGERS 1,000 ML IV SCH (05:17)
[2022-02-26] MEDS: LEVOTHYROXINE 25 MCG TAB PO SCH (06:28)
[2022-02-26] MEDS: FAMOTIDINE 20 MG/2 ML VIAL IV SCH ×2 (08:59→21:51)
[2022-02-26] MEDS: ursodioL 300 MG CAP PO SCH ×2 (09:00→21:52)
[2022-02-26] MEDS: ISOSORBIDE MONONITRATE ER 30 MG TAB.ER.24H PO SCH (09:01)
[2022-02-26] MEDS: CYANOCOBALAMIN 500 MCG TAB PO SCH (09:01)
[2022-02-26] MEDS: SPIRONOLACTONE 25 MG TAB PO SCH (09:01)
[2022-02-26] MEDS: ASPIRIN 81 MG PO SCH (09:02)
[2022-02-26] MEDS: ALVIMOPAN 12 MG CAPSULE PO SCH ×2 (10:08→21:51)
[2022-02-26] MEDS ORDERED: D5-0.45% NACL WITH KCL 20MEQ/L 1,000 ML IV SCH (11:15)
--- NOTE | 2022-02-26 11:28 | P.HPIM ---
History of Present Illness Patient is a pleasant 76-year-old female admitted reversal colostomy patient had a sigmoid volvulus in the past for which patient had colectomy followed by colostomy patient is clinically doing well posterior reversal. Patient denied any fever chills nausea vomiting. REVIEW OF SYSTEMS: CONSTITUTIONAL: No fever, no malaise, no fatigue. HEENT: No recent visual problems or hearing problems. Denied any sore throat. CARDIOVASCULAR: No chest pain, orthopnea, PND, no palpitations, no syncope. PULMONARY: No shortness of breath, no cough, no hemoptysis. GASTROINTESTINAL: No diarrhea, no nausea, no vomiting, no abdominal pain. NEUROLOGICAL: No headaches, no weakness, no numbness. HEMATOLOGICAL: Denies any bleeding or petechiae. GENITOURINARY: Denies any burning micturition, frequency, or urgency. MUSCULOSKELETAL/RHEUMATOLOGICAL: Denies any joint pain, swelling, or any muscle pain. ENDOCRINE: Denies any polyuria or polydipsia. The rest of the 14-point review of systems is negative. PHYSICAL EXAMINATION: GENERAL: The patient is alert and oriented x3, not in any acute distress. Well developed, well nourished. HEENT: Pupils are round and equally reacting to light. EOMI. No scleral icterus. No conjunctival pallor. Normocephalic, atraumatic. No pharyngeal erythema. No thyromegaly. CARDIOVASCULAR: S1 and S2 present. No murmurs, rubs, or gallops. PULMONARY: Chest is clear to auscultation, no wheezing or crackles. ABDOMEN: Soft, nontender, nondistended, normoactive bowel sounds. No palpable organomegaly. MUSCULOSKELETAL: No joint swelling or deformity. EXTREMITIES: No cyanosis, clubbing, or pedal edema. NEUROLOGICAL: Gross neurological examination did not reveal any focal deficits. SKIN: No rashes. Assessment and plan -Hypertension patient blood pressure was elevated because of which patient was started back on her lisinopril and Coreg which is appropriate which were discontinued -Status post a colectomy patient is on Toradol which is appropriate will continue with that patient is also on D5 half-normal which will be switched to D5 normal saline, repeat basic metabolic profile tomorrow -Hyperlipidemia Hypertension hypertension -Hypothyroidism DVT prophylaxis: Subcutaneous heparin Past Medical History Past Medical History: Hyperlipidemia, Hypertension, Liver Disease, Musculoskeletal Disorder, Osteoarthritis (OA), Thyroid Disorder Additional Past Medical History / Comment(s): Hx wxgoicobv-wjiife-cedao't see specialist anymore, borderline diabetes, states no meds just watches what she eats. No fall in the last three months. left wrist fx about 3 year ago. bilateral leg edema severe, that leak at times. Heart failure and DVT per Dr Diaz's dictation. Pt has a hx of anemia per H&P from [facility]ell[facility]. History of Any Multi-Drug Resistant Organisms: MRSA Date of last positivie culture/infection: 2020 MDRO Source:: coccyx Past Surgical History: Appendectomy, Bowel Resection, Cholecystectomy, Coronary Bypass/CABG, Heart Catheterization, Hysterectomy, Tonsillectomy Additional Past Surgical History / Comment(s): Gastric bypass, bowel obstruction x3, quad bypass 18 yrs ago. colostomy Past Anesthesia/Blood Transfusion Reactions: Family History of Problems w/ Anesthesia Additional Past Anesthesia/Blood Transfusion Reaction / Comment(s): Mother had difficulty waking up after anesthesia. Date of Last Stent Placement:: unknown Past Psychological History: No Psychological Hx Reported Smoking Status: Never smoker Past Alcohol Use History: None Reported Past Drug Use History: None Reported - Past Family History Mother Family Medical History: Diabetes Mellitus, Myocardial Infarction ([place]) Additional Family Medical History / Comment(s): Open heart surgery Father Family Medical History: Myocardial Infarction ([place]) Medications and Allergies Home Medications Medication Instructions Recorded Confirmed Type Atorvastatin [Lipitor] 40 mg PO HS 06/21/14 02/25/22 History Isosorbide Mononitrate [Imdur] 30 mg PO DAILY 06/21/14 02/25/22 History ursodioL [Actigall] 600 mg PO BID 11/22/16 02/25/22 History QUEtiapine [SEROquel] 100 mg PO HS 11/23/16 02/25/22 History traMADol HCL [Ultram] 50 mg PO BID PRN 10/09/20 02/25/22 History Bumetanide [BUMEX] 1 mg PO DAILY PRN 07/24/21 02/25/22 History Cyanocobalamin (Vitamin B-12) 500 mcg PO DAILY 07/24/21 02/25/22 History [Vitamin B-12] Levothyroxine Sodium [Synthroid] 25 mcg PO DAILY 07/24/21 02/25/22 History carvediloL [Coreg] 3.125 mg PO BID-W/MEALS #60 tab 07/26/21 02/25/22 Rx lisinopriL [Zestril] 10 mg PO DAILY #30 tab 07/26/21 02/25/22 Rx Aspirin 81 mg PO DAILY 02/23/22 02/25/22 History Spironolactone [Aldactone] 25 mg PO DAILY 02/23/22 02/25/22 History Allergies Allergy/AdvReac Type Severity Reaction Status Date / Time Iodinated Contrast Media Allergy Rash/Hives Verified 02/25/22 07:35 [Iodinated Contrast Media - Oral and] oxycodone HCl [From Percocet] Allergy Rash/Hives/Nose Verified 02/25/22 07:35 Kerr shellfish derived Allergy Rash/Hives Verified 02/25/22 07:35 acetaminophen [From Percocet] AdvReac Severe Liver Verified 02/25/22 07:35 Failure Physical Exam Vitals: Vital Signs Temp Pulse Pulse Resp BP Pulse Ox 02/26/22 09:43 70 139/76 02/26/22 08:35 57 L 70 16 02/26/22 05:00 98.3 F 57 L 16 170/75 96 02/25/22 19:55 98 F 77 16 187/74 94 L 02/25/22 17:05 97.8 F 87 16 173/94 94 L 02/25/22 16:34 78 16 02/25/22 16:00 78 16 130/60 96 02/25/22 15:30 66 16 141/74 95 02/25/22 15:00 70 16 138/63 95 02/25/22 14:45 67 16 141/64 96 02/25/22 14:30 73 16 126/58 96 02/25/22 14:15 73 16 123/60 96 02/25/22 14:00 65 16 120/55 96 02/25/22 13:45 68 16 122/58 95 02/25/22 13:30 67 16 119/57 97 02/25/22 13:15 65 16 117/56 97 02/25/22 13:00 63 16 113/55 96 02/25/22 12:45 59 L 16 115/55 95 02/25/22 12:30 60 16 90/47 95 02/25/22 12:15 52 L 16 95/51 95 02/25/22 12:00 54 L 16 98/53 95 02/25/22 11:55 98/55 02/25/22 11:45 55 L 16 89/46 96 02/25/22 11:34 98.1 F 65 16 113/51 95 Intake and Output 02/25/22 02/26/22 02/26/22 22:59 06:59 14:59 Intake Total 1000 Output Total 300 650 750 Balance -300 350 -750 Intake: Intake, IV Titration 1000 Amount D5-0.45% NaCl with KCl 1000 20Meq/l 1,000 ml @ 125 mls/hr IV .Q8H [facility] Rx#: [id number] Output: Urine 300 650 750 Other: Voiding Method Indwelling Catheter Indwelling Catheter Results CBC & Chem 7: 02/25/22 12:30 Labs: Abnormal Lab Results - Last 24 Hours (Table) 02/25/22 Range/Units 12:30 RBC 3.36 L (3.80-5.40) m/uL Hgb 9.1 L (11.4-16.0) gm/dL Hct 28.4 L (34.0-46.0) % RDW 19.8 H (11.5-15.5) % Thrombosis Risk Factor Assmnt - Choose All That Apply Each Risk Factor Represents 2 Points: Major surgery Each Risk Factor Represents 3 Points: Age 75 years or older Thrombosis Risk Factor Assessment Total Risk Factor Score: 5 Thrombosis Risk Factor Assessment Level: High Risk
[2022-02-26] MEDS: D5-0.9% NACL WITH KCL 20 MEQ/L 1,000 ML IV SCH (13:38)
--- NOTE | 2022-02-26 16:06 | P.PN ---
Subjective Progress Note Date: 02/26/22 CHIEF COMPLAINT: Sigmoid volvulus HISTORY OF PRESENT ILLNESS: The patient is a 76-year-old female status post colostomy reversal for sigmoid volvulus. Family is at bedside. They also reports she's hard of hearing. Patient forgot her hearing aids. No reports of abdominal pain. She is yet to ambulate. ROS: No reports of nausea and vomiting. No bowel movements. No fevers or chills. No new chest pain. No productive sputum PHYSICAL EXAM: VITAL SIGNS: Reviewed CONSTITUTIONAL: Well developed and in no acute distress. EYES: Conjuctivae without sclera icterus. Extraocular movements grossly intact. HEAD, EARS, NOSE, THROAT: Moist buccal mucosa. Head is atraumatic, normocephalic. Hears conversational speech. No nasal drainage. RESPIRATORY: Non-labored respirations and equal bilateral excursions. CARDIOVASCULAR: Palpable 2+ radial pulses. ABDOMEN: Dressing intact. MUSCULOSKELETAL: No gross deformity of the lower extremities noted. No clubbing. No cyanosis. SKIN: Good skin turgor. Well perfused. NEUROLOGIC: Cranial nerves II through XII grossly intact. No focal or lateraliz ing signs. PSYCH: Appropriate affect. Alert and oriented to person, place and time. : Tariq present. Clear yellow. CLINICAL LABS: Reviewed. Hemoglobin 9.1. ASSESSMENT: 1. Sigmoid volvulus 2. History of colostomy status post reversal PLAN: 1. Physical therapy occupational therapy for rehab 2. Continue clear liquid diet pending flatus or bowel movement 3. Discontinue Tariq Objective - Vital Signs Vital signs: Vital Signs Temp 98.3 F 02/26/22 05:00 Pulse 57 L 02/26/22 05:00 Resp 16 02/26/22 05:00 BP 170/75 02/26/22 05:00 Pulse Ox 96 02/26/22 05:00 FiO2 Intake & Output 02/25/22 02/26/22 02/26/22 18:59 06:59 18:59 Intake Total 2000 1000 Output Total 350 650 Balance 1650 350 Weight 63.6 kg Intake: IV 2000 Intake, IV Titration 1000 Amount D5-0.45% NaCl with KCl 1000 20Meq/l 1,000 ml @ 125 mls/hr IV .Q8H [facility] Rx#: [id number] Output: Urine 300 650 Estimated Blood Loss 50 Other: Voiding Method Indwelling Catheter Indwelling Catheter - Labs CBC & Chem 7: 02/25/22 12:30 Labs: Abnormal Lab Results - Last 24 Hours (Table) 02/25/22 Range/Units 12:30 RBC 3.36 L (3.80-5.40) m/uL Hgb 9.1 L (11.4-16.0) gm/dL Hct 28.4 L (34.0-46.0) % RDW 19.8 H (11.5-15.5) %
[2022-02-26] MEDS: ATORVASTATIN 40 MG TAB PO SCH (21:51)
[2022-02-26] MEDS: QUEtiapine 100 MG TAB PO SCH (21:52)
[2022-02-27] MEDS: LEVOTHYROXINE 25 MCG TAB PO SCH (05:31)
[2022-02-27] MEDS: LACTATED RINGERS 1,000 ML IV SCH (05:36)
[2022-02-27] MEDS: carvediloL 3.125 MG TAB PO SCH ×2 (05:39→17:24)
[2022-02-27] MEDS: KETOROLAC 15 MG/ML 1 ML VIAL IVP PRN (06:15)
[2022-02-27] MEDS: D5-0.9% NACL WITH KCL 20 MEQ/L 1,000 ML IV SCH (07:51)
[2022-02-27] MEDS: HEPARIN SODIUM,PORCINE/PF 5,000 UNIT/0.5 ML SYRINGE SQ SCH ×2 (07:51→17:23)
[2022-02-27] MEDS: ALVIMOPAN 12 MG CAPSULE PO SCH (07:52)
[2022-02-27] MEDS: SPIRONOLACTONE 25 MG TAB PO SCH (07:52)
[2022-02-27] MEDS: FAMOTIDINE 20 MG/2 ML VIAL IV SCH ×2 (07:52→21:08)
[2022-02-27] MEDS: ISOSORBIDE MONONITRATE ER 30 MG TAB.ER.24H PO SCH (07:52)
[2022-02-27] MEDS: ASPIRIN 81 MG PO SCH (07:52)
[2022-02-27] MEDS: CYANOCOBALAMIN 500 MCG TAB PO SCH (07:53)
[2022-02-27] MEDS: lisinopriL 10 MG TAB PO SCH (07:53)
[2022-02-27] MEDS: ursodioL 300 MG CAP PO SCH ×2 (07:54→21:07)
[2022-02-27 11:48] LABS: HGB 8.2 g/dL (12.0-15.0); MCH 24.5 pg (27.0-32.0); MCHC 29.3 g/dL (32.0-37.0); MCV 83.6 fL (80.0-97.0); Mean Platelet Volume 10.5 fL (9.5-12.2); NRBC Per 100 WBC 0 /100 WBCS (0.0-0.0); Platelet Count 280 X 10*3/uL (140-440); RBC 3.35 X 10*6/uL (4.10-5.20); RDW 21.9 % (11.5-14.5); WBC 12.44 X 10*3/uL (4.50-10.00)
[2022-02-27 12:02] LABS: African American GFR (CKD) 97.5 (60.0-200.0); Anion Gap 9.8 mmol/L (10.00-18.00); Blood Urea Nitrogen 4.9 mg/dL (9.0-27.0); Calcium 7.9 mg/dL (8.7-10.3); Carbon Dioxide 22.2 mmol/L (20.0-27.5); Non-African American GFR(CKD) 84.2 (60.0-200.0); Potassium 4.2 mmol/L (3.5-5.5)
--- NOTE | 2022-02-27 14:15 | P.PN ---
Subjective Progress Note Date: 02/27/22 CHIEF COMPLAINT: Sigmoid volvulus HISTORY OF PRESENT ILLNESS: The patient is a 76-year-old female status post colostomy reversal for sigmoid volvulus. She is sitting at bedside. She had multiple bowel movements. Tariq discontinued. ROS: No reports of nausea and vomiting. No bowel movements. No fevers or chills. No new chest pain. No productive sputum PHYSICAL EXAM: VITAL SIGNS: Reviewed CONSTITUTIONAL: Well developed and in no acute distress. EYES: Conjuctivae without sclera icterus. Extraocular movements grossly intact. HEAD, EARS, NOSE, THROAT: Moist buccal mucosa. Head is atraumatic, normocephalic. Heart of hearing. No nasal drainage. RESPIRATORY: Non-labored respirations and equal bilateral excursions. CARDIOVASCULAR: Palpable 2+ radial pulses. ABDOMEN: Dressing intact. MUSCULOSKELETAL: No gross deformity of the lower extremities noted. No clubbing. No cyanosis. SKIN: Good skin turgor. Well perfused. NEUROLOGIC: Cranial nerves II through XII grossly intact. No focal or lateralizing signs. PSYCH: Appropriate affect. Alert and oriented to person, place and time. CLINICAL LABS: Reviewed. Hemoglobin 9.1, 9.2. WBC elevated at 12.4. ASSESSMENT: 1. Sigmoid volvulus 2. History of colostomy status post reversal PLAN: 1. Advance diet to full liquid diet. 2. Ambulation encouraged Objective - Vital Signs Vital signs: Vital Signs Temp 98.1 F 02/27/22 12:44 Pulse 60 02/27/22 12:44 Resp 14 02/27/22 12:44 BP 186/88 02/27/22 12:44 Pulse Ox 96 02/27/22 12:44 FiO2 Intake & Output 02/26/22 02/27/22 02/27/22 18:59 06:59 18:59 Intake Total 240 1257 120 Output Total 2800 1550 Balance -2560 -293 120 Intake: Intake, IV Titration 750 Amount D5-0.45% NaCl with KCl 750 20Meq/l 1,000 ml @ 75 mls /hr IV .[id number] [facility] Rx#: [id number] Oral 240 507 120 Output: Urine 2800 1550 Other: Voiding Method Indwelling Catheter Indwelling Catheter Indwelling Catheter # Voids 2 # Bowel Movements 1 1 - Labs CBC & Chem 7: 02/27/22 07:10 06/19/22 07:10 Labs: Abnormal Lab Results - Last 24 Hours (Table) 02/27/22 02/27/22 Range/Units 07:10 07:10 WBC 12.44 H (4.50-10.00) X 10*3/uL RBC 3.35 L (4.10-5.20) X 10*6/uL Hgb 8.2 L (12.0-15.0) g/dL Hct 28.0 L (37.2-46.3) % MCH 24.5 L (27.0-32.0) pg MCHC 29.3 L (32.0-37.0) g/dL RDW 21.9 H (11.5-14.5) % Anion Gap 9.80 L (10.00-18.00) mmol/L BUN 4.9 L (9.0-27.0) mg/dL BUN/Creatinine Ratio 7.00 L (12.00-20.00) Ratio Calcium 7.9 L (8.7-10.3) mg/dL
--- NOTE | 2022-02-27 17:10 | P.PN ---
Subjective Patient is a pleasant 76-year-old female admitted reversal colostomy patient had a sigmoid volvulus in the past for which patient had colectomy followed by colostomy patient is clinically doing well posterior reversal. Patient denied any fever chills nausea vomiting. 02/27/2022 Patient is with sigmoid volvulus status post reversal of colostomy and extensive lysis of adhesions. Patient still complaining of from abdominal pain and she was kept on liquid diet by surgery team although she had 1 bowel movement today. Blood pressure is elevated and she is already on lisinopril 10 mg daily and Aldactone. We will add Norvasc. I then closed change to D5 normal saline at 50 mL/h Objective - Vital Signs Vital signs: Vital Signs Temp 98.4 F 02/27/22 04:59 Pulse 65 02/27/22 08:13 Resp 16 02/27/22 04:59 BP 169/78 02/27/22 08:13 Pulse Ox 96 02/27/22 04:59 FiO2 Intake & Output 02/26/22 02/27/22 02/27/22 18:59 06:59 18:59 Intake Total 240 1257 Output Total 2800 1550 Balance -2560 -293 Intake: Intake, IV Titration 750 Amount D5-0.45% NaCl with KCl 750 20Meq/l 1,000 ml @ 75 mls /hr IV .[id number] [facility] Rx#: [id number] Oral 240 507 Output: Urine 2800 1550 Other: Voiding Method Indwelling Catheter Indwelling Catheter # Bowel Movements 1 - Exam GENERAL: The patient is alert and oriented x3, not in any acute distress. Well developed, well nourished. HEENT: Pupils are round and equally reacting to light. EOMI. No scleral icterus. No conjunctival pallor. Normocephalic, atraumatic. No pharyngeal erythema. No thyromegaly. CARDIOVASCULAR: S1 and S2 present. No murmurs, rubs, or gallops. PULMONARY: Chest is clear to auscultation, no wheezing or crackles. -ABDOMEN: Soft, nontender, nondistended, normoactive bowel sounds. No palpable organomegaly. Surgical wound with person and place MUSCULOSKELETAL: No joint swelling or deformity. EXTREMITIES: No cyanosis, clubbing, or pedal edema. NEUROLOGICAL: Gross neurological examination did not reveal any focal deficits. SKIN: No rashes. no petechiae. - Labs CBC & Chem 7: 02/27/22 07:10 02/27/22 07:10 Assessment and Plan Assessment: -Sigmoid volvulus, status status post reversal of colostomy. -Hypertension -Hyperlipidemia -Hypothyroidism Plan: This is a pleasant 76 years old female status post colostomy reversal. Continue with liquid diet and advance as per surgery team Pain management. Continue gentle hydration. Continue with antihypertensive medication lisinopril and Aldactone. Norvasc added. Monitor blood pressure. Labs and medication were reviewed.. Continue same treatment. Continue with symptomatic treatment. Resume home medication. Monitor lytes and vitals. DVT and GI prophylaxis. Further recommendations as per clinical course of the patient DVT prophylaxis: Subcutaneous heparin GI Prophylaxis: Pepcid PT/OT: Pending Prognosis is guarded
[2022-02-27] MEDS: amLODIPine 5 MG TAB PO SCH (17:24)
[2022-02-27] MEDS: HYDROmorphone 1 MG/ML 1 ML SYRINGE IVP PRN (20:08)
[2022-02-27] MEDS: QUEtiapine 100 MG TAB PO SCH (21:07)
[2022-02-27] MEDS: ATORVASTATIN 40 MG TAB PO SCH (21:08)
[2022-02-28] MEDS: HEPARIN SODIUM,PORCINE/PF 5,000 UNIT/0.5 ML SYRINGE SQ SCH ×3 (00:03→17:09)
[2022-02-28] MEDS: LACTATED RINGERS 1,000 ML IV SCH (06:20)
[2022-02-28] MEDS: D5-0.9% NACL WITH KCL 20 MEQ/L 1,000 ML IV SCH (06:21)
[2022-02-28] MEDS: LEVOTHYROXINE 25 MCG TAB PO SCH (06:21)
[2022-02-28 08:50] LABS: Basophils # (A) 0.05 X 10*3/uL (0.00-0.10); Basophils % (A) 0.5 %; Eosinophils # (A) 0.23 X 10*3/uL (0.04-0.35); Eosinophils % (A) 2.1 %; HCT 29.5 % (37.2-46.3); HGB 8.8 g/dL (12.0-15.0); Immature Grans, Automated 0.4 %; Lymphocytes # (A) 1.89 X 10*3/uL (0.90-5.00); MCHC 29.8 g/dL (32.0-37.0); MCV 83.8 fL (80.0-97.0); Mean Platelet Volume 10.5 fL (9.5-12.2); Monocytes # (A) 0.78 X 10*3/uL (0.20-1.00); NRBC Per 100 WBC 0 /100 WBCS (0.0-0.0); Platelet Count 277 X 10*3/uL (140-440); RBC 3.52 X 10*6/uL (4.10-5.20); RDW 21.8 % (11.5-14.5); WBC 11.09 X 10*3/uL (4.50-10.00)
[2022-02-28] MEDS: ISOSORBIDE MONONITRATE ER 30 MG TAB.ER.24H PO SCH (09:31)
[2022-02-28] MEDS: amLODIPine 5 MG TAB PO SCH (09:31)
[2022-02-28] MEDS: lisinopriL 10 MG TAB PO SCH (09:31)
[2022-02-28] MEDS: FAMOTIDINE 20 MG/2 ML VIAL IV SCH (09:31)
[2022-02-28] MEDS: SPIRONOLACTONE 25 MG TAB PO SCH (09:31)
[2022-02-28] MEDS: carvediloL 3.125 MG TAB PO SCH ×2 (09:31→17:09)
[2022-02-28] MEDS: ASPIRIN 81 MG PO SCH (09:31)
[2022-02-28] MEDS: CYANOCOBALAMIN 500 MCG TAB PO SCH (09:31)
[2022-02-28] MEDS: ursodioL 300 MG CAP PO SCH ×2 (09:32→20:07)
[2022-02-28] MEDS: HYDROmorphone 1 MG/ML 1 ML SYRINGE IVP PRN (09:33)
--- NOTE | 2022-02-28 10:51 | CDI ---
Documentation Clarification Form Date: 02/28/2022 10:39:03 AM From: Mabel Huitron CCS, CCDS Admit Date: 02/25/2022 06:49:00 AM Patient Name: Amanda Talbert Visit Number: [id number] Discharge Date: ATTENTION: The Clinical Documentation Specialists (CDI) and [facility] Coding Staff appreciate your assistance in clarifying documentation. Please respond to the clarification below the line at the bottom and electronically sign. The CDI & [facility] Coding staff will review the response and follow-up if needed. Please note: Queries are made part of the Legal Health Record. If you have any questions, please contact the author of this message via ITS. Dr. Myron Saldana: Unspecified anemia is documented in the 02/25 General Surgery History & Physical and the 02/26 Medical Management History & Physical: Patient has a history of anemia. Additional specificity regarding the Type & Acuity of Anemia is requested. History/Risk Factors per the 02/25 Surgeon's H/P: Hyperlipidemia, Hypertension, Cirrhosis: stable, Osteoarthritis, Hypothyroid, CHF & DVT, MRSA (Coccyx 2020). Surgical History: Appendectomy, Bowel Resection, Cholecystectomy, CABG, Heart Catheterization, Hysterectomy, Tonsillectomy, Gastric Bypass, Colostomy. Clinical indicators: Presented 02/25 for an elective Reversal of Colostomy status post diagnosis of Volvulus. 02/25 Procedure Dx: History of Sigmoid Volvulus, Adhesions 02/25 Procedure: Exposure Laparotomy, Lysis of Extensive Adhesions, Reversal Colostomy with side-side functional end-end staple anastomosis between left colon & rectum. 02/25 Hemoglobin: 9.1. 02/27: 8.2. 02/28: 8.8 02/25 Hematocrit: 28.4. 02/27: 28.0. 02/28: 29.5. Treatment 02/25: IV Cefazolin 50 mls @ 100 mls/hr x1, Heparin 5,000 units sq x1/prn pre-op, IV Flagyl 500 mg 100 mls @ 100 mls/hr x1/prn, IV Decaron 4 mg x1, IV Dilaudid 0.5 mg q5M/prn, IV Versed 2 mg x1/prn (preop anxiety), IV Zofran 4 mg x1, po Entereg, IV dilaudid 1 mg q3H/prn, IV toradol 15 mg q6H/prn, IV Reglan 10 mg q6H/prn, IV Albumin Human 250 mls @ 250 mls/hr x1, IV Albumin Human 5% 15ml x1, IV Kcl/Dextrose/Na Cl 1,000 mls @ 75 mls/hr q13H, Heparin 5,000 sq q8H, IV Pepcid 20 mg BID. Please clarify the Type & Acuity of Anemia: [ ] Acute blood loss anemia [ ] Acute on chronic blood loss anemia [ ] Chronic blood loss anemia [ ] Hemolytic anemia [ ] Drug induced anemia [ xx ] Anemia of chronic disease [ ] Unable to determine [ ] Other, please specify (Template Last Revised: October 2020) MTDD
--- NOTE | 2022-02-28 12:20 | P.PN ---
Subjective Patient is a pleasant 76-year-old female admitted reversal colostomy patient had a sigmoid volvulus in the past for which patient had colectomy followed by colostomy patient is clinically doing well posterior reversal. Patient denied any fever chills nausea vomiting. 02/27/2022 Patient is with sigmoid volvulus status post reversal of colostomy and extensive lysis of adhesions. Patient still complaining of from abdominal pain and she was kept on liquid diet by surgery team although she had 1 bowel movement today. Blood pressure is elevated and she is already on lisinopril 10 mg daily and Aldactone. We will add Norvasc. I then closed change to D5 normal saline at 50 mL/h 02/28/2022 Patient was witnessed sitting in chair and eating her breakfast calmly. She still complaining from abdominal pain but she tolerates diet well and she has bowel movement. Her blood pressure improved down to 120/69 after she was started on Norvasc yesterday. She was started on Ultram also for better pain control WBC 11.0, hemoglobin 8.8. Objective - Vital Signs Vital signs: Vital Signs Temp 98.4 F 02/28/22 05:00 Pulse 59 L 02/28/22 05:00 Resp 16 02/28/22 05:00 BP 120/69 02/28/22 05:00 Pulse Ox 96 02/28/22 05:00 FiO2 Intake & Output 02/27/22 02/28/22 02/28/22 18:59 06:59 18:59 Intake Total 360 590 Balance 360 590 Intake: Oral 360 590 Other: Voiding Method Indwelling Catheter Diaper Incontinent # Voids 4 2 # Bowel Movements 1 - Exam GENERAL: The patient is alert and oriented x3, not in any acute distress. Well developed, well nourished. HEENT: Pupils are round and equally reacting to light. EOMI. No scleral icterus. No conjunctival pallor. Normocephalic, atraumatic. No pharyngeal erythema. No thyromegaly. CARDIOVASCULAR: S1 and S2 present. No murmurs, rubs, or gallops. PULMONARY: Chest is clear to auscultation, no wheezing or crackles. -ABDOMEN: Soft, nontender, nondistended, normoactive bowel sounds. No palpable organomegaly. Surgical wound with person and place MUSCULOSKELETAL: No joint swelling or deformity. EXTREMITIES: No cyanosis, clubbing, or pedal edema. NEUROLOGICAL: Gross neurological examination did not reveal any focal deficits. SKIN: No rashes. no petechiae. - Labs CBC & Chem 7: 02/28/22 06:19 02/27/22 07:10 Labs: Abnormal Lab Results - Last 24 Hours (Table) 02/27/22 02/27/22 02/28/22 Range/Units 07:10 07:10 06:19 WBC 12.44 H 11.09 H (4.50-10.00) X 10*3/uL RBC 3.35 L 3.52 L (4.10-5.20) X 10*6/uL Hgb 8.2 L 8.8 L (12.0-15.0) g/dL Hct 28.0 L 29.5 L (37.2-46.3) % MCH 24.5 L 25.0 L (27.0-32.0) pg MCHC 29.3 L 29.8 L (32.0-37.0) g/dL RDW 21.9 H 21.8 H (11.5-14.5) % Neutrophils # 8.10 H (1.80-7.70) X 10*3/uL Anion Gap 9.80 L (10.00-18.00) mmol/L BUN 4.9 L (9.0-27.0) mg/dL BUN/Creatinine Ratio 7.00 L (12.00-20.00) Ratio Calcium 7.9 L (8.7-10.3) mg/dL Assessment and Plan Assessment: -Sigmoid volvulus, status status post reversal of colostomy. -Hypertension -Hyperlipidemia -Hypothyroidism Plan: This is a pleasant 76 years old female status post colostomy reversal. Continue with liquid diet and advance as per surgery team Pain management. Continue gentle hydration. Continue with antihypertensive medication lisinopril and Aldactone. Norvasc added. Monitor blood pressure. Labs and medication were reviewed.. Continue same treatment. Continue with symptomatic treatment. Resume home medication. Monitor lytes and vitals. DVT and GI prophylaxis. Further recommendations as per clinical course of the patient DVT prophylaxis: Subcutaneous heparin GI Prophylaxis: Pepcid PT/OT: Pending Prognosis is guarded
--- NOTE | 2022-02-28 13:11 | P.PN ---
Subjective Progress Note Date: 02/28/22 CHIEF COMPLAINT: History of sigmoid volvulus HISTORY OF PRESENT ILLNESS: Patient is status post lysis of adhesion and reversal of colostomy. She did have a bowel movement early this morning. Denies any nausea vomiting. Does report abdominal pain. She's tolerating a full liquid diet. Afebrile. WBC 11.09 Hgb 8.8 platelets 277 sodium 141 potassium 4.2 creatinine 0.7 Patient seen and examined with Dr. valadez PHYSICAL EXAM: VITAL SIGNS: Reviewed. GENERAL: Well-developed in no acute distress. HEENT: No sclera icterus. Extraocular movements grossly intact. Moist buccal mucosa. Head is atraumatic, normocephalic. ABDOMEN: Soft. Nondistended. Tenderness at incision site. Some minimal blood oozing at the middle of the incision site NEUROLOGIC: Alert and oriented. Cranial nerves II through XII grossly intact. Hard of hearing ASSESSMENT: 1. Sigmoid volvulus status post lysis of adhesion and reversal of colostomy PLAN: -Add Ultram for oral pain medication -Hep-Lock IV fluids -Continue full liquids -Consult PT OT. Possible ECF placement -Continue supportive care -Change incisional dressing -GI prophylaxis Pepcid and DVT prophylaxis subcu heparin -Anticipate discharge possibly Monday Physician Personal Finance Instructor note has been reviewed by physician. Signing provider agrees with the documented findings, assessment, and plan of care. Objective - Vital Signs Vital signs: Vital Signs Temp 98 F 02/28/22 12:34 Pulse 59 L 02/28/22 12:34 Resp 16 02/28/22 12:34 BP 109/63 02/28/22 12:34 Pulse Ox 97 02/28/22 12:34 FiO2 Intake & Output 02/27/22 02/28/22 02/28/22 18:59 06:59 18:59 Intake Total 360 590 Balance 360 590 Intake: Oral 360 590 Other: Voiding Method Indwelling Catheter Diaper Diaper Incontinent Incontinent # Voids 4 2 # Bowel Movements 1 - Labs CBC & Chem 7: 02/28/22 06:19 02/27/22 07:10 Labs: Abnormal Lab Results - Last 24 Hours (Table) 02/28/22 Range/Units 06:19 WBC 11.09 H (4.50-10.00) X 10*3/uL RBC 3.52 L (4.10-5.20) X 10*6/uL Hgb 8.8 L (12.0-15.0) g/dL Hct 29.5 L (37.2-46.3) % MCH 25.0 L (27.0-32.0) pg MCHC 29.8 L (32.0-37.0) g/dL RDW 21.8 H (11.5-14.5) % Neutrophils # 8.10 H (1.80-7.70) X 10*3/uL
[2022-02-28] MEDS: traMADol 50 MG TAB PO PRN (17:09)
[2022-02-28] MEDS: FAMOTIDINE 20 MG TAB PO SCH (20:06)
[2022-02-28] MEDS: ATORVASTATIN 40 MG TAB PO SCH (20:06)
[2022-02-28] MEDS: QUEtiapine 100 MG TAB PO SCH (20:07)
[2022-02-28 21:18] VITALS: RESP 18
[2022-03-01] MEDS: HEPARIN SODIUM,PORCINE/PF 5,000 UNIT/0.5 ML SYRINGE SQ SCH ×2 (00:26→08:09)
[2022-03-01] MEDS: LACTATED RINGERS 1,000 ML IV SCH (05:19)
[2022-03-01 05:24] VITALS: TEMP 98.6
[2022-03-01] MEDS: LEVOTHYROXINE 25 MCG TAB PO SCH (05:47)
[2022-03-01 08:08] VITALS: BP 132/72; PULSE 73
[2022-03-01] MEDS: SPIRONOLACTONE 25 MG TAB PO SCH (08:08)
[2022-03-01] MEDS: traMADol 50 MG TAB PO PRN ×2 (08:08→13:13)
[2022-03-01] MEDS: ASPIRIN 81 MG PO SCH (08:08)
[2022-03-01] MEDS: CYANOCOBALAMIN 500 MCG TAB PO SCH (08:08)
[2022-03-01] MEDS: amLODIPine 5 MG TAB PO SCH (08:08)
[2022-03-01] MEDS: ISOSORBIDE MONONITRATE ER 30 MG TAB.ER.24H PO SCH (08:08)
[2022-03-01] MEDS: FAMOTIDINE 20 MG TAB PO SCH (08:09)
[2022-03-01] MEDS: lisinopriL 10 MG TAB PO SCH (08:09)
[2022-03-01] MEDS: ursodioL 300 MG CAP PO SCH (08:09)
[2022-03-01] MEDS: carvediloL 3.125 MG TAB PO SCH (08:09)
[2022-03-01 09:43] LABS: Basophils # (A) 0.05 X 10*3/uL (0.00-0.10); Basophils % (A) 0.5 %; Eosinophils # (A) 0.35 X 10*3/uL (0.04-0.35); Eosinophils % (A) 3.8 %; HCT 27.9 % (37.2-46.3); HGB 8.4 g/dL (12.0-15.0); Immature Grans, Automated 0.6 %; Lymphocytes # (A) 1.75 X 10*3/uL (0.90-5.00); Lymphocytes % (A) 18.9 %; MCH 24.8 pg (27.0-32.0); MCHC 30.1 g/dL (32.0-37.0); MCV 82.3 fL (80.0-97.0); Mean Platelet Volume 10.6 fL (9.5-12.2); Monocytes # (A) 0.74 X 10*3/uL (0.20-1.00); NRBC Per 100 WBC 0 /100 WBCS (0.0-0.0); Neutrophils # (A) 6.29 X 10*3/uL (1.80-7.70); Neutrophils % (A) 68.2 %; Platelet Count 262 X 10*3/uL (140-440); RBC 3.39 X 10*6/uL (4.10-5.20); RDW 21.5 % (11.5-14.5); WBC 9.24 X 10*3/uL (4.50-10.00)
--- NOTE | 2022-03-01 12:03 | P.DS ---
Providers Date of admission: 02/25/22 06:49 Expected date of discharge: 03/01/22 Attending physician: Myron Saldana Consults: 02/25/22 11:33 Consult Physician Routine Consulting Provider: Hola Fontenot Consult Reason/Comments: Medical management Do you want consulting provider notified?: Yes [facility]: Discharge diagnosis 1. 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 She is status post lysis of adhesions and reversal of colostomy. Patient is having bowel movements. She is tolerating diet. She's afebrile. She is up and ambulating. She is stable for discharge. Please refer to chart for any further details. Physician Slope Hoist Operator note has been reviewed by physician. Signing provider agrees with the documented findings, assessment, and plan of care. Patient Condition at Discharge: Stable Plan - Discharge Summary Discharge Rx Participant: No New Discharge Prescriptions: Continue Atorvastatin [Lipitor] 40 mg PO HS Isosorbide Mononitrate [Imdur] 30 mg PO DAILY ursodioL [Actigall] 600 mg PO BID QUEtiapine [SEROquel] 100 mg PO HS traMADol HCL [Ultram] 50 mg PO BID PRN PRN Reason: Pain Aspirin 81 mg PO DAILY Levothyroxine Sodium [Synthroid] 25 mcg PO DAILY Cyanocobalamin (Vitamin B-12) [Vitamin B-12] 500 mcg PO DAILY carvediloL [Coreg] 3.125 mg PO BID-W/MEALS #60 tab lisinopriL [Zestril] 10 mg PO DAILY #30 tab Spironolactone [Aldactone] 25 mg PO DAILY No Action Bumetanide [BUMEX] 1 mg PO DAILY PRN PRN Reason: Edema Discharge Medication List Atorvastatin [Lipitor] 40 mg PO HS 06/21/14 [History] Isosorbide Mononitrate [Imdur] 30 mg PO DAILY 06/21/14 [History] ursodioL [Actigall] 600 mg PO BID 11/22/16 [History] QUEtiapine [SEROquel] 100 mg PO HS 11/23/16 [History] traMADol HCL [Ultram] 50 mg PO BID PRN 10/09/20 [History] Bumetanide [BUMEX] 1 mg PO DAILY PRN 07/24/21 [History] Cyanocobalamin (Vitamin B-12) [Vitamin B-12] 500 mcg PO DAILY 07/24/21 [History] Levothyroxine Sodium [Synthroid] 25 mcg PO DAILY 07/24/21 [History] carvediloL [Coreg] 3.125 mg PO BID-W/MEALS #60 tab 07/26/21 [Rx] lisinopriL [Zestril] 10 mg PO DAILY #30 tab 07/26/21 [Rx] Aspirin 81 mg PO DAILY 02/23/22 [History] Spironolactone [Aldactone] 25 mg PO DAILY 02/23/22 [History] Follow up Appointment(s)/Referral(s): Myron Saldana MD [STAFF PHYSICIAN] - 1 Week Juan Cast DO [Primary Care Provider] - 3 Days Activity/Diet/Wound Care/Special Instructions: No driving while taking ultram No lifting over 10 pounds Shower daily. No soaking or tub baths for 2 weeks Very light activity until you are reevaluated at your follow up appointment with your surgeon Discharge Disposition: HOME SELF-CARE
--- NOTE | 2022-03-01 12:43 | P.PN ---
Subjective Patient is a pleasant 76-year-old female admitted reversal colostomy patient had a sigmoid volvulus in the past for which patient had colectomy followed by colostomy patient is clinically doing well posterior reversal. Patient denied any fever chills nausea vomiting. 02/27/2022 Patient is with sigmoid volvulus status post reversal of colostomy and extensive lysis of adhesions. Patient still complaining of from abdominal pain and she was kept on liquid diet by surgery team although she had 1 bowel movement today. Blood pressure is elevated and she is already on lisinopril 10 mg daily and Aldactone. We will add Norvasc. I then closed change to D5 normal saline at 50 mL/h 02/28/2022 Patient was witnessed sitting in chair and eating her breakfast calmly. She still complaining from abdominal pain but she tolerates diet well and she has bowel movement. Her blood pressure improved down to 120/69 after she was started on Norvasc yesterday. She was started on Ultram also for better pain control WBC 11.0, hemoglobin 8.8. 03/01/2012 Patient is awake and alert, she tolerates diet well. Patient diet was advanced to a low fiber diet by surgery team. She denies worsening abdominal pain, she still have some discomfort but she has bowel movement today although it was little bit loose. She is hemodynamically stable. Afebrile. Labs reviewed. Her blood pressure is controlled. IV fluids can be stopped. Patient looks medically stable. Objective - Vital Signs Vital signs: Vital Signs Temp 98.6 F 03/01/22 05:00 Pulse 73 03/01/22 08:07 Resp 18 03/01/22 05:00 BP 132/72 03/01/22 08:07 Pulse Ox 96 03/01/22 05:00 FiO2 Intake & Output 02/28/22 03/01/22 03/01/22 18:59 06:59 18:59 Other: Voiding Method Diaper Diaper Incontinent Incontinent # Voids 3 2 2 - Exam GENERAL: The patient is alert and oriented x3, not in any acute distress. Well developed, well nourished. HEENT: Pupils are round and equally reacting to light. EOMI. No scleral icterus. No conjunctival pallor. Normocephalic, atraumatic. No pharyngeal erythema. No thyromegaly. CARDIOVASCULAR: S1 and S2 present. No murmurs, rubs, or gallops. PULMONARY: Chest is clear to auscultation, no wheezing or crackles. -ABDOMEN: Soft, nontender, nondistended, normoactive bowel sounds. No palpable organomegaly. Surgical wound with person and place MUSCULOSKELETAL: No joint swelling or deformity. EXTREMITIES: No cyanosis, clubbing, or pedal edema. NEUROLOGICAL: Gross neurological examination did not reveal any focal deficits. SKIN: No rashes. no petechiae. - Labs CBC & Chem 7: 03/01/22 05:55 02/27/22 07:10 Labs: Abnormal Lab Results - Last 24 Hours (Table) 03/01/22 Range/Units 05:55 RBC 3.39 L (4.10-5.20) X 10*6/uL Hgb 8.4 L (12.0-15.0) g/dL Hct 27.9 L (37.2-46.3) % MCH 24.8 L (27.0-32.0) pg MCHC 30.1 L (32.0-37.0) g/dL RDW 21.5 H (11.5-14.5) % Immature Gran # 0.06 H (0.00-0.04) X 10*3/uL Assessment and Plan Assessment: -Sigmoid volvulus, status status post reversal of colostomy. -Hypertension -Hyperlipidemia -Hypothyroidism Plan: This is a pleasant 76 years old female status post colostomy reversal. Continue with diet as per surgery team Pain management. Discontinue IV fluids Continue with antihypertensive medication lisinopril and Aldactone. Monitor blood pressure. Patient can be considered U Ramírez and instead of Norvasc Labs and medication were reviewed.. Continue same treatment. Continue with symptomatic treatment. Resume home medication. Monitor lytes and vitals. DVT and GI prophylaxis. Further recommendations as per clinical course of the patient DVT prophylaxis: Subcutaneous heparin GI Prophylaxis: Pepcid We recommend patient follow up with PCP Dr. Cast in one week, patient was instructed with the same she agrees Patient will benefit from home health care which is already ordered Patient is medically stable
== END 2022-03-01 13:41 | disposition home health service (06) | DRG 337 ==
LOC: 2ORMAIN 06:49 → 2SICU 12:52 → 5NMEDONC 15:12
PROVIDERS: ADMIT Surgery; ATTEND Surgery
PROC: 0DSM0ZZ Reposition Descending Colon, Open Approach (ICD-10-PCS; principal; 2022-02-25 08:50)
PROC: 0DN80ZZ Release Small Intestine, Open Approach (ICD-10-PCS; principal; 2022-02-25 08:50)
DX: Z43.3 Encounter for attention to colostomy (principal); E03.9 Hypothyroidism, unspecified; I11.0 Hypertensive heart disease with heart failure; I50.9 Heart failure, unspecified; E78.5 Hyperlipidemia, unspecified; K74.60 Unspecified cirrhosis of liver; M19.90 Unspecified osteoarthritis, unspecified site; R73.03 Prediabetes; K66.0 Peritoneal adhesions (postprocedural) (postinfection); D63.8 Anemia in other chronic diseases classified elsewhere; H91.90 Unspecified hearing loss, unspecified ear; Z87.19 Personal history of other diseases of the digestive system; Z79.82 Long term (current) use of aspirin; Z79.890 Hormone replacement therapy; Z79.899 Other long term (current) drug therapy; Z90.710 Acquired absence of both cervix and uterus; Z95.1 Presence of aortocoronary bypass graft; Z98.84 Bariatric surgery status; Z91.041 Radiographic dye allergy status; Z88.5 Allergy status to narcotic agent; Z91.013 Allergy to seafood; Z88.6 Allergy status to analgesic agent; Z87.81 Personal history of (healed) traumatic fracture; Z86.718 Personal history of other venous thrombosis and embolism; Z86.14 Personal history of Methicillin resistant Staphylococcus aureus infection; Z90.49 Acquired absence of other specified parts of digestive tract; Z90.89 Acquired absence of other organs; Z82.49 Family history of ischemic heart disease and other diseases of the circulatory system; Z84.89 Family history of other specified conditions; Z83.3 Family history of diabetes mellitus
CPT/HCPCS: 80048; 85025; 85027; 86850; 86900; 86901; 88304

== ENCOUNTER 2022-07-10 23:04 | Emergency (ER) | payer MEDICARE ==
[2022-07-10] MEDS ORDERED: SODIUM CHLORIDE 0.9% 1,000 ML IV STA (23:12)
--- NOTE | 2022-07-10 23:13 | ED ---
Altered Mental Status HPI - General Stated Complaint: Altered mental status Time Seen by Provider: 07/10/22 23:08 Source: RN notes reviewed, old records reviewed, Caregiver Mode of arrival: EMS Limitations: no limitations - History of Present Illness Initial Comments: This is a 76-year-old female DF for evaluation patient Dese for evaluation regards to altered mental status, patient was concern for overdose, patient denies states she took her normal medications tonight. MD Complaint: altered mental status -: unknown Severity: mild Consistency of Symptoms: waxing and waning Context: drug abuse, history of similar presentation Associated Symptoms: denies other symptoms Treatments Prior to Arrival: IV fluid, oxygen - Related Data Home Medications Medication Instructions Recorded Confirmed Atorvastatin [Lipitor] 40 mg PO HS 06/21/14 02/25/22 Isosorbide Mononitrate [Imdur] 30 mg PO DAILY 06/21/14 02/25/22 ursodioL [Actigall] 600 mg PO BID 11/22/16 02/25/22 QUEtiapine [SEROquel] 100 mg PO HS 11/23/16 02/25/22 Bumetanide [BUMEX] 1 mg PO DAILY PRN 07/24/21 02/25/22 Cyanocobalamin (Vitamin B-12) 500 mcg PO DAILY 07/24/21 02/25/22 [Vitamin B-12] Levothyroxine Sodium [Synthroid] 25 mcg PO DAILY 07/24/21 02/25/22 Aspirin 81 mg PO DAILY 02/23/22 02/25/22 Spironolactone [Aldactone] 25 mg PO DAILY 02/23/22 02/25/22 Previous Rx's Medication Instructions Recorded carvediloL [Coreg] 3.125 mg PO BID-W/MEALS #60 tab 07/26/21 lisinopriL [Zestril] 10 mg PO DAILY #30 tab 07/26/21 traMADol HCl [Ultram] 50 mg PO Q12HR PRN 3 Days #6 tab 03/01/22 Allergies Allergy/AdvReac Type Severity Reaction Status Date / Time Iodinated Contrast Media Allergy Rash/Hives Verified 07/10/22 23:07 [Iodinated Contrast Media - Oral and] oxycodone HCl [From Percocet] Allergy Rash/Hives/Nose Verified 07/10/22 23:07 Kerr shellfish derived Allergy Rash/Hives Verified 07/10/22 23:07 acetaminophen [From Percocet] AdvReac Severe Liver Verified 07/10/22 23:07 Failure Review of Systems ROS Statement: Those systems with pertinent positive or pertinent negative responses have been documented in the HPI. ROS Other: All systems not noted in ROS Statement are negative. Past Medical History Past Medical History: Hyperlipidemia, Hypertension, Liver Disease, Musculoskeletal Disorder, Osteoarthritis (OA), Thyroid Disorder Additional Past Medical History / Comment(s): Hx [id number]-gedny't see specialist anymore, borderline diabetes, states no meds just watches what she eats. No fall in the last three months. left wrist fx about 3 year ago. bilateral leg edema severe, that leak at times. Heart failure and DVT per Dr Joel rivera's dictation. Pt has a hx of anemia per H&P from [facility] Castellanos PAC. History of Any Multi-Drug Resistant Organisms: MRSA Date of last positivie culture/infection: 2020 MDRO Source:: coccyx Past Surgical History: Appendectomy, Bowel Resection, Cholecystectomy, Coronary Bypass/CABG, Heart Catheterization, Hysterectomy, Tonsillectomy Additional Past Surgical History / Comment(s): Gastric bypass, bowel obstruction x3, quad bypass 18 yrs ago. colostomy Past Anesthesia/Blood Transfusion Reactions: Family History of Problems w/ Anesthesia Additional Past Anesthesia/Blood Transfusion Reaction / Comment(s): Mother had difficulty waking up after anesthesia. Date of Last Stent Placement:: unknown Past Psychological History: No Psychological Hx Reported Smoking Status: Never smoker Past Alcohol Use History: None Reported Past Drug Use History: None Reported - Past Family History Mother Family Medical History: Diabetes Mellitus, Myocardial Infarction ([place]) Additional Family Medical History / Comment(s): Open heart surgery Father Family Medical History: Myocardial Infarction ([place]) General Exam Limitations: altered mental status General appearance: alert, in no apparent distress Head exam: Present: atraumatic, normocephalic, normal inspection Eye exam: Present: normal appearance, PERRL, EOMI. Absent: scleral icterus, conjunctival injection, periorbital swelling ENT exam: Present: normal exam, mucous membranes moist Neck exam: Present: normal inspection. Absent: tenderness, meningismus, lymphadenopathy Respiratory exam: Present: normal lung sounds bilaterally. Absent: respiratory distress, wheezes, rales, rhonchi, stridor Cardiovascular Exam: Present: regular rate, normal rhythm, normal heart sounds. Absent: systolic murmur, diastolic murmur, rubs, gallop, clicks GI/Abdominal exam: Present: soft, normal bowel sounds. Absent: distended, tenderness, guarding, rebound, rigid Extremities exam: Present: normal inspection, full ROM, normal capillary refill. Absent: tenderness, pedal edema, joint swelling, calf tenderness Back exam: Present: normal inspection Neurological exam: Present: alert, oriented X3, CN II-XII intact Psychiatric exam: Present: normal affect, normal mood Skin exam: Present: warm, dry, intact, normal color. Absent: rash Course Vital Signs 07/10/22 07/10/22 23:08 23:20 Temperature 97.0 F L Pulse Rate 52 L 62 Respiratory 16 15 Rate Blood Pressure 160/67 147/68 O2 Sat by Pulse 99 100 Oximetry - Reevaluation(s) Reevaluation #1: 07/11/22 01:31 Medical record is reviewed Reevaluation #2: 07/11/22 01:31 Patient is at baseline Reevaluation #3: 07/11/22 01:31 Family informed of results patient can be discharged Medical Decision Making - Medical Decision Making 76 female to the emergency department for evaluation. Patient presents today for altered mental status. Patient's was not acting appropriately at home, presents DF for evaluation patient currently acting appropriately. Testing is normal family states patient at bedside not comfortable taking patient home - Lab Data Result diagrams: 07/10/22 23:20 07/10/22 23:20 Lab Results 07/10/22 07/10/22 07/10/22 Range/Units 23:20 23:20 23:20 WBC 6.1 (3.8-10.6) k/uL RBC 3.70 L (3.80-5.40) m/uL Hgb 10.2 L (11.4-16.0) gm/dL Hct 31.4 L (34.0-46.0) % MCV 84.9 (80.0-100.0) fL MCH 27.6 (25.0-35.0) pg MCHC 32.6 (31.0-37.0) g/dL RDW 17.7 H (11.5-15.5) % Plt Count 241 (150-450) k/uL MPV 8.0 Neutrophils % 64 % Lymphocytes % 25 % Monocytes % 6 % Eosinophils % 2 % Basophils % 1 % Neutrophils # 4.0 (1.3-7.7) k/uL Lymphocytes # 1.5 (1.0-4.8) k/uL Monocytes # 0.4 (0-1.0) k/uL Eosinophils # 0.1 (0-0.7) k/uL Basophils # 0.0 (0-0.2) k/uL Hypochromasia Moderate Anisocytosis Slight PT 11.0 (9.0-12.0) sec INR 1.0 (<1.2) APTT 23.9 (22.0-30.0) sec Sodium 133 L (137-145) mmol/L Potassium 5.1 (3.5-5.1) mmol/L Chloride 100 (98-107) mmol/L Carbon Dioxide 22 (22-30) mmol/L Anion Gap 11 mmol/L BUN 18 H (7-17) mg/dL Creatinine 0.86 (0.52-1.04) mg/dL Est GFR (CKD-EPI)AfAm 77 (>60 ml/min/1.73 sqM) Est GFR (CKD-EPI)NonAf 66 (>60 ml/min/1.73 sqM) Glucose 138 H (74-99) mg/dL Plasma Lactic Acid Jose (0.7-2.0) mmol/L Calcium 8.3 L (8.4-10.2) mg/dL Phosphorus 4.5 (2.5-4.5) mg/dL Magnesium 2.3 (1.6-2.3) mg/dL Total Bilirubin 0.5 (0.2-1.3) mg/dL AST 26 (14-36) U/L ALT 15 (4-34) U/L Alkaline Phosphatase 139 H (38-126) U/L Ammonia (<30) umol/L Troponin I (0.000-0.034) ng/mL Total Protein 6.2 L (6.3-8.2) g/dL Albumin 3.3 L (3.5-5.0) g/dL TSH 10.000 H (0.465-4.680) mIU/L Urine Color Urine Appearance (Clear) Urine pH (5.0-8.0) Ur Specific Guild (1.001-1.035) Urine Protein (Negative) Urine Glucose (UA) (Negative) Urine Ketones (Negative) Urine Blood (Negative) Urine Nitrite (Negative) Urine Bilirubin (Negative) Urine Urobilinogen (<2.0) mg/dL Ur Leukocyte Esterase (Negative) Urine RBC (0-5) /hpf Urine WBC (0-5) /hpf Ur Squamous Epith Cells (0-4) /hpf Urine Bacteria (None) /hpf Hyaline Casts (0-2) /lpf Urine Mucus (None) /hpf 07/10/22 07/10/22 07/11/22 Range/Units 23:20 23:20 00:44 WBC (3.8-10.6) k/uL RBC (3.80-5.40) m/uL Hgb (11.4-16.0) gm/dL Hct (34.0-46.0) % MCV (80.0-100.0) fL MCH (25.0-35.0) pg MCHC (31.0-37.0) g/dL RDW (11.5-15.5) % Plt Count (150-450) k/uL MPV Neutrophils % % Lymphocytes % % Monocytes % % Eosinophils % % Basophils % % Neutrophils # (1.3-7.7) k/uL Lymphocytes # (1.0-4.8) k/uL Monocytes # (0-1.0) k/uL Eosinophils # (0-0.7) k/uL Basophils # (0-0.2) k/uL Hypochromasia Anisocytosis PT (9.0-12.0) sec INR (<1.2) APTT (22.0-30.0) sec Sodium (137-145) mmol/L Potassium (3.5-5.1) mmol/L Chloride (98-107) mmol/L Carbon Dioxide (22-30) mmol/L Anion Gap mmol/L BUN (7-17) mg/dL Creatinine (0.52-1.04) mg/dL Est GFR (CKD-EPI)AfAm (>60 ml/min/1.73 sqM) Est GFR (CKD-EPI)NonAf (>60 ml/min/1.73 sqM) Glucose (74-99) mg/dL Plasma Lactic Acid Jose 0.8 (0.7-2.0) mmol/L Calcium (8.4-10.2) mg/dL Phosphorus (2.5-4.5) mg/dL Magnesium (1.6-2.3) mg/dL Total Bilirubin (0.2-1.3) mg/dL AST (14-36) U/L ALT (4-34) U/L Alkaline Phosphatase (38-126) U/L Ammonia <9 (<30) umol/L Troponin I <0.012 (0.000-0.034) ng/mL Total Protein (6.3-8.2) g/dL Albumin (3.5-5.0) g/dL TSH (0.465-4.680) mIU/L Urine Color Yellow Urine Appearance Cloudy H (Clear) Urine pH 6.5 (5.0-8.0) Ur Specific Guild 1.014 (1.001-1.035) Urine Protein Negative (Negative) Urine Glucose (UA) Negative (Negative) Urine Ketones Negative (Negative) Urine Blood Negative (Negative) Urine Nitrite Positive H (Negative) Urine Bilirubin Negative (Negative) Urine Urobilinogen 2.0 (<2.0) mg/dL Ur Leukocyte Esterase Large H (Negative) Urine RBC 1 (0-5) /hpf Urine WBC 133 H (0-5) /hpf Ur Squamous Epith Cells 7 H (0-4) /hpf Urine Bacteria Few H (None) /hpf Hyaline Casts 3 H (0-2) /lpf Urine Mucus Rare H (None) /hpf - EKG Data -: EKG Interpreted by Me (EKG is sinus bradycardia 51 SC 136 QRS 85 QTc 462) Disposition Clinical Impression: Altered mental status Disposition: HOME SELF-CARE Condition: Good Instructions (If sedation given, give patient instructions): Altered Mental Status (ED), Adult Overdose (ED) Is patient prescribed a controlled substance at d/c from ED?: No Referrals: Juan Cast DO [Primary Care Provider] - 1-2 days Time of Disposition: 01:00
[2022-07-10 23:44] LABS: Anisocytosis Slight; Basophils % (A) 1 %; Eosinophils # (A) 0.1 k/uL (0-0.7); Eosinophils % (A) 2 %; HCT 31.4 % (34.0-46.0); HGB 10.2 gm/dL (11.4-16.0); Hypochromasia Moderate; Lymphocytes # (A) 1.5 k/uL (1.0-4.8); Lymphocytes % (A) 25 %; MCH 27.6 pg (25.0-35.0); MCHC 32.6 g/dL (31.0-37.0); MCV 84.9 fL (80.0-100.0); Monocytes # (A) 0.4 k/uL (0-1.0); Monocytes % (A) 6 %; Neutrophils % (A) 64 %; Platelet Count 241 k/uL (150-450); RDW 17.7 % (11.5-15.5); WBC 6.1 k/uL (3.8-10.6)
[2022-07-11 00:04] LABS: Partial Thromboplastin Time 23.9 sec (22.0-30.0)
[2022-07-11 00:11] LABS: Lactic Acid, Venous 0.8 mmol/L (0.7-2.0)
[2022-07-11 00:12] LABS: Albumin 3.3 g/dL (3.5-5.0); Calcium 8.3 mg/dL (8.4-10.2); Total Bilirubin 0.5 mg/dL (0.2-1.3); Total Protein 6.2 g/dL (6.3-8.2)
[2022-07-11 00:16] LABS: Potassium 5.1 mmol/L (3.5-5.1)
[2022-07-11 00:17] LABS: Magnesium 2.3 mg/dL (1.6-2.3); Phosphorus 4.5 mg/dL (2.5-4.5)
[2022-07-11 01:15] LABS: Appearance,Urine Cloudy (Clear); Bacteria,Urine Few /hpf; Bilirubin,Urine Negative (Negative); Blood,Urine Negative (Negative); Color,Urine Yellow; Glucose,Urine (UA) Negative (Negative); Hyaline Casts,Urine 3 /lpf (0-2); Ketones,Urine Negative (Negative); Leukocyte Esterase,Urine Large (Negative); Mucus,Urine Rare /hpf; Nitrite,Urine Positive (Negative); PH, Urine 6.5 (5.0-8.0); Protein,Urine Negative (Negative); RBC,Urine 1 /hpf (0-5); Specific Gravity,Urine 1.014 (1.001-1.035); Squamous Epithelial Cell,Urine 7 /hpf (0-4); WBC,Urine 133 /hpf (0-5)
[2022-07-11 01:42] VITALS: BP 130/71; PULSE 59; RESP 16; TEMP 97
== END 2022-07-11 01:25 | disposition home or self-care (01) ==
LOC: EC 23:04
DX: R41.82 Altered mental status, unspecified (principal); E78.5 Hyperlipidemia, unspecified; I10 Essential (primary) hypertension; E07.9 Disorder of thyroid, unspecified; M19.90 Unspecified osteoarthritis, unspecified site; Z91.041 Radiographic dye allergy status; Z91.013 Allergy to seafood; Z79.82 Long term (current) use of aspirin; Z79.899 Other long term (current) drug therapy; Z79.890 Hormone replacement therapy
CPT/HCPCS: 36415; 80053; 81001; 82140; 83605; 83735; 84100; 84443; 84484; 85025; 85610; 85730; 87086; 93005; 96360; 96361; 99285

== ENCOUNTER → 2022-08-31 | Outpatient (CLI) | payer MEDICARE ==
--- NOTE | 2022-08-31 15:29 | US ---
EXAMINATION TYPE: US venous doppler duplex LE RT DATE OF EXAM: 08/31/2022 1:15 PM COMPARISON: NONE CLINICAL HISTORY: M79.661 PAIN IN RIGHT LOWER LEG. pt now off blood thinners and right dst thigh pain SIDE PERFORMED: right TECHNIQUE: The lower extremity deep venous system is examined utilizing real time linear array sonog lopez with graded compression, doppler sonography and color-flow sonography. VESSELS IMAGED: Common Femoral Vein Deep Femoral Vein Greater Saphenous Vein * Femoral Vein Popliteal Vein Small Saphenous Vein * Proximal Calf Veins (* superficial vessels) Right Leg: limited color flow and compression at the right femoral dist vn; possible chronic dvt gail nges; cannot exclude acute on chronic. Results called to Flor in the office at the time of the exam. IMPRESSION: 1. There may be some mild acute right lower extremity deep venous thrombosis. This may be superimpose d on chronic thrombosis.
== END | disposition home or self-care (01) ==
LOC: RADUSWWP 12:34
PROVIDERS: ATTEND Family Medicine
DX: M79.661 Pain in right lower leg (principal); Z86.718 Personal history of other venous thrombosis and embolism

== ENCOUNTER → 2023-07-20 | Outpatient (CLI) | payer MEDICARE ==
--- NOTE | 2023-07-20 11:02 | BD ---
EXAMINATION TYPE: Axial Bone Density DATE OF EXAM: 07/20/2023 CLINICAL HISTORY: 77 years old Female. ICD-10 CODE: M85.9,E83.51,E55.9 VITAMIN D DEFICIENCY, UNSPECI FI Height: 61in Weight: 125lb FRAX RISK QUESTIONS: History of Fracture in Adulthood: yes Secondary Osteoporosis: RISK FACTORS HISTORY OF: History of Wrist Fracture: yes, left When: unknown Surgery to Spine/Hip(right/left)/Wrist (right/left): left wrist When: unknown Active: no Diet low in dairy products/other sources of calcium: yes Postmenopausal woman: yes Frequent falls: yes Poor Health: yes MEDICATIONS: Additional Medications: bp meds, cholesterol meds Additional History: EXAM MEASUREMENTS: Bone mineral densitometry was performed using the [employer] System. Bone mineral density as measured about the Lumbar spine is: ----- L1-L4(G/cm2): 0.992 T Score Values are as follows: ----- L1: -1.3 ----- L2: -0.9 ----- L3: -1.1 ----- L4: -2.9 ----- L1-L4: -1.6 Z Score Values are as follows: ----- L1: 0.8 ----- L2: 1.2 ----- L3: 1.0 ----- L4: -0.9 ----- L1-L4: 0.[address] [facility] Bone mineral density about the R hip (g/cm2): 0.545 Bone mineral density about the L hip (g/cm2): 0.532 T Score values are as follows: -----R Neck: -3.9 -----L Neck: -3.3 -----R Total: -3.7 -----L Total: -3.8 Z Score values are as follows: -----R Neck: -1.7 -----L Neck: -1.1 -----R Total: -1.6 -----L Total: -1.7 FRAX%s: The graph provided illustrates a 46.3% chance for a major osteoporotic fx and a 25.3% chance for the hips probability for fx in 10 years time. IMPRESSION: Osteoporosis (T Score less than -2.5). There is increased fracture risk and therapy is usually indicated based on age. Re-Screen 1-2 years. NOTE: T-SCORE=SD OF THE YOUNG ADULT MEAN.
== END | disposition home or self-care (01) ==
LOC: RADBDWWP 10:06
PROVIDERS: ATTEND Family Medicine
DX: M85.88 Other specified disorders of bone density and structure, other site (principal); M81.0 Age-related osteoporosis without current pathological fracture; E83.51 Hypocalcemia
CPT/HCPCS: 77080

== ENCOUNTER 2023-09-07 14:05 | Emergency (ER) | payer MEDICARE ==
--- NOTE | 2023-09-07 14:36 | ED ---
General Adult HPI - General Stated complaint: Fall,On Thinners-Hit Head Time Seen by Provider: 09/07/23 14:36 - History of Present Illness Initial comments: 78-year-old female on blood thinners presenting to the ED status post fall. Per family, patient tangled up while getting out of bed today. Due to this, fell from standing onto her left side. During this fall patient did hit her head. Patient now notes pain of the left arm, left side of the chest, and left side of the abdomen. No other injuries during this time. No dizziness, chest pain, or shortness of breath preceding the fall. No other complaints. - Related Data Home Medications Medication Instructions Recorded Confirmed Atorvastatin [Lipitor] 40 mg PO HS 06/21/14 02/25/22 Isosorbide Mononitrate [Imdur] 30 mg PO DAILY 06/21/14 02/25/22 ursodioL [Actigall] 600 mg PO BID 11/22/16 02/25/22 QUEtiapine [SEROquel] 100 mg PO HS 11/23/16 02/25/22 Bumetanide [BUMEX] 1 mg PO DAILY PRN 07/24/21 02/25/22 Cyanocobalamin (Vitamin B-12) 500 mcg PO DAILY 07/24/21 02/25/22 [Vitamin B-12] Levothyroxine Sodium [Synthroid] 25 mcg PO DAILY 07/24/21 02/25/22 Aspirin 81 mg PO DAILY 02/23/22 02/25/22 Spironolactone [Aldactone] 25 mg PO DAILY 02/23/22 02/25/22 Previous Rx's Medication Instructions Recorded carvediloL [Coreg] 3.125 mg PO BID-W/MEALS #60 tab 07/26/21 lisinopriL [Zestril] 10 mg PO DAILY #30 tab 07/26/21 traMADol HCl [Ultram] 50 mg PO Q12HR PRN 3 Days #6 tab 03/01/22 Allergies Allergy/AdvReac Type Severity Reaction Status Date / Time Iodinated Contrast Media Allergy Rash/Hives Verified 09/07/23 17:45 [Iodinated Contrast Media - Oral and] oxycodone HCl [From Percocet] Allergy Rash/Hives/Nose Verified 09/07/23 17:45 Kerr shellfish derived Allergy Rash/Hives Verified 09/07/23 17:45 acetaminophen [From Percocet] AdvReac Severe Liver Verified 09/07/23 17:45 Failure Review of Systems ROS Statement: Those systems with pertinent positive or pertinent negative responses have been documented in the HPI. ROS Other: All systems not noted in ROS Statement are negative. Past Medical History Past Medical History: Hyperlipidemia, Hypertension, Liver Disease, Musculoskeletal Disorder, Osteoarthritis (OA), Thyroid Disorder Additional Past Medical History / Comment(s): Hx [id number] see specialist anymore, borderline diabetes, states no meds just watches what she eats. No fall in the last three months. left wrist fx about 3 year ago. bilateral leg edema severe, that leak at times. Heart failure and DVT per Dr Diaz's dictation. Pt has a hx of anemia per H&P from [facility]ell[facility]. History of Any Multi-Drug Resistant Organisms: MRSA Date of last positivie culture/infection: 12/29/22 MDRO Source:: Right Ankle Past Surgical History: Appendectomy, Bowel Resection, Cholecystectomy, Coronary Bypass/CABG, Heart Catheterization, Hysterectomy, Tonsillectomy Additional Past Surgical History / Comment(s): Gastric bypass, bowel obstruction x3, quad bypass 18 yrs ago. colostomy Past Anesthesia/Blood Transfusion Reactions: Family History of Problems w/ Anesthesia Additional Past Anesthesia/Blood Transfusion Reaction / Comment(s): Mother had difficulty waking up after anesthesia. Date of Last Stent Placement:: unknown Past Psychological History: No Psychological Hx Reported Smoking Status: Never smoker Past Alcohol Use History: None Reported Past Drug Use History: None Reported - Past Family History Mother Family Medical History: Diabetes Mellitus, Myocardial Infarction ([place]) Additional Family Medical History / Comment(s): Open heart surgery Father Family Medical History: Myocardial Infarction ([place]) General Exam - General Exam Comments Initial Comments: Visual Physical Exam Vital signs reviewed General: Well-appearing, nontoxic, no acute distress. Head: Normocephalic, atraumatic ENT: Airway patent Chest: Nonlabored breathing Skin: No visual rash, normal skin tone Neuro: Alert General appearance: alert, in no apparent distress Head exam: Present: other (No battles sign or racoons eyes) Respiratory exam: Present: normal lung sounds bilaterally Cardiovascular Exam: Present: regular rate, normal rhythm GI/Abdominal exam: Present: soft Extremities exam: Present: other (Ecchymosis of the left upper extremity and across the left chest wall and left abdomen. Does have pain to palpation at the left hip. Strength and sensation equal and intact in bilateral lower extremities.) Course Vital Signs 09/07/23 17:40 Temperature 97.7 F Pulse Rate 78 Respiratory 22 Rate Blood Pressure 132/81 O2 Sat by Pulse 98 Oximetry Medical Decision Making - Medical Decision Making Was pt. sent in by a medical professional or institution (, PA, [employer]PLE P[employer]ING [employer]ER, urgent care, hospital, or care home...) When possible be specific @ -No Did you speak to anyone other than the patient for history (EMS, parent, family, police, friend...)? What history was obtained from this source @ -No Did you review nursing and triage notes (agree or disagree)? Why? @ -I reviewed and agree with nursing and triage notes Were old charts reviewed (outside hosp., previous admission, EMS record, old EKG, old radiological studies, urgent care reports/EKG's, care home records)? Report findings @ -No old charts were reviewed Differential Diagnosis (chest pain, altered mental status, abdominal pain women, abdominal pain men, vaginal bleeding, weakness, fever, dyspnea, syncope, headache, dizziness, GI bleed, back pain, seizure, CVA, palpatations, mental health, musculoskeletal)? @ -Differential Musculoskeletal Muscular strain, contusion, ligament sprain, fracture, arthritis, septic arthritis, bursitis, cellulitis, muscle spasm, nerve compression, DVT, arterial occlusion, herpes zoster, electrolyte abnormality, tumor.... This is not meant to be in all inclusive list EKG interpreted by me (3pts min.). @ -None X-rays interpreted by me (1pt min.). @ -X-Rays interpreted by me showing no evidence of fracture or other acute finding. CT interpreted by me (1pt min.). @ -CT of the brain and C-spine and CT of the abdomen and pelvis interpreted by me showing no evidence of fracture or other acute finding. U/S interpreted by me (1pt. min.). @ -None done What testing was considered but not performed or refused? (CT, X-rays, U/S, labs)? Why? @ -None What meds were considered but not given or refused? Why? @ -None Did you discuss the management of the patient with other professionals (professionals i.e. , PA, [employer] P[employer]ER, lab, RT, psych nurse, sexual assault social worker, psychologist counseling, teacher, collection officer, classification case manager)? Give summary @ -No Was smoking cessation discussed for >3mins.? @ -No Was critical care preformed (if so, how long)? @ -No Were there social determinants of health that impacted care today? How? (Homelessness, low income, unemployed, alcoholism, drug addiction, transportation, low edu. Level, literacy, decrease access to med. care, [facility], rehab)? @ -No Was there de-escalation of care discussed even if they declined (Discuss DNR or withdrawal of care, Hospice)? DNR status @ -No What co-morbidities impacted this encounter? (DM, HTN, Smoking, COPD, CAD, Cancer, CVA, ARF, Chemo, Hep., AIDS, mental health diagnosis, sleep apnea, morbid obesity)? @ -None Was patient admitted / discharged? Hospital course, mention meds given and route, prescriptions, significant lab abnormalities, going to OR and other pertinent info. @ -Discharge 78 year old female that due to the ED with a chief complaint of fall from her bed. Now noting pain across the entire left side of her body. Imaging studies reviewed showing no acute finding. Patient discharged home in stable condition. Discussed return precautions with patient's family who verbalizes agreement. Undiagnosed new problem with uncertain prognosis? @ -No Drug Therapy requiring intensive monitoring for toxicity (Heparin, Nitro, Insulin, Cardizem)? @ -No Were any procedures done? @ -No Diagnosis/symptom? @ -mechanical fall on blood thinners Acute, or Chronic, or Acute on Chronic? @ -Acute Uncomplicated (without systemic symptoms) or Complicated (systemic symptoms)? @ -Uncomplicated Side effects of treatment? @ -No Exacerbation, Progression, or Severe Exacerbation? @ -No Poses a threat to life or bodily function? How? (Chest pain, [place], [place], pneumonia, PE, COPD, DKA, ARF, appy, cholecystitis, CVA, Diverticulitis, Homicidal, Suicidal, threat to staff... and all critical care pts) @ -No Disposition Clinical Impression: Fall Disposition: HOME SELF-CARE Condition: Good Instructions (If sedation given, give patient instructions): Fall Prevention for Older Adults (ED) Additional Instructions: Please return to the Emergency Department if symptoms worsen or any other concerns. Is patient prescribed a controlled substance at d/c from ED?: No Referrals: Juan Cast DO [Primary Care Provider] - 1-2 days Time of Disposition: 20:50
--- NOTE | 2023-09-07 17:05 | XR ---
EXAMINATION TYPE: XR shoulder complete 3 views LT, XR humerus 2 views LT, XR forearm 2 views LT DATE OF EXAM: 09/07/2023 Comparison: None Clinical History: 78-year-old female with pain s/p fall pain Findings: Left shoulder: Moderate degenerative changes AC joint. There is bony irregularity at the greater tuberosity. Subacro mial space is preserved. No acute fracture, subluxation, or dislocation. Median sternotomy wires and post-CABG clips noted. Left humerus: No humeral shaft fracture identified. Left forearm: No elbow joint effusion. Some minimal bony spurring at the lateral epicondyles. Old healed fracture d eformity distal radial metaphysis and epiphysis with volar plate and screw fixation. Vascular calcifi cations noted. There is bony irregularity and cystic change along the ulnar proximal aspect of the raffaele valente bone. Vascular calcifications. Some possible soft tissue swelling along the medial and volar asp ect of the proximal forearm. Impression: 1. Left shoulder: Moderate AC joint OA and bony changes of chronic rotator cuff tendinopathy. No acut e osseous abnormality seen. 2. Left humerus: No acute fracture seen. 3. Left forearm: Uncomplicated internal fixation distal radius. Bony changes within the lunate sugges t chronic ulnar impaction syndrome. There is soft tissue swelling along the medial and volar aspect o f the proximal forearm. No underlying acute osseous abnormality seen.
--- NOTE | 2023-09-07 17:41 | CT ---
EXAMINATION TYPE: CT brain maria c wo con DATE OF EXAM: 09/07/2023 COMPARISON: 11/19/2018 HISTORY: 78-year-old female with pain after Fall CT DLP: Combined DLP of 1618.9 mGycm Automated exposure control for dose reduction was used. Technique: Examination of the head was done in axial plane without intravenous contrast. Coronal and sagittal reconstructions performed. CT of the cervical spine was obtained in axial plane without intravenous injection of contrast mater ial. Coronal and sagittal reformatted images were obtained from the axial views for evaluation of f ractures, spinal alignment and canal. FINDINGS: Head: There is no evidence of acute intracranial hemorrhage, acute ischemic changes, mass, mass-effect, or extra-axial fluid collection. There is no effacement of cerebral sulci or basal subarachnoid cister ns. There is no hydrocephalus. There is no midline shift. Liriano-white matter distinction is preserv ed. Atherosclerotic calcifications within the carotid siphons. Lacunar infarcts bilateral basal ganglia and severe confluent white matter hypodensities in both cere bral hemispheres. Focal subcortical white matter infarct right frontal lobe also redemonstrated. Moderate mucosal thickening ethmoid air cells. Mastoid air cells well pneumatized. Orbits and globes are intact. Cervical spine: Small heterogeneous thyroid gland. Suggestion of underlying hypodense nodule right lobe measuring 1 c m. Prominent prostatic calcifications in the carotid siphons. No craniocervical junction abnormality, predental space widening, or prevertebral soft tissue swellin g. Degenerative change of the C1 dens articulation. Moderate degenerative disc disease especially C5-C6 and C6-C7. Disc osteophyte complex at C5-C6 mildl y narrows the spinal canal. No acute fracture seen. Scattered facet and uncovertebral joint arthropathy. Alignment is maintained. Moderate right neuroforaminal stenosis C5-C6. Sagittal and coronal reformatted images confirm above findings. COMBINED IMPRESSION: 1. Severe confluent burden of chronic small vessel ischemic disease. Old lacunar infarcts bilateral b joe ganglia and right subcortical white matter. No acute intracranial abnormality seen. 2. No acute fracture or malalignment of the cervical spine. Mild to moderate multilevel spondylotic c hange especially C5-C7 levels. Moderate right neuroforaminal stenosis C5-C6. 3. Moderate chronic ethmoid sinus disease.
[2023-09-07 18:04] VITALS: BP 132/81; PULSE 78; RESP 22; TEMP 97.7
--- NOTE | 2023-09-07 18:13 | CT ---
EXAMINATION TYPE: CT chest abdomen wo con DATE OF EXAM: 09/07/2023 COMPARISON: Abdomen and pelvis 11/24/2020 HISTORY: 78-year-old female Fall, left side chest and abd pain. TECHNIQUE: Contiguous axial scanning of the chest and abdomen without IV contrast. Coronal and sagitt al reconstructions performed. CT DLP: Combined DLP of 1618.9 mGycm Automated exposure control for dose reduction was used. FINDINGS: Chest: There is prominent soft tissue bruising along the left lateral chest wall and left lateral thoracoabd ominal junction. Previous median sternotomy change with post-CABG changes. Heart borderline enlarged. No pericardial effusion. Ectatic ascending aorta at 3.6 cm. Scattered mild atherosclerotic calcifications are present. Calcified precarinal lymph node suggesting sequela of prior granulomatous disease. Some chronic patchy density at the left base, likely pleural parenchymal scarring. No consolidation o r pleural effusion seen. ABDOMEN: There is a moderate-sized hiatal hernia. Post surgical change of Juan Antonio-en-Y gastric bypass. Exam is limited due to lack of contrast, patient motion and artifact from arms overlying the abdomen. Limited assessment of the liver, adrenal glands, left kidney, spleen, and pancreas show no gross abno rmality Right renal cyst measuring 4.2 cm. Moderate atherosclerotic calcifications throughout the abdominal aorta and iliac arteries. No dilated small bowel, free fluid, or free air. No obvious mesenteric or retroperitoneal adenopathy seen. Some prominent lymph nodes in the mid abdom inal mesentery measure up to 9 mm and are probably reactive/post inflammatory. There is moderate to large stool burden. Staple line at the rectosigmoid junction from prior resectio n and re-anastomosis. Pelvis not imaged. Bones: Right L5 hemisacralization. Most superior endplate deformity L4 remains unchanged. Moderate degenerative disc disease lower thora cic spine. No displaced rib fracture or other acute fracture is seen. IMPRESSION: 1. EXTENSIVE SUBCUTANEOUS SOFT TISSUE BRUISING ALONG THE LEFT LATERAL CHEST AND UPPER ABDOMEN. 2. OTHERWISE, THERE ARE CHRONIC CHANGES; NO DEFINITE ACUTE TRAUMATIC SEQUELAE IDENTIFIED WITHIN THE C HEST OR ABDOMEN. 3. INCIDENTAL: MODERATE-SIZED HIATAL HERNIA STATUS POST JUAN ANTONIO-EN-Y GASTRIC BYPASS. MODERATE TO LARGE STOOL BURDEN. PREVIOUS SURGERY AT THE DISTAL COLON.
== END 2023-09-07 21:11 | disposition home or self-care (01) ==
LOC: EC 14:05
DX: M19.012 Primary osteoarthritis, left shoulder (principal); I11.0 Hypertensive heart disease with heart failure; I50.9 Heart failure, unspecified; E78.5 Hyperlipidemia, unspecified; E07.9 Disorder of thyroid, unspecified; Z79.890 Hormone replacement therapy; Z79.01 Long term (current) use of anticoagulants; Z79.82 Long term (current) use of aspirin; Z79.899 Other long term (current) drug therapy; Z88.5 Allergy status to narcotic agent; Z91.013 Allergy to seafood; Z91.041 Radiographic dye allergy status; Z90.49 Acquired absence of other specified parts of digestive tract; Z95.1 Presence of aortocoronary bypass graft; W06.XXXA Fall from bed, initial encounter
CPT/HCPCS: 70450; 71250; 72125; 74150; 99284

== ENCOUNTER 2024-06-17 11:35 | Emergency (ER) | payer MEDICARE ==
[2024-06-17 11:41] VITALS: TEMP 98.4
[2024-06-17] MEDS: MORPHINE SULFATE 4 MG/ML SYRINGE IM STA (12:55)
--- NOTE | 2024-06-17 13:06 | ED ---
General Adult HPI - General Chief complaint: Fall Stated complaint: fall R knee injury Time Seen by Provider: 06/17/24 12:12 Source: patient, family, RN notes reviewed Mode of arrival: ambulatory Limitations: no limitations - History of Present Illness Initial comments: Patient is a 78-year-old female present to the emergency department with knee pain. Patient fell yesterday on her right leg. Patient has a lot of discomfort getting up and trying to walk. No other area of injury or concern. Patient is able to ambulate with assistance. - Related Data Home Medications Medication Instructions Recorded Confirmed Atorvastatin [Lipitor] 40 mg PO HS 06/21/14 02/25/22 Isosorbide Mononitrate [Imdur] 30 mg PO DAILY 06/21/14 02/25/22 ursodioL [Actigall] 600 mg PO BID 11/22/16 02/25/22 QUEtiapine [SEROquel] 100 mg PO HS 11/23/16 02/25/22 Bumetanide [BUMEX] 1 mg PO DAILY PRN 07/24/21 02/25/22 Cyanocobalamin (Vitamin B-12) 500 mcg PO DAILY 07/24/21 02/25/22 [Vitamin B-12] Levothyroxine Sodium [Synthroid] 25 mcg PO DAILY 07/24/21 02/25/22 Aspirin 81 mg PO DAILY 02/23/22 02/25/22 Spironolactone [Aldactone] 25 mg PO DAILY 02/23/22 02/25/22 Previous Rx's Medication Instructions Recorded carvediloL [Coreg] 3.125 mg PO BID-W/MEALS #60 tab 07/26/21 lisinopriL [Zestril] 10 mg PO DAILY #30 tab 07/26/21 traMADol HCl [Ultram] 50 mg PO Q12HR PRN 3 Days #6 tab 03/01/22 Allergies Allergy/AdvReac Type Severity Reaction Status Date / Time Iodinated Contrast Media Allergy Rash/Hives Verified 06/17/24 11:41 [Iodinated Contrast Media - Oral and] oxycodone HCl [From Percocet] Allergy Rash/Hives/Nose Verified 06/17/24 11:41 Kerr shellfish derived Allergy Rash/Hives Verified 06/17/24 11:41 acetaminophen [From Percocet] AdvReac Severe Liver Verified 06/17/24 11:41 Failure Review of Systems ROS Statement: Those systems with pertinent positive or pertinent negative responses have been documented in the HPI. ROS Other: All systems not noted in ROS Statement are negative. Constitutional: Denies: fever Eyes: Denies: eye pain ENT: Denies: ear pain Respiratory: Denies: cough Cardiovascular: Denies: chest pain Endocrine: Denies: fatigue Gastrointestinal: Denies: abdominal pain Musculoskeletal: Reports: as per HPI. Denies: back pain Past Medical History Past Medical History: Hyperlipidemia, Hypertension, Liver Disease, Musculoskeletal Disorder, Osteoarthritis (OA), Thyroid Disorder Additional Past Medical History / Comment(s): Hx [id number] see specialist anymore, borderline diabetes, states no meds just watches what she eats. No fall in the last three months. left wrist fx about 3 year ago. bilateral leg edema severe, that leak at times. Heart failure and DVT per Dr Diaz's dictation. Pt has a hx of anemia per H&P from Pauly Castellanos PAC. History of Any Multi-Drug Resistant Organisms: MRSA Date of last positivie culture/infection: 12/29/22 MDRO Source:: Right Ankle Past Surgical History: Appendectomy, Bowel Resection, Cholecystectomy, Coronary Bypass/CABG, Heart Catheterization, Hysterectomy, Tonsillectomy Additional Past Surgical History / Comment(s): Gastric bypass, bowel obstruction x3, quad bypass 18 yrs ago. colostomy Past Anesthesia/Blood Transfusion Reactions: Family History of Problems w/ Anesthesia Additional Past Anesthesia/Blood Transfusion Reaction / Comment(s): Mother had difficulty waking up after anesthesia. Date of Last Stent Placement:: unknown Past Psychological History: No Psychological Hx Reported Smoking Status: Never smoker Past Alcohol Use History: None Reported Past Drug Use History: None Reported - Past Family History Mother Family Medical History: Diabetes Mellitus, Myocardial Infarction (NM) Additional Family Medical History / Comment(s): Open heart surgery Father Family Medical History: Myocardial Infarction (NM) General Exam Limitations: no limitations General appearance: alert, in no apparent distress Head exam: Present: atraumatic Eye exam: Present: normal appearance Neck exam: Present: normal inspection. Absent: tenderness Respiratory exam: Present: normal lung sounds bilaterally Cardiovascular Exam: Present: regular rate, normal rhythm Expanded Peripheral pulses: 2+: Posterior Tibialis (R), Dorsalis Pedis (R) GI/Abdominal exam: Present: soft. Absent: tenderness Extremities exam: Present: tenderness (Moderate swelling and moderate tenderness right knee. Mild swelling and tenderness proximal tibial region.), other (Distally the extremity is neurovascularly intact) Neurological exam: Present: alert. Absent: motor sensory deficit Psychiatric exam: Present: normal affect, normal mood Skin exam: Present: other (There is some hemorrhagic bullae formation anterior knee as well as abrasion.) Course Vital Signs 06/17/24 11:39 Temperature 98.4 F Pulse Rate 60 Respiratory 20 Rate Blood Pressure 134/66 O2 Sat by Pulse 96 Oximetry Medical Decision Making - Medical Decision Making Was pt. sent in by a medical professional or institution (, PA, ELECTRONIC SECURITY SPECIALIST, urgent care, hospital, or skilled nursing...) When possible be specific @ -No Did you speak to anyone other than the patient for history (EMS, parent, family, police, friend...)? What history was obtained from this source @ -Daughter is present and helps provide history including history of events and care that she has available at home. Daughter states she lives close by and can help. Did you review nursing and triage notes (agree or disagree)? Why? @ -I reviewed and agree with nursing and triage notes Were old charts reviewed (outside hosp., previous admission, EMS record, old EKG, old radiological studies, urgent care reports/EKG's, skilled nursing records)? Report findings @ -No old charts were reviewed Differential Diagnosis (chest pain, altered mental status, abdominal pain women, abdominal pain men, vaginal bleeding, weakness, fever, dyspnea, syncope, headache, dizziness, GI bleed, back pain, seizure, CVA, palpatations, mental health, musculoskeletal)? @ -Differential Musculoskeletal Muscular strain, contusion, ligament sprain, fracture, arthritis, septic arthritis, bursitis, cellulitis, muscle spasm, nerve compression, DVT, arterial occlusion, herpes zoster, electrolyte abnormality, tumor.... This is not meant to be in all inclusive list EKG interpreted by me (3pts min.). @ -As above X-rays interpreted by me (1pt min.). @ -X-ray right knee and tib-fib shows soft tissue swelling without signs of fracture CT interpreted by me (1pt min.). @ -None done U/S interpreted by me (1pt. min.). @ -None done What testing was considered but not performed or refused? (CT, X-rays, U/S, labs)? Why? @ -None What meds were considered but not given or refused? Why? @ -None Did you discuss the management of the patient with other professionals (professionals i.e. , PA, ELECTRONIC SECURITY SPECIALIST, lab, RT, psych nurse, oncology social worker, real estate administrator, teacher, bank operations officer, rehabilitation caseworker)? Give summary @ -No Was smoking cessation discussed for >3mins.? @ -No Was critical care preformed (if so, how long)? @ -No Were there social determinants of health that impacted care today? How? (Homelessness, low income, unemployed, alcoholism, drug addiction, transportation, low edu. Level, literacy, decrease access to med. care, group home, rehab)? @ -No Was there de-escalation of care discussed even if they declined (Discuss DNR or withdrawal of care, Hospice)? DNR status @ -No What co-morbidities impacted this encounter? (DM, HTN, Smoking, COPD, CAD, Cancer, CVA, ARF, Chemo, Hep., AIDS, mental health diagnosis, sleep apnea, morbid obesity)? @ -None Was patient admitted / discharged? Hospital course, mention meds given and route, prescriptions, significant lab abnormalities, going to OR and other pertinent info. @ -Patient presents with fall with knee pain and swelling. X-rays unremarkable. Patient will be discharged and recommend follow-up Undiagnosed new problem with uncertain prognosis? @ -No Drug Therapy requiring intensive monitoring for toxicity (Heparin, Nitro, Insulin, Cardizem)? @ -No Were any procedures done? @ -No Diagnosis/symptom? @ -Knee pain, fall Acute, or Chronic, or Acute on Chronic? @ -Acute, acute Uncomplicated (without systemic symptoms) or Complicated (systemic symptoms)? @ -Default Side effects of treatment? @ -No Exacerbation, Progression, or Severe Exacerbation? @ -No Poses a threat to life or bodily function? How? (Chest pain, [place], NM, pneumonia, PE, COPD, DKA, ARF, appy, cholecystitis, CVA, Diverticulitis, Homicidal, Suicidal, threat to staff... and all critical care pts) @ -No Disposition Clinical Impression: Fall, Knee pain Disposition: HOME SELF-CARE Condition: Stable Instructions (If sedation given, give patient instructions): Fall Prevention (ED), Knee Pain (ED), Abrasion (ED) Additional Instructions: Twice daily wash all wounds with soap and water and apply antibiotic ointment and keep bandaged. When skin falls off from the bullae, please remove it. Use knee immobilizer. Ice to affected area. Please follow-up with primary care physician or orthopedics in the next couple of days for recheck. Return for increased pain, leg problems, unable to walk, worsening symptoms or other concerns. Is patient prescribed a controlled substance at d/c from ED?: No Referrals: Juan Cast DO [Primary Care Provider] - 1-2 days Time of Disposition: 14:28
--- NOTE | 2024-06-17 13:59 | XR ---
EXAMINATION TYPE: XR knee complete 3 views RT, XR tibia fibula 2 views RT DATE OF EXAM: 06/17/2024 COMPARISON: 11/30/2018 HISTORY: 78-year-old female pain after fall FINDINGS: Knee: Generalized soft tissue swelling is present, severe in the prepatellar region. No underlying knee ervin nt effusion is identified. Atherosclerotic calcifications in the popliteal artery and posterior tibia l and peroneal arteries. Marked osteopenia. Mild degenerative joint space narrowing medial compartmen t of the knee. No displaced fracture. Tibia/fibula: Atherosclerotic calcifications. No acute fracture, subluxation, dislocation is seen. Osteopenia. IMPRESSION: 1. Knee: Generalized soft tissue swelling, severe along the anterior aspect of the knee. No sizable u nderlying joint effusion. Marked osteopenia. No displaced fracture seen. 2. Tibia/fibula: Generalized soft tissue swelling. Arterial calcifications. Osteopenia limiting asses sment. No displaced fracture seen. [facility], , 06/17/2024 1:57 PM
[2024-06-17] MEDS: DIPH,PERTUS(ACELL)TETVAC-LF 0.5 ML VIAL IM ONE (14:35)
[2024-06-17] MEDS: ACET/COD 300 MG/30 MG STARTER PACK 6 TAB BTL PO STA (14:36)
[2024-06-17 14:51] VITALS: BP 172/78; PULSE 53; RESP 18
== END 2024-06-17 14:52 | disposition home or self-care (01) ==
LOC: EC 11:35
CPT/HCPCS: 90471; 90715; 96372; 99284

== ENCOUNTER → 2024-07-02 | Outpatient (CLI) | payer MEDICARE ==
--- NOTE | 2024-07-02 13:49 | US ---
EXAMINATION TYPE: US venous doppler duplex LE RT DATE OF EXAM: 07/02/2024 12:20 PM COMPARISON: NONE CLINICAL INDICATION: Female, 78 years old with history of I80.9PHLEBITIS AND THROMBOPHLEBITIS OF UNSP ECIFIED; Pt had a fall on 06/30/24 and knee is now swelled and bruised. TECHNIQUE: The lower extremity deep venous system is examined utilizing real time linear array sonog lopez with graded compression, color doppler sonography, and spectral doppler. SIDE PERFORMED: Right FINDINGS: VESSELS IMAGED: Common Femoral Vein Deep Femoral Vein Greater Saphenous Vein * Femoral Vein Popliteal Vein Small Saphenous Vein * Proximal Calf Veins (* superficial vessels) Right Leg: Delivery Mgr notes: No evidence for DVT, rouleaux flow noted in popliteal vein, but appear s compressible. Large complex fluid collection (6.9 x 3.1 cm) seen on lower medial thigh in area of b ruise/swelling. IMPRESSION: 1. No evidence for DVT within the right lower extremity imaged from the groin to the upper calf. 2. At the site of patient's bruising inner aspect of the lower thigh, there appears to be a sizable f luid collection/hematoma measuring 6.9 x 3.1 cm. If no intervention, follow-up ultrasound to ensure g radual involution. [facility], , 07/02/2024 1:47 PM
== END | disposition home or self-care (01) ==
LOC: RADUSWWP 11:45
PROVIDERS: ATTEND Orthopaedic Surgery
DX: I80.9 Phlebitis and thrombophlebitis of unspecified site (principal)